=== PATIENT | male | born 1975 | race Caucasian/White ===

== ENCOUNTER 2018-06-27 19:09 | Inpatient (IN) ==
[2018-06-27] MEDS ORDERED: 0.9 % SODIUM CHLORIDE 2,000 ML IV ONE (19:27)
[2018-06-27] MEDS ORDERED: ONDANSETRON 4 MG/2 ML VIAL IV ONE (19:27)
[2018-06-27] MEDS ORDERED: INSULIN REGULAR, HUMAN 1 UNIT/0.01 ML UNIT IV ONE (20:11)
[2018-06-27] MEDS ORDERED: OSELTAMIVIR PHOSPHATE 75 MG CAPSULE PO ONE (20:19)
[2018-06-27 20:48] LABS: Basophils # (Auto) 0 K/mcL (0.0-0.3); Basophils % (Auto) 0.1 % (0.0-2.0); Eosinophils # (Auto) 0 K/mcL (0.0-0.7); Eosinophils % (Auto) 0 % (0.0-7.0); Granulocytes % (Auto) 92.4 % (38.0-78.0); Lymphocytes # (Auto) 1.1 K/mcL (1.5-4.8); Mean Cell Volume 89.4 fL (80.0-100.0); Mean Corpuscular HGB Conc 33.5 g/dL (31.0-36.0); Monocytes % (Auto) 3.5 % (1.0-12.0); Platelet Count 240 K/mcL (140-440); RBC 4.14 M/mcL (4.50-5.90); Red Cell Distribution Width 12.2 % (11.5-14.5)
[2018-06-27 21:13] LABS: ALT/SGPT 11 U/l (0-40); Albumin 3.4 gm/dL (3.2-5.2); Albumin/Globulin Ratio 0.9 (1.0-2.3); Alkaline Phosphatase 83 U/L (39-117); Blood Urea Nitrogen 14 mg/dl (6-20)
[2018-06-27] MEDS ORDERED: VANCOMYCIN 1,000 MG in 0.9 % SODIUM CHLORIDE 250 ML IV ONE (21:35)
[2018-06-27] MEDS ORDERED: CEFEPIME 1 GM VIAL IV ONE (21:36)
--- NOTE | 2018-06-27 21:45 | Emergency Department Note ---
General Adult HPI - General Chief complaint: Dizziness Stated complaint: cold flu, influenza, not improving, dizziness Time Seen by Provider: 06/27/18 19:17 Source: patient Mode of arrival: ambulatory Limitations: no limitations - History of Present Illness HPI Narrative: 42-year-old male comes back in for respiratory distress. I previously had seen him on 06/24/2018 when he had been diagnosed with influenza A and B as well as hyperosmolar nonketotic hyperglycemia-he is an insulin-dependent type 2 diabetic that had ran out of his insulin. Anyways I sent him home with prescriptions for insulin and Tamiflu which he says he is currently taking. Indeed his blood sugars are much better controlled today in the 300s. He complains today of significant weakness vertigo and fever. He is having trouble breathing feels like his chest is heavy. He does have some chest pain with inspiration as well. Denies nausea vomiting diarrhea - Related Data Home Medications Medication Instructions Recorded Confirmed metFORMIN HCL [Glucophage Xr] 1,000 mg PO BID 02/05/15 06/28/18 Atorvastatin [Lipitor] 40 mg PO HS 01/04/18 06/28/18 Fenofibrate Nanocrystallized 145 mg PO DAILY 01/04/18 06/28/18 [Fenofibrate] Insulin Aspart [Novolog Flexpen] See Protocol SQ ACHS 01/04/18 06/28/18 sitaGLIPtin [Januvia] 50 mg PO DAILY 01/04/18 06/28/18 HYDROcodone/ACETAMINOPHEN [[place] 1 each PO Q4 PRN 06/28/18 06/28/18 7.5-325 Tablet] Insulin Glargine,Hum.rec.anlog See Protocol SQ DAILY 06/28/18 06/28/18 [Basaglar Kwikpen U-100] Previous Rx's Medication Instructions Recorded Zolpidem [Ambien] 10 mg PO HSP PRN #20 tab 06/08/18 Oseltamivir Phosphate [Tamiflu] 75 mg PO BID #10 cap 06/24/18 Allergies Allergy/AdvReac Type Severity Reaction Status Date / Time No Known Drug Allergies Allergy Verified 06/27/18 19:12 Review of Systems All systems ED: reviewed and negative except as stated. Past Medical History - Past Medical History Attestation: Yes: The following information was validated with the patient. Medical history: Reports: DM (2; insulin using.), other (DENIES: chronic narcotics 06-08-18; pneumonia; pyelonephritis.). Denies: asthma, cancer, COPD, CVA, hypertension, hypothyroidism, myocardial infarction, renal disease Psychiatric history: Denies: anxiety, depression Surgical history ED: Reports: orthopedic, other, other (history of back surgery 5) - Social History smoking status: Current every day smoker Alcohol use: Reports: Rarely Drug use: Reports: none. Denies: marijuana Physical Exam Thin male resting. Globally weak and fatigued. Normocephalic atraumatic. Conjunctive are clear sclerae nonicteric. No nasal discharge or congestion. Oropharynx pink and moist. Neck is supple without lymphadenopathy thyromegaly. No carotid bruit. Heart is mild to tachycardic. Lungs are basically clear to auscultation but increased work of breathing is noted. Soft mildly tender to sleep. No point tenderness peritoneal signs or guarding. No pedal edema. +2 radial pulse. Alert oriented able to answer questions appropriately Limitations: no limitations Course Vital Signs Temperature 99.5 F H 06/27/18 19:10 Pulse Rate 133 H 06/27/18 19:10 Respiratory Rate 22 06/27/18 19:10 Blood Pressure 111/68 06/27/18 19:10 Pulse Oximetry (%) 93 06/27/18 19:10 Temperature 99.2 F H 06/28/18 07:00 Pulse Rate 103 H 06/28/18 10:28 Respiratory Rate 22 06/28/18 10:28 Blood Pressure 107/72 06/28/18 10:00 Pulse Oximetry (%) 94 06/28/18 10:28 Medical Decision Making - Lab Data Lab results reviewed: Yes I reviewed the patient's lab results. Result diagrams: 06/28/18 04:10 06/28/18 04:10 Lab Results 06/27/18 06/27/18 06/27/18 Range/Units 20:00 20:00 20:00 WBC 27.0 H (4.5-11.0) K/mcL RBC 4.14 L (4.50-5.90) M/mcL Hgb 12.4 L (13.5-16.5) g/dL Hct 37.1 L (41.0-55.0) % POC Hct 37.0 L (41.0-55.0) % MCV 89.4 (80.0-100.0) fL MCH 30.0 (26.0-34.0) pg MCHC 33.5 (31.0-36.0) g/dL RDW 12.2 (11.5-14.5) % Plt Count 240 (140-440) K/mcL MPV 10.0 (7.4-10.4) fL Gran % 92.4 H (38.0-78.0) % Lymph % (Auto) 4.0 L (15.5-49.0) % Steele % (Auto) 3.5 (1.0-12.0) % Eos % (Auto) 0 (0.0-7.0) % Baso % (Auto) 0.1 (0.0-2.0) % Gran # 25.0 H (1.8-8.0) K/mcL Lymph # (Auto) 1.1 L (1.5-4.8) K/mcL Steele # (Auto) 1.0 H (0.1-0.9) K/mcL Eos # (Auto) 0 (0.0-0.7) K/mcL Baso # (Auto) 0 (0.0-0.3) K/mcL Differential Comment VBG Lactic Acid 2.6 H (0.5-2.0) mmol/L POC Sodium 128 L (133-145) mmol/L Sodium 128 L (133-145) mmol/L POC Potassium 3.9 (3.3-5.1) mmol/L Potassium 3.8 (3.3-5.1) mmol/L POC Chloride 89 L (96-108) mmol/L Chloride 85 L (96-108) mmol/L Carbon Dioxide 24 (22-30) mmol/L POC Total CO2 22 (22-30) mmol/L Anion Gap 19.0 H (8-16) POC BUN 14 (6-20) mg/dl BUN 14 (6-20) mg/dl Creatinine 0.9 (0.7-1.2) mg/dl POC Creatinine 0.7 (0.7-1.2) mg/dl GFR Calculation 104 Glucose 340 H (70-105) mg/dL POC Glucose 327 H (70-105) mg/dL Calcium 8.8 (8.6-10.4) mg/dl POC WB Ioniz Calcium 1.03 L (1.16-1.32) mmol/L Total Bilirubin 0.7 (0.0-1.0) mg/dL AST 12 (0-37) U/l ALT 11 (0-40) U/l Alkaline Phosphatase 83 (39-117) U/L Troponin T (0-0.03) ng/ml Total Protein 7.1 (5.9-8.4) gm/dL Albumin 3.4 (3.2-5.2) gm/dL Globulin 3.7 (2.2-3.7) gm/dL Albumin/Globulin Ratio 0.9 L (1.0-2.3) Beta-Hydroxybutyrate (< 0.27) mmol/L Procalcitonin (<0.10) ng/mL Urine Color Urine Appearance Urine pH (5.0-9.0) Ur Specific [place] (1.000-1.035) Urine Protein (NEG) mg/dL Urine Glucose (UA) (NEG) mg/dL Urine Ketones (NEG) mg/dL Urine Occult Blood (<0.03) mg/dL Urine Nitrate (NEG) Urine Bilirubin (NEG) mg/dL Urine Urobilinogen (NEG) mg/dL Ur Leukocyte Esterase (NEG) /uL Urine RBC (0-1) /hpf Urine WBC (0-4) /hpf Ur Squamous Epith Cells (0-4) /hpf Urine Bacteria (0) /hpf Hyaline Casts (0-2) /lpf Urine Mucus (0) /hpf Ur Culture Indicated? 06/27/18 06/27/18 06/27/18 Range/Units 20:00 20:00 21:00 WBC (4.5-11.0) K/mcL RBC (4.50-5.90) M/mcL Hgb (13.5-16.5) g/dL Hct (41.0-55.0) % POC Hct (41.0-55.0) % MCV (80.0-100.0) fL MCH (26.0-34.0) pg MCHC (31.0-36.0) g/dL RDW (11.5-14.5) % Plt Count (140-440) K/mcL MPV (7.4-10.4) fL Gran % (38.0-78.0) % Lymph % (Auto) (15.5-49.0) % Steele % (Auto) (1.0-12.0) % Eos % (Auto) (0.0-7.0) % Baso % (Auto) (0.0-2.0) % Gran # (1.8-8.0) K/mcL Lymph # (Auto) (1.5-4.8) K/mcL Steele # (Auto) (0.1-0.9) K/mcL Eos # (Auto) (0.0-0.7) K/mcL Baso # (Auto) (0.0-0.3) K/mcL Differential Comment VBG Lactic Acid (0.5-2.0) mmol/L POC Sodium (133-145) mmol/L Sodium (133-145) mmol/L POC Potassium (3.3-5.1) mmol/L Potassium (3.3-5.1) mmol/L POC Chloride (96-108) mmol/L Chloride (96-108) mmol/L Carbon Dioxide (22-30) mmol/L POC Total CO2 (22-30) mmol/L Anion Gap (8-16) POC BUN (6-20) mg/dl BUN (6-20) mg/dl Creatinine (0.7-1.2) mg/dl POC Creatinine (0.7-1.2) mg/dl GFR Calculation Glucose (70-105) mg/dL POC Glucose (70-105) mg/dL Calcium (8.6-10.4) mg/dl POC WB Ioniz Calcium (1.16-1.32) mmol/L Total Bilirubin (0.0-1.0) mg/dL AST (0-37) U/l ALT (0-40) U/l Alkaline Phosphatase (39-117) U/L Troponin T < 0.01 (0-0.03) ng/ml Total Protein (5.9-8.4) gm/dL Albumin (3.2-5.2) gm/dL Globulin (2.2-3.7) gm/dL Albumin/Globulin Ratio (1.0-2.3) Beta-Hydroxybutyrate 1.70 H (< 0.27) mmol/L Procalcitonin 24.44 (<0.10) ng/mL Urine Color Urine Appearance Urine pH (5.0-9.0) Ur Specific [place] (1.000-1.035) Urine Protein (NEG) mg/dL Urine Glucose (UA) (NEG) mg/dL Urine Ketones (NEG) mg/dL Urine Occult Blood (<0.03) mg/dL Urine Nitrate (NEG) Urine Bilirubin (NEG) mg/dL Urine Urobilinogen (NEG) mg/dL Ur Leukocyte Esterase (NEG) /uL Urine RBC (0-1) /hpf Urine WBC (0-4) /hpf Ur Squamous Epith Cells (0-4) /hpf Urine Bacteria (0) /hpf Hyaline Casts (0-2) /lpf Urine Mucus (0) /hpf Ur Culture Indicated? 06/27/18 Range/Units 21:28 WBC (4.5-11.0) K/mcL RBC (4.50-5.90) M/mcL Hgb (13.5-16.5) g/dL Hct (41.0-55.0) % POC Hct (41.0-55.0) % MCV (80.0-100.0) fL MCH (26.0-34.0) pg MCHC (31.0-36.0) g/dL RDW (11.5-14.5) % Plt Count (140-440) K/mcL MPV (7.4-10.4) fL Gran % (38.0-78.0) % Lymph % (Auto) (15.5-49.0) % Steele % (Auto) (1.0-12.0) % Eos % (Auto) (0.0-7.0) % Baso % (Auto) (0.0-2.0) % Gran # (1.8-8.0) K/mcL Lymph # (Auto) (1.5-4.8) K/mcL Steele # (Auto) (0.1-0.9) K/mcL Eos # (Auto) (0.0-0.7) K/mcL Baso # (Auto) (0.0-0.3) K/mcL Differential Comment VBG Lactic Acid (0.5-2.0) mmol/L POC Sodium (133-145) mmol/L Sodium (133-145) mmol/L POC Potassium (3.3-5.1) mmol/L Potassium (3.3-5.1) mmol/L POC Chloride (96-108) mmol/L Chloride (96-108) mmol/L Carbon Dioxide (22-30) mmol/L POC Total CO2 (22-30) mmol/L Anion Gap (8-16) POC BUN (6-20) mg/dl BUN (6-20) mg/dl Creatinine (0.7-1.2) mg/dl POC Creatinine (0.7-1.2) mg/dl GFR Calculation Glucose (70-105) mg/dL POC Glucose (70-105) mg/dL Calcium (8.6-10.4) mg/dl POC WB Ioniz Calcium (1.16-1.32) mmol/L Total Bilirubin (0.0-1.0) mg/dL AST (0-37) U/l ALT (0-40) U/l Alkaline Phosphatase (39-117) U/L Troponin T (0-0.03) ng/ml Total Protein (5.9-8.4) gm/dL Albumin (3.2-5.2) gm/dL Globulin (2.2-3.7) gm/dL Albumin/Globulin Ratio (1.0-2.3) Beta-Hydroxybutyrate (< 0.27) mmol/L Procalcitonin (<0.10) ng/mL Urine Color Yellow Urine Appearance Clear Urine pH 5.0 (5.0-9.0) Ur Specific [place] 1.028 (1.000-1.035) Urine Protein 100 A (NEG) mg/dL Urine Glucose (UA) >=500 A (NEG) mg/dL Urine Ketones 80 A (NEG) mg/dL Urine Occult Blood 0.03 A (<0.03) mg/dL Urine Nitrate Neg (NEG) Urine Bilirubin Neg (NEG) mg/dL Urine Urobilinogen 2.0 A (NEG) mg/dL Ur Leukocyte Esterase Neg (NEG) /uL Urine RBC < 1 (0-1) /hpf Urine WBC 1 (0-4) /hpf Ur Squamous Epith Cells < 1 (0-4) /hpf Urine Bacteria 0 (0) /hpf Hyaline Casts 2 (0-2) /lpf Urine Mucus Few (0) /hpf Ur Culture Indicated? No ABG shows pH 7.51 PCO2 32 PO2 of 55 - Radiology Data Radiology results reviewed: Yes I reviewed the patient's radiology results. Bilateral bibasilar infiltrates noted on chest x-ray - EKG Data EKG #1 EKG attestation: Yes I reviewed and interpreted this EKG. EKG results narrative: EKG shows sinus tachycardia with a rate of 120 otherwise no change compared with 06/24/1999 Disposition Pt seen by BUSINESS OPERATIONS MANAGER/PA only: No Clinical Impression: Influenza A, Influenza B, Hyperosmolar non-ketotic state in patient with type 2 diabetes mellitus Sepsis Qualifiers: Sepsis type: sepsis due to unspecified organism Qualified Code(s): A41.9 - Sepsis, unspecified organism Summary: Significant orthostatic hypotension on testing. IV fluids started; culture sent Chest x-ray showed bilateral influenza pneumonia-given Tamiflu here. Chest x- ray compared to when he was here 4 days ago is significantly worse despite outpatient Tamiflu He is back in hyperosmolar hyperglycemia state with elevated anion gap now; lactic acidosis. sepsis as well. Given 5 units insulin He is significantly weaker today with trouble breathing. He has failed outpatient treatment I discussed the case with Dr. Gasca, hospitalist, who accepted the patient for further care and evaluation in the hospital Disposition: Xfer As Inpt ([facility]) Condition: Fair
[2018-06-27] MEDS ORDERED: LEVOFLOXACIN 750 MG/150 ML BAG IV ONE ×3 (21:52→23:01)
--- NOTE | 2018-06-27 21:59 | Internal Med History&Physical ---
Medical - H&P: HPI Patient information: Note initiated : 06/27/18 at 9:59 pm Service Date, if different from initiated Date: [] Patient: Al Escobar a 42 y/o M admitted on for cold flu, influenza, not improving, dizziness. Chief Complaint: [] History of present illness: Mr. Escobar is a 42 year old M with history of diabetes on insulin, presents to the emergency room for evaluation of lightheadedness and dizziness going on for 1 day. The patient notes that he was in the emergency room a few days ago, at that time he is been having symptoms of cough and shortness of breath and fatigue. He was diagnosed with influenza type A as well as type B, he was started on Tamiflu. The patient notes he has been taking Tamiflu. Since yesterday however he noted that his condition has been worsening, he has been dizzy and lightheaded. He therefore came to the emergency room for further evaluation. He notes that although he did not have subjective sensation of fever he was febrile on presentation, he admits to chills and Reiger's, no sweats positive nausea. The patient also has dry cough and shortness of breath on exertion. He denies any exertional chest pain, vomiting, bowel or bladder complaints. No new skin rashes or or joint pains. He does have chronic back pain. In the emergency room on presentation he had a low-grade temperature 99.5, heart rate 133 blood pressure 111/68, respirations 30-35, saturating 93% on room air. His white blood cell count is elevated at 27,000 hemoglobin 12.4 platelets 240, sodium 128 potassium 3.9 chloride 85 bicarb 24 anion gap 19 lactic acid 2.6, creatinine 0.9 glucose 327 troponin negative. Chest x-ray shows bilateral basilar pneumonia a chest x-ray done 3-4 days ago was negative Patient is being admitted to the hospital for further management, blood cultures have been ordered, vancomycin and levofloxacin have been ordered All systems: reviewed and no additional remarkable complaints except as stated (As per HPI is negative) Medical - H&P: PMH Medical history: Diabetes Chronic back pain Surgical history: Back surgery Pertinent family history: Father had history of diabetes Mother had history of cervical cancer Father history of stroke Social history: Patient is an active smoker, 1 pack/day for nearly 30 years Denies any alcohol use denies recreational drug use denies marijuana use Medical - H&P: Meds Home Medications Medication Instructions Recorded Confirmed Type metFORMIN HCL [Glucophage Xr] 1,000 mg PO BID 02/05/15 05/10/18 History Atorvastatin [Lipitor] 40 mg PO HS 01/04/18 05/10/18 History Fenofibrate Nanocrystallized 145 mg PO DAILY 01/04/18 05/10/18 History [Fenofibrate] Insulin Aspart [Novolog Flexpen] 18 unit SQ ACHS 01/04/18 05/10/18 History Insulin Glargine,Hum.rec.anlog 18 unit SQ ACHS 01/04/18 05/10/18 History [Basaglar Kwikpen U-100] sitaGLIPtin [Januvia] 50 mg PO DAILY 01/04/18 05/10/18 History Cyclobenzaprine [Flexeril] 10 mg PO ONCE 05/10/18 05/10/18 History HYDROcodone/ACETAMINOPHEN [[place] 1 each PO Q6H PRN #20 tab 05/10/18 Rx 7.5-325 Tablet] Zolpidem Tartrate [Ambien] 10 mg PO QHS #30 tab 05/10/18 Rx Zolpidem [Ambien] 10 mg PO HSP PRN #20 tab 06/08/18 Rx traMADol [Ultram] 50 - 100 mg PO Q4-6HP PRN #25 tab 06/08/18 Rx HYDROcodone/APAP 5/325MG [[place] 1 tab PO Q4HP PRN #8 tab 06/24/18 Rx 5-325Mg] Insulin Aspart [Novolog Flexpen] 100 unit SQ DAILY #1 insuln.pen 06/24/18 Rx Insulin Glargine,Hum.rec.anlog 100 unit SQ DAILY #1 insuln.pen 06/24/18 Rx [Basaglar Kwikpen U-100] Oseltamivir Phosphate [Tamiflu] 75 mg PO BID #10 cap 06/24/18 Rx Allergies Allergy/AdvReac Type Severity Reaction Status Date / Time No Known Drug Allergies Allergy Verified 06/27/18 19:12 Medical - H&P: Exam - Constitutional Vitals: Temp Pulse Resp BP Pulse Ox 99.5 F H 123 H 21 118/66 94 06/27/18 19:10 06/27/18 21:46 06/27/18 21:46 06/27/18 21:46 06/27/18 21:46 Exam: GENERAL: The patient is a well-developed, well-nourished in no apparent distress. Is alert and oriented x3. VITAL SIGNS: Reviewed and as noted elsewhere. HEENT: Head is normocephalic and atraumatic. Extraocular muscles are intact. Pupils are equal, round, and reactive to light. Nares appeared normal. Mouth appears any without lesions. NECK: Normal to inspection, Supple, No lymphadenopathy or thyromegaly. LUNGS: Pt is tachypenic, Air entry equal on both sides, no wheezing,no crackles,but bibasilar rales positive. No accessory muscles of respiration HEART: Regular rate and rhythm normal, S1 and S2 heard, no Gallop, S3 or Rub No krystal, No Gross murmur heard. ABDOMEN: Soft, nontender, and nondistended. Positive bowel sounds. No hepatosplenomegaly was noted. EXTREMITIES: No cyanosis, clubbing, rash, lesions or edema. NEUROLOGIC: Cranial nerves II through XII are grossly intact. Motor and Sensory System Grossly Intact PSYCHIATRIC: Normal affect, Normal Mood. Appropriate Behavior. SKIN: No ulceration or wounds noted, No jaundice, No rash noted. Medical - H&P: Reslt - Labs CBC & Chem 7: 06/27/18 20:00 06/27/18 20:00 Labs: Short CBC 06/27/18 Range/Units 20:00 WBC 27.0 H (4.5-11.0) K/mcL Hgb 12.4 L (13.5-16.5) g/dL Hct 37.1 L (41.0-55.0) % Plt Count 240 (140-440) K/mcL [facility] 06/27/18 20:00 Sodium 128 L Potassium 3.8 Chloride 85 L Carbon Dioxide 24 BUN 14 Creatinine 0.9 Glucose 340 H Calcium 8.8 Cardiac Enzymes 06/27/18 Range/Units 20:00 Troponin T < 0.01 (0-0.03) ng/ml Liver Function 06/27/18 Range/Units 20:00 Total Bilirubin 0.7 (0.0-1.0) mg/dL AST 12 (0-37) U/l ALT 11 (0-40) U/l Alkaline Phosphatase 83 (39-117) U/L Albumin 3.4 (3.2-5.2) gm/dL Medical - H&P: A/P - Narrative A/P Narrative: A/P Bilateral Pneumonia - Pt with influenzae, treat with vancomycin and levofloxacin, cultures sent de- escalate treatment according to sensitivity Influenzae type A and B -On Tamiflu Sepsis with lactic acidosis -Elevated lactate, elevated WBC patient tachypneic and tachycardic on presentation. Aggressive fluid resuscitation and antibiotics monitor on PCU status for now, trend lactic acid Diabetes Mellitus -Hold oral diabetes medications, sliding scale insulin and basal insulin for now Chronic Back pain -Resume home medications DVT -Heparin subcutaneous Full code Carb consistent diet
[2018-06-27 22:12] LABS: Appearance,Urine CLEAR; Bacteria,Urine 0 /hpf (0); Bilirubin,Urine NEG (NEG); Color,Urine YELLOW; Glucose,Urine (UA) >=500 mg/dL (NEG); Leukocyte Esterase,Urine NEG /uL (NEG); Mucus,Urine FEW /hpf (0); Protein,Urine 100 mg/dL (NEG); Specific Gravity,Urine 1.028 (1.000-1.035); Urine Blood 0.03 mg/dL (<0.03); Urine Hyaline Cast 2 /lpf (0-2); Urine RBC < 1 /hpf (0-1); Urine Squamous Epithelial Cell < 1 /hpf (0-4); Urine WBC 1 /hpf (0-4)
[2018-06-27] MEDS ORDERED: VANCOMYCIN PER PHARMACY IV ONE (22:56)
[2018-06-27] MEDS ORDERED: ACETAMINOPHEN 325 MG TABLET PO PRN (22:56)
[2018-06-27] MEDS ORDERED: SENNOSIDES 1 TABLET PO PRN (22:56)
[2018-06-27] MEDS ORDERED: LACTATED RINGERS 1,000 ML IV ONE ×2 (22:56)
[2018-06-27] MEDS ORDERED: ONDANSETRON 4 MG/2 ML VIAL IV PRN (22:56)
[2018-06-27] MEDS ORDERED: LEVOFLOXACIN 750 MG/150 ML BAG IV SCH (22:56)
[2018-06-27] MEDS ORDERED: DEXTROSE 50% 50 ML VIAL IV PRN (22:56)
[2018-06-27] MEDS ORDERED: DEXTROSE 31 GM ORAL.SUSP PO PRN (22:56)
[2018-06-27] MEDS ORDERED: NALOXONE HCL 0.4 MG/ML VIAL IV PRN (22:56)
[2018-06-27] MEDS ORDERED: ACETAMINOPHEN 1,000 MG/100 ML BOTTLE IV ONE (23:03)
[2018-06-27] MEDS: 0.9 % SODIUM CHLORIDE 10 ML SYRINGE IV SCH (23:46)
[2018-06-28] MEDS ORDERED: OLANZapine 10 MG VIAL IM SCH
[2018-06-28] MEDS ORDERED: HYDROcodone/APAP 5/325MG TABLET PO ONE ×2 (00:23→04:11)
[2018-06-28] MEDS: HYDROcodone/APAP 5/325MG TABLET PO PRN ×6 (00:24→21:37)
[2018-06-28] MEDS: LACTATED RINGERS 1,000 ML IV SCH ×4 (00:27→19:17)
--- NOTE | 2018-06-28 05:53 | XRay Report ---
CLINICAL INFORMATION: influenza, dizzyness, weakness, chest pain COMPARISON: 06/24/2018 FINDINGS: Heart size, mediastinum and pulmonary vessels are normal. Moderate bibasilar alveolar infiltrates appreciated. No effusions IMPRESSION: Moderate bibasilar infiltrates Interpreted and Authenticated by: Wing Valdovinos 06/28/18
[2018-06-28 06:05] LABS: Basophils # (Auto) 0 K/mcL (0.0-0.3); Basophils % (Auto) 0.1 % (0.0-2.0); Eosinophils # (Auto) 0 K/mcL (0.0-0.7); Eosinophils % (Auto) 0.1 % (0.0-7.0); Granulocytes % (Auto) 89.3 % (38.0-78.0); Lymphocytes # (Auto) 1.2 K/mcL (1.5-4.8); Lymphocytes % (Auto) 5.7 % (15.5-49.0); Mean Cell Volume 90.2 fL (80.0-100.0); Mean Corpuscular HGB Conc 33.7 g/dL (31.0-36.0); Monocytes % (Auto) 4.8 % (1.0-12.0); Platelet Count 202 K/mcL (140-440); RBC 3.46 M/mcL (4.50-5.90); Red Cell Distribution Width 12.5 % (11.5-14.5)
[2018-06-28 06:28] LABS: ALT/SGPT 9 U/l (0-40); Albumin 2.6 gm/dL (3.2-5.2); Albumin/Globulin Ratio 0.8 (1.0-2.3); Alkaline Phosphatase 73 U/L (39-117); Bilirubin,Direct < 0.2 mg/dL (0.0-0.3); Blood Urea Nitrogen 15 mg/dl (6-20); Gamma Glutamyl Transpeptidase 22 U/L (8-61); Uric Acid 3.8 mg/dL (2.5-8.0)
[2018-06-28] MEDS: 0.9 % SODIUM CHLORIDE 10 ML SYRINGE IV SCH ×3 (06:41→21:31)
[2018-06-28] MEDS ORDERED: INSULIN LISPRO 1 UNIT/0.01 ML UNIT SQ SCH (07:30)
[2018-06-28] MEDS ORDERED: VANCOMYCIN PER PHARMACY IV SCH ×2 (08:00→09:50)
[2018-06-28] MEDS ORDERED: MAGNESIUM SULFATE 2 GM/50 ML BAG IV ONE (08:46)
[2018-06-28] MEDS ORDERED: OSELTAMIVIR PHOSPHATE 75 MG CAPSULE PO SCH (09:00)
[2018-06-28] MEDS ORDERED: VANCOMYCIN 1,000 MG in 0.9 % SODIUM CHLORIDE 250 ML IV SCH (09:00)
[2018-06-28] MEDS ORDERED: INSULIN GLARGINE, HUMAN 1 UNIT/0.01 ML SQ SCH (09:00)
[2018-06-28] MEDS ORDERED: IPRATROPIUM/ALBUTEROL 3 ML AMPUL.NEB NEB SCH (09:19)
[2018-06-28] MEDS ORDERED: DEXTROSE 31 GM ORAL.SUSP PO PRN (09:50)
[2018-06-28] MEDS ORDERED: SENNOSIDES 1 TABLET PO PRN (09:50)
[2018-06-28] MEDS ORDERED: ACETAMINOPHEN 325 MG TABLET PO PRN (09:50)
[2018-06-28] MEDS ORDERED: DEXTROSE 50% 50 ML VIAL IV PRN (09:50)
[2018-06-28] MEDS ORDERED: NALOXONE HCL 0.4 MG/ML VIAL IV PRN (09:50)
[2018-06-28] MEDS ORDERED: ONDANSETRON 4 MG/2 ML VIAL IV PRN (09:50)
--- NOTE | 2018-06-28 11:52 | Internal Med Progress Note ---
Medical - PN: Subj Patient information: Note initiated : 06/28/18 at 11:48 am Service Date, if different from initiated Date: [] Patient: Al Escobar a 42 y/o M admitted on 06/27/18 for cold flu, influenza, not improving, dizziness. Chief Complaint: [] Interval history: Mr. Escobar is a 42 year old M with history of diabetes on insulin, presents to the emergency room for evaluation of lightheadedness and dizziness going on for 1 day. The patient notes that he was in the emergency room a few days ago, at that time he is been having symptoms of cough and shortness of breath and fatigue. He was diagnosed with influenza type A as well as type B, he was started on Tamiflu. The patient notes he has been taking Tamiflu. Since yesterday however he noted that his condition has been worsening, he has been dizzy and lightheaded. He therefore came to the emergency room for further evaluation. He notes that although he did not have subjective sensation of fever he was febrile on presentation, he admits to chills and Reiger's, no sweats positive nausea. The patient also has dry cough and shortness of breath on exertion. He denies any exertional chest pain, vomiting, bowel or bladder complaints. No new skin rashes or or joint pains. He does have chronic back pain. In the emergency room on presentation he had a low-grade temperature 99.5, heart rate 133 blood pressure 111/68, respirations 30-35, saturating 93% on room air. His white blood cell count is elevated at 27,000 hemoglobin 12.4 platelets 240, sodium 128 potassium 3.9 chloride 85 bicarb 24 anion gap 19 lactic acid 2.6, creatinine 0.9 glucose 327 troponin negative. Chest x-ray shows bilateral basilar pneumonia a chest x-ray done 3-4 days ago was negative Patient is being admitted to the hospital for further management, blood cultures have been ordered, vancomycin and levofloxacin have been ordered 2/3 Patient seen and examined, no acute overnight events, blood pressure stable, labs improved, patient lactic acidosis has resolved. He still has some chest pain on the right side of his chest otherwise no new complaints or concerns. Pertinent ROS: Denies headache, dizziness present chest pain Denies cough or shortness of breath Denies abdominal pain, nausea or vomiting. - Constitutional Vitals: Vital Signs Temp Pulse Resp BP Pulse Ox 99.2 F H 103 H 22 107/72 94 06/28/18 07:00 06/28/18 10:28 06/28/18 10:28 06/28/18 10:00 06/28/18 10:28 Period Temp Pulse Resp BP Sys/Kaplan Pulse Ox Last 24 Hr 98.8 F-103.8 F 95-133 19-37 95-139/62-91 89-98 Intake and Output 06/27/18 06/28/18 06/28/18 21:59 05:59 13:59 Intake Total 1999 2500 1273 Output Total 1500 Balance 1999 2500 -227 Weight 185 lb 162 lb 4.8 oz Intake & Output: Intake & Output 06/27/18 06/28/18 06/28/18 21:59 05:59 13:59 Intake Total 1999 2500 1273 Output Total 1500 Balance 1999 2500 -227 Weight 185 lb 162 lb 4.8 oz Intake: IV 1999 2500 1033 Sodium Chloride 0.9% 2,000 ml @ 2000 Wide Open IV .Q0M ONE Rx#: [id number] OFIRMEV 1,000 mg In 100 ml @ 0 100 mls/hr IV .STK-MED ONE Rx#: [id number] Lactated Ringers 1,000 ml @ 125 2000 983 mls/hr IV .Q8H [facility] Rx#: [id number] Vancomycin 1,000 mg In Sodium 250 Chloride 0.9% 250 ml @ 250 mls/ hr IV ONCE ONE Rx#:[id number] Oral 240 Output: Void Amount 1500 Other: Meal Breakfast Percent of Meal Consumed 50% Urine Appearance Clear Urine Color Straw Stool Size Large Stool Color Brown Stool Consistency Formed Cylindrical # Bowel Movements 1 Exam: Constitutional; Afebrile, cooperative, alert, not in distress. Respiratory system: Air Entry equal on both sides, bibasilar rhonchi CVS- Rate rhythm regular, S1,S2 heard, no gallop, no rub. Abdomen- Soft nontender abdomen, no organomegaly, no tenderness, no guarding or rigidity, VIDEO CLERK- AOOx3, moving all extremities, no gross focal deficit noted. Medical - PN: Obj Da - Labs CBC & Chem 7: 06/28/18 04:10 06/28/18 04:10 Labs: Abnormal Lab Results 06/28/18 06/28/1819 04:10 04:10 21:28 WBC 21.6 H RBC 3.46 L Hgb 10.5 L Hct 31.2 L POC Hct Gran % 89.3 H Lymph % (Auto) 5.7 L Gran # 19.3 H Lymph # (Auto) 1.2 L [place] # (Auto) 1.0 H VBG Lactic Acid POC Sodium Sodium 130 L POC Chloride Chloride 94 L Anion Gap Glucose 322 H POC Glucose Calcium 8.1 L POC WB Ioniz Calcium Phosphorus 2.4 L Magnesium 1.5 L Total Protein 5.8 L Albumin 2.6 L Albumin/Globulin Ratio 0.8 L Triglycerides 265 H Beta-Hydroxybutyrate Urine Protein 100 A Urine Glucose (UA) >=500 A Urine Ketones 80 A Urine Occult Blood 0.03 A Urine Urobilinogen 2.0 A 06/27/18 06/27/18 06/27/18 20:00 20:00 20:00 WBC RBC Hgb Hct POC Hct 37.0 L Gran % Lymph % (Auto) Gran # Lymph # (Auto) [place] # (Auto) VBG Lactic Acid 2.6 H POC Sodium 128 L Sodium 128 L POC Chloride 89 L Chloride 85 L Anion Gap 19.0 H Glucose 340 H POC Glucose 327 H Calcium POC WB Ioniz Calcium 1.03 L Phosphorus Magnesium Total Protein Albumin Albumin/Globulin Ratio 0.9 L Triglycerides Beta-Hydroxybutyrate 1.70 H Urine Protein Urine Glucose (UA) Urine Ketones Urine Occult Blood Urine Urobilinogen 06/27/18 20:00 WBC 27.0 H RBC 4.14 L Hgb 12.4 L Hct 37.1 L POC Hct Gran % 92.4 H Lymph % (Auto) 4.0 L Gran # 25.0 H Lymph # (Auto) 1.1 L [place] # (Auto) 1.0 H VBG Lactic Acid POC Sodium Sodium POC Chloride Chloride Anion Gap Glucose POC Glucose Calcium POC WB Ioniz Calcium Phosphorus Magnesium Total Protein Albumin Albumin/Globulin Ratio Triglycerides Beta-Hydroxybutyrate Urine Protein Urine Glucose (UA) Urine Ketones Urine Occult Blood Urine Urobilinogen Meds: Medications Acetaminophen (Tylenol) 650 mg PO Q4-6HP PRN PRN Reason: PAIN/FEVER > 101 Hydrocodone Bitart/Acetaminophen ([place] 5/325mg) 1 tab PO Q4HP PRN PRN Reason: pain not repsonding to apap Albuterol/Ipratropium (Duoneb) 3 ml NEB Q4HRT [facility] Atorvastatin Calcium (Lipitor) 40 mg PO HS [facility] Dextrose (Dextrose 50%) 0 ml IV UD PRN PRN Reason: Hypoglycemia Diagnostic Test (Pha) (Accu-Chek) 1 each FS ACHS [facility] Fenofibrate (Antara) 129 mg PO DAILY [facility] Glucose (Insta-Glucose) 15 gm PO PRN PRN PRN Reason: Hypoglycemia Lactated Ringer's (Lactated Ringers) 1,000 mls @ 125 mls/hr IV .Q8H [facility] Last Admin: 06/28/18 10:37 Dose: Not Given Documented by: Levofloxacin (Levaquin) 750 mg in 150 mls @ 100 mls/hr IV Q24H [facility] Vancomycin HCl 1,000 mg/ (Sodium Chloride) 250 mls @ 250 mls/hr IV Q12H [facility] Insulin Glargine (Lantus) 20 unit SQ BID [facility] Insulin Human Lispro (Humalog) 0 unit SQ ACHS [facility]; Protocol Naloxone HCl (Narcan) 0.1 mg IV Q2MIN PRN PRN Reason: Opiate Reversal Ondansetron HCl (Zofran) 4 mg IV Q4-6HP PRN PRN Reason: Nausea And Vomiting Oseltamivir Phosphate (Tamiflu) 75 mg PO BID [facility] Senna (Senokot) 2 tab PO HSP PRN PRN Reason: Constipation Sodium Chloride (Saline Flush) 10 ml IV Q8 [facility] Vancomycin HCl (Vancomycin Per Pharmacy) 1 order IV UD [facility] Zolpidem Tartrate (Ambien) 10 mg PO HSP PRN PRN Reason: Insomnia Medical - PN: A/P - Time Spent With Patient Total time spent is greater than 50% in coordination of care (as documented) at patient's floor/unit and/or counseling patient: - Narrative A/P Narrative: A/P Bilateral Pneumonia - Pt with influenzae, treat with vancomycin and levofloxacin, cultures sent de- escalate treatment according to sensitivity Influenzae type A and B -On Tamiflu Sepsis with lactic acidosis -sepsis syndrome improving, lactic acidosis resolved, Diabetes Mellitus -Hold oral diabetes medications, sliding scale insulin and basal insulin for now Chronic Back pain -Resume home medications Hypomagnesemia -replace DVT -Heparin subcutaneous Full code Carb consistent diet xfer to med surg status Medical - PN: Qual - VTE Deep Vein Thrombosis/Pulmonary Embolism Present on Admission: No
[2018-06-28] MEDS: INSULIN LISPRO 1 UNIT/0.01 ML UNIT SQ SCH ×3 (11:53→21:30)
[2018-06-28] MEDS: IPRATROPIUM/ALBUTEROL 3 ML AMPUL.NEB NEB SCH ×4 (11:58→23:16)
[2018-06-28] MEDS ORDERED: LEVOFLOXACIN 750 MG/150 ML BAG IV SCH (15:00)
[2018-06-28] MEDS: LEVOFLOXACIN 750 MG/150 ML BAG IV SCH (15:20)
[2018-06-28] MEDS: INSULIN GLARGINE, HUMAN 1 UNIT/0.01 ML SQ SCH (21:30)
[2018-06-28] MEDS: OSELTAMIVIR PHOSPHATE 75 MG CAPSULE PO SCH (21:31)
[2018-06-28] MEDS: ZOLPIDEM 5 MG TABLET PO PRN (21:31)
[2018-06-28] MEDS: ATORVASTATIN 20 MG TABLET PO SCH (21:31)
[2018-06-28] MEDS: VANCOMYCIN 1,000 MG in 0.9 % SODIUM CHLORIDE 250 ML IV SCH (21:37)
[2018-06-29] MEDS: LACTATED RINGERS 1,000 ML IV SCH ×6 (02:01→23:34)
[2018-06-29] MEDS: HYDROcodone/APAP 5/325MG TABLET PO PRN ×5 (03:04→19:36)
[2018-06-29] MEDS: IPRATROPIUM/ALBUTEROL 3 ML AMPUL.NEB NEB SCH ×6 (03:04→23:11)
[2018-06-29] MEDS: 0.9 % SODIUM CHLORIDE 10 ML SYRINGE IV SCH ×3 (04:03→20:43)
[2018-06-29 05:44] LABS: Basophils # (Auto) 0 K/mcL (0.0-0.3); Basophils % (Auto) 0.2 % (0.0-2.0); Eosinophils # (Auto) 0.1 K/mcL (0.0-0.7); Eosinophils % (Auto) 0.5 % (0.0-7.0); Granulocytes % (Auto) 80.1 % (38.0-78.0); Lymphocytes # (Auto) 1.3 K/mcL (1.5-4.8); Lymphocytes % (Auto) 12.5 % (15.5-49.0); Mean Cell Volume 90.9 fL (80.0-100.0); Mean Corpuscular HGB Conc 33.4 g/dL (31.0-36.0); Monocytes # (Auto) 0.7 K/mcL (0.1-0.9); Monocytes % (Auto) 6.7 % (1.0-12.0); Platelet Count 206 K/mcL (140-440); RBC 3.15 M/mcL (4.50-5.90); Red Cell Distribution Width 12.7 % (11.5-14.5)
[2018-06-29 06:26] LABS: ALT/SGPT 13 U/l (0-40); Albumin 2.7 gm/dL (3.2-5.2); Albumin/Globulin Ratio 0.8 (1.0-2.3); Alkaline Phosphatase 95 U/L (39-117); Bilirubin,Direct < 0.2 mg/dL (0.0-0.3); Blood Urea Nitrogen 11 mg/dl (6-20); Gamma Glutamyl Transpeptidase 29 U/L (8-61); Uric Acid 3.3 mg/dL (2.5-8.0)
[2018-06-29] MEDS: INSULIN LISPRO 1 UNIT/0.01 ML UNIT SQ SCH ×4 (06:59→19:41)
[2018-06-29] MEDS: OSELTAMIVIR PHOSPHATE 75 MG CAPSULE PO SCH ×2 (07:00→19:39)
[2018-06-29] MEDS: INSULIN GLARGINE, HUMAN 1 UNIT/0.01 ML SQ SCH (07:00)
[2018-06-29] MEDS: FENOFIBRATE 43 MG CAPSULE PO SCH (07:01)
[2018-06-29] MEDS ORDERED: POTASSIUM PHOSPHATE 40 MEQ in DEXTROSE 5% IN WATER 500 ML IV ONE (07:47)
[2018-06-29] MEDS: LEVOFLOXACIN 750 MG/150 ML BAG IV SCH (09:33)
[2018-06-29] MEDS ORDERED: VANCOMYCIN 1,500 MG in 0.9 % SODIUM CHLORIDE 500 ML IV SCH (10:00)
[2018-06-29] MEDS: VANCOMYCIN 1,000 MG in 0.9 % SODIUM CHLORIDE 250 ML IV SCH (10:19)
--- NOTE | 2018-06-29 11:21 | Cat Scan Report ---
CLINICAL INFORMATION: Pneumonia COMPARISON: Chest x-ray on 06/27/18 TECHNIQUE: 2.5 mm axial slices were obtained from the lung apices through the bases without intravenous contrast. Sagittal, coronal and axial reformatted images were processed and reviewed at bone, lung and soft tissue windows. 7 mm axial MIP images were also reconstructed. The radiation exposure was limited using dose reduction technology. FINDINGS: Patient has moderate bilateral pneumonia. There is minor involvement adjacent to the pleura posteriorly and medially in the right upper lobe. In the right middle lobe there is a moderate size zone consolidated lung parenchyma inferiorly and centrally with several air bronchograms. There is moderate consolidation posteriorly in the right lower lobe involving the posterior basilar segment. This also contains multiple air bronchograms. A large area of consolidated lung parenchyma is present posteriorly in the left lower lobe which also contains multiple air bronchograms. In the superior segment of the left lower lobe there is another zone of consolidated lung parenchyma with a few air bronchograms. There is sparing of the left upper lobe and lingula. Trace amount pleural fluid is present posteriorly in the right lower thorax. No enlarged lymph nodes are seen in this nonenhanced study. The heart size is normal. There are few calcified plaques in the coronary arteries. The aorta is normal in caliber. IMPRESSION: Moderate bilateral pneumonia with the greatest involvement in the lower lobes and right middle lobe. The extent of the pneumonia is much greater than was suspected on the prior chest x-ray. Interpreted and Authenticated by: Alex Navarrete 06/29/18
[2018-06-29] MEDS: HEPARIN 5,000 UNIT/ML VIAL SQ SCH ×2 (11:27→19:39)
[2018-06-29] MEDS: cefTRIAXone 2 GM in DEXTROSE 5% IN WATER 50 ML IV SCH (11:56)
--- NOTE | 2018-06-29 12:37 | Internal Med Progress Note ---
Medical - PN: Subj Patient information: Note initiated : 06/29/18 at 12:35 pm Service Date, if different from initiated Date: [] Patient: Al Escobar a 42 y/o M admitted on 06/27/18 for cold flu, influenza, not improving, dizziness. Chief Complaint: [] Interval history: Mr. Escobar is a 42 year old M with history of diabetes on insulin, presents to the emergency room for evaluation of lightheadedness and dizziness going on for 1 day. The patient notes that he was in the emergency room a few days ago, at that time he is been having symptoms of cough and shortness of breath and fatigue. He was diagnosed with influenza type A as well as type B, he was started on Tamiflu. The patient notes he has been taking Tamiflu. Since yesterday however he noted that his condition has been worsening, he has been dizzy and lightheaded. He therefore came to the emergency room for further evaluation. He notes that although he did not have subjective sensation of fever he was febrile on presentation, he admits to chills and Reiger's, no sweats positive nausea. The patient also has dry cough and shortness of breath on exertion. He denies any exertional chest pain, vomiting, bowel or bladder complaints. No new skin rashes or or joint pains. He does have chronic back pain. In the emergency room on presentation he had a low-grade temperature 99.5, heart rate 133 blood pressure 111/68, respirations 30-35, saturating 93% on room air. His white blood cell count is elevated at 27,000 hemoglobin 12.4 platelets 240, sodium 128 potassium 3.9 chloride 85 bicarb 24 anion gap 19 lactic acid 2.6, creatinine 0.9 glucose 327 troponin negative. Chest x-ray shows bilateral basilar pneumonia a chest x-ray done 3-4 days ago was negative Patient is being admitted to the hospital for further management, blood cultures have been ordered, vancomycin and levofloxacin have been ordered 2/3 Patient seen and examined, no acute overnight events, blood pressure stable, labs improved, patient lactic acidosis has resolved. He still has some chest pain on the right side of his chest otherwise no new complaints or concerns. 2/4 Patient seen and examined, no acute overnight events, feels much better. Labs are stable. Blood cultures positive gram-positive cocci also anaerobic bottles positive, Patient continues to be on vancomycin, I consulted infectious disease who advised to switch from levofloxacin to Rocephin. Advise a chest CT which was done. Repeat blood cultures pending echo ordered Pertinent ROS: Denies headache, dizziness Denies chest pain, palpitations Denies cough or shortness of breath Denies abdominal pain, nausea or vomiting. - Constitutional Vitals: Vital Signs Temp Pulse Resp BP Pulse Ox 98.9 F 95 H 16 118/66 97 06/29/18 11:30 06/29/18 11:44 06/29/18 11:44 06/29/18 11:30 06/29/18 11:30 Period Temp Pulse Resp BP Sys/Kaplan Pulse Ox Last 24 Hr 97.6 F-99.4 F 91-99 16-20 100-126/58-74 91-97 Intake and Output 06/28/18 06/29/18 06/29/18 21:59 05:59 13:59 Intake Total 1630 1240 240 Output Total 1000 500 Balance 1630 240 -260 Weight 168 lb 3 oz Intake & Output: Intake & Output 06/28/18 06/29/18 06/29/18 21:59 05:59 13:59 Intake Total 1630 1240 240 Output Total 1000 500 Balance 1630 240 -260 Weight 168 lb 3 oz Intake: IV 1150 1000 Lactated Ringers 1,000 ml @ 125 1000 mls/hr IV .Q8H [facility] [place] Rx#: [id number] Oral 480 240 240 Output: Void Amount 1000 500 Other: Meal Dinner Nourishment/Supplement Percent of Meal Consumed 100% 100% Feeding Ability Independent Independent Urine Appearance Clear Urine Color Dark Yellow Urine Odor Normal Stool Size Moderate Stool Color Brown Stool Consistency Normal for Patient Formed # Voids 1 1 # Bowel Movements 1 Exam: Constitutional; Afebrile, cooperative, alert, not in distress. Eyes- No icterus, , No periorbital swelling Ears- Ext ear normal, hearing normal to conversation. Neck- Midline trachea, supple Respiratory system: Air Entry equal on both sides, No crackles or wheezing, no rhonchi. CVS- Rate rhythm regular, S1,S2 heard, no gallop, no rub. Abdomen- Soft nontender abdomen, no organomegaly, no tenderness, no guarding or rigidity, NAVAL ENGINEER- AOOx3, moving all extremities, no gross focal deficit noted. Medical - PN: Obj Da - Labs CBC & Chem 7: 06/29/18 04:21 06/29/18 04:21 Labs: Abnormal Lab Results 06/29/18 06/29/18 06/28/18 04:21 04:21 04:10 WBC RBC 3.15 L Hgb 9.5 L Hct 28.6 L POC Hct Gran % 80.1 H Lymph % (Auto) 12.5 L Gran # 8.2 H Lymph # (Auto) 1.3 L [place] # (Auto) VBG Lactic Acid POC Sodium Sodium 130 L Potassium 3.2 L POC Chloride Chloride 94 L Anion Gap Creatinine 0.6 L Glucose 302 H 322 H POC Glucose Calcium 8.1 L 8.1 L POC WB Ioniz Calcium Phosphorus 1.6 L 2.4 L Magnesium 1.5 L Total Protein 5.8 L Albumin 2.7 L 2.6 L Albumin/Globulin Ratio 0.8 L 0.8 L Triglycerides 221 H 265 H Beta-Hydroxybutyrate Urine Protein Urine Glucose (UA) Urine Ketones Urine Occult Blood Urine Urobilinogen 06/28/18 06/27/18 06/27/18 04:10 21:28 20:00 WBC 21.6 H RBC 3.46 L Hgb 10.5 L Hct 31.2 L POC Hct Gran % 89.3 H Lymph % (Auto) 5.7 L Gran # 19.3 H Lymph # (Auto) 1.2 L [place] # (Auto) 1.0 H VBG Lactic Acid POC Sodium Sodium Potassium POC Chloride Chloride Anion Gap Creatinine Glucose POC Glucose Calcium POC WB Ioniz Calcium Phosphorus Magnesium Total Protein Albumin Albumin/Globulin Ratio Triglycerides Beta-Hydroxybutyrate 1.70 H Urine Protein 100 A Urine Glucose (UA) >=500 A Urine Ketones 80 A Urine Occult Blood 0.03 A Urine Urobilinogen 2.0 A 06/27/18 06/27/18 06/27/18 20:00 20:00 20:00 WBC 27.0 H RBC 4.14 L Hgb 12.4 L Hct 37.1 L POC Hct 37.0 L Gran % 92.4 H Lymph % (Auto) 4.0 L Gran # 25.0 H Lymph # (Auto) 1.1 L [place] # (Auto) 1.0 H VBG Lactic Acid 2.6 H POC Sodium 128 L Sodium 128 L Potassium POC Chloride 89 L Chloride 85 L Anion Gap 19.0 H Creatinine Glucose 340 H POC Glucose 327 H Calcium POC WB Ioniz Calcium 1.03 L Phosphorus Magnesium Total Protein Albumin Albumin/Globulin Ratio 0.9 L Triglycerides Beta-Hydroxybutyrate Urine Protein Urine Glucose (UA) Urine Ketones Urine Occult Blood Urine Urobilinogen Meds: Medications Acetaminophen (Tylenol) 650 mg PO Q4-6HP PRN PRN Reason: PAIN/FEVER > 101 Hydrocodone Bitart/Acetaminophen ([place] 5/325mg) 1 tab PO Q4HP PRN PRN Reason: pain not repsonding to apap Last Admin: 06/29/18 11:28 Dose: 1 tab Documented by: Albuterol/Ipratropium (Duoneb) 3 ml NEB Q4HRT [facility] Last Admin: 06/29/18 11:36 Dose: 3 ml Documented by: Atorvastatin Calcium (Lipitor) 40 mg PO HS [facility] Last Admin: 06/28/18 21:31 Dose: 40 mg Documented by: Dextrose (Dextrose 50%) 0 ml IV UD PRN PRN Reason: Hypoglycemia Diagnostic Test (Pha) (Accu-Chek) 1 each FS ACHS [facility] Last Admin: 06/29/18 11:21 Dose: 1 each Documented by: Fenofibrate (Antara) 129 mg PO DAILY [facility] Last Admin: 06/29/18 07:01 Dose: 129 mg Documented by: Glucose (Insta-Glucose) 15 gm PO PRN PRN PRN Reason: Hypoglycemia Heparin Sodium (Porcine) (Heparin) 5,000 unit SQ Q12 [facility] Last Admin: 06/29/18 11:27 Dose: 5,000 unit Documented by: Lactated Ringer's (Lactated Ringers) 1,000 mls @ 125 mls/hr IV .Q8H [facility] Last Admin: 06/29/18 10:19 Dose: Not Given Documented by: Vancomycin HCl 1,500 mg/ (Sodium Chloride) 500 mls @ 333.3 mls/hr IV Q12H [facility] Last Admin: 06/29/18 10:18 Dose: 333.3 mls/hr Documented by: Ceftriaxone Sodium 2 gm/ (Dextrose) 50 mls @ 100 mls/hr IV Q24H [facility] [place] Last Admin: 06/29/18 11:56 Dose: 100 mls/hr Documented by: Insulin Glargine (Lantus) 20 unit SQ BID [facility] Last Admin: 06/29/18 07:00 Dose: 20 unit Documented by: Insulin Human Lispro (Humalog) 0 unit SQ [facility]; Protocol Last Admin: 06/29/18 11:27 Dose: 6 unit Documented by: Naloxone HCl (Narcan) 0.1 mg IV Q2MIN PRN PRN Reason: Opiate Reversal Ondansetron HCl (Zofran) 4 mg IV Q4-6HP PRN PRN Reason: Nausea And Vomiting Oseltamivir Phosphate (Tamiflu) 75 mg PO BID [facility] Last Admin: 06/29/18 07:00 Dose: 75 mg Documented by: Senna (Senokot) 2 tab PO HSP PRN PRN Reason: Constipation Sodium Chloride (Saline Flush) 10 ml IV Q8 [facility] Last Admin: 06/29/18 04:03 Dose: Not Given Documented by: Vancomycin HCl (Vancomycin Per Pharmacy) 1 order IV [facility] Zolpidem Tartrate (Ambien) 10 mg PO HSP PRN PRN Reason: Insomnia Last Admin: 06/28/18 21:31 Dose: 10 mg Documented by: Medical - PN: A/P - Time Spent With Patient Total time spent is greater than 50% in coordination of care (as documented) at patient's floor/unit and/or counseling patient: - Narrative A/P Narrative: A/P Bilateral Pneumonia - Pt with influenzae, treat with vancomycin and rochepin Gram positive Bactermia -strep pneumonae -anerobic positive -Infectious disease consulted -echo ordered, CT chest ordered -pt on vanco and rocephin per ID Influenzae type A and B -On Tamiflu Sepsis with lactic acidosis -sepsis syndrome improving, lactic acidosis resolved, Diabetes Mellitus -Hold oral diabetes medications, sliding scale insulin and basal insulin for now, increaase lantus to 25bid, med scale ssi Chronic Back pain -Resume home medications Hypokalemia and Hypophosphatemia -replace DVT -Heparin subcutaneous Full code Carb consistent diet xfer to med surg status Medical - PN: Qual - VTE Deep Vein Thrombosis/Pulmonary Embolism Present on Admission: No
--- NOTE | 2018-06-29 16:01 | Infectious Disease Consult ---
History of Present Illness Patient information: Note initiated : 06/29/18 at 3:57 pm Service Date, if different from initiated Date: [] Patient: Al Escobar 42 y/o M admitted on 06/27/18 for cold flu, influenza, not improving, dizziness. Chief Complaint: [] Consult date: 06/29/18 Requesting Physician: Bradford Gasca Reason for Consult: Strept pneumo bacteremia. Pneumonia in setting of recent influenza infection History of present illness: Pt is a 42 year old man with past medical history pertinent for: -diabetes on insulin -chronic back pain with history of multiple back surgeries Patient has been sick for last 2 weeks. He was seen on 06/24/18 in the ED at [facility] and was found to have influenza A and B along with hyperosmolar nonketotic hyperglycemia [as he had ran out of his insulin]. Patient was prescribed Tamiflu and sent home. Patient did not feel better after going home and started noticing fevers, chills, dizziness, shortness of breath, chest heaviness. He was readmitted on 06/27/18 due to concerns for pneumonia. In the ED, his temperature was 99.5 F, HR 133, blood pressure 111/68, RR 22, saturating 93% on room air. His white blood cell count was 27,000; lactic acid 2.6, creatinine 0.9. Chest x-ray showed bilateral basilar pneumonia compared to chest x-ray done 3-4 days ago. Blood cultures were sent and patient was started on IV vancomycin and levofloxacin. Since 06/27/18, patient has improved significantly in terms of clinical symptoms, labs with normalization of lactic acidosis and white cell count trending down to 10.2. Patient's blood cultures grew Streptococcus pneumoniae [based on PCR-based testing]. At time of my visit today, patient reported feeling better. He still had some body aches but denied any shortness of breath, chest pain, fever, chills. He d enied any nausea, vomiting, diarrhea had been tolerating IV antibiotics well. When asked about if he was vaccinated for flu, he mentioned that he did not get a flu shot in the last 20 years as he thought he was healthy. Review of Systems All systems PM: reviewed and no additional remarkable complaints except as stated Past History Past family history: Father had diabetes and stroke Mother had cervical cancer Past social history: When I asked him patient denies any smoking, alcohol use, using any drugs. Chart review suggests that he has been smoking about 1 pack/day for last 30 years Medications and Allergies Home Medications Medication Instructions Recorded Confirmed Type metFORMIN HCL [Glucophage Xr] 1,000 mg PO BID 02/05/15 06/28/18 History Atorvastatin [Lipitor] 40 mg PO HS 01/04/18 06/28/18 History Fenofibrate Nanocrystallized 145 mg PO DAILY 01/04/18 06/28/18 History [Fenofibrate] Insulin Aspart [Novolog Flexpen] See Protocol SQ ACHS 01/04/18 06/28/18 History sitaGLIPtin [Januvia] 50 mg PO DAILY 01/04/18 06/28/18 History Zolpidem [Ambien] 10 mg PO HSP PRN #20 tab 06/08/18 06/28/18 Rx Oseltamivir Phosphate [Tamiflu] 75 mg PO BID #10 cap 06/24/18 06/28/18 Rx HYDROcodone/ACETAMINOPHEN [[place] 1 each PO Q4 PRN 06/28/18 06/28/18 History 7.5-325 Tablet] Insulin Glargine,Hum.rec.anlog See Protocol SQ DAILY 06/28/18 06/28/18 History [Basaglar Kwikpen U-100] Allergies Allergy/AdvReac Type Severity Reaction Status Date / Time No Known Drug Allergies Allergy Verified 06/27/18 19:12 Physical Examination Vital signs: Temp Pulse Resp BP Pulse Ox 36.3 C 95 H 16 112/60 96 06/29/18 15:36 06/29/18 15:36 06/29/18 15:36 06/29/18 15:36 06/29/18 15:36 General appearance: no acute distress Eyes pulmonary: nonicteric Auscultation: bilateral: diminished breath sounds (At bases, rest with good air entry) Cardiovascular: regular rate and rhythm Gastrointestinal: normoactive bowel sounds, soft Extremities: no edema Has some healed scars on both forearms Results - Laboratory Findings CBC and BMP: 06/29/18 04:21 06/29/18 04:21 Abnormal lab findings: Abnormal Labs 06/27/18 06/27/18 06/27/18 20:00 20:00 20:00 WBC 27.0 H RBC 4.14 L Hgb 12.4 L Hct 37.1 L POC Hct 37.0 L Gran % 92.4 H Lymph % (Auto) 4.0 L Gran # 25.0 H Lymph # (Auto) 1.1 L Ashley # (Auto) 1.0 H VBG Lactic Acid 2.6 H POC Sodium 128 L Sodium 128 L Potassium POC Chloride 89 L Chloride 85 L Anion Gap 19.0 H Creatinine Glucose 340 H POC Glucose 327 H Calcium POC WB Ioniz Calcium 1.03 L Phosphorus Magnesium Total Protein Albumin Albumin/Globulin Ratio 0.9 L Triglycerides Beta-Hydroxybutyrate Urine Protein Urine Glucose (UA) Urine Ketones Urine Occult Blood Urine Urobilinogen 06/27/18 06/27/18 06/28/18 20:00 21:28 04:10 WBC 21.6 H RBC 3.46 L Hgb 10.5 L Hct 31.2 L POC Hct Gran % 89.3 H Lymph % (Auto) 5.7 L Gran # 19.3 H Lymph # (Auto) 1.2 L Ashley # (Auto) 1.0 H VBG Lactic Acid POC Sodium Sodium Potassium POC Chloride Chloride Anion Gap Creatinine Glucose POC Glucose Calcium POC WB Ioniz Calcium Phosphorus Magnesium Total Protein Albumin Albumin/Globulin Ratio Triglycerides Beta-Hydroxybutyrate 1.70 H Urine Protein 100 A Urine Glucose (UA) >=500 A Urine Ketones 80 A Urine Occult Blood 0.03 A Urine Urobilinogen 2.0 A 06/28/18 06/29/18 06/29/18 04:10 04:21 04:21 WBC RBC 3.15 L Hgb 9.5 L Hct 28.6 L POC Hct Gran % 80.1 H Lymph % (Auto) 12.5 L Gran # 8.2 H Lymph # (Auto) 1.3 L Ashley # (Auto) VBG Lactic Acid POC Sodium Sodium 130 L Potassium 3.2 L POC Chloride Chloride 94 L Anion Gap Creatinine 0.6 L Glucose 322 H 302 H POC Glucose Calcium 8.1 L 8.1 L POC WB Ioniz Calcium Phosphorus 2.4 L 1.6 L Magnesium 1.5 L Total Protein 5.8 L Albumin 2.6 L 2.7 L Albumin/Globulin Ratio 0.8 L 0.8 L Triglycerides 265 H 221 H Beta-Hydroxybutyrate Urine Protein Urine Glucose (UA) Urine Ketones Urine Occult Blood Urine Urobilinogen Microbiology: Microbiology 06/28/18 14:58 Blood Blood Culture - Preliminary 06/28/18 14:53 Blood Blood Culture - Preliminary 06/27/18 21:56 Blood Blood Culture - Preliminary Presumptive strep.pneumoniae 06/27/18 22:00 Blood Blood Culture - Preliminary Gram positive cocci 06/27/18 23:39 Nose MRSA (PCR) - Final Assessment and Plan - Narrative A/P Narrative: Assessment: 1. Streptococcus pneumoniae bacteremia: Secondary to pneumococcal pneumonia -TTE on 06/28/18 negative for any obvious vegetations or signs of infective endocarditis 2. Bilateral pneumonia [based on CT] secondary to Streptococcus pneumoniae, in light of recent influenza a and B infection 3. Sepsis: Secondary to (1) and (2); resolved 4. Type 2 diabetes: Still with blood sugars in 300s Recommendations: Stop IV vancomycin Continue IV ceftriaxone 2 g every 24 hours Once sensitivities available [likely to be available on 07/01/18], patient could be switched to a single agent. I am anticipating that Streptococcus pneumoniae isolate would be sensitive to fluoroquinolones and patient could be discharged on oral fluoroquinolone therapy to complete a 2-week treatment course Continue Tamiflu to finish a 5-day course Diabetes management per primary team We will follow Chato Ornelas MD Infectious disease
[2018-06-29] MEDS: ATORVASTATIN 20 MG TABLET PO SCH (19:38)
[2018-06-29] MEDS: ZOLPIDEM 5 MG TABLET PO PRN (19:49)
[2018-06-29] MEDS ORDERED: INSULIN GLARGINE, HUMAN 1 UNIT/0.01 ML SQ SCH (21:00)
[2018-06-30] MEDS: HYDROcodone/APAP 5/325MG TABLET PO PRN ×5 (01:25→19:39)
[2018-06-30] MEDS: IPRATROPIUM/ALBUTEROL 3 ML AMPUL.NEB NEB SCH ×3 (03:23→11:03)
[2018-06-30 06:37] LABS: Basophils # (Auto) 0 K/mcL (0.0-0.3); Basophils % (Auto) 0.3 % (0.0-2.0); Eosinophils # (Auto) 0.1 K/mcL (0.0-0.7); Granulocytes % (Auto) 66.2 % (38.0-78.0); Lymphocytes # (Auto) 1.3 K/mcL (1.5-4.8); Mean Cell Volume 90.5 fL (80.0-100.0); Mean Corpuscular HGB Conc 33.3 g/dL (31.0-36.0); Monocytes # (Auto) 0.5 K/mcL (0.1-0.9); Monocytes % (Auto) 8.5 % (1.0-12.0); Platelet Count 191 K/mcL (140-440); RBC 2.85 M/mcL (4.50-5.90); Red Cell Distribution Width 12.7 % (11.5-14.5)
[2018-06-30 07:03] LABS: ALT/SGPT 56 U/l (0-40); Albumin 2.4 gm/dL (3.2-5.2); Albumin/Globulin Ratio 0.8 (1.0-2.3); Alkaline Phosphatase 195 U/L (39-117); Bilirubin,Direct < 0.2 mg/dL (0.0-0.3); Blood Urea Nitrogen 7 mg/dl (6-20); Gamma Glutamyl Transpeptidase 124 U/L (8-61); Uric Acid 2.5 mg/dL (2.5-8.0)
[2018-06-30] MEDS: cefTRIAXone 2 GM in DEXTROSE 5% IN WATER 50 ML IV SCH (07:35)
[2018-06-30] MEDS: 0.9 % SODIUM CHLORIDE 10 ML SYRINGE IV SCH ×3 (07:38→20:50)
[2018-06-30] MEDS: INSULIN LISPRO 1 UNIT/0.01 ML UNIT SQ SCH ×4 (07:54→19:47)
[2018-06-30] MEDS ORDERED: POTASSIUM CHLORIDE 20 MEQ PACKET PO ONE (08:05)
[2018-06-30] MEDS: LACTATED RINGERS 1,000 ML IV SCH (08:12)
--- NOTE | 2018-06-30 08:24 | Infectious Disease Prog Note ---
Subjective Patient information: Note initiated : 06/30/18 at 8:22 am Service Date, if different from initiated Date: [] Patient: Al Escobar 42 y/o M admitted on 06/27/18 for cold flu, influenza, not improving, dizziness. Chief Complaint: [] Interval history: Pt is doing better. Reports getting back to his baseline. Denied any fevers, chills, n/v, diarrhea, shortness of breath, abd pain. Endorses dry cough. Objective Objective Narrative: ao x 3, in nad chest cta with vesicular breath sounds s1 s2 normal bs ++, nttd, no guarding, soft no edema - Vital Signs Vital signs: Vital Signs Temp Pulse Pulse Resp BP Pulse Ox 06/30/18 08:07 37.2 C 88 18 128/68 96 06/30/18 07:48 80 18 95 06/30/18 07:47 80 18 06/30/18 04:00 36.9 C 95 H 18 115/76 95 06/29/18 23:37 36.9 C 89 18 112/70 96 06/29/18 19:20 36.9 C 90 89 20 114/74 95 06/29/18 15:36 36.3 C 95 H 16 112/60 96 06/29/18 15:15 99 H 18 06/29/18 11:44 95 H 16 06/29/18 11:30 37.2 C 95 H 16 118/66 97 Intake and Output 06/29/18 06/30/18 06/30/18 21:59 05:59 13:59 Intake Total 1100 1350 1050 Output Total 680 1100 Balance 086 483 3783 Intake: IV 1000 1050 Lactated Ringers 1,000 ml @ 125 1000 1000 mls/hr IV .Q8H [facility] Rx#: [id number] Rocephin 2 gm In Dextrose 5% in 50 Water 50 ml @ 100 mls/hr IV Q24H [facility] Rx#:[id number] Oral 1100 350 Output: Void Amount 680 1100 Other: Meal Soup, crackers(4), ice cream Percent of Meal Consumed 100% Feeding Ability Independent Urine Appearance Clear Clear Urine Color Straw Straw Urine Odor Normal Normal Stool Size Small Stool Color Brown Stool Consistency Normal for Patient Formed # Bowel Movements 1 Weight 76.43 kg Intake & Output: Intake & Output 06/29/18 06/30/1819 21:59 05:59 13:59 Intake Total 1100 1350 1050 Output Total 680 1100 Balance 731 276 6386 Weight 76.43 kg Intake: IV 1000 1050 Lactated Ringers 1,000 ml @ 125 1000 1000 mls/hr IV .Q8H [facility] Rx#: [id number] Rocephin 2 gm In Dextrose 5% in 50 Water 50 ml @ 100 mls/hr IV Q24H [facility] Rx#:[id number] Oral 1100 350 Output: Void Amount 680 1100 Other: Meal Soup, crackers(4), ice cream Percent of Meal Consumed 100% Feeding Ability Independent Urine Appearance Clear Clear Urine Color Straw Straw Urine Odor Normal Normal Stool Size Small Stool Color Brown Stool Consistency Normal for Patient Formed # Bowel Movements 1 - General Appearance General appearance: well-developed - Lab 06/30/18 05:07 06/30/18 05:07 Most recent lab results Calcium 8.1 mg/dl (8.6-10.4) L 06/30/18 05:07 Phosphorus 2.4 mg/dL (2.7-4.5) L 06/30/18 05:07 Magnesium 1.6 mg/dL (1.6-2.5) 06/30/18 05:07 Microbiology 06/28/18 14:58 Blood Blood Culture - Preliminary 06/28/18 14:53 Blood Blood Culture - Preliminary 06/27/18 21:56 Blood Blood Culture - Preliminary Presumptive strep.pneumoniae 06/27/18 22:00 Blood Blood Culture - Preliminary Gram positive cocci 06/27/18 23:39 Nose MRSA (PCR) - Final Medications Active Medications: Acetaminophen (Tylenol) 650 mg PO Q4-6HP PRN PRN Reason: PAIN/FEVER > 101 Last Admin: 06/29/18 13:54 Dose: 650 mg Documented by: [email or web address] Hydrocodone Bitart/Acetaminophen ([place] 5/325mg) 1 tab PO Q4HP PRN PRN Reason: pain not repsonding to apap Last Admin: 06/30/18 06:35 Dose: 1 tab Documented by: [email or web address] Admin: 06/30/18 01:25 Dose: 1 tab Documented by: [email or web address] Admin: 06/29/18 19:36 Dose: 1 tab Documented by: [email or web address] Admin: 06/29/18 15:35 Dose: 1 tab Documented by: Admin: 06/29/18 11:28 Dose: 1 tab Documented by: Admin: 06/29/18 06:59 Dose: 1 tab Documented by: Admin: 06/29/18 03:04 Dose: 1 tab Documented by: Admin: 06/28/18 21:37 Dose: 1 tab Documented by: Admin: 06/28/18 16:17 Dose: 1 tab Documented by: Admin: 06/28/18 12:11 Dose: 1 tab Documented by: [email or web address] Albuterol/Ipratropium (Duoneb) 3 ml NEB Q4HRT [facility] Last Admin: 06/30/18 07:29 Dose: 3 ml Documented by: [email or web address] Admin: 06/30/18 03:23 Dose: 3 ml Documented by: Admin: 06/29/18 23:11 Dose: Not Given Documented by: WOODY Non-Admin Reason: Patient Asleep Admin: 06/29/18 19:20 Dose: 3 ml Documented by: Admin: 06/29/18 15:15 Dose: 3 ml Documented by: Admin: 06/29/18 11:36 Dose: 3 ml Documented by: [email or web address] Admin: 06/29/18 07:49 Dose: 3 ml Documented by: [email or web address] Admin: 06/29/18 03:04 Dose: 3 ml Documented by: Admin: 06/28/18 23:16 Dose: Not Given Documented by: [email or web address] Non-Admin Reason: Patient Asleep Admin: 06/28/18 19:27 Dose: 3 ml Documented by: Admin: 06/28/18 14:56 Dose: 3 ml Documented by: Admin: 06/28/18 11:58 Dose: Not Given Documented by: [email or web address] Non-Admin Reason: GIVEN AT 1000 Atorvastatin Calcium (Lipitor) 40 mg PO HS [facility] Last Admin: 06/29/18 19:38 Dose: 40 mg Documented by: [email or web address] Admin: 06/28/18 21:31 Dose: 40 mg Documented by: EUGENE Dextrose (Dextrose 50%) 0 ml IV UD PRN PRN Reason: Hypoglycemia Diagnostic Test (Pha) (Accu-Chek) 1 each FS ACHS [facility] Last Admin: 06/30/18 07:44 Dose: 1 each Documented by: Admin: 06/29/18 19:40 Dose: 1 each Documented by: Admin: 06/29/18 16:14 Dose: 1 each Documented by: Admin: 06/29/18 11:21 Dose: 1 each Documented by: Admin: 06/29/18 06:51 Dose: 1 each Documented by: Admin: 06/28/18 21:30 Dose: 1 each Documented by: Admin: 06/28/18 16:01 Dose: 1 each Documented by: Admin: 06/28/18 11:53 Dose: 1 each Documented by: [email or web address] Fenofibrate (Antara) 129 mg PO DAILY [facility] Last Admin: 06/29/18 07:01 Dose: 129 mg Documented by: THERESA Glucose (Insta-Glucose) 15 gm PO PRN PRN PRN Reason: Hypoglycemia Heparin Sodium (Porcine) (Heparin) 5,000 unit SQ Q12 [facility] Last Admin: 06/29/18 19:39 Dose: 5,000 unit Documented by: Admin: 06/29/18 11:27 Dose: 5,000 unit Documented by: THERESA Ceftriaxone Sodium 2 gm/ (Dextrose) 50 mls @ 100 mls/hr IV Q24H [facility] Last Infusion: 06/30/18 08:12 Dose: 0 mls/hr Documented by: [email or web address] Admin: 06/30/18 07:35 Dose: 100 mls/hr Documented by: Infusion: 06/29/18 13:06 Dose: 0 mls/hr Documented by: Admin: 06/29/18 11:56 Dose: 100 mls/hr Documented by: THERESA Insulin Glargine (Lantus) 30 unit SQ BID [facility] Insulin Human Lispro (Humalog) 0 unit SQ ACHS [facility]; Protocol Naloxone HCl (Narcan) 0.1 mg IV Q2MIN PRN PRN Reason: Opiate Reversal Ondansetron HCl (Zofran) 4 mg IV Q4-6HP PRN PRN Reason: Nausea And Vomiting Oseltamivir Phosphate (Tamiflu) 75 mg PO BID [facility] Last Admin: 06/29/18 19:39 Dose: 75 mg Documented by: Admin: 06/29/18 07:00 Dose: 75 mg Documented by: Admin: 06/28/18 21:31 Dose: 75 mg Documented by: EUGENE Senna (Senokot) 2 tab PO HSP PRN PRN Reason: Constipation Sodium Chloride (Saline Flush) 10 ml IV Q8 [facility] Last Admin: 06/30/18 07:38 Dose: 10 ml Documented by: [email or web address] Admin: 06/29/18 20:43 Dose: Not Given Documented by: DOMINGA Non-Admin Reason: Continuous IV Admin: 06/29/18 13:06 Dose: Not Given Documented by: THERESA Non-Admin Reason: Bag Still Infusing Admin: 06/29/18 04:03 Dose: Not Given Documented by: EUGENE Non-Admin Reason: Continuous IV Admin: 06/28/18 21:31 Dose: Not Given Documented by: EUGENE Non-Admin Reason: Continuous IV Admin: 06/28/18 12:11 Dose: Not Given Documented by: THERESA Non-Admin Reason: Continuous IV Zolpidem Tartrate (Ambien) 10 mg PO HSP PRN PRN Reason: Insomnia Last Admin: 06/29/18 19:49 Dose: 10 mg Documented by: Admin: 06/28/18 21:31 Dose: 10 mg Documented by: EUGENE Assessment and Plan - Narrative A/P Narrative: Assessment: 1. Streptococcus pneumoniae bacteremia: Secondary to pneumococcal pneumonia -TTE on 06/28/18 negative for any obvious vegetations or signs of infective endocarditis - repeat blood Cx 06/28/18 are NGTD 2. Bilateral pneumonia [based on CT] secondary to Streptococcus pneumoniae, in light of recent influenza a and B infection 3. Sepsis: Secondary to (1) and (2); resolved 4. Type 2 diabetes: Still with blood sugars in 300s 5. Elevated liver enzymes: AST, ALT, ALP, GGT are all elevated - Could be secondary to biliary tract pathology, drug-mediated [Ceftriaxone can cause elevated liver enzymes in 3% of patients] Recommendations: Continue IV ceftriaxone 2 g every 24 hours - Consider ultrasound abdomen to r/o any biliary tract pathology. If negative, can switch IV Ceftriaxone to PO Levofloxacin 750 mg q24 hrs. Once sensitivities available [likely to be available on 07/01/18], we can confirm sensitivity to Levofloxacin and pt could be continued on levofloxacin to complete a 2-week treatment course Stop date of antibiotics: 07/12/18 Diabetes management per primary team We will follow Chato Ornelas MD Infectious disease
[2018-06-30] MEDS: HEPARIN 5,000 UNIT/ML VIAL SQ SCH ×2 (09:05→19:41)
[2018-06-30] MEDS: INSULIN GLARGINE, HUMAN 1 UNIT/0.01 ML SQ SCH ×2 (09:06→19:42)
[2018-06-30] MEDS: FENOFIBRATE 43 MG CAPSULE PO SCH (09:06)
[2018-06-30] MEDS: OSELTAMIVIR PHOSPHATE 75 MG CAPSULE PO SCH ×2 (09:06→19:39)
--- NOTE | 2018-06-30 09:06 | Ultrasound Report ---
History: Elevated liver enzymes FINDINGS: The liver is mildly enlarged. The right lobe measures 20 cm in length. The parenchyma is homogeneous and there is no evidence of a mass or infiltrative process. Doppler shows normal blood flow in the hepatic and portal veins.. The patient had eaten a cheeseburger 15 minutes prior to the ultrasound. As result of this the gallbladder is partially contracted. The [place] measures 2 mm in thickness, which is normal. No para cholecystic fluid collection is present and there are no gallstones. The patient was nontender while scanning over the gallbladder. The common bile duct ranges from 3.4 to 5.3 mm in size. The pancreas is normal in size and homogeneous. No ascites is present. IMPRESSION: Hepatomegaly Interpreted and Authenticated by: Alex Navarrete 06/30/18
[2018-06-30] MEDS ORDERED: LEVOFLOXACIN 750 MG/150 ML BAG IV SCH (10:45)
[2018-06-30] MEDS: ACYCLOVIR 400 MG TABLET PO SCH ×3 (10:56→19:39)
[2018-06-30] MEDS: LEVOFLOXACIN 750 MG TABLET PO SCH (11:08)
[2018-06-30] MEDS ORDERED: IPRATROPIUM/ALBUTEROL 3 ML AMPUL.NEB NEB PRN (11:11)
[2018-06-30 12:16] LABS: Iron 43 mcg/dl (61-157); Transferrin % Saturation 21 % (20-50); Unsaturated Iron Binding 157 mcg/dL (112-346)
[2018-06-30 12:31] LABS: ALT/SGPT 57 U/l (0-40); Albumin 2.8 gm/dL (3.2-5.2); Alkaline Phosphatase 208 U/L (39-117); Bilirubin,Direct < 0.2 mg/dL (0.0-0.3)
[2018-06-30 12:36] LABS: Vitamin B12 687.9 pg/ml (232-1245)
--- NOTE | 2018-06-30 13:17 | Internal Med Progress Note ---
Medical - PN: Subj Patient information: Note initiated : 06/30/18 at 1:14 pm Service Date, if different from initiated Date: [] Patient: Al Escobar a 42 y/o M admitted on 06/27/18 for cold flu, influenza, not improving, dizziness. Chief Complaint: [] Interval history: Mr. Escobar is a 42 year old M with history of diabetes on insulin, presents to the emergency room for evaluation of lightheadedness and dizziness going on for 1 day. The patient notes that he was in the emergency room a few days ago, at that time he is been having symptoms of cough and shortness of breath and fatigue. He was diagnosed with influenza type A as well as type B, he was started on Tamiflu. The patient notes he has been taking Tamiflu. Since yesterday however he noted that his condition has been worsening, he has been d arabella and lightheaded. He therefore came to the emergency room for further evaluation. He notes that although he did not have subjective sensation of fever he was febrile on presentation, he admits to chills and Reiger's, no sweats positive nausea. The patient also has dry cough and shortness of breath on exertion. He denies any exertional chest pain, vomiting, bowel or bladder complaints. No new skin rashes or or joint pains. He does have chronic back pain. In the emergency room on presentation he had a low-grade temperature 99.5, heart rate 133 blood pressure 111/68, respirations 30-35, saturating 93% on room air. His white blood cell count is elevated at 27,000 hemoglobin 12.4 platelets 240, sodium 128 potassium 3.9 chloride 85 bicarb 24 anion gap 19 lactic acid 2.6, creatinine 0.9 glucose 327 troponin negative. Chest x-ray shows bilateral basilar pneumonia a chest x-ray done 3-4 days ago was negative Patient is being admitted to the hospital for further management, blood cultures have been ordered, vancomycin and levofloxacin have been ordered 2/3 Patient seen and examined, no acute overnight events, blood pressure stable, labs improved, patient lactic acidosis has resolved. He still has some chest pain on the right side of his chest otherwise no new complaints or concerns. 2/4 Patient seen and examined, no acute overnight events, feels much better. Labs are stable. Blood cultures positive gram-positive cocci also anaerobic bottles positive, Patient continues to be on vancomycin, I consulted infectious disease who advised to switch from levofloxacin to Rocephin. Advise a chest CT which was done. Repeat blood cultures pending echo ordered 2/5 Pt seen examined, no acute issues, tolerating po diet well lft abnl today usg liver neg for obstructive process rocephin swichted to levofloxacin, likely drug related Pertinent ROS: Denies headache, dizziness Denies chest pain, palpitations Denies cough or shortness of breath Denies abdominal pain, nausea or vomiting. - Constitutional Vitals: Vital Signs Temp Pulse Resp BP Pulse Ox 100 F H 98 H 16 136/68 95 06/30/18 11:42 06/30/18 11:42 06/30/18 11:42 06/30/18 11:42 06/30/18 11:42 Period Temp Pulse Resp BP Sys/Kaplan Pulse Ox Last 24 Hr 97.3 F-100 F 80-99 16-20 112-136/60-76 95-96 Intake and Output 06/29/18 06/30/18 06/30/18 21:59 05:59 13:59 Intake Total 1100 1350 2461 Output Total 680 1100 900 Balance 443 903 0914 Weight 168 lb 8 oz Intake & Output: Intake & Output 06/29/18 06/30/18 06/30/18 21:59 05:59 13:59 Intake Total 1100 1350 2461 Output Total 680 1100 900 Balance 440 350 6063 Weight 168 lb 8 oz Intake: IV 1000 1181 Lactated Ringers 1,000 ml @ 125 1000 1131 mls/hr IV .Q8H L[facility] Rx#: [id number] Rocephin 2 gm In Dextrose 5% in 50 Water 50 ml @ 100 mls/hr IV Q24H [facility] Rx#:[id number] Oral [phone] Output: Void Amount 680 1100 900 Other: Meal Soup, crackers(4), ice cream Breakfast Percent of Meal Consumed 100% 100% Feeding Ability Independent Urine Appearance Clear Clear Urine Color Straw Straw Urine Odor Normal Normal Stool Size Small Stool Color Brown Stool Consistency Normal for Patient Formed # Bowel Movements 1 Exam: Constitutional; Afebrile, cooperative, alert, not in distress. Eyes- No icterus, , No periorbital swelling Ears- Ext ear normal, hearing normal to conversation. Neck- Midline trachea, supple Respiratory system: Air Entry equal on both sides, No crackles or wheezing, no rhonchi. CVS- Rate rhythm regular, S1,S2 heard, no gallop, no rub. Abdomen- Soft nontender abdomen, no organomegaly, no tenderness, no guarding or rigidity, [employer]- AOOx3, moving all extremities, no gross focal deficit noted. Medical - PN: Obj Da - Labs CBC & Chem 7: 06/30/18 05:07 06/30/18 05:07 Labs: Abnormal Lab Results 06/30/18 06/30/18 06/30/18 10:54 10:54 05:07 WBC RBC Hgb Hct POC Hct Gran % Lymph % (Auto) Gran # Lymph # (Auto) Frederick # (Auto) VBG Lactic Acid POC Sodium Sodium Potassium POC Chloride Chloride Anion Gap Creatinine 0.5 L Glucose 218 H POC Glucose Calcium 8.1 L POC WB Ioniz Calcium Phosphorus 2.4 L Magnesium Iron 43 L TIBC 200 L Ferritin 612.0 H GGT 124 H AST 68 H 77 H ALT 57 H 56 H Alkaline Phosphatase 208 H 195 H Total Protein 5.5 L Albumin 2.8 L 2.4 L Albumin/Globulin Ratio 0.8 L Triglycerides 164 H Beta-Hydroxybutyrate Urine Protein Urine Glucose (UA) Urine Ketones Urine Occult Blood Urine Urobilinogen 06/30/18 06/29/18 06/29/18 05:07 04:21 04:21 WBC RBC 2.85 L 3.15 L Hgb 8.6 L 9.5 L Hct 25.8 L 28.6 L POC Hct Gran % 80.1 H Lymph % (Auto) 12.5 L Gran # 8.2 H Lymph # (Auto) 1.3 L 1.3 L Frederick # (Auto) VBG Lactic Acid POC Sodium Sodium Potassium 3.2 L POC Chloride Chloride Anion Gap Creatinine 0.6 L Glucose 302 H POC Glucose Calcium 8.1 L POC WB Ioniz Calcium Phosphorus 1.6 L Magnesium Iron TIBC Ferritin GGT AST ALT Alkaline Phosphatase Total Protein Albumin 2.7 L Albumin/Globulin Ratio 0.8 L Triglycerides 221 H Beta-Hydroxybutyrate Urine Protein Urine Glucose (UA) Urine Ketones Urine Occult Blood Urine Urobilinogen 06/28/18 06/28/18 06/27/18 04:10 04:10 21:28 WBC 21.6 H RBC 3.46 L Hgb 10.5 L Hct 31.2 L POC Hct Gran % 89.3 H Lymph % (Auto) 5.7 L Gran # 19.3 H Lymph # (Auto) 1.2 L Frederick # (Auto) 1.0 H VBG Lactic Acid POC Sodium Sodium 130 L Potassium POC Chloride Chloride 94 L Anion Gap Creatinine Glucose 322 H POC Glucose Calcium 8.1 L POC WB Ioniz Calcium Phosphorus 2.4 L Magnesium 1.5 L Iron TIBC Ferritin GGT AST ALT Alkaline Phosphatase Total Protein 5.8 L Albumin 2.6 L Albumin/Globulin Ratio 0.8 L Triglycerides 265 H Beta-Hydroxybutyrate Urine Protein 100 A Urine Glucose (UA) >=500 A Urine Ketones 80 A Urine Occult Blood 0.03 A Urine Urobilinogen 2.0 A 06/27/18 06/27/18 06/27/18 20:00 20:00 20:00 WBC RBC Hgb Hct POC Hct 37.0 L Gran % Lymph % (Auto) Gran # Lymph # (Auto) Frederick # (Auto) VBG Lactic Acid 2.6 H POC Sodium 128 L Sodium 128 L Potassium POC Chloride 89 L Chloride 85 L Anion Gap 19.0 H Creatinine Glucose 340 H POC Glucose 327 H Calcium POC WB Ioniz Calcium 1.03 L Phosphorus Magnesium Iron TIBC Ferritin GGT AST ALT Alkaline Phosphatase Total Protein Albumin Albumin/Globulin Ratio 0.9 L Triglycerides Beta-Hydroxybutyrate 1.70 H Urine Protein Urine Glucose (UA) Urine Ketones Urine Occult Blood Urine Urobilinogen 06/27/18 20:00 WBC 27.0 H RBC 4.14 L Hgb 12.4 L Hct 37.1 L POC Hct Gran % 92.4 H Lymph % (Auto) 4.0 L Gran # 25.0 H Lymph # (Auto) 1.1 L Frederick # (Auto) 1.0 H VBG Lactic Acid POC Sodium Sodium Potassium POC Chloride Chloride Anion Gap Creatinine Glucose POC Glucose Calcium POC WB Ioniz Calcium Phosphorus Magnesium Iron TIBC Ferritin GGT AST ALT Alkaline Phosphatase Total Protein Albumin Albumin/Globulin Ratio Triglycerides Beta-Hydroxybutyrate Urine Protein Urine Glucose (UA) Urine Ketones Urine Occult Blood Urine Urobilinogen Meds: Medications Acetaminophen (Tylenol) 650 mg PO Q4-6HP PRN PRN Reason: PAIN/FEVER > 101 Last Admin: 06/29/18 13:54 Dose: 650 mg Documented by: Hydrocodone Bitart/Acetaminophen ([place] 5/325mg) 1 tab PO Q4HP PRN PRN Reason: pain not repsonding to apap Last Admin: 06/30/18 10:56 Dose: 1 tab Documented by: Acyclovir (Zovirax) 400 mg PO TID [facility] Stop: 07/05/18 10:38 Last Admin: 06/30/18 10:56 Dose: 400 mg Documented by: Albuterol/Ipratropium (Duoneb) 3 ml NEB Q4HP PRN PRN Reason: Wheezing Atorvastatin Calcium (Lipitor) 40 mg PO HS [facility], [facility]1983 Last Admin: 06/29/18 19:38 Dose: 40 mg Documented by: Dextrose (Dextrose 50%) 0 ml IV UD PRN PRN Reason: Hypoglycemia Diagnostic Test (Pha) (Accu-Chek) 1 each FS [facility] Last Admin: 06/30/18 11:35 Dose: 1 each Documented by: Fenofibrate (Antara) 129 mg PO DAILY [facility] Last Admin: 06/30/18 09:06 Dose: 129 mg Documented by: Glucose (Insta-Glucose) 15 gm PO PRN PRN PRN Reason: Hypoglycemia Heparin Sodium (Porcine) (Heparin) 5,000 unit SQ Q12 [facility] Last Admin: 06/30/18 09:05 Dose: 5,000 unit Documented by: Insulin Glargine (Lantus) 30 unit SQ BID [facility] Last Admin: 06/30/18 09:06 Dose: 30 units Documented by: Insulin Human Lispro (Humalog) 0 unit SQ [facility]; Protocol Last Admin: 06/30/18 11:41 Dose: 6 units Documented by: Levofloxacin (Levaquin) 750 mg PO DAILY [facility] Last Admin: 06/30/18 11:08 Dose: 750 mg Documented by: Naloxone HCl (Narcan) 0.1 mg IV Q2MIN PRN PRN Reason: Opiate Reversal Ondansetron HCl (Zofran) 4 mg IV Q4-6HP PRN PRN Reason: Nausea And Vomiting Oseltamivir Phosphate (Tamiflu) 75 mg PO BID [facility] Last Admin: 06/30/18 09:06 Dose: 75 mg Documented by: Senna (Senokot) 2 tab PO HSP PRN PRN Reason: Constipation Sodium Chloride (Saline Flush) 10 ml IV Q8 [facility] Last Admin: 06/30/18 07:38 Dose: 10 ml Documented by: Zolpidem Tartrate (Ambien) 10 mg PO HSP PRN PRN Reason: Insomnia Last Admin: 06/29/18 19:49 Dose: 10 mg Documented by: Medical - PN: A/P - Time Spent With Patient Total time spent is greater than 50% in coordination of care (as documented) at patient's floor/unit and/or counseling patient: - Narrative A/P Narrative: A/P Bilateral Pneumonia - Pt with influenzae, treat with vancomycin and rochepin Gram positive Bacteremia -strep pneumoniae -anaerobic positive -Infectious disease consulted -echo neg, CT neg for effusion. -pt on levofloxacin per ID Herpes simplex on the lips, acyclovir started Abnl LFT due to medications usg neg monitor if improving tomorrow, can d/c home. Influenzae type A and B -On Tamiflu Sepsis with lactic acidosis -sepsis syndrome improving, lactic acidosis resolved, Diabetes Mellitus -Hold oral diabetes medications, sliding scale insulin and basal insulin for now, increase lantus to 30 bid, high scale ssi Chronic Back pain -Resume home medications Hypokalemia and Hypophosphatemia -replace DVT -Heparin subcutaneous Full code Carb consistent diet anticipate d/c Medical - PN: Qual - VTE Deep Vein Thrombosis/Pulmonary Embolism Present on Admission: No
[2018-06-30] MEDS: ZOLPIDEM 5 MG TABLET PO PRN (19:38)
[2018-06-30] MEDS: ATORVASTATIN 20 MG TABLET PO SCH (19:38)
[2018-07-01] MEDS: HYDROcodone/APAP 5/325MG TABLET PO PRN ×4 (00:33→13:06)
[2018-07-01] MEDS: 0.9 % SODIUM CHLORIDE 10 ML SYRINGE IV SCH (05:31)
[2018-07-01 06:32] LABS: Basophils # (Auto) 0 K/mcL (0.0-0.3); Basophils % (Auto) 0.3 % (0.0-2.0); Eosinophils # (Auto) 0.1 K/mcL (0.0-0.7); Eosinophils % (Auto) 0.7 % (0.0-7.0); Granulocytes % (Auto) 67.7 % (38.0-78.0); Lymphocytes # (Auto) 1.7 K/mcL (1.5-4.8); Lymphocytes % (Auto) 20.4 % (15.5-49.0); Mean Cell Volume 90.7 fL (80.0-100.0); Mean Corpuscular HGB Conc 33.3 g/dL (31.0-36.0); Monocytes # (Auto) 0.9 K/mcL (0.1-0.9); Monocytes % (Auto) 10.9 % (1.0-12.0); Platelet Count 247 K/mcL (140-440); RBC 3.13 M/mcL (4.50-5.90); Red Cell Distribution Width 12.9 % (11.5-14.5)
[2018-07-01 06:44] LABS: ALT/SGPT 54 U/l (0-40); Albumin 2.4 gm/dL (3.2-5.2); Albumin/Globulin Ratio 0.7 (1.0-2.3); Alkaline Phosphatase 213 U/L (39-117); Bilirubin,Direct < 0.2 mg/dL (0.0-0.3); Blood Urea Nitrogen 6 mg/dl (6-20); Gamma Glutamyl Transpeptidase 162 U/L (8-61); Uric Acid 2.7 mg/dL (2.5-8.0)
[2018-07-01] MEDS: INSULIN LISPRO 1 UNIT/0.01 ML UNIT SQ SCH ×2 (06:59→12:03)
[2018-07-01] MEDS ORDERED: valACYclovir 500 MG TABLET PO SCH (09:00)
--- NOTE | 2018-07-01 09:05 | Infectious Disease Prog Note ---
Subjective Patient information: Note initiated : 07/01/18 at 9:02 am Service Date, if different from initiated Date: [] Patient: Al Escobar 42 y/o M admitted on 06/27/18 for cold flu, influenza, not improving, dizziness. Chief Complaint: [] Interval history: Pt doing better. Reports no fever, chills, n/v, diarrhea. Endorses dry cough. Is taking oral Levofloxacin once daily. Reports having a small sore on the upper lip. Discussed with him the plan to take oral Levofloxacin till 07/12, and then stop, counselled about side effects. Pt feels back to baseline, he was able to walk till the ED and back to his room without any problems. He denied any SOB while walking. Objective Objective Narrative: ao x 3, in nad no thrush has an area of circumscribed redness and slight swelling of upper lip chest cta except for left lower lobe where he has some crackles s1 s2 normal bs ++ nttd, soft, non tender no edema Skin: has a heaped up lesion on right forearm and some scars over the right leg - Vital Signs Vital signs: Vital Signs Temp Pulse Resp BP Pulse Ox 07/01/18 06:55 37.4 C H 86 16 132/70 95 07/01/18 04:00 36.8 C 89 20 119/75 94 06/30/18 22:47 37.3 C H 89 20 116/71 95 06/30/18 19:21 37.1 C 96 H 22 132/80 95 06/30/18 15:57 37.6 C H 90 16 122/60 97 06/30/18 11:42 37.7 C H 98 H 16 136/68 95 Intake and Output 06/30/18 07/01/18 07/01/18 21:59 05:59 13:59 Intake Total 680 Output Total 2925 Balance -2245 Intake: IV 0 Oral 680 Output: Void Amount 2925 Other: Meal Dinner Jello(2) Percent of Meal Consumed 100% 100% Feeding Ability Independent Urine Appearance Clear Urine Color Pale Urine Odor Normal # Bowel Movements 1 Weight 79.923 kg Intake & Output: Intake & Output 06/30/18 07/01/18 07/01/18 21:59 05:59 13:59 Intake Total 680 Output Total 2925 Balance -2245 Weight 79.923 kg Intake: IV 0 Oral 680 Output: Void Amount 2925 Other: Meal Dinner Jello(2) Percent of Meal Consumed 100% 100% Feeding Ability Independent Urine Appearance Clear Urine Color Pale Urine Odor Normal # Bowel Movements 1 - Lab 07/01/18 04:30 07/01/18 04:30 Most recent lab results Calcium 8.5 mg/dl (8.6-10.4) L 07/01/18 04:30 Phosphorus 3.3 mg/dL (2.7-4.5) 07/01/18 04:30 Magnesium 1.7 mg/dL (1.6-2.5) 07/01/18 04:30 Microbiology 07/01/18 00:50 Sputum - Induced Gram Stain - Final 06/28/18 14:58 Blood Blood Culture - Preliminary 06/28/18 14:53 Blood Blood Culture - Preliminary 06/27/18 21:56 Blood Blood Culture - Preliminary Streptococcus pneumoniae 06/27/18 22:00 Blood Blood Culture - Preliminary Gram positive cocci 06/27/18 23:39 Nose MRSA (PCR) - Final Medications Active Medications: Acetaminophen (Tylenol) 650 mg PO Q4-6HP PRN PRN Reason: PAIN/FEVER > 101 Last Admin: 06/29/18 13:54 Dose: 650 mg Documented by: THERESA Hydrocodone Bitart/Acetaminophen ([place] 5/325mg) 1 tab PO Q4HP PRN PRN Reason: pain not repsonding to apap Last Admin: 07/01/18 05:30 Dose: 1 tab Documented by: Admin: 07/01/18 00:33 Dose: 1 tab Documented by: Admin: 06/30/18 19:39 Dose: 1 tab Documented by: Admin: 06/30/18 15:04 Dose: 1 tab Documented by: [email or web address] Admin: 06/30/18 10:56 Dose: 1 tab Documented by: [email or web address] Admin: 06/30/18 06:35 Dose: 1 tab Documented by: [email or web address] Admin: 06/30/18 01:25 Dose: 1 tab Documented by: Admin: 06/29/18 19:36 Dose: 1 tab Documented by: Admin: 06/29/18 15:35 Dose: 1 tab Documented by: Admin: 06/29/18 11:28 Dose: 1 tab Documented by: Admin: 06/29/18 06:59 Dose: 1 tab Documented by: Admin: 06/29/18 03:04 Dose: 1 tab Documented by: Admin: 06/28/18 21:37 Dose: 1 tab Documented by: Admin: 06/28/18 16:17 Dose: 1 tab Documented by: Admin: 06/28/18 12:11 Dose: 1 tab Documented by: THERESA Albuterol/Ipratropium (Duoneb) 3 ml NEB Q4HP PRN PRN Reason: Wheezing Atorvastatin Calcium (Lipitor) 40 mg PO HS [facility] Last Admin: 06/30/18 19:38 Dose: 40 mg Documented by: Admin: 06/29/18 19:38 Dose: 40 mg Documented by: Admin: 06/28/18 21:31 Dose: 40 mg Documented by: EUGENE Dextrose (Dextrose 50%) 0 ml IV UD PRN PRN Reason: Hypoglycemia Diagnostic Test (Pha) (Accu-Chek) 1 each FS [facility] Last Admin: 07/01/18 06:58 Dose: 1 each Documented by: Admin: 06/30/18 19:47 Dose: 1 each Documented by: Admin: 06/30/18 16:52 Dose: 1 each Documented by: [email or web address] Admin: 06/30/18 11:35 Dose: 1 each Documented by: [email or web address] Admin: 06/30/18 07:44 Dose: 1 each Documented by: [email or web address] Admin: 06/29/18 19:40 Dose: 1 each Documented by: Admin: 06/29/18 16:14 Dose: 1 each Documented by: Admin: 06/29/18 11:21 Dose: 1 each Documented by: Admin: 06/29/18 06:51 Dose: 1 each Documented by: Admin: 06/28/18 21:30 Dose: 1 each Documented by: Admin: 06/28/18 16:01 Dose: 1 each Documented by: Admin: 06/28/18 11:53 Dose: 1 each Documented by: [email or web address] Fenofibrate (Antara) 129 mg PO DAILY [facility] Last Admin: 06/30/18 09:06 Dose: 129 mg Documented by: [facility] Admin: 06/29/18 07:01 Dose: 129 mg Documented by: THERESA Glucose (Insta-Glucose) 15 gm PO PRN PRN PRN Reason: Hypoglycemia Heparin Sodium (Porcine) (Heparin) 5,000 unit SQ Q12 [facility] Last Admin: 06/30/18 19:41 Dose: 5,000 unit Documented by: Admin: 06/30/18 09:05 Dose: 5,000 unit Documented by: [facility] Admin: 06/29/18 19:39 Dose: 5,000 unit Documented by: Admin: 06/29/18 11:27 Dose: 5,000 unit Documented by: THERESA Insulin Glargine (Lantus) 30 unit SQ BID [facility] Last Admin: 06/30/18 19:42 Dose: 30 units Documented by: Admin: 06/30/18 09:06 Dose: 30 units Documented by: [facility] Insulin Human Lispro (Humalog) 0 unit SQ [facility]; Protocol Last Admin: 07/01/18 06:59 Dose: 6 units Documented by: Miley Admin: 06/30/18 19:47 Dose: Not Given Documented by: DOMINGA Non-Admin Reason: No Coverage Needed Admin: 06/30/18 17:27 Dose: 6 units Documented by: [facility] Admin: 06/30/18 11:41 Dose: 6 units Documented by: [facility] Levofloxacin (Levaquin) 750 mg PO DAILY [facility] Last Admin: 06/30/18 11:08 Dose: 750 mg Documented by: [facility] Naloxone HCl (Narcan) 0.1 mg IV Q2MIN PRN PRN Reason: Opiate Reversal Ondansetron HCl (Zofran) 4 mg IV Q4-6HP PRN PRN Reason: Nausea And Vomiting Oseltamivir Phosphate (Tamiflu) 75 mg PO BID [facility] Last Admin: 06/30/18 19:39 Dose: 75 mg Documented by: Admin: 06/30/18 09:06 Dose: 75 mg [facility] Admin: 06/29/18 19:39 Dose: 75 mg Documented by: Admin: 06/29/18 07:00 Dose: 75 mg Documented by: Admin: 06/28/18 21:31 Dose: 75 mg Documented by: EUGENE Senna (Senokot) 2 tab PO HSP PRN PRN Reason: Constipation Sodium Chloride (Saline Flush) 10 ml IV Q8 [facility] Last Admin: 07/01/18 05:31 Dose: 10 ml Documented by: Admin: 06/30/18 20:50 Dose: 10 ml Documented by: Admin: 06/30/18 13:58 Dose: 10 ml Documented by: Admin: 06/30/18 07:38 Dose: 10 ml Documented by: Admin: 06/29/18 20:43 Dose: Not Given Documented by: DOMINGA Non-Admin Reason: Continuous IV Admin: 06/29/18 13:06 Dose: Not Given Documented by: THERESA Non-Admin Reason: Bag Still Infusing Admin: 06/29/18 04:03 Dose: Not Given Documented by: EUGENE Non-Admin Reason: Continuous IV Admin: 06/28/18 21:31 Dose: Not Given Documented by: EUGENE Non-Admin Reason: Continuous IV Admin: 06/28/18 12:11 Dose: Not Given Documented by: [email or web address] Non-Admin Reason: Continuous IV Valacyclovir HCl (Valtrex) 2,000 mg PO BID [facility] Stop: 07/01/18 21:01 Zolpidem Tartrate (Ambien) 10 mg PO HSP PRN PRN Reason: Insomnia Last Admin: 06/30/18 19:38 Dose: 10 mg Documented by: Admin: 06/29/18 19:49 Dose: 10 mg Documented by: Admin: 06/28/18 21:31 Dose: 10 mg Documented by: EUGENE Assessment and Plan - Narrative A/P Narrative: Assessment: 1. Streptococcus pneumoniae bacteremia: Secondary to pneumococcal pneumonia -TTE on 06/28/18 negative for any obvious vegetations or signs of infective endocarditis - repeat blood Cx 06/28/18 are NGTD 2. Bilateral pneumonia [based on CT] secondary to Streptococcus pneumoniae, in light of recent influenza a and B infection - clinically patient back to baseline 3. Sepsis: Secondary to (1) and (2); resolved 4. Type 2 diabetes 5. Elevated liver enzymes: AST, ALT, ALP, GGT are all elevated - Could be secondary to biliary tract pathology, drug-mediated [Ceftriaxone can cause elevated liver enzymes in 3% of patients], trending down after stopping Ceftriaxone 6. Herpes labialis Recommendations: Continue oral Levofloxacin 750 mg q24 hrs with a stop date of 07/12/18 - For Herpes labialis: I changed oral Acyclovir to PO Valacyclovir as it is a shorter duration of treatment and has lesser side effects - Consider repeating LFTs as outpatient to ensure they are back to normal Diabetes management per primary team No outpt ID f/u needed Chato Ornelas MD Infectious disease
[2018-07-01] MEDS: LEVOFLOXACIN 750 MG TABLET PO SCH (09:11)
[2018-07-01] MEDS: OSELTAMIVIR PHOSPHATE 75 MG CAPSULE PO SCH (09:11)
[2018-07-01] MEDS: FENOFIBRATE 43 MG CAPSULE PO SCH (09:11)
[2018-07-01] MEDS: INSULIN GLARGINE, HUMAN 1 UNIT/0.01 ML SQ SCH (09:12)
[2018-07-01] MEDS: HEPARIN 5,000 UNIT/ML VIAL SQ SCH (09:12)
--- NOTE | 2018-07-01 11:05 | Discharge Summary ---
Medical - DS: Prov Patient information: Note initiated : 07/01/18 at 10:53 am Service Date, if different from initiated Date: [] Patient: Al Escobar 42 y/o M admitted on 06/27/18 for cold flu, influenza, not improving, dizziness. Date of admission: 06/27/18 22:54 Discharge date: 07/01/18 Primary care physician: Josue with Qian Lezama NP Admitting clinician: Bradford Gasca Consults: 06/27/18 Consult to Physician [CONS] Stat Comment: Consulting Provider: Bradford Gasca Reason For Exam: Physician to Consult 06/29/18 10:24 Consult to Physician [CONS] Routine Comment: Consulting Provider: Chato Ornelas Reason For Exam: Physician to Consult Discharging clinician: Trudy Foreman Medical - DS: Meds - Discharge Medications Prescriptions: HYDROcodone/ACETAMINOPHEN [[place] 7.5-325 Tablet] 1 each PO Q4 PRN #12 tab PRN Reason: Pain Levofloxacin [Levaquin] 750 mg PO DAILY #11 tab Zolpidem [Ambien] 10 mg PO HSP PRN #20 tab PRN Reason: Insomnia Active and Home Medications: Home Medications metFORMIN HCL [Glucophage Xr] 1,000 mg PO BID 02/05/15 [History Confirmed 06/28/18 Last Taken 05/23/16] Atorvastatin [Lipitor] 40 mg PO HS 01/04/18 [History Confirmed 06/28/18 Last Taken Unknown] Fenofibrate Nanocrystallized [Fenofibrate] 145 mg PO DAILY 01/04/18 [History Confirmed 06/28/18 Last Taken Unknown] Insulin Aspart [Novolog Flexpen] See Protocol SQ ACHS 01/04/18 [History Confirmed 06/28/18 Last Taken Unknown] sitaGLIPtin [Januvia] 50 mg PO DAILY 01/04/18 [History Confirmed 06/28/18 Last Taken Unknown] Zolpidem [Ambien] 10 mg PO HSP PRN #20 tab 06/08/18 [Rx Confirmed 06/28/18 Last Taken Unknown] Oseltamivir Phosphate [Tamiflu] 75 mg PO BID #10 cap 06/24/18 [Rx Confirmed 06/28/18 Last Taken Unknown] HYDROcodone/ACETAMINOPHEN [[place] 7.5-325 Tablet] 1 each PO Q4 PRN 06/28/18 [History Confirmed 06/28/18 Last Taken Unknown] Insulin Glargine,Hum.rec.anlog [Vanesa Finn U-100] See Protocol SQ DAILY 06/28/18 [History Confirmed 06/28/18 Last Taken Unknown] Medical - DS: Hosp Hospital course: Presentation: Mr. Escobar is a 42 year old M with history of diabetes on insulin, presents to the emergency room for evaluation of lightheadedness and dizziness going on for 1 day. The patient notes that he was in the emergency room a few days ago, at that time he is been having symptoms of cough and shortness of breath and fatigue. He was diagnosed with influenza type A as well as type B, he was started on Tamiflu. The patient notes he has been taking Tamiflu. Since yesterday however he noted that his condition has been worsening, he has been dizzy and lightheaded. He therefore came to the emergency room for further evaluation. He notes that although he did not have subjective sensation of fever he was febrile on presentation, he admits to chills and Reiger's, no sweats positive nausea. The patient also has dry cough and shortness of breath on exertion. He denies any exertional chest pain, vomiting, bowel or bladder complaints. No new skin rashes or or joint pains. He does have chronic back pain. In the emergency room on presentation he had a low-grade temperature 99.5, heart rate 133 blood pressure 111/68, respirations 30-35, saturating 93% on room air. His white blood cell count is elevated at 27,000 hemoglobin 12.4 platelets 240, sodium 128 potassium 3.9 chloride 85 bicarb 24 anion gap 19 lactic acid 2.6, creatinine 0.9 glucose 327 troponin negative. Chest x-ray shows bilateral basilar pneumonia; a chest x-ray done 3-4 days ago was negative Patient is being admitted to the hospital for further management, blood cultures have been ordered, vancomycin and levofloxacin have been ordered Course: 2/3 Patient seen and examined, no acute overnight events, blood pressure stable, labs improved, patient lactic acidosis has resolved. He still has some chest pain on the right side of his chest otherwise no new complaints or concerns. 2/4 Patient seen and examined, no acute overnight events, feels much better. Labs are stable. Blood cultures positive gram-positive cocci also anaerobic bottles positive, Patient continues to be on vancomycin, I consulted infectious disease who advised to switch from levofloxacin to Rocephin. Advise a chest CT which was done. Repeat blood cultures pending echo ordered 2/5 Pt seen examined, no acute issues, tolerating po diet well LFT;s abnormal today U/S liver neg for obstructive process Rocephin switched to levofloxacin, likely drug related 2/6 Feels fairly well. Liver enzymes starting to trend down. Ready for discharge. The patient has chronic back pain, has had several surgeries, uses [facility], in between establishment with primary care currently. We'll provide prescription for #12 [facility]. Also will provide prescription for #20's zolpidem until primary care follow-up. Final ID Recommendations: Assessment: 1. Streptococcus pneumoniae bacteremia: Secondary to pneumococcal pneumonia -TTE on 06/28/18 negative for any obvious vegetations or signs of infective endocarditis - repeat blood Cx 06/28/18 are NGTD 2. Bilateral pneumonia [based on CT] secondary to Streptococcus pneumoniae, in light of recent influenza a and B infection - clinically patient back to baseline 3. Sepsis: Secondary to (1) and (2); resolved 4. Type 2 diabetes 5. Elevated liver enzymes: AST, ALT, ALP, GGT are all elevated - Could be secondary to biliary tract pathology, drug-mediated [Ceftriaxone can cause elevated liver enzymes in 3% of patients], trending down after stopping Ceftriaxone 6. Herpes labialis Recommendations: Continue oral Levofloxacin 750 mg q24 hrs with a stop date of 07/12/18 - For Herpes labialis: I changed oral Acyclovir to PO Valacyclovir as it is a shorter duration of treatment and has lesser side effects - Consider repeating LFTs as outpatient to ensure they are back to normal Diabetes management per primary team No outpt ID f/u needed Discharge diagnosis: Pneumococcal pneumonia with severe sepsis and bacteremia Secondary discharge diagnosis: Influenza A and B Type 2 Diabetes - Time Spent with Patient Total time spent providing and/or coordinating discharge services: Greater than 30 minutes Medical - DS: Exam - Constitutional Vitals: Vital Signs Temp Pulse Resp BP Pulse Ox 07/01/18 06:55 99.3 F H 86 16 132/70 95 07/01/18 04:00 98.3 F 89 20 119/75 94 06/30/18 22:47 99.1 F H 89 20 116/71 95 06/30/18 19:21 98.8 F 96 H 22 132/80 95 06/30/18 15:57 99.7 F H 90 16 122/60 97 06/30/18 11:42 100 F H 98 H 16 136/68 95 Intake and Output 06/30/18 07/01/18 07/01/18 21:59 05:59 13:59 Intake Total 680 Output Total 2925 Balance -2245 Intake: IV 0 Oral 680 Output: Void Amount 2925 Other: Meal Dinner Jello(2) Percent of Meal Consumed 100% 100% Feeding Ability Independent Urine Appearance Clear Urine Color Pale Urine Odor Normal # Bowel Movements 1 Weight 176 lb 3.2 oz Additional comments: General: In no acute distress Chest: Few left basal rales, unlabored Cardio vascular: Regular, no murmur Abdomen: Soft, nontender Neuro: Alert, oriented, moves all extremities equally Medical - DS: Data Labs on day of discharge: Labs from last 24 hours 07/01/18 07/01/18 06/30/18 04:30 04:30 10:54 WBC 8.5 RBC 3.13 L Hgb 9.5 L Hct 28.4 L MCV 90.7 MCH 30.2 MCHC 33.3 RDW 12.9 Plt Count 247 MPV 9.8 Gran % 67.7 Lymph % (Auto) 20.4 Pratt % (Auto) 10.9 Eos % (Auto) 0.7 Baso % (Auto) 0.3 Gran # 5.8 Lymph # (Auto) 1.7 Pratt # (Auto) 0.9 Eos # (Auto) 0.1 Baso # (Auto) 0 Sodium 137 Potassium 3.7 Chloride 101 Carbon Dioxide 27 Anion Gap 9.0 BUN 6 Creatinine 0.7 GFR Calculation 115 Glucose 178 H Uric Acid 2.7 Calcium 8.5 L Phosphorus 3.3 Magnesium 1.7 Iron TIBC Unsat Iron Binding Transferrin % Sat Ferritin Total Bilirubin 0.2 < 0.2 Direct Bilirubin < 0.2 < 0.2 GGT 162 H AST 52 H 68 H ALT 54 H 57 H Alkaline Phosphatase 213 H 208 H Lactate Dehydrogenase 211 Total Protein 5.9 6.2 Albumin 2.4 L 2.8 L Globulin 3.5 3.4 Albumin/Globulin Ratio 0.7 L Triglycerides 169 H Vitamin B12 Folate 06/30/18 06/30/18 10:54 10:54 WBC RBC Hgb Hct MCV MCH MCHC RDW Plt Count MPV Gran % Lymph % (Auto) Pratt % (Auto) Eos % (Auto) Baso % (Auto) Gran # Lymph # (Auto) Pratt # (Auto) Eos # (Auto) Baso # (Auto) Sodium Potassium Chloride Carbon Dioxide Anion Gap BUN Creatinine GFR Calculation Glucose Uric Acid Calcium Phosphorus Magnesium Iron 43 L TIBC 200 L Unsat Iron Binding 157 Transferrin % Sat 21 Ferritin 612.0 H Total Bilirubin Direct Bilirubin GGT AST ALT Alkaline Phosphatase Lactate Dehydrogenase Total Protein Albumin Globulin Albumin/Globulin Ratio Triglycerides Vitamin B12 687.9 Folate 7.1 Preliminary micro results at discharge 06/28/18 14:58 Blood Culture - Preliminary Blood 06/28/18 14:53 Blood Culture - Preliminary Blood 06/27/18 21:56 Blood Culture - Preliminary Blood Streptococcus pneumoniae 06/27/18 22:00 Blood Culture - Preliminary Blood Gram positive cocci ID=S. pneumoniae - Imaging and Cardiology Chest x-ray Additional comments: Date of Service: 06/27/18 Procedure(s): XR chest 1V portable CLINICAL INFORMATION: influenza, dizzyness, weakness, chest pain COMPARISON: 06/24/2018 FINDINGS: Heart size, mediastinum and pulmonary vessels are normal. Moderate bibasilar alveolar infiltrates appreciated. No effusions IMPRESSION: -Moderate bibasilar infiltrates CT scan - chest Additional comments: Date of Service: 06/29/18 Procedure(s): CT chest wo con CLINICAL INFORMATION: Pneumonia COMPARISON: Chest x-ray on 06/27/18 IMPRESSION: -Moderate bilateral pneumonia with the greatest involvement in the lower lobes and right middle lobe. The extent of the pneumonia is much greater than was suspected on the prior chest x-ray. - Additional Comments Echocardiogram: The left ventricle was normal in size. There is normal left ventricular wall thickness. Left ventricular systolic function is normal, ejection fraction 5560 percent. The IVC measures normal and shows normal inspiratory collapse. Unable to accurately assess RV systolic pressures in the absence of significant tricuspid regurgitation. There is no pericardial effusion. No vegetations appreciated, acknowledging limitations of TTE. No abnormalities noted. Medical - DS: A/P - Patient/Caregiver Discharge Instructions Activity: increase activity as tolerated Diet: Consistent Carbohydrate Prescriptions: HYDROcodone/ACETAMINOPHEN [[place] 7.5-325 Tablet] 1 each PO Q4 PRN #12 tab PRN Reason: Pain Levofloxacin [Levaquin] 750 mg PO DAILY #11 tab valACYclovir [Valtrex] 1,000 mg PO BID #12 tab Zolpidem [Ambien] 10 mg PO HSP PRN #20 tab PRN Reason: Insomnia - Follow up Plan Follow up with: Qian Lezama ARNP [Physician] - 07/21/18 1:30 pm (Please check in at 1:00 pm for this appointment.) Disposition: Home, Self-Care Prognosis: Good Rehab Potential: Good Overall status at discharge: patient is back to baseline Medical - DS: Qual - VTE Deep Vein Thrombosis/Pulmonary Embolism Present on Admission: No
== END 2018-07-01 14:22 | disposition home or self-care (01) | DRG 871 ==
LOC: ED 19:09 → ICU 22:54 → MEDSUR 06-28 12:03
PROVIDERS: ADMIT Internal Medicine; ATTEND Internal Medicine

== ENCOUNTER 2018-11-04 07:36 | Inpatient (IN) ==
--- NOTE | 2018-11-04 07:56 | Emergency Department Note ---
Skin/Abscess/FB HPI - General Chief complaint: Skin/Abscess/Foreign Body Stated complaint: Left abscess Time Seen by Provider: 11/04/18 07:45 Source: patient Mode of arrival: ambulatory Limitations: no limitations - History of Present Illness HPI Narrative: This patient has had a right inner buttock abscess for at least a week. He had an initial's very small drain put in in the area that was draining spontaneously. He was started on Bactrim but his culture grew strep. He has not gotten better. - Related Data Home Medications Medication Instructions Recorded Confirmed metFORMIN HCL [Glucophage Xr] 1,000 mg PO BID 02/05/15 10/27/18 Atorvastatin [Lipitor] 40 mg PO HS 01/04/18 10/27/18 Fenofibrate Nanocrystallized 145 mg PO DAILY 01/04/18 10/27/18 [Fenofibrate] Insulin Aspart [Novolog Flexpen] See Protocol SQ ACHS 01/04/18 10/27/18 sitaGLIPtin [Januvia] 50 mg PO DAILY 01/04/18 10/27/18 Insulin Glargine,Hum.rec.anlog See Protocol SQ DAILY 06/28/18 10/27/18 [Basaglar Kwikpen U-100] Zolpidem Tartrate [Ambien] 10 mg PO HS 10/27/18 10/27/18 Previous Rx's Medication Instructions Recorded HYDROcodone/ACETAMINOPHEN [[place] 1 each PO Q4 PRN #12 tab 07/01/18 7.5-325 Tablet] Zolpidem [Ambien] 10 mg PO HSP PRN #20 tab 07/01/18 Sulfamethoxazole/Trimethoprim 1 tab PO BID #20 tab 10/27/18 [Bactrim Ds] oxyCODONE/APAP [Percocet 5-325 mg] 1 tab PO Q4H PRN #10 tab 10/27/18 Naproxen 500 mg PO BID 30 Days #60 tab 10/30/18 Allergies Allergy/AdvReac Type Severity Reaction Status Date / Time No Known Drug Allergies Allergy Verified 06/27/18 19:12 Review of Systems All systems ED: reviewed and negative except as stated. Past Medical History - Past Medical History Medical history: Reports: DM (2; insulin using.), other (DENIES: chronic narcotics --; pneumonia; pyelonephritis.). Denies: asthma, cancer, COPD, CVA, hypertension, hypothyroidism, myocardial infarction, renal disease Psychiatric history: Denies: anxiety, depression Surgical history ED: Reports: orthopedic, other, other (history of back surgery 5) - Social History smoking status: Current every day smoker Alcohol use: Reports: Rarely Drug use: Reports: none. Denies: marijuana Physical Exam Right inner buttocks shows a small drain in place but he is developed quite a bit of induration may be 6 cm long down towards the rectal area. Limitations: no limitations General appearance: alert Head: atraumatic Neurological: Present: alert Psychiatric: Present: normal affect Skin: Present: warm, dry Course Vital Signs Temperature 99.2 F H 11/04/18 07:37 Pulse Rate 111 H 11/04/18 07:37 Respiratory Rate 20 11/04/18 07:37 Blood Pressure 126/78 11/04/18 07:37 Pulse Oximetry (%) 100 11/04/18 07:37 Temperature 99.2 F H 11/04/18 07:37 Pulse Rate 111 H 11/04/18 07:37 Respiratory Rate 20 11/04/18 07:37 Blood Pressure 126/78 11/04/18 07:37 Pulse Oximetry (%) 100 11/04/18 07:37 Skin/Abscess/Foreign Body - MDM Narrative Medical decision making narrative: I think this abscess cavity may require a more extensive drainage procedure done by a surgeon and will talk to Dr. Joe. I discussed this case with the surgeon and he will take patient to the operating room in about 3 hours after his first case. We will start an IV and give him Rocephin. Disposition Pt seen by [employer] TECHNICIAN/PA only: No Clinical Impression: Left buttock abscess Disposition: Xfer As Outpt/Obs ([facility]) Condition: Good Referrals: Qian Lezama ARNP [Primary Care Provider] - Time of Disposition: 08:20
[2018-11-04] MEDS ORDERED: cefTRIAXone 2 GM in DEXTROSE 5% IN WATER 50 ML IV ONE (08:20)
[2018-11-04] MEDS ORDERED: LACTATED RINGERS 1,000 ML IV ONE (08:20)
[2018-11-04] MEDS: HYDROmorphone 2 MG/ML VIAL IV PRN ×4 (08:43→15:17)
[2018-11-04] MEDS ORDERED: 0.9 % SODIUM CHLORIDE 1,000 ML IV ONE ×2 (08:49→09:43)
[2018-11-04 09:07] LABS: Basophils # (Auto) 0 K/mcL (0.0-0.3); Basophils % (Auto) 0.5 % (0.0-2.0); Eosinophils # (Auto) 0.3 K/mcL (0.0-0.7); Eosinophils % (Auto) 2.8 % (0.0-7.0); Hematocrit 33.4 % (41.0-55.0); Hemoglobin 11.2 g/dL (13.5-16.5); Lymphocytes # (Auto) 1.8 K/mcL (1.5-4.8); Lymphocytes % (Auto) 18.1 % (15.5-49.0); Mean Cell Volume 90.4 fL (80.0-100.0); Mean Corpuscular HGB Conc 33.6 g/dL (31.0-36.0); Mean Platelet Volume 8.9 fL (7.4-10.4); Monocytes # (Auto) 0.9 K/mcL (0.1-0.9); Monocytes % (Auto) 8.6 % (1.0-12.0); Platelet Count 294 K/mcL (140-440); Red Cell Distribution Width 12.4 % (11.5-14.5); WBC 9.9 K/mcL (4.5-11.0)
[2018-11-04 09:23] LABS: ALT/SGPT 8 U/l (0-40); AST/SGOT 10 U/l (0-37); Albumin 3.5 gm/dL (3.2-5.2); Albumin/Globulin Ratio 1.2 (1.0-2.3); Alkaline Phosphatase 89 U/L (39-117); Bilirubin,Total 0.2 mg/dL (0.0-1.0); Blood Urea Nitrogen 11 mg/dl (6-20); Calcium 8.9 mg/dl (8.6-10.4); Carbon Dioxide 24 mmol/L (22-30); Chloride 96 mmol/L (96-108); Glomerular Filtration Rate 109; Glucose 387 mg/dL (70-105); Potassium 3.7 mmol/L (3.3-5.1); Sodium 133 mmol/L (133-145)
[2018-11-04] MEDS ORDERED: ONDANSETRON 4 MG/2 ML VIAL IV PRN ×2 (10:15→14:27)
[2018-11-04] MEDS ORDERED: LIDOCAINE HCL/PF 100 MG/5 ML SYRINGE IV ONE (10:36)
[2018-11-04] MEDS ORDERED: PROPOFOL 200 MG/20 ML VIAL IV ONE (10:36)
[2018-11-04] MEDS ORDERED: PHENYLEPHRINE 10 MG/ML VIAL IV ONE (10:36)
[2018-11-04] MEDS ORDERED: ONDANSETRON 4 MG/2 ML VIAL IV ONE (10:36)
[2018-11-04] MEDS ORDERED: DEXAMETHASONE 10 MG/ML VIAL IV ONE (10:36)
[2018-11-04] MEDS: 0.9 % SODIUM CHLORIDE 1,000 ML IV SCH ×3 (11:34→22:20)
[2018-11-04] MEDS ORDERED: IPRATROPIUM/ALBUTEROL 3 ML AMPUL.NEB NEB PRN ×2 (13:34→14:27)
[2018-11-04] MEDS ORDERED: SCOPOLAMINE 1 PATCH PATCH TOPICAL PRN (13:34)
--- NOTE | 2018-11-04 13:35 | General Surg History&Physical ---
History of Present Illness Patient information: Note initiated : 11/04/18 at 1:32 pm Service Date, if different from initiated Date: [] Patient: Al Escobar a 42 y/o M admitted on 11/04/18 for Left Abscess. Chief Complaint: [] HPI: Mr. Escobar is a 42 year old M admitted with large left pararectal abscess. The patient has a history of swelling of his left buttock for about 3 weeks. He was seen in the emergency room on for October with a large abscess in this treated with Bactrim. He states that the Bactrim did not improve his condition and he was seen on 30 October were I&D of a large abscess was carried out. He has continued to be symptomatic and the abscess has enlarged. Cultures from 30 October grew out group B streptococcus. Patient returns today with a very large abscess and will need to have formal incision and drainage under anesthesia. He is counseled for this and gives his informed consent. Patient has long history of uncontrolled diabetes with most of the blood sugar levels noted in the emergency room being between 300 & 400. He does not have a primary care provider and he has difficulty getting his insulin and his diabetic supplies. Review of Systems - Constitutional fatigue, headache(s), malaise, weakness - EENT Eyes: bilateral: blurred vision, diplopia, loss of vision Nose, mouth and throat: abnormal hearing, disequilibrium, dizziness, vertigo - Cardiovascular no chest pain with activity, no palpatations, no rapid heart rate, no syncope - Respiratory no cough, no dyspnea, no dyspnea on exertion - Gastrointestinal abdominal pain, cramping, nausea - Genitourinary no change in urinary stream, no dysuria, no urinary frequency, no urinary hesitancy, no urinary incontinence - Musculoskeletal arthralgias, back pain, joint swelling, stiffness - Integumentary no new lesions, no pruritus, no rash - Neurological dizziness, loss of vision, numbness, restless legs, sensory deficit, vertigo, no confusion, no memory loss, no tremor(s) - Psychiatric no anxiety, no depression - Endocrine fatigue, no palpitations - Hematologic/Lymphatic no easy bleeding, no easy bruising, no lymphadenopathy - Allergic/Immunologic no tongue swelling, no throat swelling, no uticaria, no wheezing, no lip swelling Past History Past medical history: DDdiabetes mellitus type 2 insulin-dependent Past surgical history: Multiple back surgeries Past family history: Mother age 73 with history of ovarian cancer in remission and history of diabetes mellitus. Father age 66 due to complications of COPD and congestive heart failure; also had diabetes. 3 siblings, one with kidney failure Past social history: Every day tobacco smoker. Occasional alcohol use Denies drug use Medications and Allergies Home Medications Medication Instructions Recorded Confirmed Type metFORMIN HCL [Glucophage Xr] 1,000 mg PO BID 02/05/15 11/04/18 History Atorvastatin [Lipitor] 40 mg PO HS 01/04/18 11/04/18 History Fenofibrate Nanocrystallized 145 mg PO DAILY 01/04/18 11/04/18 History [Fenofibrate] Insulin Aspart [Novolog Flexpen] See Protocol SQ ACHS 01/04/18 11/04/18 History sitaGLIPtin [Januvia] 50 mg PO DAILY 01/04/18 11/04/18 History Insulin Glargine,Hum.rec.anlog See Protocol SQ DAILY 06/28/18 11/04/18 History [Basaglar Kwikpen U-100] HYDROcodone/ACETAMINOPHEN [[place] 1 each PO Q4 PRN #12 tab 07/01/18 11/04/18 Rx 7.5-325 Tablet] Zolpidem [Ambien] 10 mg PO HSP PRN #20 tab 07/01/18 11/04/18 Rx Sulfamethoxazole/Trimethoprim 1 tab PO BID #20 tab 10/27/18 11/04/18 Rx [Bactrim Ds] oxyCODONE/APAP [Percocet 5-325 mg] 1 tab PO Q4H PRN #10 tab 10/27/18 11/04/18 Rx Naproxen 500 mg PO BID 30 Days #60 tab 10/30/18 11/04/18 Rx Allergies Allergy/AdvReac Type Severity Reaction Status Date / Time No Known Drug Allergies Allergy Verified 11/04/18 11:33 Exam Temp Pulse Resp BP Pulse Ox 98.7 F 103 H 16 111/76 97 11/04/18 12:00 11/04/18 12:00 11/04/18 12:00 11/04/18 12:00 11/04/18 12:00 - General physical appearance well developed, well nourished, moderate distress, moderate pain - Eyes PERRL, normal ocular movement, other (decreased vision, left eye) - ENT normal pinna, normal nares, normal mucosa, no hearing loss, no congestion - Head Head exam IM: Present: atraumatic, normocephalic - Neck no masses, no bruits, trachea midline, no lymphadenopathy, no venous distension - Cardiovascular Cardiovascular exam IM: Present: normal rate and rhythm, RRR, +S1, +S2. Absent: JVD, systolic murmur, tachycardia - Respiratory normal expansion, normal respiratory effort, clear to auscultation - Abdomen Abdomen: Present: soft, non tender, bowel sounds Hernia: Present: none - Genitourinary Present: normal penis with no external lesions - Integumentary Present: no rash, no growths, no abnormal pigmentation - Neurologic Present: normal coordination, normal sensation - Musculoskeletal Present: normal gait, normal posture - Psychiatric Present: oriented to time, oriented to person, oriented to place, speech is normal, memory intact Assessment and Plan (1) Perirectal abscess Patient has received antibiotics based on previous cultures. He is counseled for incision and drainage of the abscess and that will be done later today Status: Acute (2) Diabetes mellitus Status: Acute Qualifiers: Diabetes mellitus type: type 2 Diabetes mellitus half-way insulin use: with forge hand use Diabetes mellitus complication status: with ophthalmic complications
[2018-11-04] MEDS ORDERED: LACTATED RINGERS 250 ML IV PRN (14:27)
[2018-11-04] MEDS ORDERED: ACETAMINOPHEN 1,000 MG/100 ML BOTTLE IV ONE (14:27)
[2018-11-04] MEDS ORDERED: KETOROLAC 30 MG/ML VIAL IV PRN (14:27)
[2018-11-04] MEDS ORDERED: NALOXONE HCL 0.4 MG/ML VIAL IV PRN (14:27)
[2018-11-04] MEDS ORDERED: HYDROmorphone 2 MG/ML VIAL IV PRN ×2 (14:27→14:41)
[2018-11-04] MEDS ORDERED: FLUMAZENIL 0.1 MG/ML ML IV PRN (14:27)
[2018-11-04] MEDS ORDERED: MEPERIDINE 50 MG/ML INJECTION IM PRN (14:27)
[2018-11-04] MEDS ORDERED: PROMETHAZINE 25 MG/ML VIAL IM PRN (14:27)
[2018-11-04] MEDS ORDERED: BENZOCAINE/MENTHOL 1 LOZENGE PO PRN (14:27)
[2018-11-04] MEDS ORDERED: METHOCARBAMOL 1,000 MG/10 ML VIAL IV PRN (14:27)
[2018-11-04] MEDS ORDERED: LACTATED RINGERS 1,000 ML IV SCH (14:30)
--- NOTE | 2018-11-04 14:40 | Brief Operative Note ---
Date of procedure: 11/04/18 Pre-op diagnosis: LEFT PERIRECTAL ABSCESS Post-op diagnosis: other (LEFT PERIRECTAL ABSCESS) Procedure: INCISION AND DRAINAGE OF LEFT PERIRECTAL ABSCESS Grafts/Implants: Yes (05/29 IN. PAPO DRAIN) Anesthesia: GLMA Findings: LARGE ABSCESS EXTENDING FROM LEFT PERIRECTAL SPACE TO LEFT MEDIAL BUTTOCK Complications: none Surgeon: Yesenia Joe Estimated blood loss (cc): 15 Specimens Removed/Pathology: none sent Condition: stable Disposition: PACU
[2018-11-04] MEDS ORDERED: PROMETHAZINE 25 MG/ML VIAL IV PRN (14:41)
[2018-11-04] MEDS: fentaNYL 100 MCG/2 ML VIAL IV PRN ×4 (14:58→15:12)
[2018-11-04] MEDS: oxyCODONE HCL 5 MG TABLET PO PRN ×2 (17:20→21:20)
[2018-11-04] MEDS: DOCUSATE SODIUM 100 MG CAPSULE PO SCH (20:32)
[2018-11-04] MEDS ORDERED: ZOLPIDEM 5 MG TABLET PO PRN (21:00)
[2018-11-04] MEDS ORDERED: DEXTROSE 50% 50 ML VIAL IV PRN (21:05)
[2018-11-04] MEDS ORDERED: DEXTROSE 31 GM ORAL.SUSP PO PRN (21:05)
[2018-11-04] MEDS: 0.9 % SODIUM CHLORIDE 10 ML SYRINGE IV SCH (22:12)
[2018-11-04] MEDS: INSULIN LISPRO 1 UNIT/0.01 ML UNIT SQ SCH (22:20)
[2018-11-04 22:52] LABS: Appearance,Urine CLEAR; Bacteria,Urine 0 /hpf (0); Bilirubin,Urine NEG (NEG); Color,Urine STRAW; Culture Indicated,Urine NO; Glucose,Urine (UA) >=500 mg/dL (NEG); Ketones,Urine 20 mg/dL (NEG); Leukocyte Esterase,Urine NEG /uL (NEG); Mucus,Urine FEW /hpf (0); Nitrate,Urine NEG (NEG); Protein,Urine NEG (NEG); Specific Gravity,Urine 1.029 (1.000-1.035); Urine Blood NEG mg/dL (<0.03); Urine RBC < 1 /hpf (0-1); Urine Squamous Epithelial Cell 0 /hpf (0-4); Urine WBC < 1 /hpf (0-4); Urobilinogen,Urine NEG (NEG)
[2018-11-05] MEDS: INSULIN LISPRO 1 UNIT/0.01 ML UNIT SQ SCH ×6 (00:27→21:40)
[2018-11-05] MEDS: 0.9 % SODIUM CHLORIDE 1,000 ML IV SCH ×4 (03:08→18:41)
[2018-11-05] MEDS: oxyCODONE HCL 5 MG TABLET PO PRN ×2 (03:44→08:22)
[2018-11-05] MEDS: 0.9 % SODIUM CHLORIDE 10 ML SYRINGE IV SCH ×3 (04:53→22:52)
[2018-11-05 05:42] LABS: Basophils # (Auto) 0.1 K/mcL (0.0-0.3); Basophils % (Auto) 0.9 % (0.0-2.0); Eosinophils # (Auto) 0 K/mcL (0.0-0.7); Eosinophils % (Auto) 0.4 % (0.0-7.0); Granulocytes % (Auto) 79.9 % (38.0-78.0); Hematocrit 26.8 % (41.0-55.0); Hemoglobin 9.5 g/dL (13.5-16.5); Lymphocytes # (Auto) 1.2 K/mcL (1.5-4.8); Lymphocytes % (Auto) 11.6 % (15.5-49.0); Mean Cell Volume 87.6 fL (80.0-100.0); Mean Corpuscular HGB Conc 35.4 g/dL (31.0-36.0); Mean Platelet Volume 8.8 fL (7.4-10.4); Monocytes # (Auto) 0.7 K/mcL (0.1-0.9); Monocytes % (Auto) 7.2 % (1.0-12.0); Platelet Count 248 K/mcL (140-440); RBC 3.06 M/mcL (4.50-5.90); Red Cell Distribution Width 12.1 % (11.5-14.5)
[2018-11-05] MEDS: DOCUSATE SODIUM 100 MG CAPSULE PO SCH ×2 (08:22→21:41)
[2018-11-05] MEDS ORDERED: cefTRIAXone 2 GM in DEXTROSE 5% IN WATER 50 ML IV SCH (09:00)
--- NOTE | 2018-11-05 11:59 | XRay Report ---
CLINICAL INFORMATION: Cough and fever COMPARISON: 06/27/2018 FINDINGS: Moderate size infiltrate in the right mid and lower lung appreciated. Left lung is clear. No effusions. Heart size, mediastinum and pulmonary vessels normal. IMPRESSION: Moderate infiltrate right mid / lower lung - likely pneumonia Interpreted and Authenticated by: Wing Valdovinos 11/05/18
[2018-11-05] MEDS ORDERED: BENZONATATE 100 MG CAPSULE PO PRN ×2 (13:26→15:48)
[2018-11-05] MEDS ORDERED: guaiFENesin/CODEINE 10 ML UDC PO PRN ×2 (13:26→15:48)
--- NOTE | 2018-11-05 13:39 | General Surgery Progress Note ---
Subjective Patient reports: feels better, pain is less, shortness of breath, fever Narrative: Note initiated : 11/05/18 at 1:35 pm Service Date, if different from initiated Date: [] Patient: Al Escobar 42 y/o M admitted on 11/05/18 for Left Abscess. Chief Complaint: [patient only has mild discomfort with his buttock incision. He has large volume of drainage. His white blood count is 10 with hemoglobin 9.5. His blood glucose has been uncontrolled variant from 500-244. He developed new onset of cough about 5 hours ago and it has been progressive. He has had some intermittent wheezes and has developed a low-grade temperature. Chest x-ray shows developing pneumonitis Right lung. The cough is productive of large volumes of thick sputum.] Objective Temp Pulse Resp BP Pulse Ox 99.6 F H 72 18 116/74 92 11/05/18 11:06 11/05/18 11:06 11/05/18 11:06 11/05/18 11:06 11/05/18 11:06 - Additional Data Intake & Output - Last 24 hours: Intake & Output 11/03/18 11/04/18 11/05/18 11/06/18 05:59 05:59 05:59 05:59 Intake Total 5702 1850 Output Total 2250 750 Balance 3452 1100 Weight 171 lb - General physical appearance moderate distress, moderate pain - Eyes PERRL, normal ocular movement - ENT normal pinna, normal nares, normal mucosa, no hearing loss, no congestion - Neck no masses, no bruits, trachea midline, no lymphadenopathy, no venous distension - Respiratory other (coarse tubular breath sounds and rales throughout right lung with coarse wheezes) - Cardiovascular Cardiovascular exam: Present: normal rate and rhythm, JVD, +S1, +S2. Absent: RRR, tachycardia - Abdomen non tender, bowel sounds (present), surgical scars (none), masses (none) - Rectum other ( site of operative debridement is unremarkable; there is decreased edema and induration) - Integumentary no rash, no growths, no abnormal pigmentation - Neurologic normal coordination, normal sensation - Musculoskeletal normal gait, normal posture - Psychiatric oriented to time, oriented to person, oriented to place, speech is normal, memory intact - Labs 11/05/18 04:22 11/04/18 08:34 Assessment and Plan (1) Perirectal abscess Status: Acute Assessment and plan: Clinically improved with significant reduction in swelling and induration Current Visit: Yes (2) Diabetes mellitus Status: Acute Assessment and plan: Continued uncontrolled, but levels are less with every 6 hours, sliding scale Humalog coverage. We'll check hemoglobin A1c Current Visit: Yes (3) Pneumonitis Status: Acute Assessment and plan: We'll continue Zosyn antibiotics. DuoNeb every 4 hours Robitussin-AC every 4 hours when necessary cough. Vanessa Cheng twice daily. Follow-up chest x-ray daily Current Visit: Yes - Time Spent With Patient Total time spent is greater than 50% in coordination of care (as documented) at patient's floor/unit and/or counseling patient:
[2018-11-05] MEDS ORDERED: PIPERACILLIN SODIUM/TAZOBACTAM 3.375 GM in DEXTROSE 5% IN WATER 50 ML IV SCH ×2 (15:00→19:00)
[2018-11-05] MEDS ORDERED: IPRATROPIUM/ALBUTEROL 3 ML AMPUL.NEB NEB SCH (15:00)
[2018-11-05] MEDS ORDERED: VANCOMYCIN PER PHARMACY IV SCH ×2 (15:30→15:48)
--- NOTE | 2018-11-05 15:31 | Internal Medicine Consult Note ---
Medical - CN: HPI - Data of Consult Consult date: 11/05/18 Primary Care Provider: BRIANNA Krueger Family Provider: Svetlana Tran - Consult Narrative Reason for consult: Sudden onset hypoxic respiratory failure/sepsis History of present illness: Mr. Escobar is a 42 year old M diabetic who was admitted for large left perirectal abscess and underwent surgical intervention with incision and arun inage of left perirectal area 11/04. Patient developed gram-positive bacteremia, along with group B streptococcus from wound culture on October 30. Patient was recovering well until this afternoon developed rapidly progressive shortness of breath along with tachycardia, tachypnea requiring 100% oxygen. Hospitalist service was emergently consulted by surgery. At the time of evaluation patient is barely able to talk in full sentences. He is tachycardic tachypneic. Stat blood gas along with CBC CMP was ordered. Patient denies aspiration, diaphoresis or shaking chills but endorses to fever. Awake arterial blood gas. Stat chest x-ray reveals right-sided mid and lower lobe infiltrate consistent with pneumonia. Patient is currently on Zosyn/vancomycin. Transfer to ICU for positive pressure ventilation and intubation if required. We will initiate pressors/crystalloids and sepsis management per guidelines. On further questioning patient denies IV drug use. He was recently hospitalized in June with influenza pneumonia with superimposed streptococcus bacteremia that required ID consultation and following negative transthoracic echocardiogram he was discharged on levofloxacin 750 which was continued through 07/12. Other than that patient denies diarrhea, abdominal pain, chest pain, headache but he is anxious and tremulous. Review of system 10 point review of system was performed and is negative for the most of the above CC: Yesenia Joe MD Medical - CN: [facility] Medical history: Diabetes Chronic back pain Recent Influenza with superimposed Streptococcus pneumonia bacteremia Jun 2018 treated with oral Levaquin through 07/12 Herpes labialis Past surgical history: Multiple back surgeries Past family history: Mother age 73 with history of ovarian cancer in remission and history of diabetes mellitus. Father age 66 due to complications of COPD and congestive heart failure; also had diabetes. 3 siblings, one with kidney failure Past social history: Every day tobacco smoker. Occasional alcohol use Denies drug use Medical - CN: Meds Home Medications Medication Instructions Recorded Confirmed Type metFORMIN HCL [Glucophage Xr] 1,000 mg PO BID 02/05/15 11/04/18 History Atorvastatin [Lipitor] 40 mg PO HS 01/04/18 11/04/18 History Fenofibrate Nanocrystallized 145 mg PO DAILY 01/04/18 11/04/18 History [Fenofibrate] Insulin Aspart [Novolog Flexpen] See Protocol SQ ACHS 01/04/18 11/04/18 History sitaGLIPtin [Januvia] 50 mg PO DAILY 01/04/18 11/04/18 History Insulin Glargine,Hum.rec.anlog See Protocol SQ DAILY 06/28/18 11/04/18 History [Basaglar Kwikpen U-100] HYDROcodone/ACETAMINOPHEN [[place] 1 each PO Q4 PRN #12 tab 07/01/18 11/04/18 Rx 7.5-325 Tablet] Zolpidem [Ambien] 10 mg PO HSP PRN #20 tab 07/01/18 11/04/18 Rx Sulfamethoxazole/Trimethoprim 1 tab PO BID #20 tab 10/27/18 11/04/18 Rx [Bactrim Ds] oxyCODONE/APAP [Percocet 5-325 mg] 1 tab PO Q4H PRN #10 tab 10/27/18 11/04/18 Rx Naproxen 500 mg PO BID 30 Days #60 tab 10/30/18 11/04/18 Rx Allergies Allergy/AdvReac Type Severity Reaction Status Date / Time No Known Drug Allergies Allergy Verified 11/04/18 11:33 Medical - CN: Exam - Constitutional Vitals: Temp Pulse Resp BP Pulse Ox 99.6 F H 121 H 24 H 116/74 90 11/05/18 11:06 11/05/18 15:17 11/05/18 15:17 11/05/18 11:06 11/05/18 15:17 General appearance: moderate distress (Shortness of breath and anxious) Exam: Patient in extreme distress and anxious Very labored unable to talk in full sentences Oral cavity dry head normocephalic Neck no lymphadenopathy No ear nose discharge S1-S2 tachycardia 120s Diminished breath sounds bases. tachypnea, distress breathing Abdomen soft nontender, perirectal I&D dressing Lower extremity no cyanosis clubbing or joint swelling Skin no suspicious lesion Psych anxious but cooperative Neuro nonfocal Medical - CN: Result - Labs CBC & Chem 7: 11/06/18 04:00 11/06/18 04:00 Labs: Short CBC 11/05/18 Range/Units 04:22 WBC 10.0 (4.5-11.0) K/mcL Hgb 9.5 L (13.5-16.5) g/dL Hct 26.8 L (41.0-55.0) % Plt Count 248 (140-440) K/mcL Urine 11/04/18 Range/Units 22:00 Urine Color Straw Urine Appearance Clear Urine pH 6.0 (5.0-9.0) Ur Specific [place] 1.029 (1.000-1.035) Urine Protein Neg (NEG) mg/dL Urine Glucose (UA) >=500 A (NEG) mg/dL Medical - CN: A/P (1) Acute respiratory failure with hypoxia Status: Acute Assessment and plan: * Acute hypoxic respiratory failure-likely secondary to pneumonia. Large AA gradient. ABG PaO2 50 on 100% FiO2. Emergent intubation and start mechanical ventilation in the setting of respiratory failure.. * Severe sepsis secondary to bacteremia-continue antibiotic coverage/surveillance cultures/venous lactate trending/crystalloids and vasopressors as indicated. Continue management per guidelines, venous lactic trending * Gram-positive bacteremia, continue surveillance cultures, tailor antibiotic based on sensitivities. Currently empirically on vancomycin/Zosyn. ID consult * Type II DM * Perirectal abscess status post I&D-group B streptococcus on cultures * Elevated troponin secondary to sepsis endorgan dysfunction. Continue trending. Poor R wave progression anterior leads suggestive of old anterior AR on EKG * Full code * Prophylaxis Plan * Transfer to ICU, patient critically ill, [place] II 18 * Blood gas/CT chest/emergent intubation/mechanical ventilation * Central line access * Surveillance blood cultures * ID consult * Venous lactate * Serial troponin/EKG * Crystalloids and pressors as indicated * Patient critically ill Time spent with history and physical over 70 minutes. In addition Critical care time spent over 55 minutes initiation of mechanical ventilation, pressors, intubation of blood gas, chest imaging, hemodynamic management
[2018-11-05] MEDS ORDERED: ONDANSETRON 4 MG/2 ML VIAL IV PRN (15:48)
[2018-11-05] MEDS ORDERED: PROMETHAZINE 25 MG/ML VIAL IV PRN (15:48)
[2018-11-05] MEDS ORDERED: DEXTROSE 31 GM ORAL.SUSP PO PRN (15:48)
[2018-11-05] MEDS ORDERED: DEXTROSE 50% 50 ML VIAL IV PRN (15:48)
[2018-11-05] MEDS ORDERED: VANCOMYCIN 1,000 MG in 0.9 % SODIUM CHLORIDE 250 ML IV ONE (16:00)
[2018-11-05] MEDS ORDERED: NOREPINEPHRINE BITARTRATE 16 MG in 0.9 % SODIUM CHLORIDE 234 ML IV SCH (16:00)
[2018-11-05] MEDS ORDERED: MIDAZOLAM PF 50 MG in 0.9 % SODIUM CHLORIDE 90 ML IV SCH (16:15)
[2018-11-05] MEDS ORDERED: fentaNYL 2,500 MCG in 0.9 % SODIUM CHLORIDE 200 ML IV SCH (16:15)
[2018-11-05] MEDS ORDERED: HEPARIN/NS 500 ML IV SCH (16:15)
[2018-11-05] MEDS: NOREPINEPHRINE BITARTRATE 16 MG in 0.9 % SODIUM CHLORIDE 234 ML IV SCH (16:24)
[2018-11-05] MEDS: 0.9 % SODIUM CHLORIDE 250 ML IV SCH (16:24)
[2018-11-05] MEDS: fentaNYL 2,500 MCG in 0.9 % SODIUM CHLORIDE 200 ML IV SCH (16:28)
[2018-11-05] MEDS: MIDAZOLAM PF 50 MG in 0.9 % SODIUM CHLORIDE 90 ML IV SCH ×3 (16:35→23:52)
--- NOTE | 2018-11-05 16:47 | Procedure Note ---
Procedures - Central Line Placement Right IJ Date of Procedure: 11/05/18 Time out performed: Yes Patient placed on monitor/pulse ox: Yes MD prep: mask, sterile gown, sterile gloves, cap Central line prep: 2% Chlorhexidine scrub Ultrasound used for placement: Yes Central line lumen inserted: quad, 16 cm Post procedure: sutured in place, good blood return, all ports aspirated, flushed, capped, sterile dressing applied Post procedure x-ray: tip of catheter in good position Patient tolerated procedure: well Complications: none
--- NOTE | 2018-11-05 16:48 | Procedure Note ---
Procedures - Intubation Sedative: Versed Paralytic: Rocuronium ETT: ETCO2, BBS Laryngoscope: Valenzuela Vocal Cord View: 1 ET tube size: 8 ET tube uncuffed: No Tube secured depth (cm): 22 Tube secured location: teeth Tube placement confirmation: visualized tube passing through cords, equal breath sounds bilaterally, no breath sounds over epigastrium, confirmation by capnometry Intubation complications: none
--- NOTE | 2018-11-05 17:15 | XRay Report ---
CLINICAL INFORMATION: ETT Placement COMPARISON: None. FINDINGS: Endotracheal tube is 5 cm above the susanna. A right IJ central line tip overlies the IJ brachycephalic junction. The mediastinum and pulmonary vessels are normal. A large dense consolidated right perihilar is worsened considerably since the film five hours prior. IMPRESSION: 1. Large consolidation right perihilar infiltrate has worsened considerably since film earlier today 2. Endotracheal tube and right IJ line in suboptimal position - please see above. Suggest advancing the endotracheal tube 1 cm and the right IJ line 5 cm. Interpreted and Authenticated by: Wing Valdovinos 11/05/18
[2018-11-05 17:34] LABS: POC Blood Urea Nitrogen 20 mg/dl (6-20); POC CO2 23 mmol/L (22-30); POC Calcium, Ionized 1.17 mmol/L (1.16-1.32); POC Chloride 102 mmol/L (96-108); POC Creatinine 0.6 mg/dl (0.7-1.2); POC Glucose, Random 255 mg/dL (70-105); POC Potassium 3.7 mmol/L (3.3-5.1); POC Sodium 136 mmol/L (133-145)
[2018-11-05] MEDS: HYDROmorphone 2 MG/ML VIAL IV PRN (17:35)
[2018-11-05 17:39] LABS: Basophils # (Auto) 0.1 K/mcL (0.0-0.3); Basophils % (Auto) 0.3 % (0.0-2.0); Eosinophils # (Auto) 0.1 K/mcL (0.0-0.7); Eosinophils % (Auto) 0.3 % (0.0-7.0); Granulocytes % (Auto) 78.7 % (38.0-78.0); Hematocrit 31.6 % (41.0-55.0); Hemoglobin 10.4 g/dL (13.5-16.5); Lymphocytes # (Auto) 2.9 K/mcL (1.5-4.8); Lymphocytes % (Auto) 14.2 % (15.5-49.0); Mean Cell Volume 90.5 fL (80.0-100.0); Mean Corpuscular HGB Conc 32.9 g/dL (31.0-36.0); Mean Platelet Volume 9.4 fL (7.4-10.4); Monocytes # (Auto) 1.3 K/mcL (0.1-0.9); Monocytes % (Auto) 6.5 % (1.0-12.0); Platelet Count 423 K/mcL (140-440); RBC 3.49 M/mcL (4.50-5.90); WBC 20.7 K/mcL (4.5-11.0)
--- NOTE | 2018-11-05 18:01 | XRay Report ---
CLINICAL INFORMATION: line placement COMPARISON: 11/05/2018 1640 hours FINDINGS: Endotracheal tip is now 4 cm above the susanna satisfactory position. Right IJ line tip overlies the SVC. Cardiomediastinal silhouette and pulmonary vessels are normal. Dense consolidated right perihilar infiltrate is again noted. IMPRESSION: No change in a large dense consolidated right perihilar infiltrate Endotracheal tube and right IJ lines in satisfactory position Interpreted and Authenticated by: Wing Valdovinos 11/05/18
[2018-11-05] MEDS: IPRATROPIUM/ALBUTEROL 3 ML AMPUL.NEB NEB SCH ×2 (18:24→23:18)
[2018-11-05 21:41] LABS: Hemoglobin A1C 12.1 % HGB (4.0-6.0)
[2018-11-05] MEDS ORDERED: MEROPENEM 0.5 GM in 0.9 % SODIUM CHLORIDE 50 ML IV SCH (22:00)
[2018-11-05] MEDS ORDERED: VANCOMYCIN 500 MG in 0.9 % SODIUM CHLORIDE 100 ML IV ONE (22:00)
[2018-11-06] MEDS ORDERED: ACETAMINOPHEN 650 MG/65 ML BOTTLE IV PRN
[2018-11-06] MEDS: CHLORHEXIDINE GLUCONATE 1 ML ORAL.SOL SWABMOUTH SCH ×3 (00:11→21:41)
[2018-11-06] MEDS: 0.9 % SODIUM CHLORIDE 1,000 ML IV SCH (00:12)
[2018-11-06 00:35] LABS: Appearance,Urine TURBID; Bacteria,Urine 0 /hpf (0); Bilirubin,Urine NEG (NEG); Color,Urine YELLOW; Culture Indicated,Urine NO; Glucose,Urine (UA) 150 mg/dL (NEG); Ketones,Urine NEG (NEG); Leukocyte Esterase,Urine NEG /uL (NEG); Mucus,Urine FEW /hpf (0); Nitrate,Urine NEG (NEG); Protein,Urine 100 mg/dL (NEG); Specific Gravity,Urine 1.032 (1.000-1.035); Urine Blood 0.2 mg/dL (<0.03); Urine Hyaline Cast 4 /lpf (0-2); Urine RBC 3 /hpf (0-1); Urine Squamous Epithelial Cell 0 /hpf (0-4); Urine WBC 0 /hpf (0-4); Urobilinogen,Urine NEG (NEG)
[2018-11-06] MEDS: IPRATROPIUM/ALBUTEROL 3 ML AMPUL.NEB NEB SCH ×6 (03:30→23:13)
[2018-11-06] MEDS: DEXMEDETOMIDINE HCL 400 MCG/100 ML BAG IV SCH ×3 (03:58→23:46)
[2018-11-06] MEDS ORDERED: ACETAMINOPHEN 1,000 MG/100 ML BOTTLE IV ONE (04:37)
[2018-11-06 04:59] LABS: Basophils # (Auto) 0.1 K/mcL (0.0-0.3); Basophils % (Auto) 0.3 % (0.0-2.0); Eosinophils # (Auto) 0.1 K/mcL (0.0-0.7); Eosinophils % (Auto) 0.3 % (0.0-7.0); Granulocytes % (Auto) 71.2 % (38.0-78.0); Hematocrit 29.8 % (41.0-55.0); Hemoglobin 9.9 g/dL (13.5-16.5); Lymphocytes # (Auto) 3.3 K/mcL (1.5-4.8); Lymphocytes % (Auto) 18.2 % (15.5-49.0); Mean Cell Volume 90.7 fL (80.0-100.0); Monocytes # (Auto) 1.8 K/mcL (0.1-0.9); Platelet Count 398 K/mcL (140-440); RBC 3.28 M/mcL (4.50-5.90); WBC 17.9 K/mcL (4.5-11.0)
[2018-11-06 05:05] LABS: ALT/SGPT 18 U/l (0-40); AST/SGOT 51 U/l (0-37); Albumin 2.8 gm/dL (3.2-5.2); Alkaline Phosphatase 117 U/L (39-117); Bilirubin,Total < 0.2 mg/dL (0.0-1.0); Blood Urea Nitrogen 19 mg/dl (6-20); Carbon Dioxide 24 mmol/L (22-30); Chloride 103 mmol/L (96-108); Globulin 2.8 gm/dL (2.2-3.7); Glomerular Filtration Rate 122; Glucose 175 mg/dL (70-105); Potassium 3.7 mmol/L (3.3-5.1); Sodium 139 mmol/L (133-145)
--- NOTE | 2018-11-06 05:29 | Internal Med Progress Note ---
Medical - PN: Subj Patient information: Note initiated : 11/06/18 at 5:23 am Service Date, if different from initiated Date: [] Patient: Al Escobar a 42 y/o M admitted on 11/05/18 for Left Abscess. Chief Complaint: [] Interval history: Mr. Escobar is a 42 year old M diabetic who was admitted for large left perirectal abscess and underwent surgical intervention with incision and drainage of left perirectal area 11/04. Patient developed gram-positive bacteremia, along with group B streptococcus from wound culture on October 30. Patient was recovering well until this afternoon developed rapidly progressive shortness of breath along with tachycardia, tachypnea requiring 100% oxygen. Hospitalist service was emergently consulted by surgery. At the time of evaluation patient is barely able to talk in full sentences. He is tachycardic tachypneic. Stat blood gas along with CBC CMP was ordered. Patient denies aspiration, diaphoresis or shaking chills but endorses to fever. Awake arterial blood gas. Stat chest x-ray reveals right-sided mid and lower lobe infiltrate consistent with pneumonia. Patient is currently on Zosyn/vancomycin. Transfer to ICU for positive pressure ventilation and intubat ion if required. We will initiate pressors/crystalloids and sepsis management per guidelines. On further questioning patient denies IV drug use. He was recently hospitalized in June with influenza pneumonia with superimposed streptococcus bacteremia that required ID consultation and following negative transthoracic echocardiogram he was discharged on levofloxacin 750 which was continued through 07/12. Other than that patient denies diarrhea, abdominal pain, chest pain, headache but he is anxious and tremulous. 11/06-patient critically ill on vasopressors. Titrating oxygen and vasopressors down. Currently on 12 PEEP 35% FiO2. ICU sedation on fentanyl/Precedex. ET tube in place. T-max 100.8. White count up to 20,000. Urine output 40 cc an hour. Remains critically ill but improved since previous day. Improved oxygenation. Squaxin 2 score 19, remains a high risk mortality. Multiple blood cultures positive for gram-positive cocci. Surveillance cultures/sensitivities pending. Antibiotics escalated to vancomycin/meropenem in light of septic shock. ID consulted. Serial troponin peak 0.9 secondary to sepsis and endorgan dysfunction. Blood sugars improved. A1c 12.1 indicating poor outpatient control. Continue surveillance culture - Constitutional Vitals: Vital Signs Temp Pulse Resp BP Pulse Ox 100.8 F H 100 H 17 114/76 96 11/06/18 04:42 11/06/18 04:30 11/06/18 04:30 11/06/18 04:30 11/06/18 04:30 Period Temp Pulse Resp BP Sys/Kaplan Pulse Ox Last 24 Hr 97.6 F-100.9 F 72-132 9-32 81-156/62-112 83-100 Intake and Output 11/05/18 11/05/18 11/06/18 13:59 21:59 05:59 Intake Total 1850 2152 417 Output Total 1050 400 271 Balance 800 1752 146 Weight 173 lb 1.6 oz Patient Weight 11/06/18 05:59 Weight 173 lb 1.6 oz Intake & Output: Intake & Output 11/05/18 11/05/18 11/06/18 13:59 21:59 05:59 Intake Total 1850 2152 417 Output Total 1050 400 271 Balance 800 1752 146 Weight 173 lb 1.6 oz Intake: IV 1050 1352 417 Sodium Chloride 0.9% 1,000 ml @ 1000 100 mls/hr IV .Q10H [facility] Rx#: [id number] PRECEDEX 400 MCG/100 ML 4 DEXTROSE 400 mcg In 100 ml @ 0. 2 MCG/KG/HR 3.926 mls/hr IV . Q24H [facility] Rx#:[id number] Merrem 0.5 gm In Sodium 50 Chloride 0.9% 50 ml @ 100 mls/ hr IV Q24H [facility] Rx#:[id number] Versed 50 mg In Sodium Chloride 100 200 0.9% 90 ml @ 0.02 MG/KG/HR 3.1 mls/hr IV Q24H [facility] Rx#: [id number] Levophed 16 mg In Sodium 33 63 Chloride 0.9% 234 ml @ 10 MCG/ MIN 9.38 mls/hr IV Q24H [facility] Rx# :[id number] Zosyn 3.375 gm In Dextrose 5% 100 in Water 50 ml @ 100 mls/hr IV Q6H [facility] Rx#:[id number] Rocephin 2 gm In Dextrose 5% in 50 Water 50 ml @ 100 mls/hr IV DAILY [facility] Rx#:[id number] fentaNYL 2,500 MCG In Sodium 9 Chloride 0.9% 200 ml @ 25 MCG/ HR 2.5 mls/hr IV Q24H [facility] Rx#: [id number] Oral 800 800 Output: Urine Catheter Amount 400 271 Void Amount 750 Emesis 300 Other: Urine Appearance Clear Clear Sediment Uretheral ([place]) Clear Clear Sediment Urine Color Straw Straw Uretheral ([place]) Bright Yellow Bright Yellow Light Rima Straw Exam: On mechanical ventilation ET tube in place T-max 100.8 Tachycardic Respiratory rate improved to 17 Map at goal [place] draining clear urine Medical - PN: Obj Da - Labs CBC & Chem 7: 11/06/18 04:00 11/06/18 04:00 Labs: Abnormal Lab Results 11/06/18 11/06/18 11/06/18 04:00 04:00 04:00 WBC 17.9 H RBC 3.28 L Hgb 9.9 L Hct 29.8 L POC Hct Gran % Lymph % (Auto) Gran # 12.8 H Lymph # (Auto) [place] # (Auto) 1.8 H Creatinine 0.6 L POC Creatinine Glucose 175 H POC Glucose Hemoglobin A1c Calcium 8.0 L AST 51 H Troponin T 0.90 H* Total Protein 5.6 L Albumin 2.8 L Urine Protein Urine Glucose (UA) Urine Ketones Urine Occult Blood Urine RBC Hyaline Casts 11/05/18 11/05/18 11/05/18 23:30 20:48 20:13 WBC RBC Hgb Hct POC Hct Gran % Lymph % (Auto) Gran # Lymph # (Auto) [place] # (Auto) Creatinine POC Creatinine Glucose POC Glucose Hemoglobin A1c 12.1 H Calcium AST Troponin T 0.53 H* Total Protein Albumin Urine Protein 100 A Urine Glucose (UA) 150 A Urine Ketones Urine Occult Blood 0.2 A Urine RBC 3 H Hyaline Casts 4 H 11/05/18 11/05/18 11/05/18 17:25 16:45 16:45 WBC 20.7 H RBC 3.49 L Hgb 10.4 L Hct 31.6 L POC Hct 29.0 L Gran % 78.7 H Lymph % (Auto) 14.2 L Gran # 16.3 H Lymph # (Auto) [place] # (Auto) 1.3 H Creatinine POC Creatinine 0.6 L Glucose POC Glucose 255 H Hemoglobin A1c Calcium AST Troponin T 0.38 H* Total Protein Albumin Urine Protein Urine Glucose (UA) Urine Ketones Urine Occult Blood Urine RBC Hyaline Casts 11/05/18 11/04/18 11/04/18 04:22 22:00 08:34 WBC RBC 3.06 L Hgb 9.5 L Hct 26.8 L POC Hct Gran % 79.9 H Lymph % (Auto) 11.6 L Gran # Lymph # (Auto) 1.2 L [place] # (Auto) Creatinine POC Creatinine Glucose 387 H POC Glucose Hemoglobin A1c Calcium AST Troponin T Total Protein Albumin Urine Protein Urine Glucose (UA) >=500 A Urine Ketones 20 A Urine Occult Blood Urine RBC Hyaline Casts 11/04/18 08:34 WBC RBC 3.70 L Hgb 11.2 L Hct 33.4 L POC Hct Gran % Lymph % (Auto) Gran # Lymph # (Auto) [place] # (Auto) Creatinine POC Creatinine Glucose POC Glucose Hemoglobin A1c Calcium AST Troponin T Total Protein Albumin Urine Protein Urine Glucose (UA) Urine Ketones Urine Occult Blood Urine RBC Hyaline Casts Meds: Medications Albuterol/Ipratropium (Duoneb) 3 ml NEB Q4HRT [facility] Last Admin: 11/06/18 03:30 Dose: 3 ml Documented by: Benzonatate (Tessalon) 200 mg PO TIDP PRN PRN Reason: Cough Chlorhexidine Gluconate (Peridex) 15 ml SWABMOUTH BID [facility] Last Admin: 11/06/18 00:11 Dose: 15 ml Documented by: Dextrose (Dextrose 50%) 0 ml IV UD PRN PRN Reason: Hypoglycemia Diagnostic Test (Pha) (Accu-Chek) 1 each FS Q6 [facility] Last Admin: 11/06/18 01:45 Dose: 1 each Documented by: Docusate Sodium (Colace) 100 mg PO BID [facility] Last Admin: 11/05/18 21:41 Dose: Not Given Documented by: Glucose (Insta-Glucose) 15 gm PO PRN PRN PRN Reason: Hypoglycemia Guaifenesin/Codeine Phosphate (Robitussin Ac) 10 ml PO Q4HP PRN PRN Reason: Cough Heparin Sodium (Porcine) (Heparin) 5,000 unit SQ Q12 [facility] Hydromorphone HCl (Dilaudid) 1 mg IV Q2HP PRN PRN Reason: PAIN LEVEL > 6 Last Admin: 11/05/18 17:35 Dose: 1 mg Documented by: Sodium Chloride (Sodium Chloride 0.9%) 1,000 mls @ 100 mls/hr IV .Q10H [facility] Last Admin: 11/06/18 00:12 Dose: 100 mls/hr Documented by: Vancomycin HCl 1,000 mg/ (Sodium Chloride) 250 mls @ 250 mls/hr IV Q12H [facility]; Protocol Norepinephrine Bitartrate 16 (mg/ Sodium Chloride) 250 mls @ 9.38 mls/hr IV Q24H [facility]; Protocol Last Titration: 11/06/18 04:41 Dose: 6 mcg/min, 5.63 mls/hr Documented by: Sodium Chloride (Sodium Chloride 0.9%) 250 mls @ 20 mls/hr IV .[id number] [facility] Last Admin: 11/05/18 16:24 Dose: 20 mls/hr Documented by: Fentanyl 2,500 mcg/ Sodium (Chloride) 250 mls @ 2.5 mls/hr IV Q24H [facility]; Protocol Last Titration: 11/05/18 17:30 Dose: 200 mcg/hr, 20 mls/hr Documented by: Midazolam HCl 50 mg/ Sodium (Chloride) 100 mls @ 3.1 mls/hr IV Q24H [facility]; Protocol Last Titration: 11/06/18 03:58 Dose: Infused Documented by: Heparin Sodium/Sodium Chloride (Heparin/Ns) 500 mls @ 0 mls/hr IV .Q0M [facility]; Protocol Meropenem 0.5 gm/ Sodium (Chloride) 50 mls @ 100 mls/hr IV Q24H [facility]; Protocol Last Infusion: 11/05/18 23:10 Dose: Infused Documented by: Acetaminophen (Ofirmev) 650 mg in 65 mls @ 130 mls/hr IV PRN PRN PRN Reason: PAIN/FEVER > 101 Dexmedetomidine HCl (Precedex 400 Mcg/100 Ml Dextrose) 400 mcg in 100 mls @ 3.926 mls/hr IV .Q24H [facility]; Protocol Last Titration: 11/06/18 04:22 Dose: 0.4 mcg/kg/hr, 7.852 mls/hr Documented by: Insulin Human Lispro (Humalog) 0 unit SQ ACHS [facility]; Protocol Last Admin: 11/05/18 21:40 Dose: 8 unit Documented by: Ondansetron HCl (Zofran) 4 mg IV Q4HP PRN PRN Reason: Nausea And Vomiting Oxycodone HCl (Roxicodone) 10 mg PO Q4HP PRN PRN Reason: PAIN LEVEL 3-6 Promethazine HCl (Phenergan) 12.5 mg IV Q4HP PRN PRN Reason: Nausea And Vomiting Sitagliptin Phosphate (Januvia) 50 mg PO DAILY [facility] Sodium Chloride (Saline Flush) 10 ml IV Q8 [facility] Last Admin: 11/05/18 22:52 Dose: 10 ml Documented by: Vancomycin HCl (Vancomycin Per Pharmacy) 1 order IV UD [facility] Zolpidem Tartrate (Ambien) 10 mg PO HSP PRN PRN Reason: Insomnia Medical - PN: A/P - Time Spent With Patient Total time spent is greater than 50% in coordination of care (as documented) at patient's floor/unit and/or counseling patient: Greater than 35 minutes (Critical care time) (1) Acute respiratory failure with hypoxia Status: Acute Assessment and plan: * Acute hypoxic respiratory failure- secondary to right-sided pneumonia. Clinically improving now on PEEP 10 FiO2 45% down from PEEP 15/FiO2 100%. Repeat ABG/interval chest imaging this morning. * Mechanical ventilation per protocol. Improving oxygenation/ventilation. End- tidal CO2 25. Continue ICU sedation on Precedex. Plateau pressure 24. Improving dynamic lung compliance. Will require initiation of diuresis in the next 24 hours with a target plateau pressure less than 18. * Septic shock with multiorgan dysfunction secondary to gram-positive bacteremia-continue antibiotic coverage/surveillance cultures/venous lactate trending. Gradual improvement with vasopressors titrating down to currently 7 mics Levophed. Continue management per guidelines, continue meropenem/vancomycin in light of rapidly progressive septic shock and multiorgan failure. * Gram-positive bacteremia, continue surveillance cultures, on broad antibiotic coverage including meropenem/vancomycin. * Elevated troponin secondary to sepsis endorgan dysfunction. Peak troponin 0.9. Poor R wave progression anterior leads suggestive of old anterior [place] * Type II DM for outpatient control with A1c 12.1. Continue sliding scale * Perirectal abscess status post I&D-group B streptococcus on cultures * Full code * Prophylaxis heparin Plan * Continue critical care management including pressors * Mechanical ventilation per protocol with Serial blood gas/chest imaging * ICU sedation on Precedex/fentanyl * Surveillance blood cultures * Squaxin 2 score 18. Remains critically ill * Antibiotics escalated to meropenem/vancomycin in light of worsening shock and endorgan dysfunction * ID consult Current Visit: Yes Medical - PN: Qual - VTE Deep Vein Thrombosis/Pulmonary Embolism Present on Admission: No
--- NOTE | 2018-11-06 05:42 | XRay Report ---
CLINICAL INFORMATION: OG Placement COMPARISON: None. FINDINGS: OG tube overlies the gastric body. Moderate stool is noted within the colon - no evidence of obstruction. No free air or pathologic calcification. IMPRESSION: OG tube overlying the gastric body. No acute abdominal disease Large infiltrate right mid/ lower lung as previously seen Interpreted and Authenticated by: Wing Valdovinos 11/06/18
[2018-11-06] MEDS: 0.9 % SODIUM CHLORIDE 250 ML IV SCH ×3 (05:59→22:03)
[2018-11-06] MEDS ORDERED: fentaNYL 50 ML ONE (06:34)
[2018-11-06] MEDS: 0.9 % SODIUM CHLORIDE 10 ML SYRINGE IV SCH ×7 (06:46→21:41)
[2018-11-06] MEDS: INSULIN LISPRO 1 UNIT/0.01 ML UNIT SQ SCH ×3 (06:57→18:15)
--- NOTE | 2018-11-06 07:06 | XRay Report ---
CLINICAL INFORMATION: f/u of pneumonia COMPARISON: 11/05/2008 FINDINGS: IMPRESSION: Interpreted and Authenticated by: Wing Valdovinos 11/06/18
[2018-11-06] MEDS: fentaNYL 2,500 MCG in 0.9 % SODIUM CHLORIDE 200 ML IV SCH ×2 (07:10→19:40)
[2018-11-06] MEDS: HEPARIN 5,000 UNIT/ML VIAL SQ SCH ×2 (08:27→21:42)
[2018-11-06] MEDS: DOCUSATE SODIUM 100 MG CAPSULE PO SCH ×2 (08:27→21:42)
[2018-11-06] MEDS: 0.9 % SODIUM CHLORIDE 10 ML SYRINGE IV PRN ×2 (08:35→10:40)
[2018-11-06] MEDS: VANCOMYCIN 1,000 MG in 0.9 % SODIUM CHLORIDE 250 ML IV SCH ×2 (08:35→21:41)
[2018-11-06] MEDS ORDERED: sitaGLIPtin 50 MG TABLET PO SCH ×2 (09:00)
[2018-11-06] MEDS ORDERED: MEROPENEM 1 GM in 0.9 % SODIUM CHLORIDE 50 ML IV SCH (09:00)
[2018-11-06] MEDS ORDERED: VANCOMYCIN 1,000 MG in 0.9 % SODIUM CHLORIDE 250 ML IV SCH (09:00)
[2018-11-06] MEDS: metroNIDAZOLE 500 MG/100 ML BAG IV SCH ×2 (10:41→22:14)
[2018-11-06] MEDS: CEFEPIME 2 GM VIAL IV SCH ×3 (10:45→23:46)
--- NOTE | 2018-11-06 11:50 | Operative Note ---
DATE OF OPERATION: 11/04/2018 PREOPERATIVE DIAGNOSIS: Left perirectal abscess. POSTOPERATIVE DIAGNOSIS: Left perirectal abscess. PROCEDURE: Incision and drainage of left perirectal abscess. SURGEON: Yesenia Joe M.D. FINDINGS: Large abscess extending from the left perirectal space to the left medial buttock. DESCRIPTION OF PROCEDURE: Under general anesthesia, the patient was placed in high lithotomy position. A time-out procedure was carried out as per protocol. The patient had a small rubber band that was tied superficially over the large indurated abscess. The entire area was prepped and draped. The rubber band was removed. Valorie clamp was incised to make the opening larger. A grooved probe was then passed through the openings and using electrocautery, the dome of the abscess cavity was incised and this was extended deeper. There was still a large volume of pus encompassing the large abscess. Further dissection was carried out anteriorly and posteriorly to give adequate drainage. Finger fractionation was carried out to break up the loculations and the area was flushed with large volume of saline that probably was about 1200 mL. Once this was done, the base of the abscess cavity was inspected and there was no evidence of foreign body. Though the abscess extended to the perirectal space, I could not get a small probe to enter the anal canal. The sphincter appeared to be intact. A counterincision was made more anteriorly and 1/4-inch [place] drain was placed and sutured in place. The patient tolerated the procedure well. Dressing was placed and a retaining surgical brace was placed to hold the dressing in position. The patient was taken out of high lithotomy and placed in supine position. He was awakened, extubated, and transferred to the postoperative care unit in stable, satisfactory condition. LCS:tung Job ID: [id number] Doc ID: [id number] Yesenia Joe M.D.
--- NOTE | 2018-11-06 12:08 | Internal Med Progress Note ---
Medical - PN: Subj Patient information: Note initiated : 11/06/18 at 12:05 pm Service Date, if different from initiated Date: [] Patient: Al Escobar a 42 y/o M admitted on 11/05/18 for Left Abscess. Chief Complaint: [] Interval history: Mr. Escobar is a 42 year old M diabetic who was admitted for large left perirectal abscess and underwent surgical intervention with incision and drainage of left perirectal area 11/04. Patient developed gram-positive bacteremia, along with group B streptococcus from wound culture on October 30. Patient was recovering well until this afternoon developed rapidly progressive shortness of breath along with tachycardia, tachypnea requiring 100% oxygen. Hospitalist service was emergently consulted by surgery. At the time of evaluation patient is barely able to talk in full sentences. He is tachycardic tachypneic. Stat blood gas along with CBC CMP was ordered. Patient denies aspiration, diaphoresis or shaking chills but endorses to fever. Awake arterial blood gas. Stat chest x-ray reveals right-sided mid and lower lobe infiltrate consistent with pneumonia. Patient is currently on Zosyn/vancomycin. Transfer to ICU for positive pressure ventilation and intubat ion if required. We will initiate pressors/crystalloids and sepsis management per guidelines. On further questioning patient denies IV drug use. He was recently hospitalized in June with influenza pneumonia with superimposed streptococcus bacteremia that required ID consultation and following negative transthoracic echocardiogram he was discharged on levofloxacin 750 which was continued through 07/12. Other than that patient denies diarrhea, abdominal pain, chest pain, headache but he is anxious and tremulous. 11/06-patient critically ill on vasopressors. Titrating oxygen and vasopressors down. Currently on 12 PEEP 35% FiO2. ICU sedation on fentanyl/Precedex. ET tube in place. T-max 100.8. White count up to 20,000. Urine output 40 cc an hour. Remains critically ill but improved since previous day. Improved oxygenation. [place] 2 score 19, remains a high risk mortality. Multiple blood cultures positive for gram-positive cocci. Surveillance cultures/sensitivities pending. Antibiotics escalated to vancomycin/meropenem in light of septic shock. ID consulted. Serial troponin peak 0.9 secondary to sepsis and endorgan dysfunction. Blood sugars improved. A1c 12.1 indicating poor outpatient control. Continue surveillance culture 11/07 - Constitutional Vitals: Vital Signs Temp Pulse Resp BP Pulse Ox 100.3 F H 85 16 99/68 97 11/06/18 11:01 11/06/18 11:01 11/06/18 11:01 11/06/18 11:01 11/06/18 11:01 Period Temp Pulse Resp BP Sys/Kaplan Pulse Ox Last 24 Hr 97.6 F-100.9 F 84-132 9-32 81-156/62-112 83-100 Intake and Output 11/05/18 11/06/18 11/06/18 21:59 05:59 13:59 Intake Total 2152 767 1318 Output Total 400 271 330 Balance 1752 496 988 Weight 78.517 kg Intake & Output: Intake & Output 11/05/18 11/06/18 11/06/18 21:59 05:59 13:59 Intake Total 2152 767 1318 Output Total 400 271 330 Balance 1752 496 988 Weight 78.517 kg Intake: IV 9815 668 7750 fentaNYL 50 ML @ 0 mls/hr . 50 [address] .STK-MED ONE Rx#: [id number] Sodium Chloride 0.9% 1,000 ml @ 580 100 mls/hr IV .Q10H [facility] Rx#: [id number] Sodium Chloride 0.9% 250 ml @ 250 20 mls/hr IV .[id number] [facility] Rx#: [id number] OFIRMEV 1,000 mg In 100 ml @ 0 100 mls/hr IV .STK-MED ONE Rx#: [id number] PRECEDEX 400 MCG/100 ML 4 17 DEXTROSE 400 mcg In 100 ml @ 0. 2 MCG/KG/HR 3.926 mls/hr IV . Q24H [facility] Rx#:[id number] Merrem 0.5 gm In Sodium 50 Chloride 0.9% 50 ml @ 100 mls/ hr IV Q24H [facility] Rx#:[id number] Merrem 1 gm In Sodium Chloride 0 0.9% 50 ml @ 100 mls/hr IV Q8H [facility] Rx#:[id number] Versed 50 mg In Sodium Chloride 100 200 0.9% 90 ml @ 0.02 MG/KG/HR 3.1 mls/hr IV Q24H [facility] Rx#: [id number] Levophed 16 mg In Sodium 33 63 23 Chloride 0.9% 234 ml @ 10 MCG/ MIN 9.38 mls/hr IV Q24H [facility] Rx# :[id number] Zosyn 3.375 gm In Dextrose 5% 100 in Water 50 ml @ 100 mls/hr IV Q6H [facility] Rx#:[id number] Vancomycin 1,000 mg In Sodium 250 Chloride 0.9% 250 ml @ 250 mls/ hr IV Q12H [facility] Rx#:[id number] fentaNYL 2,500 MCG In Sodium 9 273 Chloride 0.9% 200 ml @ 25 MCG/ HR 2.5 mls/hr IV Q24H [facility] Rx#: [id number] Oral 800 GI Tube Flush 60 Output: Gastric Drainage 100 NG/OG 100 Urine Catheter Amount 400 271 230 Other: Urine Appearance Clear Clear Clear Sediment Uretheral ([place]) Clear Clear Clear Sediment Urine Color Straw Straw Bright Yellow Uretheral ([place]) Bright Yellow Bright Yellow Bright Yellow Light Rima Straw Urine Odor Normal Exam: General: Sedated and intubated, No acute Distress Eyes/N/T: Head/Neck: neck supple, CV: RRR, No murmurs, Pulm: Abd: soft, nontender, +BS x4 Ext: no clubbing/cyanosis/edema Neuro: Sedated and intubated, Skin: warm/dry Medical - PN: Obj Da - Labs CBC & Chem 7: 11/06/18 04:00 11/06/18 04:00 Labs: Abnormal Lab Results 11/06/18 11/06/18 11/06/18 04:00 04:00 04:00 WBC 17.9 H RBC 3.28 L Hgb 9.9 L Hct 29.8 L POC Hct Gran % Lymph % (Auto) Gran # 12.8 H Lymph # (Auto) Brule # (Auto) 1.8 H Creatinine 0.6 L POC Creatinine Glucose 175 H POC Glucose Hemoglobin A1c Calcium 8.0 L AST 51 H Troponin T 0.90 H* Total Protein 5.6 L Albumin 2.8 L Urine Protein Urine Glucose (UA) Urine Ketones Urine Occult Blood Urine RBC Hyaline Casts 11/05/18 11/05/18 11/05/18 23:30 20:48 20:13 WBC RBC Hgb Hct POC Hct Gran % Lymph % (Auto) Gran # Lymph # (Auto) Brule # (Auto) Creatinine POC Creatinine Glucose POC Glucose Hemoglobin A1c 12.1 H Calcium AST Troponin T 0.53 H* Total Protein Albumin Urine Protein 100 A Urine Glucose (UA) 150 A Urine Ketones Urine Occult Blood 0.2 A Urine RBC 3 H Hyaline Casts 4 H 11/05/18 11/05/18 11/05/18 17:25 16:45 16:45 WBC 20.7 H RBC 3.49 L Hgb 10.4 L Hct 31.6 L POC Hct 29.0 L Gran % 78.7 H Lymph % (Auto) 14.2 L Gran # 16.3 H Lymph # (Auto) Brule # (Auto) 1.3 H Creatinine POC Creatinine 0.6 L Glucose POC Glucose 255 H Hemoglobin A1c Calcium AST Troponin T 0.38 H* Total Protein Albumin Urine Protein Urine Glucose (UA) Urine Ketones Urine Occult Blood Urine RBC Hyaline Casts 11/05/18 11/04/18 11/04/18 04:22 22:00 08:34 WBC RBC 3.06 L Hgb 9.5 L Hct 26.8 L POC Hct Gran % 79.9 H Lymph % (Auto) 11.6 L Gran # Lymph # (Auto) 1.2 L Brule # (Auto) Creatinine POC Creatinine Glucose 387 H POC Glucose Hemoglobin A1c Calcium AST Troponin T Total Protein Albumin Urine Protein Urine Glucose (UA) >=500 A Urine Ketones 20 A Urine Occult Blood Urine RBC Hyaline Casts 11/04/18 08:34 WBC RBC 3.70 L Hgb 11.2 L Hct 33.4 L POC Hct Gran % Lymph % (Auto) Gran # Lymph # (Auto) Brule # (Auto) Creatinine POC Creatinine Glucose POC Glucose Hemoglobin A1c Calcium AST Troponin T Total Protein Albumin Urine Protein Urine Glucose (UA) Urine Ketones Urine Occult Blood Urine RBC Hyaline Casts Meds: Medications Albuterol/Ipratropium (Duoneb) 3 ml NEB Q4HRT [facility] Last Admin: 11/06/18 07:07 Dose: 3 ml Documented by: Benzonatate (Tessalon) 200 mg PO TIDP PRN PRN Reason: Cough Cefepime HCl (Maxipime) 2 gm IV Q8H [facility]; Protocol Last Admin: 11/06/18 10:45 Dose: 2 gm Documented by: Chlorhexidine Gluconate (Peridex) 15 ml SWABMOUTH BID [facility] Last Admin: 11/06/18 08:28 Dose: 15 ml Documented by: Dextrose (Dextrose 50%) 0 ml IV UD PRN PRN Reason: Hypoglycemia Diagnostic Test (Pha) (Accu-Chek) 1 each FS Q6 [facility] Last Admin: 11/06/18 06:30 Dose: 1 each Documented by: Docusate Sodium (Colace) 100 mg PO BID [facility] Last Admin: 11/06/18 08:27 Dose: 100 mg Documented by: Glucose (Insta-Glucose) 15 gm PO PRN PRN PRN Reason: Hypoglycemia Guaifenesin/Codeine Phosphate (Robitussin Ac) 10 ml PO Q4HP PRN PRN Reason: Cough Heparin Sodium (Porcine) (Heparin) 5,000 unit SQ Q12 [facility] Last Admin: 11/06/18 08:27 Dose: 5,000 unit Documented by: Hydromorphone HCl (Dilaudid) 1 mg IV Q2HP PRN PRN Reason: PAIN LEVEL > 6 Last Admin: 11/05/18 17:35 Dose: 1 mg Documented by: Vancomycin HCl 1,000 mg/ (Sodium Chloride) 250 mls @ 250 mls/hr IV Q12H [facility]; Protocol Last Infusion: 11/06/18 09:44 Dose: Infused Documented by: Norepinephrine Bitartrate 16 (mg/ Sodium Chloride) 250 mls @ 9.38 mls/hr IV Q24H [facility]; Protocol Last Titration: 11/06/18 08:45 Dose: 5 mcg/min, 4.69 mls/hr Documented by: Sodium Chloride (Sodium Chloride 0.9%) 250 mls @ 20 mls/hr IV .[id number] [facility] Last Admin: 11/06/18 05:59 Dose: 20 mls/hr Documented by: Fentanyl 2,500 mcg/ Sodium (Chloride) 250 mls @ 2.5 mls/hr IV Q24H [facility]; Protocol Last Titration: 11/06/18 09:00 Dose: 150 mcg/hr, 15 mls/hr Documented by: Heparin Sodium/Sodium Chloride (Heparin/Ns) 500 mls @ 0 mls/hr IV .Q0M [facility]; Protocol Acetaminophen (Ofirmev) 650 mg in 65 mls @ 130 mls/hr IV PRN PRN PRN Reason: PAIN/FEVER > 101 Last Infusion: 11/06/18 10:25 Dose: Infused Documented by: Dexmedetomidine HCl (Precedex 400 Mcg/100 Ml Dextrose) 400 mcg in 100 mls @ 3.926 mls/hr IV .Q24H [facility]; Protocol Last Titration: 11/06/18 06:30 Dose: 0.5 mcg/kg/hr, 9.815 mls/hr Documented by: Metronidazole (Flagyl) 500 mg in 100 mls @ 100 mls/hr IV Q8H [facility]; Protocol Last Admin: 11/06/18 10:41 Dose: 100 mls/hr Documented by: Insulin Human Lispro (Humalog) 0 unit SQ Q6 [facility]; Protocol Ondansetron HCl (Zofran) 4 mg IV Q4HP PRN PRN Reason: Nausea And Vomiting Oxycodone HCl (Roxicodone) 10 mg PO Q4HP PRN PRN Reason: PAIN LEVEL 3-6 Promethazine HCl (Phenergan) 12.5 mg IV Q4HP PRN PRN Reason: Nausea And Vomiting Sodium Chloride (Saline Flush) 10 ml IV Q8 [facility] Last Admin: 11/06/18 10:45 Dose: 10 ml Documented by: Sodium Chloride (Saline Flush) 10 ml IV Q12 [facility] Last Admin: 11/06/18 09:45 Dose: 10 ml Documented by: Sodium Chloride (Saline Flush) 10 ml IV UD PRN PRN Reason: FLUSH Last Admin: 11/06/18 10:40 Dose: 10 ml Documented by: Vancomycin HCl (Vancomycin Per Pharmacy) 1 order IV UD [facility] Zolpidem Tartrate (Ambien) 10 mg PO HSP PRN PRN Reason: Insomnia Medical - PN: A/P - Time Spent With Patient Total time spent is greater than 50% in coordination of care (as documented) at patient's floor/unit and/or counseling patient: - Narrative A/P Narrative: A: *Acute hypoxic respiratory failure: 2/2 right-sided pneumonia concerning for Aspiration Event -Requiring mechanical ventilation -Clinically improving now on PEEP 10 FiO2 45% down from PEEP 15/FiO2 100%, improving dynamic lung compliance. *Septic shock w/multiorgan dysfxn: -vasopressors weaning down *Bacteremia (GPC): *Elevated troponin: 2/2 demand ischemia/infarct from above -Peak troponin 0.9, Poor R wave progression anterior leads suggestive of old anterior VA -no previous known h/o CAD, but will need cardiac w/u when stable *DM II, uncontrolled: A1c 12.1. Continue sliding scale *Perirectal abscess: s/p I&D-group (11/04) -B streptococcus on cultures *chronic LBP: Plan: -Continue critical care management including pressors, wean -Mechanical ventilation per protocol with Serial blood gas/chest imaging, sedation vacation & weaning trials -may need diuresis soon -ID consult, abx per ID (Vanco/Cefepime/Flagyl), trend PCT/LA -Surveillance blood cultures -[place] 2 score 18. Remains critically ill -echo pending -ASA/statin, needs cardiac w/u eventually when stable -SSI, basal insulin held while NPO, need further titration of home DM meds -discuss nutrition next 24-48hrs -Abscess per surgery -ppx: Heparin/pepcid Full code Medical - PN: Qual - VTE Deep Vein Thrombosis/Pulmonary Embolism Present on Admission: No
--- NOTE | 2018-11-06 12:29 | General Surgery Progress Note ---
Subjective Narrative: Note initiated : 11/06/18 at 12:26 pm Service Date, if different from initiated Date: [] Patient: Al Escobar 42 y/o M admitted on 11/05/18 for Left Abscess. Chief Complaint: [patient is slightly improved from last evening. He is presently been ventilated. His blood pressure requires low-dose vasopressors still. Urine output is adequate. Blood gases are improving compared to last evening. White blood count 17.9, hemoglobin 9.9. Both bottles. Initial blood cultures are growing gram-positive cocci. Morning chest x-ray shows consolidated major infiltrate Right lung. The operative site and his buttock is clean with only a modest amount of drainage.] Objective Temp Pulse Resp BP Pulse Ox 100.0 F H 95 H 17 114/82 96 11/06/18 12:01 11/06/18 12:01 11/06/18 12:01 11/06/18 12:01 11/06/18 12:01 - Additional Data Intake & Output - Last 24 hours: Intake & Output 11/04/18 11/05/18 11/06/18 11/07/18 05:59 05:59 05:59 05:59 Intake Total 5702 4769 1418 Output Total 2250 1721 400 Balance 3452 3048 1018 Weight 171 lb 173 lb 1.6 oz - General physical appearance other (intubated and sedated) - Eyes other (. Open eyes intermittently but is not aware) - Neck no masses, no bruits, trachea midline, no lymphadenopathy, no venous distension - Respiratory other ( significant decrease in breath sounds on right side; good ventilation, left side) - Cardiovascular Cardiovascular exam: Present: RRR, +S1, +S2, tachycardia - Abdomen distended (. Abdomen is mildly distended. He has good active bowel sounds) - Rectum other (, abscess area left buttock is unremarkable) - Integumentary no rash, no growths, no abnormal pigmentation - Neurologic other ( intubated and sedated) - Labs 11/06/18 04:00 11/06/18 04:00 Diabetes panel 11/05/18 11/06/18 Range/Units 20:13 04:00 Sodium 139 (133-145) mmol/L Potassium 3.7 (3.3-5.1) mmol/L Chloride 103 (96-108) mmol/L Carbon Dioxide 24 (22-30) mmol/L BUN 19 (6-20) mg/dl Creatinine 0.6 L (0.7-1.2) mg/dl Glucose 175 H (70-105) mg/dL Hemoglobin A1c 12.1 H (4.0-6.0) % HGB Calcium 8.0 L (8.6-10.4) mg/dl AST 51 H (0-37) U/l ALT 18 (0-40) U/l Alkaline Phosphatase 117 (39-117) U/L Total Protein 5.6 L (5.9-8.4) gm/dL Albumin 2.8 L (3.2-5.2) gm/dL Calcium panel 11/06/18 Range/Units 04:00 Calcium 8.0 L (8.6-10.4) mg/dl Albumin 2.8 L (3.2-5.2) gm/dL Pituitary panel 11/06/18 Range/Units 04:00 Sodium 139 (133-145) mmol/L Potassium 3.7 (3.3-5.1) mmol/L Chloride 103 (96-108) mmol/L Carbon Dioxide 24 (22-30) mmol/L BUN 19 (6-20) mg/dl Creatinine 0.6 L (0.7-1.2) mg/dl Glucose 175 H (70-105) mg/dL Calcium 8.0 L (8.6-10.4) mg/dl Adrenal panel 11/06/18 Range/Units 04:00 Sodium 139 (133-145) mmol/L Potassium 3.7 (3.3-5.1) mmol/L Chloride 103 (96-108) mmol/L Carbon Dioxide 24 (22-30) mmol/L BUN 19 (6-20) mg/dl Creatinine 0.6 L (0.7-1.2) mg/dl Glucose 175 H (70-105) mg/dL Calcium 8.0 L (8.6-10.4) mg/dl Total Bilirubin < 0.2 (0.0-1.0) mg/dL AST 51 H (0-37) U/l ALT 18 (0-40) U/l Alkaline Phosphatase 117 (39-117) U/L Total Protein 5.6 L (5.9-8.4) gm/dL Albumin 2.8 L (3.2-5.2) gm/dL Assessment and Plan (1) Perirectal abscess Status: Acute Assessment and plan: Clinically improved with significant reduction in swelling and induration Current Visit: Yes (2) Diabetes mellitus Status: Acute Assessment and plan: Continued uncontrolled, but levels are less with every 6 hours, sliding scale Humalog coverage. Current Visit: Yes (3) Pneumonitis Status: Acute Assessment and plan: Antibiotic coverage has been changed by infectious disease. We'll continue on ventilatory support and follow. X-rays closely Current Visit: Yes - Time Spent With Patient Total time spent is greater than 50% in coordination of care (as documented) at patient's floor/unit and/or counseling patient:
[2018-11-06] MEDS: FAMOTIDINE/PF 20 MG/2 ML VIAL IV SCH ×2 (12:43→21:42)
--- NOTE | 2018-11-06 16:11 | Cat Scan Report ---
CLINICAL INFORMATION: Infiltrate ICU patient dyspnea COMPARISON: Chest CT 06/29/2018 TECHNIQUE: 0.625 mm axial slices were obtained from the lung apices through the bases without intravenous contrast. 2.5 mm Sagittal, coronal and axial reformatted images were processed and reviewed at bone, lung and soft tissue windows. 7 mm axial MIP images were also reconstructed to optimize pulmonary nodule detection.The exam was performed using radiation dose optimization techniques including, but not limited to, automated exposure control, adjustment of the mA and/or kV according to patient size and use of iterative reconstruction technique. FINDINGS: Pulmonary parenchymal windows show large densely consolidated alveolar infiltrates within the right upper, middle and lower lobes in a more central distribution. Moderate right pleural effusion is appreciated. In the left lung, there is a small infiltrate in the posterior left lower lobe and also a small patchy alveolar infiltrate in the anterior segment left upper lobe. Small left pleural effusion noted. Mediastinum shows endotracheal tube and OG tube in satisfactory position. The heart is normal in size with only very minimal calcific plaque in the coronary arteries. The noncontrast [place]ask aorta and pulmonary arteries are normal in contour and caliber. There are a few borderline enlarged lymph nodes in the lower mediastinum and right hilum which are almost certainly benign reactive lymph nodes. Thyroid is normal. Bones and soft tissues of the chest wall are unremarkable IMPRESSION: 1. Large consolidated alveolar infiltrates in a central distribution within the right upper middle and lower lobes with a moderate right pleural effusion. Smaller patchy infiltrate anterior segment left upper lobe and the posterior left lower lobe. Moderate right and small left pleural effusions. Primary diagnostic consideration would be infection. Aspiration is possible if there is predominant right-sided positioning. ARDS would be less likely given the predominant right-sided pulmonary involvement. Other causes are typically chronic including organizing pneumonias, eosinophilic pneumonia, SHO and lymphoma. These are considered highly unlikely Interpreted and Authenticated by: Wing Valdovinos 11/06/18
[2018-11-06] MEDS: NOREPINEPHRINE BITARTRATE 16 MG in 0.9 % SODIUM CHLORIDE 234 ML IV SCH (16:49)
--- NOTE | 2018-11-06 18:11 | Infectious Disease Consult ---
History of Present Illness Patient information: Note initiated : 11/06/18 at 6:09 pm Service Date, if different from initiated Date: [] Patient: Al Escobar 42 y/o M admitted on 11/05/18 for Left Abscess. Chief Complaint: [] Consult date: 11/06/18 Requesting Physician: Yesenia Joe MD Reason for Consult: Gram positive bacteremia, shock Chief complaint: Can't be obtained as pt intubated at time of visit History of present illness: HPI obtained by chart review as pt is intubated: 42 year old man with PMHx of: - DM2, A1C of 12 - Streptococcal bacteremia in 06/2018 after a flu episode Pt was admitted on 11/04 pm after presenting to ED with about 2 week Hx of buttock swelling and pain which did not improve completely. He was seen in ER earlier on October 27 and when he presented with buttock swelling and pain. On October 27 he was prescribed 10 day course of Bactrim -DS tabs. On October 30 he didnot get better, therefore came back and an US in ER showed " 2.3 cm thick-walled fluid collection in the subcutaneous left gluteal region which is likely an abscess." He underwent bedside I&D, and Cx obtained, and pt was sent back home to finish the initial At time of his ER visit on , the abscess had not resolved and extended further into surrounding rectum. Pt underwent operative I&D by DR. Joe with findings of : " LARGE ABSCESS EXTENDING FROM LEFT PERIRECTAL SPACE TO LEFT MEDIAL BUTTOCK". A mine drain was placed. Patient was recovering well until 11/05 afternoon when he developed rapidly progressive shortness of breath along with tachycardia, tachypnea requiring 100% oxygen. Pt was also having fevers since 11/05 erly morning. Chest x-ray revealed right-sided mid and lower lobe infiltrate consistent with pneumonia. Patient had been on IV Zosyn/vancomycin. He was transferred ti MICU, intubated and started on IV fluids, and later to pressors overnight on 11/05. Pt's blood Cx from 11/04 grew GPC in 2/2 Cx bottles. Review of Systems ROS unobtainable: due to endotracheal tube Past History Past family history: can't be obtained as pt is intubated Past social history: can't be obtained as pt is intubated Medications and Allergies Home Medications Medication Instructions Recorded Confirmed Type metFORMIN HCL [Glucophage Xr] 1,000 mg PO BID 02/05/15 11/04/18 History Atorvastatin [Lipitor] 40 mg PO HS 01/04/18 11/04/18 History Fenofibrate Nanocrystallized 145 mg PO DAILY 01/04/18 11/04/18 History [Fenofibrate] Insulin Aspart [Novolog Flexpen] See Protocol SQ ACHS 01/04/18 11/04/18 History sitaGLIPtin [Januvia] 50 mg PO DAILY 01/04/18 11/04/18 History Insulin Glargine,Hum.rec.anlog See Protocol SQ DAILY 06/28/18 11/04/18 History [Basaglar Kwikpen U-100] HYDROcodone/ACETAMINOPHEN [[place] 1 each PO Q4 PRN #12 tab 07/01/18 11/04/18 Rx 7.5-325 Tablet] Zolpidem [Ambien] 10 mg PO HSP PRN #20 tab 07/01/18 11/04/18 Rx Sulfamethoxazole/Trimethoprim 1 tab PO BID #20 tab 10/27/18 11/04/18 Rx [Bactrim Ds] oxyCODONE/APAP [Percocet 5-325 mg] 1 tab PO Q4H PRN #10 tab 10/27/18 11/04/18 Rx Naproxen 500 mg PO BID 30 Days #60 tab 10/30/18 11/04/18 Rx Allergies Allergy/AdvReac Type Severity Reaction Status Date / Time No Known Drug Allergies Allergy Verified 11/04/18 11:33 Physical Examination Vital signs: Temp Pulse Resp BP Pulse Ox 38.2 C H 89 21 118/81 98 11/06/18 18:00 11/06/18 18:00 11/06/18 18:00 11/06/18 18:00 11/06/18 18:00 General appearance: comatose Eyes pulmonary: nonicteric ENT: oropharynx moist Auscultation: bilateral: diminished breath sounds (Right worse than left. Complete auscultation difficult as pt intubated and cannot be moved around) Cardiovascular: other (s1 s2 normal, no murmurs auscultated) Gastrointestinal: normoactive bowel sounds Extremities: no edema Results - Laboratory Findings CBC and BMP: 11/09/18 04:00 11/09/18 04:00 Abnormal lab findings: Abnormal Labs 11/04/18 11/04/18 11/04/18 08:34 08:34 22:00 WBC RBC 3.70 L Hgb 11.2 L Hct 33.4 L POC Hct Gran % Lymph % (Auto) Gran # Lymph # (Auto) [place] # (Auto) Creatinine POC Creatinine Glucose 387 H POC Glucose Hemoglobin A1c Calcium AST Troponin T Total Protein Albumin Urine Protein Urine Glucose (UA) >=500 A Urine Ketones 20 A Urine Occult Blood Urine RBC Hyaline Casts 11/05/18 11/05/18 11/05/18 04:22 16:45 16:45 WBC 20.7 H RBC 3.06 L 3.49 L Hgb 9.5 L 10.4 L Hct 26.8 L 31.6 L POC Hct Gran % 79.9 H 78.7 H Lymph % (Auto) 11.6 L 14.2 L Gran # 16.3 H Lymph # (Auto) 1.2 L [place] # (Auto) 1.3 H Creatinine POC Creatinine Glucose POC Glucose Hemoglobin A1c Calcium AST Troponin T 0.38 H* Total Protein Albumin Urine Protein Urine Glucose (UA) Urine Ketones Urine Occult Blood Urine RBC Hyaline Casts 11/05/18 11/05/18 11/05/18 17:25 20:13 20:48 WBC RBC Hgb Hct POC Hct 29.0 L Gran % Lymph % (Auto) Gran # Lymph # (Auto) [place] # (Auto) Creatinine POC Creatinine 0.6 L Glucose POC Glucose 255 H Hemoglobin A1c 12.1 H Calcium AST Troponin T 0.53 H* Total Protein Albumin Urine Protein Urine Glucose (UA) Urine Ketones Urine Occult Blood Urine RBC Hyaline Casts 11/05/18 11/06/18 11/06/18 23:30 04:00 04:00 WBC 17.9 H RBC 3.28 L Hgb 9.9 L Hct 29.8 L POC Hct Gran % Lymph % (Auto) Gran # 12.8 H Lymph # (Auto) [place] # (Auto) 1.8 H Creatinine 0.6 L POC Creatinine Glucose 175 H POC Glucose Hemoglobin A1c Calcium 8.0 L AST 51 H Troponin T Total Protein 5.6 L Albumin 2.8 L Urine Protein 100 A Urine Glucose (UA) 150 A Urine Ketones Urine Occult Blood 0.2 A Urine RBC 3 H Hyaline Casts 4 H 11/06/18 04:00 WBC RBC Hgb Hct POC Hct Gran % Lymph % (Auto) Gran # Lymph # (Auto) [place] # (Auto) Creatinine POC Creatinine Glucose POC Glucose Hemoglobin A1c Calcium AST Troponin T 0.90 H* Total Protein Albumin Urine Protein Urine Glucose (UA) Urine Ketones Urine Occult Blood Urine RBC Hyaline Casts Microbiology: Microbiology 11/05/18 17:25 Blood Blood Culture - Preliminary 11/05/18 16:45 Blood Blood Culture - Preliminary 11/06/18 04:02 Nose MRSA (PCR) - Final 11/04/18 08:27 Blood Blood Culture - Preliminary Gram positive cocci 11/05/18 18:00 Sputum - Aspirate Gram Stain - Final 11/05/18 18:00 Pleural Fluid Gram Stain - Final 11/05/18 18:00 Pleural Fluid Body Fluid Culture - Final 11/04/18 08:33 Blood Blood Culture - Preliminary Gram positive cocci Assessment and Plan - Narrative A/P Narrative: 1. Shock: multifactorial <----- Sepsis, Type 2 NSTEMI with prev Hx of CAD - pressor req improving - Lactic acid and Procalcitonin are not elevated as expected in a septic shock patient, which makes me think that there are other factors contributing 2. GPC bacteremia - blood Cx from 11/04 growing GPC in clusters, ID and sensi to be available tomorrow 3. Left sided Milli-rectal abscess, s/p operative I&D on 11/05 - Gp B Strept isolated on ER wound CX obtained from abscess site on 10/30, no response to PO Bactrim as Outpatient 4. Acute respiratory failure: PaO2/FiO2 <250 ; concerning for ARDS - CT done today showing right sided chest infiltrate involving right upper, middle and lower lobes with pleural effusion - acute development concerning for aspiration pneumonia 5. Uncontrolled Type 2 DM: A1C ~ 12 Recommendations: - Continue IV Vanc per pharmacy assisted dosing. Check trough before the next dose (target 10-20). - Continue IV Cefepime 2 gm q8 hrs - Continue IV Metronidazole 500 mg q8 hrs - await ID and sensi of GPC, await ET Cx - await TTE report - repeat blood Cx if pt spikes a fever - consider right pleural effusion tap. Send for GS and C/S, cell count, LDH, protein, pH, glucose will follow Chato Ornelas MD Infectious diseases
[2018-11-06] MEDS ORDERED: ALBUMIN HUMAN 12.5 GM/50 ML BAG IV ONE (19:54)
[2018-11-06] MEDS: ACETAMINOPHEN 650 MG/65 ML BOTTLE IV PRN (21:46)
[2018-11-07] MEDS: INSULIN LISPRO 1 UNIT/0.01 ML UNIT SQ SCH ×4 (00:08→18:05)
[2018-11-07] MEDS ORDERED: fentaNYL 50 ML ONE (01:08)
[2018-11-07] MEDS: fentaNYL 2,500 MCG in 0.9 % SODIUM CHLORIDE 200 ML IV SCH ×3 (03:05→16:29)
[2018-11-07] MEDS: IPRATROPIUM/ALBUTEROL 3 ML AMPUL.NEB NEB SCH ×6 (03:06→22:53)
[2018-11-07] MEDS: DEXMEDETOMIDINE HCL 400 MCG/100 ML BAG IV SCH ×2 (03:59→21:44)
[2018-11-07] MEDS: 0.9 % SODIUM CHLORIDE 250 ML IV SCH ×2 (05:10→19:05)
[2018-11-07] MEDS: metroNIDAZOLE 500 MG/100 ML BAG IV SCH ×3 (05:25→21:45)
[2018-11-07] MEDS: ACETAMINOPHEN 650 MG/65 ML BOTTLE IV PRN ×2 (05:38→12:57)
[2018-11-07] MEDS: 0.9 % SODIUM CHLORIDE 10 ML SYRINGE IV SCH ×6 (05:41→20:42)
[2018-11-07 06:25] LABS: Basophils # (Auto) 0 K/mcL (0.0-0.3); Basophils % (Auto) 0.4 % (0.0-2.0); Eosinophils # (Auto) 0.1 K/mcL (0.0-0.7); Eosinophils % (Auto) 0.9 % (0.0-7.0); Granulocytes % (Auto) 68.1 % (38.0-78.0); Hematocrit 27.2 % (41.0-55.0); Hemoglobin 9.1 g/dL (13.5-16.5); Lymphocytes # (Auto) 1.6 K/mcL (1.5-4.8); Lymphocytes % (Auto) 19.2 % (15.5-49.0); Mean Cell Volume 91.1 fL (80.0-100.0); Mean Corpuscular HGB Conc 33.5 g/dL (31.0-36.0); Mean Platelet Volume 9.2 fL (7.4-10.4); Monocytes % (Auto) 11.4 % (1.0-12.0); Platelet Count 269 K/mcL (140-440); RBC 2.99 M/mcL (4.50-5.90); Red Cell Distribution Width 12.5 % (11.5-14.5); WBC 8.6 K/mcL (4.5-11.0)
[2018-11-07] MEDS: 0.9 % SODIUM CHLORIDE 10 ML SYRINGE IV PRN ×8 (06:45→17:15)
[2018-11-07 06:58] LABS: ALT/SGPT 13 U/l (0-40); AST/SGOT 32 U/l (0-37); Albumin 2.7 gm/dL (3.2-5.2); Albumin/Globulin Ratio 0.9 (1.0-2.3); Alkaline Phosphatase 96 U/L (39-117); Bilirubin,Direct < 0.2 mg/dL (0.0-0.3); Bilirubin,Total 0.3 mg/dL (0.0-1.0); Blood Urea Nitrogen 15 mg/dl (6-20); Calcium 8.4 mg/dl (8.6-10.4); Carbon Dioxide 23 mmol/L (22-30); Chloride 101 mmol/L (96-108); Glomerular Filtration Rate 122; Glucose 200 mg/dL (70-105); Lactate Dehydrogenase 339 U/L (94-250); Magnesium 1.6 mg/dL (1.6-2.5); Phosphorous 2.4 mg/dL (2.7-4.5); Potassium 3.6 mmol/L (3.3-5.1); Sodium 138 mmol/L (133-145); Triglycerides 161 mg/dl (<150); Uric Acid 3.3 mg/dL (2.5-8.0)
[2018-11-07 07:35] LABS: INR 1.3 (0.9-1.1); Prothrombin Time 16.1 sec (11.9-14.5)
[2018-11-07] MEDS: CEFEPIME 2 GM VIAL IV SCH ×2 (07:49→16:10)
--- NOTE | 2018-11-07 08:27 | Internal Med Progress Note ---
Medical - PN: Subj Patient information: Note initiated : 11/07/18 at 8:13 am Service Date, if different from initiated Date: [] Patient: Al Escobar a 42 y/o M admitted on 11/05/18 for Left Abscess. Chief Complaint: [] Interval history: Mr. Escobar is a 42 year old M diabetic who was admitted for large left p erirectal abscess and underwent surgical intervention with incision and drainage of left perirectal area 11/04. Patient developed gram-positive bacteremia, along with group B streptococcus from wound culture on October 30. Patient was recovering well until this afternoon developed rapidly progressive shortness of breath along with tachycardia, tachypnea requiring 100% oxygen. Hospitalist service was emergently consulted by surgery. At the time of evaluation patient is barely able to talk in full sentences. He is tachycardic tachypneic. Stat blood gas along with CBC CMP was ordered. Patient denies aspiration, diaphoresis or shaking chills but endorses to fever. Awake arterial blood gas. Stat chest x-ray reveals right-sided mid and lower lobe infiltrate consistent with pneumonia. Patient is currently on Zosyn/vancomycin. Transfer to ICU for positive pressure ventilation and intubation if required. We will initiate pressors/crystalloids and sepsis management per guidelines. On further questioning patient denies IV drug use. He was recently hospitalized in June with influenza pneumonia with superimposed streptococcus bacteremia that required ID consultation and following negative transthoracic echocardiogram he was discharged on levofloxacin 750 which was continued through 07/12. Other than that patient denies diarrhea, abdominal pain, chest pain, headache but he is anxious and tremulous. 11/06-patient critically ill on vasopressors. Titrating oxygen and vasopressors down. Currently on 12 PEEP 35% FiO2. ICU sedation on fentanyl/Precedex. ET tube in place. T-max 100.8. White count up to 20,000. Urine output 40 cc an hour. Remains critically ill but improved since previous day. Improved oxygenation. [place] 2 score 19, remains a high risk mortality. Multiple blood cultures positive for gram-positive cocci. Surveillance cultures/sensitivities pending. Antibiotics escalated to vancomycin/meropenem in light of septic shock. ID consulted. Serial troponin peak 0.9 secondary to sepsis and endorgan dysfunction. Blood sugars improved. A1c 12.1 indicating poor outpatient control. Continue surveillance culture 11/07 No overnight events. Patient doing well. Vasopressors removed this morning. Patient is alert and awake on the vent. With good weaning parameters. Will extubate. Did have thoracentesis already this morning. Troponin seems to have peaked. No chest pain. Review of Systems: Unable to obtain as patient is intubated - Constitutional Vitals: Vital Signs Temp Pulse Resp BP Pulse Ox 100.5 F H 75 15 94/73 100 11/07/18 07:01 11/07/18 07:41 11/07/18 07:41 11/07/18 07:01 11/07/18 07:41 Period Temp Pulse Resp BP Sys/Kaplan Pulse Ox Last 24 Hr 99.6 F-101.7 F 75-99 12-25 86-125/57-89 89-100 Intake and Output 11/06/18 11/07/18 11/07/18 21:59 05:59 13:59 Intake Total 453 749 227 Output Total 430 455 50 Balance 23 294 177 Weight 78.517 kg 80.104 kg Intake & Output: Intake & Output 11/06/18 11/07/18 11/07/18 21:59 05:59 13:59 Intake Total 453 749 227 Output Total 430 455 50 Balance 23 294 177 Weight 78.517 kg 80.104 kg Intake: IV 453 749 137 Sodium Chloride 0.9% 250 ml @ 250 20 mls/hr IV .[id number] [facility] Rx#: [id number] PRECEDEX 400 MCG/100 ML 79 148 DEXTROSE 400 mcg In 100 ml @ 0. 2 MCG/KG/HR 3.926 mls/hr IV . Q24H [facility] Rx#:[id number] Levophed 16 mg In Sodium 51 25 Chloride 0.9% 234 ml @ 10 MCG/ MIN 9.38 mls/hr IV Q24H [facility] Rx# :[id number] Vancomycin 1,000 mg In Sodium 250 Chloride 0.9% 250 ml @ 250 mls/ hr IV Q12H [facility] Rx#:[id number] fentaNYL 2,500 MCG In Sodium 73 111 7 Chloride 0.9% 200 ml @ 25 MCG/ HR 2.5 mls/hr IV Q24H [facility] Rx#: [id number] GI Tube Flush 30 IV - Manual Only 60 Output: Gastric Drainage 75 125 NG/OG 75 125 Urine Catheter Amount 320 330 50 Void Amount 35 Other: Urine Appearance Clear Clear Clear Urine Color Bright Yellow Dark Yellow Dark Yellow # Bowel Movements 0 Exam: General: Sedated and intubated, No acute Distress Eyes/N/T: EOMI Head/Neck: neck supple, CV: RRR, No murmurs, Pulm: Coarse mechanical breath sounds, mildly diminished on the right, no wheezing Abd: soft, nontender, +BS x4 Ext: no clubbing/cyanosis/edema Neuro: Sedated and intubated, Skin: warm/dry Medical - PN: Obj Da - Labs CBC & Chem 7: 11/07/18 04:00 11/07/18 04:00 Labs: Abnormal Lab Results 11/07/18 11/07/18 11/07/18 06:29 04:00 04:00 WBC RBC Hgb Hct POC Hct Gran % Lymph % (Auto) Gran # Lymph # (Auto) [place] # (Auto) PT 16.1 H INR 1.3 H Creatinine 0.6 L POC Creatinine Glucose 200 H POC Glucose Hemoglobin A1c Calcium 8.4 L Phosphorus 2.4 L AST Lactate Dehydrogenase 339 H Troponin T 0.88 H* Total Protein 5.7 L Albumin 2.7 L Albumin/Globulin Ratio 0.9 L Triglycerides 161 H Urine Protein Urine Glucose (UA) Urine Ketones Urine Occult Blood Urine RBC Hyaline Casts 11/07/18 11/06/18 11/06/18 04:00 04:00 04:00 WBC RBC 2.99 L Hgb 9.1 L Hct 27.2 L POC Hct Gran % Lymph % (Auto) Gran # Lymph # (Auto) [place] # (Auto) 1.0 H PT INR Creatinine 0.6 L POC Creatinine Glucose 175 H POC Glucose Hemoglobin A1c Calcium 8.0 L Phosphorus AST 51 H Lactate Dehydrogenase Troponin T 0.90 H* Total Protein 5.6 L Albumin 2.8 L Albumin/Globulin Ratio Triglycerides Urine Protein Urine Glucose (UA) Urine Ketones Urine Occult Blood Urine RBC Hyaline Casts 11/06/18 11/05/18 11/05/18 04:00 23:30 20:48 WBC 17.9 H RBC 3.28 L Hgb 9.9 L Hct 29.8 L POC Hct Gran % Lymph % (Auto) Gran # 12.8 H Lymph # (Auto) [place] # (Auto) 1.8 H PT INR Creatinine POC Creatinine Glucose POC Glucose Hemoglobin A1c Calcium Phosphorus AST Lactate Dehydrogenase Troponin T 0.53 H* Total Protein Albumin Albumin/Globulin Ratio Triglycerides Urine Protein 100 A Urine Glucose (UA) 150 A Urine Ketones Urine Occult Blood 0.2 A Urine RBC 3 H Hyaline Casts 4 H 11/05/18 11/05/18 11/05/18 20:13 17:25 16:45 WBC RBC Hgb Hct POC Hct 29.0 L Gran % Lymph % (Auto) Gran # Lymph # (Auto) [place] # (Auto) PT INR Creatinine POC Creatinine 0.6 L Glucose POC Glucose 255 H Hemoglobin A1c 12.1 H Calcium Phosphorus AST Lactate Dehydrogenase Troponin T 0.38 H* Total Protein Albumin Albumin/Globulin Ratio Triglycerides Urine Protein Urine Glucose (UA) Urine Ketones Urine Occult Blood Urine RBC Hyaline Casts 11/05/18 11/05/18 11/04/18 16:45 04:22 22:00 WBC 20.7 H RBC 3.49 L 3.06 L Hgb 10.4 L 9.5 L Hct 31.6 L 26.8 L POC Hct Gran % 78.7 H 79.9 H Lymph % (Auto) 14.2 L 11.6 L Gran # 16.3 H Lymph # (Auto) 1.2 L [place] # (Auto) 1.3 H PT INR Creatinine POC Creatinine Glucose POC Glucose Hemoglobin A1c Calcium Phosphorus AST Lactate Dehydrogenase Troponin T Total Protein Albumin Albumin/Globulin Ratio Triglycerides Urine Protein Urine Glucose (UA) >=500 A Urine Ketones 20 A Urine Occult Blood Urine RBC Hyaline Casts 11/04/18 11/04/18 08:34 08:34 WBC RBC 3.70 L Hgb 11.2 L Hct 33.4 L POC Hct Gran % Lymph % (Auto) Gran # Lymph # (Auto) [place] # (Auto) PT INR Creatinine POC Creatinine Glucose 387 H POC Glucose Hemoglobin A1c Calcium Phosphorus AST Lactate Dehydrogenase Troponin T Total Protein Albumin Albumin/Globulin Ratio Triglycerides Urine Protein Urine Glucose (UA) Urine Ketones Urine Occult Blood Urine RBC Hyaline Casts Meds: Medications Albuterol/Ipratropium (Duoneb) 3 ml NEB Q4HRT [facility] Last Admin: 11/07/18 07:40 Dose: 3 ml Documented by: Aspirin (Ecotrin) 81 mg PO DAILY [facility] Atorvastatin Calcium (Lipitor) 40 mg PO DAILY [facility] Benzonatate (Tessalon) 200 mg PO TIDP PRN PRN Reason: Cough Cefepime HCl (Maxipime) 2 gm IV Q8H [facility]; Protocol Last Admin: 11/07/18 07:49 Dose: 2 gm Documented by: Chlorhexidine Gluconate (Peridex) 15 ml SWABMOUTH BID [facility] Last Admin: 11/06/18 21:41 Dose: 15 ml Documented by: Dextrose (Dextrose 50%) 0 ml IV UD PRN PRN Reason: Hypoglycemia Diagnostic Test (Pha) (Accu-Chek) 1 each FS Q6 [facility] Last Admin: 11/07/18 05:39 Dose: 1 each Documented by: Docusate Sodium (Colace) 100 mg PO BID [facility] Last Admin: 11/06/18 21:42 Dose: Not Given Documented by: Famotidine (Pepcid) 20 mg IV Q12 [facility] Last Admin: 11/06/18 21:42 Dose: 20 mg Documented by: Glucose (Insta-Glucose) 15 gm PO PRN PRN PRN Reason: Hypoglycemia Guaifenesin/Codeine Phosphate (Robitussin Ac) 10 ml PO Q4HP PRN PRN Reason: Cough Heparin Sodium (Porcine) (Heparin) 5,000 unit SQ Q12 [facility] Last Admin: 11/06/18 21:42 Dose: 5,000 unit Documented by: Hydromorphone HCl (Dilaudid) 1 mg IV Q2HP PRN PRN Reason: PAIN LEVEL > 6 Last Admin: 11/05/18 17:35 Dose: 1 mg Documented by: Vancomycin HCl 1,000 mg/ (Sodium Chloride) 250 mls @ 250 mls/hr IV Q12H [facility]; Protocol Last Infusion: 11/07/18 00:27 Dose: Infused Documented by: Norepinephrine Bitartrate 16 (mg/ Sodium Chloride) 250 mls @ 9.38 mls/hr IV Q24H [facility]; Protocol Last Titration: 11/07/18 05:24 Dose: 2 mcg/min, 1.88 mls/hr Documented by: Sodium Chloride (Sodium Chloride 0.9%) 250 mls @ 20 mls/hr IV .[id number] [facility] Last Admin: 11/07/18 05:10 Dose: Not Given Documented by: Fentanyl 2,500 mcg/ Sodium (Chloride) 250 mls @ 2.5 mls/hr IV Q24H [facility]; Protocol Last Titration: 11/07/18 06:30 Dose: 75 mcg/hr, 7.5 mls/hr Documented by: Heparin Sodium/Sodium Chloride (Heparin/Ns) 500 mls @ 0 mls/hr IV .Q0M [facility]; Protocol Dexmedetomidine HCl (Precedex 400 Mcg/100 Ml Dextrose) 400 mcg in 100 mls @ 3.926 mls/hr IV .Q24H [facility]; Protocol Last Titration: 11/07/18 05:53 Dose: 0.4 mcg/kg/hr, 7.852 mls/hr Documented by: Metronidazole (Flagyl) 500 mg in 100 mls @ 100 mls/hr IV Q8H [facility]; Protocol Last Infusion: 11/07/18 06:50 Dose: Infused Documented by: Acetaminophen (Ofirmev) 650 mg in 65 mls @ 130 mls/hr IV Q6HP PRN PRN Reason: PAIN/FEVER > 101 Last Infusion: 11/07/18 06:15 Dose: Infused Documented by: Insulin Human Lispro (Humalog) 0 unit SQ Q6 [facility]; Protocol Last Admin: 11/07/18 05:41 Dose: 4 units Documented by: Ondansetron HCl (Zofran) 4 mg IV Q4HP PRN PRN Reason: Nausea And Vomiting Last Admin: 11/07/18 04:31 Dose: 4 mg Documented by: Oxycodone HCl (Roxicodone) 10 mg PO Q4HP PRN PRN Reason: PAIN LEVEL 3-6 Promethazine HCl (Phenergan) 12.5 mg IV Q4HP PRN PRN Reason: Nausea And Vomiting Sodium Chloride (Saline Flush) 10 ml IV Q8 [facility] Last Admin: 11/07/18 07:50 Dose: 10 ml Documented by: Sodium Chloride (Saline Flush) 10 ml IV Q12 [facility] Last Admin: 11/06/18 21:41 Dose: 10 ml Documented by: Sodium Chloride (Saline Flush) 10 ml IV UD PRN PRN Reason: FLUSH Last Admin: 11/07/18 06:45 Dose: 10 ml Documented by: Vancomycin HCl (Vancomycin Per Pharmacy) 1 order IV UD [facility] Zolpidem Tartrate (Ambien) 10 mg PO HSP PRN PRN Reason: Insomnia Medical - PN: A/P - Time Spent With Patient Total time spent is greater than 50% in coordination of care (as documented) at patient's floor/unit and/or counseling patient: - Narrative A/P Narrative: A: *Acute hypoxic respiratory failure: 2/2 right-sided pneumonia concerning for Aspiration Event and effusion -Requiring mechanical ventilation, but plan to extubate this morning -thoracentesis (11/07) *Septic shock w/multiorgan dysfxn: -vasopressors weaning down, off as of this morning -Tm 101.0 over 24hr -Leukocytosis resolved, PCT improving *Bacteremia (GPC): -Echo no vegetations *Elevated troponin: 2/2 demand ischemia/infarct from above -Trop 0.88<0.90<0.53<0.38, Poor R wave progression anterior leads suggestive of old anterioseptal VT -no previous known h/o CAD, but will need cardiac w/u when stable -echo normal LV, portion of septal wall hypokinetic *Anemia, chronic: *DM II, uncontrolled: A1c 12.1 *Perirectal abscess: s/p I&D-group (11/04) -B streptococcus on cultures *chronic LBP: Plan: -extubate -may need diuresis soon -ID consult, abx per ID (Vanco/Cefepime/Flagyl), trend PCT/LA -Surveillance blood cultures pending -[place] 2 score 18. Remains critically ill -ASA/statin, BB when able, needs cardiac w/u eventually when stable -SSI, basal insulin held while NPO, need further titration of home DM meds -Abscess per surgery -ppx: Heparin/pepcid Full code Medical - PN: Qual - VTE Deep Vein Thrombosis/Pulmonary Embolism Present on Admission: No
[2018-11-07] MEDS ORDERED: ASPIRIN 325 MG ENTERIC COATED TABLET PO SCH (09:00)
[2018-11-07] MEDS: FAMOTIDINE/PF 20 MG/2 ML VIAL IV SCH ×2 (09:38→20:41)
[2018-11-07] MEDS: HEPARIN 5,000 UNIT/ML VIAL SQ SCH ×2 (09:38→20:41)
[2018-11-07] MEDS: DOCUSATE SODIUM 100 MG CAPSULE PO SCH ×2 (09:38→20:40)
[2018-11-07] MEDS: CHLORHEXIDINE GLUCONATE 1 ML ORAL.SOL SWABMOUTH SCH ×2 (09:39→20:41)
[2018-11-07] MEDS: ASPIRIN 81 MG TAB.CHEW CHEWED SCH (09:40)
[2018-11-07] MEDS: VANCOMYCIN 1,500 MG in 0.9 % SODIUM CHLORIDE 500 ML IV SCH ×2 (09:41→20:41)
--- NOTE | 2018-11-07 09:42 | Ultrasound Report ---
Ultrasound-guided thoracentesis CLINICAL INFORMATION: Moderate right pleural effusion TECHNIQUE: Procedure and risks including possibility of bleeding, infection, and pneumothorax were explained to the patient. They understood and wished to proceed. With the patient in upright position, the fluid was first sonographically localized over the posterior right 10th intercostal space at posterior axillary line. The skin overlying this region was marked, prepped and locally anesthetized with 1% lidocaine using a 25-gauge needle to the level the parietal pleura. An 18-gauge Yueh needle was then advanced under sonographic guidance into the pleural fluid and approximately 900 cc of simple appearing transudative fluid was aspirated. Post procedure scanning shows only minimal residual fluid. Patient tolerated procedure well without apparent complication. Follow-up chest x-ray to be obtained IMPRESSION: Successful thoracentesis yielding 900 cc of transudative appearing simple pleural fluid. No apparent complication Interpreted and Authenticated by: Wing Valdovinos 11/07/18
--- NOTE | 2018-11-07 09:44 | XRay Report ---
CLINICAL INFORMATION: f/u of pneumonia status post right thoracentesis COMPARISON: 11/06/2018. FINDINGS: Heart size, mediastinum and pulmonary vessels are normal. Endotracheal tube and right IJ central line remain in stable satisfactory position. Following right thoracentesis, there is no residual right pleural effusion and no pneumothorax or other complication. The right perihilar infiltrate is mild better aerated today. Minimal infiltrate left base also improved IMPRESSION: 1. Moderate improved aeration in right perihilar infiltrate. 2. Following right thoracentesis, no residual right pleural effusion. No pneumothorax or other complication. Interpreted and Authenticated by: Wing Valdovinos 11/07/18
[2018-11-07] MEDS: ATORVASTATIN 20 MG TABLET PO SCH (09:50)
[2018-11-07 11:06] LABS: Glucose,Pleural Fluid 204 mg/dL; LDH,Pleural Fluid 161 U/L
[2018-11-07 11:39] LABS: Appearance,Pleural Fluid CLEAR; Color,Pleural Fluid YELLOW; Lymphocytes,Pleural Fluid 4 %; Macrophages,Pleural Fluid 30 %; Mesothelial,Pleural Fluid 8 %; Neutrophils,Pleural Fluid 58 %; Nucleated Cells,Pleural Fld 423 /cumm; RBC,Pleural Fluid < 50000 /cumm
[2018-11-07] MEDS ORDERED: FUROSEMIDE 40 MG/4 ML VIAL IV ONE ×3 (11:56→19:52)
[2018-11-07] MEDS ORDERED: ALBUMIN HUMAN 12.5 GM/50 ML BAG IV ONE ×2 (11:57→19:11)
--- NOTE | 2018-11-07 13:27 | XRay Report ---
CLINICAL INFORMATION: Desaturation post Extubation COMPARISON: None. FINDINGS: The endotracheal tube is now out. Right IJ line in stable satisfactory position. Cardiomediastinal silhouette and pulmonary vessels are normal. Moderate sized alveolar infiltrate in the right perihilar region shows slight worsening following extubation. Mild infiltrate developing in the left base. IMPRESSION: Endotracheal tube now out. Moderate worsening in right perihilar/basilar infiltrate with small infiltrate developing in the left base Interpreted and Authenticated by: Wing Valdovinos 11/07/18
--- NOTE | 2018-11-07 13:30 | General Surgery Progress Note ---
Subjective Patient reports: feels better, pain is less Narrative: Note initiated : 11/07/18 at 1:30 pm Service Date, if different from initiated Date: [] Patient: Al Escobar 42 y/o M admitted on 11/05/18 for Left Abscess. Chief Complaint: [] Objective Temp Pulse Resp BP Pulse Ox 100.9 F H 105 H 20 127/78 98 11/07/18 13:00 11/07/18 13:00 11/07/18 13:00 11/07/18 13:00 11/07/18 13:00 - Additional Data Intake & Output - Last 24 hours: Intake & Output 11/05/18 11/06/18 11/07/18 11/08/18 05:59 05:59 05:59 05:59 Intake Total 5702 4769 2758 1202 Output Total 2250 1721 1315 595 Balance 3452 3048 1443 607 Weight 171 lb 173 lb 1.6 oz 176 lb 9.6 oz 176 lb 9.6 oz - Labs 11/07/18 04:00 11/07/18 04:00 Diabetes panel 11/07/18 Range/Units 04:00 Sodium 138 (133-145) mmol/L Potassium 3.6 (3.3-5.1) mmol/L Chloride 101 (96-108) mmol/L Carbon Dioxide 23 (22-30) mmol/L BUN 15 (6-20) mg/dl Creatinine 0.6 L (0.7-1.2) mg/dl Glucose 200 H (70-105) mg/dL Calcium 8.4 L (8.6-10.4) mg/dl AST 32 (0-37) U/l ALT 13 (0-40) U/l Alkaline Phosphatase 96 (39-117) U/L Total Protein 5.7 L (5.9-8.4) gm/dL Albumin 2.7 L (3.2-5.2) gm/dL Triglycerides 161 H (<150) mg/dl Calcium panel 11/07/18 Range/Units 04:00 Calcium 8.4 L (8.6-10.4) mg/dl Phosphorus 2.4 L (2.7-4.5) mg/dL Albumin 2.7 L (3.2-5.2) gm/dL Pituitary panel 11/07/18 Range/Units 04:00 Sodium 138 (133-145) mmol/L Potassium 3.6 (3.3-5.1) mmol/L Chloride 101 (96-108) mmol/L Carbon Dioxide 23 (22-30) mmol/L BUN 15 (6-20) mg/dl Creatinine 0.6 L (0.7-1.2) mg/dl Glucose 200 H (70-105) mg/dL Calcium 8.4 L (8.6-10.4) mg/dl Adrenal panel 11/07/18 Range/Units 04:00 Sodium 138 (133-145) mmol/L Potassium 3.6 (3.3-5.1) mmol/L Chloride 101 (96-108) mmol/L Carbon Dioxide 23 (22-30) mmol/L BUN 15 (6-20) mg/dl Creatinine 0.6 L (0.7-1.2) mg/dl Glucose 200 H (70-105) mg/dL Calcium 8.4 L (8.6-10.4) mg/dl Total Bilirubin 0.3 (0.0-1.0) mg/dL AST 32 (0-37) U/l ALT 13 (0-40) U/l Alkaline Phosphatase 96 (39-117) U/L Total Protein 5.7 L (5.9-8.4) gm/dL Albumin 2.7 L (3.2-5.2) gm/dL Assessment and Plan (1) Perirectal abscess Status: Acute Assessment and plan: Clinically improved with significant reduction in swelling and induration Current Visit: Yes (2) Diabetes mellitus Status: Acute Assessment and plan: Continued uncontrolled, but levels are less with every 6 hours, sliding scale Humalog coverage. Current Visit: Yes (3) Pneumonitis Status: Acute Assessment and plan: patient is clinically improved and has been extubated WBC IS NOW NORMAL HE STILL HAS LOW GRADE TEMPERATURE ELEVATION Current Visit: Yes - Time Spent With Patient Total time spent is greater than 50% in coordination of care (as documented) at patient's floor/unit and/or counseling patient:
[2018-11-07] MEDS ORDERED: MAGNESIUM SULFATE 2 GM/50 ML BAG IV ONE (14:09)
[2018-11-07] MEDS: oxyCODONE HCL 5 MG TABLET PO PRN ×2 (15:15→19:27)
[2018-11-07] MEDS ORDERED: IOPAMIDOL 100 ML BOTTLE IV ONE (16:21)
[2018-11-07] MEDS: NOREPINEPHRINE BITARTRATE 16 MG in 0.9 % SODIUM CHLORIDE 234 ML IV SCH (16:29)
[2018-11-07] MEDS: HYDROmorphone 2 MG/ML VIAL IV PRN (18:48)
[2018-11-07] MEDS ORDERED: LORazepam 2 MG/ML VIAL ONE (19:21)
[2018-11-07] MEDS: LORazepam 2 MG/ML VIAL IV PRN (19:24)
[2018-11-07] MEDS: ZOLPIDEM 5 MG TABLET PO PRN (19:28)
[2018-11-07] MEDS ORDERED: FUROSEMIDE 20 MG/2 ML VIAL IV ONE (20:21)
--- NOTE | 2018-11-07 21:24 | Cat Scan Report ---
CLINICAL INFORMATION: History of infiltrates. Evaluate for PE COMPARISON: Noncontrast chest CT 11/06/2018. TECHNIQUE: 80 cc of Isovue-300 were injected intravenously. Using SmartPrep to maximize pulmonary artery opacification, 2.5 mm helical slices were obtained from the lung apices through the lung bases. Following reconstruction, 2.5 mm sagittal, coronal, and axial reformations were processed. The exam was reviewed at mediastinal, lung, and bone windows. The exam was performed using radiation dose optimization techniques including, but not limited to, automated exposure control, adjustment of the mA and/or kV according to patient size and use of iterative reconstruction technique. FINDINGS: Mediastinal windows show the pulmonary arteries are normal in contour and caliber and well-opacified without evidence of embolus. The thoracic aorta is normal in contour and caliber. There are multiple mildly enlarged lymph nodes in lower mediastinum and perihilar regions which almost certainly represent are benign reactive lymph nodes. The heart is normal in size and configuration. Esophagus is grossly normal. Large patchy alveolar infiltrates, generally a central distribution, throughout the right lung are again noted. Although the extent of the infiltrate has increased slightly there are less densely consolidated. There are also moderate patchy infiltrate in the anterior segment of the left upper lobe, lingula and posterior left lower lobe which show slight worsening. Small bilateral pleural effusions are unchanged. The bones and soft tissues of the chest wall are normal. IMPRESSION: No evidence of pulmonary emboli Diffuse right lung infiltrates show slight increase in extent but the density has diminished. Moderate patchy infiltrates in the anterior segment left upper lobe and posterior left lower lobe also worsened lightly. Consider aspiration, ARDS or infection. Small bilateral pleural effusions unchanged Interpreted and Authenticated by: Wing Valdovinos 11/07/18
[2018-11-07] MEDS ORDERED: NOREPINEPHRINE BITARTRATE 4 MG/4 ML VIAL IV ONE (22:42)
[2018-11-07] MEDS ORDERED: methylPREDNISolone SOD SUCC 125 MG/2 ML VIAL IV ONE ×2 (22:44)
[2018-11-07 23:02] LABS: ALT/SGPT 11 U/l (0-40); AST/SGOT 21 U/l (0-37); Albumin 2.9 gm/dL (3.2-5.2); Alkaline Phosphatase 124 U/L (39-117); Bilirubin,Direct < 0.2 mg/dL (0.0-0.3); Bilirubin,Total 0.4 mg/dL (0.0-1.0); Blood Urea Nitrogen 16 mg/dl (6-20); Calcium 8.3 mg/dl (8.6-10.4); Carbon Dioxide 23 mmol/L (22-30); Chloride 99 mmol/L (96-108); Globulin 2.8 gm/dL (2.2-3.7); Glomerular Filtration Rate 115; Glucose 257 mg/dL (70-105); Lactate Dehydrogenase 312 U/L (94-250); Magnesium 1.7 mg/dL (1.6-2.5); Phosphorous 3.2 mg/dL (2.7-4.5); Potassium 3.4 mmol/L (3.3-5.1); Sodium 138 mmol/L (133-145); Triglycerides 120 mg/dl (<150); Uric Acid 4.5 mg/dL (2.5-8.0)
[2018-11-07] MEDS ORDERED: POTASSIUM CHLORIDE 20 MEQ TABLET PO ONE (23:34)
[2018-11-07] MEDS: METOPROLOL TARTRATE 25 MG TABLET PO SCH (23:39)
[2018-11-07] MEDS: NICOTINE 21 MG PATCH TOPICAL SCH (23:58)
[2018-11-08] MEDS ORDERED: POTASSIUM CHLORIDE 20 MEQ TABLET PO ONE (00:05)
[2018-11-08] MEDS ORDERED: methylPREDNISolone SOD SUCC 125 MG/2 ML VIAL ONE (00:05)
[2018-11-08] MEDS: CEFEPIME 2 GM VIAL IV SCH ×4 (00:11→23:52)
[2018-11-08] MEDS: 0.9 % SODIUM CHLORIDE 10 ML SYRINGE IV SCH ×6 (00:12→22:22)
[2018-11-08] MEDS: INSULIN LISPRO 1 UNIT/0.01 ML UNIT SQ SCH ×5 (00:41→23:43)
[2018-11-08] MEDS: NOREPINEPHRINE BITARTRATE 16 MG in 0.9 % SODIUM CHLORIDE 234 ML IV SCH ×2 (01:14→19:05)
[2018-11-08] MEDS: ACETAMINOPHEN 650 MG/65 ML BOTTLE IV PRN (02:04)
[2018-11-08] MEDS: IPRATROPIUM/ALBUTEROL 3 ML AMPUL.NEB NEB SCH ×6 (03:04→23:36)
[2018-11-08] MEDS: DEXMEDETOMIDINE HCL 400 MCG/100 ML BAG IV SCH ×3 (03:51→18:14)
[2018-11-08 05:21] LABS: Basophils # (Auto) 0 K/mcL (0.0-0.3); Basophils % (Auto) 0 % (0.0-2.0); Eosinophils # (Auto) 0 K/mcL (0.0-0.7); Eosinophils % (Auto) 0.1 % (0.0-7.0); Granulocytes % (Auto) 92.6 % (38.0-78.0); Hematocrit 27.9 % (41.0-55.0); Hemoglobin 9.5 g/dL (13.5-16.5); Lymphocytes # (Auto) 0.7 K/mcL (1.5-4.8); Lymphocytes % (Auto) 4.2 % (15.5-49.0); Mean Cell Volume 90.6 fL (80.0-100.0); Mean Platelet Volume 9.2 fL (7.4-10.4); Monocytes # (Auto) 0.5 K/mcL (0.1-0.9); Monocytes % (Auto) 3.1 % (1.0-12.0); Platelet Count 385 K/mcL (140-440); RBC 3.08 M/mcL (4.50-5.90); Red Cell Distribution Width 12.4 % (11.5-14.5); WBC 15.7 K/mcL (4.5-11.0)
[2018-11-08] MEDS: metroNIDAZOLE 500 MG/100 ML BAG IV SCH ×3 (05:33→22:21)
[2018-11-08 06:40] LABS: ALT/SGPT 10 U/l (0-40); AST/SGOT 21 U/l (0-37); Albumin/Globulin Ratio 1.1 (1.0-2.3); Alkaline Phosphatase 133 U/L (39-117); Bilirubin,Direct < 0.2 mg/dL (0.0-0.3); Bilirubin,Total 0.4 mg/dL (0.0-1.0); Blood Urea Nitrogen 19 mg/dl (6-20); Calcium 8.8 mg/dl (8.6-10.4); Carbon Dioxide 21 mmol/L (22-30); Chloride 101 mmol/L (96-108); Globulin 2.8 gm/dL (2.2-3.7); Glomerular Filtration Rate 109; Glucose 280 mg/dL (70-105); Lactate Dehydrogenase 321 U/L (94-250); Magnesium 1.9 mg/dL (1.6-2.5); Phosphorous 2.5 mg/dL (2.7-4.5); Potassium 3.9 mmol/L (3.3-5.1); Sodium 139 mmol/L (133-145); Triglycerides 101 mg/dl (<150); Uric Acid 4.9 mg/dL (2.5-8.0)
[2018-11-08] MEDS: 0.9 % SODIUM CHLORIDE 10 ML SYRINGE IV PRN ×8 (07:05→22:23)
--- NOTE | 2018-11-08 07:10 | XRay Report ---
CLINICAL INFORMATION: f/u of pneumonia COMPARISON: 11/07/2018 FINDINGS: Right IJ line in stable satisfactory position. Right lung infiltrate has worsened considerably: There is now extremely dense consolidation in the mid and lower lung. Moderate patchy infiltrate left base is also worsened. No effusion IMPRESSION: Large dense consolidation right mid lower lung infiltrate worsening considerably since yesterday. Moderate patchy left basilar infiltrate also worsening. Primary diagnostic considerations include ARDS, pneumonia or hemorrhage Interpreted and Authenticated by: Wing Valdovinos 11/08/18
[2018-11-08] MEDS ORDERED: ALBUMIN HUMAN 12.5 GM/50 ML BAG IV ONE ×2 (07:57→21:00)
[2018-11-08] MEDS ORDERED: HYDROCORTISONE SOD SUCC 100 MG VIAL IV ONE (07:57)
[2018-11-08] MEDS ORDERED: FUROSEMIDE 40 MG/4 ML VIAL IV ONE ×2 (08:01→14:00)
--- NOTE | 2018-11-08 08:16 | Internal Med Progress Note ---
Medical - PN: Subj Patient information: Note initiated : 11/08/18 at 7:55 am Service Date, if different from initiated Date: [] Patient: Al Escobar a 42 y/o M admitted on 11/05/18 for Left Abscess. Chief Complaint: [] Interval history: Mr. Escobar is a 42 year old M diabetic who was admitted for large left p erirectal abscess and underwent surgical intervention with incision and drainage of left perirectal area 11/04. Patient developed gram-positive bacteremia, along with group B streptococcus from wound culture on October 30. Patient was recovering well until this afternoon developed rapidly progressive shortness of breath along with tachycardia, tachypnea requiring 100% oxygen. Hospitalist service was emergently consulted by surgery. At the time of evaluation patient is barely able to talk in full sentences. He is tachycardic tachypneic. Stat blood gas along with CBC CMP was ordered. Patient denies aspiration, diaphoresis or shaking chills but endorses to fever. Awake arterial blood gas. Stat chest x-ray reveals right-sided mid and lower lobe infiltrate consistent with pneumonia. Patient is currently on Zosyn/vancomycin. Transfer to ICU for positive pressure ventilation and intubation if required. We will initiate pressors/crystalloids and sepsis management per guidelines. On further questioning patient denies IV drug use. He was recently hospitalized in June with influenza pneumonia with superimposed streptococcus bacteremia that required ID consultation and following negative transthoracic echocardiogram he was discharged on levofloxacin 750 which was continued through 07/12. Other than that patient denies diarrhea, abdominal pain, chest pain, headache but he is anxious and tremulous. 11/06-patient critically ill on vasopressors. Titrating oxygen and vasopressors down. Currently on 12 PEEP 35% FiO2. ICU sedation on fentanyl/Precedex. ET tube in place. T-max 100.8. White count up to 20,000. Urine output 40 cc an hour. Remains critically ill but improved since previous day. Improved oxygenation. [place] 2 score 19, remains a high risk mortality. Multiple blood cultures positive for gram-positive cocci. Surveillance cultures/sensitivities pending. Antibiotics escalated to vancomycin/meropenem in light of septic shock. ID consulted. Serial troponin peak 0.9 secondary to sepsis and endorgan dysfunction. Blood sugars improved. A1c 12.1 indicating poor outpatient control. Continue surveillance culture 11/07 No overnight events. Patient doing well. Vasopressors removed this morning. Patient is alert and awake on the vent. With good weaning parameters. Will extubate. Did have thoracentesis already this morning. Troponin seems to have peaked. No chest pain. 11/08 Patient appears comfortable with BiPAP on. States he does feel better, less wheezing. Did not expectorate any thick sputum overnight. Had to put on Precedex for agitation last night which dropped his blood pressure little bit and required vasopressor support. Currently weaning down again. FiO2 is 80 last night but it is 40 this morning -appears to be an agitation component. Review of Systems: Denies headache fever chills nausea vomiting chest pain stomach pain diarrhea constipation. - Constitutional Vitals: Vital Signs Temp Pulse Resp BP Pulse Ox 98.5 F 75 16 109/80 95 11/08/18 07:15 11/08/18 07:15 11/08/18 07:15 11/08/18 07:15 11/08/18 07:15 Period Temp Pulse Resp BP Sys/Kaplan Pulse Ox Last 24 Hr 98.5 F-101.3 F 74-129 15-35 70-127/39-95 84-100 Intake and Output 11/07/18 11/08/18 11/08/18 21:59 05:59 13:59 Intake Total 558 836 173 Output Total 1090 380 73 Balance -532 456 100 Weight 81.284 kg Intake & Output: Intake & Output 11/07/18 11/08/18 11/08/18 21:59 05:59 13:59 Intake Total 558 836 173 Output Total 1090 380 73 Balance -532 456 100 Weight 81.284 kg Intake: IV 198 686 153 PRECEDEX 400 MCG/100 ML 3 2 53 DEXTROSE 400 mcg In 100 ml @ 0. 2 MCG/KG/HR 3.926 mls/hr IV . Q24H [facility] Rx#:[id number] Levophed 16 mg In Sodium 19 Chloride 0.9% 234 ml @ 10 MCG/ MIN 9.38 mls/hr IV Q24H [facility] Rx# :[id number] Vancomycin 1,500 mg In Sodium 500 Chloride 0.9% 500 ml @ 333.3 mls/hr IV Q12H [facility] Rx#: [id number] Oral 360 150 IV - Manual Only 20 Output: Urine Catheter Amount 1090 380 73 Other: Urine Appearance Clear Clear Clear Urine Color Pale Bright Yellow Bright Yellow Urine Odor Normal Exam: General: alert and awake, No acute Distress Eyes/N/T: EOMI Head/Neck: neck supple, CV: RRR, No murmurs, Pulm: right side dimished, much less rhonchi, left clear Abd: soft, nontender, +BS x4 Ext: no clubbing/cyanosis/edema Neuro: alert and awake, no focal deficits, moves all extremities Skin: warm/dry Medical - PN: Obj Da - Labs CBC & Chem 7: 11/08/18 04:00 11/08/18 04:00 Labs: Abnormal Lab Results 11/08/18 11/08/18 11/08/18 04:00 04:00 04:00 WBC RBC Hgb Hct POC Hct Gran % Lymph % (Auto) Gran # Lymph # (Auto) Delta # (Auto) PT INR Carbon Dioxide 21 L Anion Gap 17.0 H Creatinine POC Creatinine Glucose 280 H POC Glucose Hemoglobin A1c Calcium Phosphorus 2.5 L AST Alkaline Phosphatase 133 H Lactate Dehydrogenase 321 H Troponin T 0.63 H* NT-Pro-B Natriuret Pep 55211.0 H Total Protein 5.8 L Albumin 3.0 L Albumin/Globulin Ratio Triglycerides Urine Protein Urine Glucose (UA) Urine Occult Blood Urine RBC Hyaline Casts 11/08/18 11/07/18 11/07/18 04:00 21:35 17:13 WBC 15.7 H RBC 3.08 L Hgb 9.5 L Hct 27.9 L POC Hct Gran % 92.6 H Lymph % (Auto) 4.2 L Gran # 14.6 H Lymph # (Auto) 0.7 L Delta # (Auto) PT INR Carbon Dioxide Anion Gap Creatinine POC Creatinine Glucose 257 H POC Glucose Hemoglobin A1c Calcium 8.3 L Phosphorus AST Alkaline Phosphatase 124 H Lactate Dehydrogenase 312 H Troponin T NT-Pro-B Natriuret Pep 4372.0 H Total Protein 5.7 L Albumin 2.9 L Albumin/Globulin Ratio Triglycerides Urine Protein Urine Glucose (UA) Urine Occult Blood Urine RBC Hyaline Casts 11/07/18 11/07/18 11/07/18 06:29 04:00 04:00 WBC RBC Hgb Hct POC Hct Gran % Lymph % (Auto) Gran # Lymph # (Auto) Delta # (Auto) PT 16.1 H INR 1.3 H Carbon Dioxide Anion Gap Creatinine 0.6 L POC Creatinine Glucose 200 H POC Glucose Hemoglobin A1c Calcium 8.4 L Phosphorus 2.4 L AST Alkaline Phosphatase Lactate Dehydrogenase 339 H Troponin T 0.88 H* NT-Pro-B Natriuret Pep Total Protein 5.7 L Albumin 2.7 L Albumin/Globulin Ratio 0.9 L Triglycerides 161 H Urine Protein Urine Glucose (UA) Urine Occult Blood Urine RBC Hyaline Casts 11/07/18 11/06/18 11/06/18 04:00 04:00 04:00 WBC RBC 2.99 L Hgb 9.1 L Hct 27.2 L POC Hct Gran % Lymph % (Auto) Gran # Lymph # (Auto) Delta # (Auto) 1.0 H PT INR Carbon Dioxide Anion Gap Creatinine 0.6 L POC Creatinine Glucose 175 H POC Glucose Hemoglobin A1c Calcium 8.0 L Phosphorus AST 51 H Alkaline Phosphatase Lactate Dehydrogenase Troponin T 0.90 H* NT-Pro-B Natriuret Pep Total Protein 5.6 L Albumin 2.8 L Albumin/Globulin Ratio Triglycerides Urine Protein Urine Glucose (UA) Urine Occult Blood Urine RBC Hyaline Casts 11/06/18 11/05/18 11/05/18 04:00 23:30 20:48 WBC 17.9 H RBC 3.28 L Hgb 9.9 L Hct 29.8 L POC Hct Gran % Lymph % (Auto) Gran # 12.8 H Lymph # (Auto) Delta # (Auto) 1.8 H PT INR Carbon Dioxide Anion Gap Creatinine POC Creatinine Glucose POC Glucose Hemoglobin A1c Calcium Phosphorus AST Alkaline Phosphatase Lactate Dehydrogenase Troponin T 0.53 H* NT-Pro-B Natriuret Pep Total Protein Albumin Albumin/Globulin Ratio Triglycerides Urine Protein 100 A Urine Glucose (UA) 150 A Urine Occult Blood 0.2 A Urine RBC 3 H Hyaline Casts 4 H 11/05/18 11/05/18 11/05/18 20:13 17:25 16:45 WBC RBC Hgb Hct POC Hct 29.0 L Gran % Lymph % (Auto) Gran # Lymph # (Auto) Delta # (Auto) PT INR Carbon Dioxide Anion Gap Creatinine POC Creatinine 0.6 L Glucose POC Glucose 255 H Hemoglobin A1c 12.1 H Calcium Phosphorus AST Alkaline Phosphatase Lactate Dehydrogenase Troponin T 0.38 H* NT-Pro-B Natriuret Pep Total Protein Albumin Albumin/Globulin Ratio Triglycerides Urine Protein Urine Glucose (UA) Urine Occult Blood Urine RBC Hyaline Casts 11/05/18 16:45 WBC 20.7 H RBC 3.49 L Hgb 10.4 L Hct 31.6 L POC Hct Gran % 78.7 H Lymph % (Auto) 14.2 L Gran # 16.3 H Lymph # (Auto) Delta # (Auto) 1.3 H PT INR Carbon Dioxide Anion Gap Creatinine POC Creatinine Glucose POC Glucose Hemoglobin A1c Calcium Phosphorus AST Alkaline Phosphatase Lactate Dehydrogenase Troponin T NT-Pro-B Natriuret Pep Total Protein Albumin Albumin/Globulin Ratio Triglycerides Urine Protein Urine Glucose (UA) Urine Occult Blood Urine RBC Hyaline Casts Meds: Medications Albuterol/Ipratropium (Duoneb) 3 ml NEB Q4HRT [facility] Last Admin: 11/08/18 07:31 Dose: 3 ml Documented by: Aspirin (Aspirin) 81 mg CHEWED DAILY [facility] Last Admin: 11/07/18 09:40 Dose: 81 mg Documented by: Atorvastatin Calcium (Lipitor) 40 mg PO DAILY [facility] Last Admin: 11/07/18 09:50 Dose: 40 mg Documented by: Benzonatate (Tessalon) 200 mg PO TIDP PRN PRN Reason: Cough Cefepime HCl (Maxipime) 2 gm IV Q8H [facility]; Protocol Last Admin: 11/08/18 07:15 Dose: 2 gm Documented by: Chlorhexidine Gluconate (Peridex) 15 ml SWABMOUTH BID [facility] Last Admin: 11/07/18 20:41 Dose: 15 ml Documented by: Dextrose (Dextrose 50%) 0 ml IV UD PRN PRN Reason: Hypoglycemia Diagnostic Test (Pha) (Accu-Chek) 1 each FS Q6 [facility] Last Admin: 11/08/18 05:41 Dose: 1 each Documented by: Docusate Sodium (Colace) 100 mg PO BID [facility] Last Admin: 11/07/18 20:40 Dose: 100 mg Documented by: Famotidine (Pepcid) 20 mg IV Q12 [facility] Last Admin: 11/07/18 20:41 Dose: 20 mg Documented by: Glucose (Insta-Glucose) 15 gm PO PRN PRN PRN Reason: Hypoglycemia Guaifenesin/Codeine Phosphate (Robitussin Ac) 10 ml PO Q4HP PRN PRN Reason: Cough Heparin Sodium (Porcine) (Heparin) 5,000 unit SQ Q12 [facility] Last Admin: 11/07/18 20:41 Dose: 5,000 unit Documented by: Hydromorphone HCl (Dilaudid) 1 mg IV Q2HP PRN PRN Reason: PAIN LEVEL > 6 Last Admin: 11/07/18 18:48 Dose: 1 mg Documented by: Norepinephrine Bitartrate 16 (mg/ Sodium Chloride) 250 mls @ 9.38 mls/hr IV Q24H [facility]; Protocol Last Titration: 11/08/18 04:36 Dose: 5 mcg/min, 4.69 mls/hr Documented by: Sodium Chloride (Sodium Chloride 0.9%) 250 mls @ 20 mls/hr IV .[id number] [facility] Last Admin: 11/07/18 19:05 Dose: Not Given Documented by: Fentanyl 2,500 mcg/ Sodium (Chloride) 250 mls @ 2.5 mls/hr IV Q24H [facility]; Protocol Last Admin: 11/07/18 16:29 Dose: Not Given Documented by: Heparin Sodium/Sodium Chloride (Heparin/Ns) 500 mls @ 0 mls/hr IV .Q0M [facility]; Protocol Last Admin: 11/07/18 23:00 Dose: 3 mls/hr Documented by: Dexmedetomidine HCl (Precedex 400 Mcg/100 Ml Dextrose) 400 mcg in 100 mls @ 3.926 mls/hr IV .Q24H [facility]; Protocol Last Admin: 11/08/18 07:34 Dose: 0.3 mcg/kg/hr, 5.889 mls/hr Documented by: Metronidazole (Flagyl) 500 mg in 100 mls @ 100 mls/hr IV Q8H [facility]; Protocol Last Infusion: 11/08/18 07:04 Dose: Infused Documented by: Acetaminophen (Ofirmev) 650 mg in 65 mls @ 130 mls/hr IV Q6HP PRN PRN Reason: PAIN/FEVER > 101 Last Infusion: 11/08/18 04:54 Dose: Infused Documented by: Vancomycin HCl 1,500 mg/ (Sodium Chloride) 500 mls @ 333.3 mls/hr IV Q12H [facility] Last Infusion: 11/08/18 00:43 Dose: Infused Documented by: Insulin Human Lispro (Humalog) 0 unit SQ Q6 [facility]; Protocol Last Admin: 11/08/18 05:42 Dose: 8 units Documented by: Lorazepam (Ativan) 0.5 mg IV Q4HP PRN PRN Reason: ANXIETY/SEDATION Last Admin: 11/07/18 19:24 Dose: 0.5 mg Documented by: Methylprednisolone Sodium Succinate (Solu-Medrol) 62.5 mg IV DAILY [facility] Metoprolol Tartrate (Lopressor) 12.5 mg PO BID [facility] Last Admin: 11/07/18 23:39 Dose: Not Given Documented by: Nicotine (Nicoderm) 21 mg TOPICAL DAILY@1000 [facility] Last Admin: 11/07/18 23:58 Dose: Not Given Documented by: Ondansetron HCl (Zofran) 4 mg IV Q4HP PRN PRN Reason: Nausea And Vomiting Last Admin: 11/07/18 04:31 Dose: 4 mg Documented by: Oxycodone HCl (Roxicodone) 10 mg PO Q4HP PRN PRN Reason: PAIN LEVEL 3-6 Last Admin: 11/07/18 19:27 Dose: 10 mg Documented by: Promethazine HCl (Phenergan) 12.5 mg IV Q4HP PRN PRN Reason: Nausea And Vomiting Sodium Chloride (Saline Flush) 10 ml IV Q8 [facility] Last Admin: 11/08/18 05:42 Dose: 10 ml Documented by: Sodium Chloride (Saline Flush) 10 ml IV Q12 [facility] Last Admin: 11/07/18 20:42 Dose: 10 ml Documented by: Sodium Chloride (Saline Flush) 10 ml IV UD PRN PRN Reason: FLUSH Last Admin: 11/08/18 07:05 Dose: 10 ml Documented by: Vancomycin HCl (Vancomycin Per Pharmacy) 1 order IV UD [facility] Zolpidem Tartrate (Ambien) 10 mg PO HSP PRN PRN Reason: Insomnia Last Admin: 11/07/18 19:28 Dose: 10 mg Documented by: Medical - PN: A/P - Time Spent With Patient Total time spent is greater than 50% in coordination of care (as documented) at patient's floor/unit and/or counseling patient: - Narrative A/P Narrative: A: *Acute hypoxic respiratory failure: 2/2 right-sided pneumonia concerning for Aspiration Event leading to ARDS -extubated to bipap (11/07) -thoracentesis (11/07) 900cc Transudate *Septic shock w/multiorgan dysfxn: -vasopressors off morning of 6/15 but started back low dose early 11/08 after sedation medication given and titrating back off -Tm curve improving, Afebrile this morning -Leukocytosis resolved but increased today (suspect steroid effect), PCT 0.84<0.66<0.95 *Blood culture with Kocuria: ?contaminant -Echo no vegetations *Elevated troponin: 2/2 demand ischemia/infarct from above -Trop 0.63<0.88<0.90<0.53<0.38, Poor R wave progression anterior leads suggestive of old anterioseptal TX -no previous known h/o CAD, but will need cardiac w/u when stable -echo normal LV, portion of septal wall hypokinetic, otherwise unremarkable *Anemia, chronic: *DM II, uncontrolled: A1c 12.1 *Perirectal abscess: s/p I&D-group (11/04) -B streptococcus on cultures *chronic LBP: *Tobacco Abuse: Plan: -cont prn Bipap support, wean as able -monitor CVP goal 4 -diurese -wean pressors off again -hydrocortisone short course -ID consult, abx per ID (Vanco/Cefepime/Flagyl), trend PCT -Surveillance blood cultures pending -serial CXR -ASA/statin, BB when able, needs cardiac w/u eventually when stable -SSI, start back basal insulin and titrate up -Abscess per surgery -Smoking cessation counseling -ppx: Heparin/pepcid Full code Medical - PN: Qual - VTE Deep Vein Thrombosis/Pulmonary Embolism Present on Admission: No
[2018-11-08] MEDS ORDERED: INSULIN GLARGINE, HUMAN 1 UNIT/0.01 ML SQ SCH (09:00)
[2018-11-08] MEDS: HEPARIN 5,000 UNIT/ML VIAL SQ SCH (09:17)
[2018-11-08] MEDS: DOCUSATE SODIUM 100 MG CAPSULE PO SCH ×2 (09:17→20:06)
[2018-11-08] MEDS: FAMOTIDINE/PF 20 MG/2 ML VIAL IV SCH ×2 (09:17→20:06)
[2018-11-08] MEDS: ASPIRIN 81 MG TAB.CHEW CHEWED SCH (09:17)
[2018-11-08] MEDS: CHLORHEXIDINE GLUCONATE 1 ML ORAL.SOL SWABMOUTH SCH ×2 (09:18→20:07)
[2018-11-08] MEDS: METOPROLOL TARTRATE 25 MG TABLET PO SCH ×2 (09:19→20:06)
[2018-11-08] MEDS: ATORVASTATIN 20 MG TABLET PO SCH (09:24)
[2018-11-08] MEDS: NICOTINE 21 MG PATCH TOPICAL SCH (09:26)
[2018-11-08] MEDS: oxyCODONE HCL 5 MG TABLET PO PRN ×3 (09:38→22:21)
[2018-11-08] MEDS ORDERED: HYDROCHLOROTHIAZIDE 12.5 MG CAPSULE PO ONE (10:09)
[2018-11-08] MEDS: VANCOMYCIN 1,500 MG in 0.9 % SODIUM CHLORIDE 500 ML IV SCH ×2 (11:02→20:08)
[2018-11-08 11:40] LABS: Band Neutrophils % 2 % (0-10); Lymphocytes % 3 % (15-49); Monocytes % (Manual) 1 % (1-12); Platelet Estimate NORMAL (NORMAL); RBC Morphology NORMAL (NORMAL); Segmented Neutrophils % 94 % (38-78)
[2018-11-08] MEDS ORDERED: methylPREDNISolone SOD SUCC 125 MG/2 ML VIAL IV SCH (12:00)
[2018-11-08] MEDS: 0.9 % SODIUM CHLORIDE 250 ML IV SCH ×3 (13:35→19:08)
--- NOTE | 2018-11-08 13:39 | General Surgery Progress Note ---
Subjective Narrative: Note initiated : 11/08/18 at 1:39 pm Service Date, if different from initiated Date: [] Patient: Al Escobar 42 y/o M admitted on 11/05/18 for Left Abscess. Chief Complaint: [] Objective Temp Pulse Resp BP Pulse Ox 98.8 F 87 24 H 101/75 94 11/08/18 13:30 11/08/18 13:30 11/08/18 13:30 11/08/18 13:30 11/08/18 13:30 - Additional Data Intake & Output - Last 24 hours: Intake & Output 11/06/18 11/07/18 11/08/18 11/09/18 05:59 05:59 05:59 05:59 Intake Total 4794 2758 2911 1679 Output Total 1721 1315 3185 1123 Balance 3048 1443 -274 556 Weight 173 lb 1.6 oz 176 lb 9.6 oz 179 lb 3.2 oz - Labs 11/08/18 04:00 11/08/18 04:00 Diabetes panel 11/07/18 11/08/18 Range/Units 21:35 04:00 Sodium 138 139 (133-145) mmol/L Potassium 3.4 3.9 (3.3-5.1) mmol/L Chloride 99 101 (96-108) mmol/L Carbon Dioxide 23 21 L (22-30) mmol/L BUN 16 19 (6-20) mg/dl Creatinine 0.7 0.8 (0.7-1.2) mg/dl Glucose 257 H 280 H (70-105) mg/dL Calcium 8.3 L 8.8 (8.6-10.4) mg/dl AST 21 21 (0-37) U/l ALT 11 10 (0-40) U/l Alkaline Phosphatase 124 H 133 H (39-117) U/L Total Protein 5.7 L 5.8 L (5.9-8.4) gm/dL Albumin 2.9 L 3.0 L (3.2-5.2) gm/dL Triglycerides 120 101 (<150) mg/dl Calcium panel 11/07/18 11/08/18 Range/Units 21:35 04:00 Calcium 8.3 L 8.8 (8.6-10.4) mg/dl Phosphorus 3.2 2.5 L (2.7-4.5) mg/dL Albumin 2.9 L 3.0 L (3.2-5.2) gm/dL Pituitary panel 11/07/18 11/08/18 Range/Units 21:35 04:00 Sodium 138 139 (133-145) mmol/L Potassium 3.4 3.9 (3.3-5.1) mmol/L Chloride 99 101 (96-108) mmol/L Carbon Dioxide 23 21 L (22-30) mmol/L BUN 16 19 (6-20) mg/dl Creatinine 0.7 0.8 (0.7-1.2) mg/dl Glucose 257 H 280 H (70-105) mg/dL Calcium 8.3 L 8.8 (8.6-10.4) mg/dl Adrenal panel 11/07/18 11/08/18 Range/Units 21:35 04:00 Sodium 138 139 (133-145) mmol/L Potassium 3.4 3.9 (3.3-5.1) mmol/L Chloride 99 101 (96-108) mmol/L Carbon Dioxide 23 21 L (22-30) mmol/L BUN 16 19 (6-20) mg/dl Creatinine 0.7 0.8 (0.7-1.2) mg/dl Glucose 257 H 280 H (70-105) mg/dL Calcium 8.3 L 8.8 (8.6-10.4) mg/dl Total Bilirubin 0.4 0.4 (0.0-1.0) mg/dL AST 21 21 (0-37) U/l ALT 11 10 (0-40) U/l Alkaline Phosphatase 124 H 133 H (39-117) U/L Total Protein 5.7 L 5.8 L (5.9-8.4) gm/dL Albumin 2.9 L 3.0 L (3.2-5.2) gm/dL Assessment and Plan (1) Perirectal abscess Status: Acute Assessment and plan: Clinically improved with significant reduction in swelling and induration Current Visit: Yes (2) Diabetes mellitus Status: Acute Assessment and plan: Continued uncontrolled, but levels are less with every 6 hours, sliding scale Humalog coverage. Current Visit: Yes (3) Pneumonitis Status: Acute Assessment and plan: patient is clinically improved and has been extubated WBC IS NOW NORMAL HE STILL HAS LOW GRADE TEMPERATURE ELEVATION Current Visit: Yes - Time Spent With Patient Total time spent is greater than 50% in coordination of care (as documented) at patient's floor/unit and/or counseling patient:
[2018-11-08] MEDS: HYDROCORTISONE SOD SUCC 100 MG VIAL IV SCH ×2 (14:07→22:21)
[2018-11-08] MEDS ORDERED: fentaNYL 2,500 MCG in 0.9 % SODIUM CHLORIDE 200 ML IV PRN (15:30)
[2018-11-08 16:38] LABS: Cholesterol 152 mg/dl (<200); HDL Cholesterol 41 mg/dl (>40); LDL Cholesterol,Calculated 91 mg/dl (SEE CHART); Non-HDL Cholesterol 111 (LDL TARGET+30); Triglycerides 102 mg/dl (<150)
[2018-11-08] MEDS: HYDROmorphone 2 MG/ML VIAL IV PRN (19:04)
[2018-11-08] MEDS: LORazepam 2 MG/ML VIAL IV PRN (19:25)
[2018-11-08] MEDS: ENOXAPARIN 40 MG/0.4 ML SYRINGE SQ SCH (20:06)
[2018-11-08] MEDS: ZOLPIDEM 5 MG TABLET PO PRN (20:09)
[2018-11-08] MEDS ORDERED: FUROSEMIDE 40 MG TABLET PO SCH (22:00)
[2018-11-08] MEDS ORDERED: FUROSEMIDE 40 MG TABLET ONE (22:28)
[2018-11-09] MEDS: INSULIN LISPRO 1 UNIT/0.01 ML UNIT SQ SCH ×6 (02:18→18:16)
[2018-11-09] MEDS: DEXMEDETOMIDINE HCL 400 MCG/100 ML BAG IV SCH (02:22)
[2018-11-09] MEDS: 0.9 % SODIUM CHLORIDE 250 ML IV SCH ×3 (02:33→15:04)
[2018-11-09] MEDS: IPRATROPIUM/ALBUTEROL 3 ML AMPUL.NEB NEB SCH ×6 (03:13→23:24)
[2018-11-09 05:02] LABS: Hematocrit 26.6 % (41.0-55.0); Hemoglobin 8.7 g/dL (13.5-16.5); Mean Cell Volume 91.7 fL (80.0-100.0); Mean Corpuscular HGB Conc 32.9 g/dL (31.0-36.0); Mean Platelet Volume 9.3 fL (7.4-10.4); Platelet Count 382 K/mcL (140-440); Red Cell Distribution Width 12.7 % (11.5-14.5); WBC 13.8 K/mcL (4.5-11.0)
[2018-11-09] MEDS: HYDROCORTISONE SOD SUCC 100 MG VIAL IV SCH ×3 (05:30→21:39)
[2018-11-09] MEDS: metroNIDAZOLE 500 MG/100 ML BAG IV SCH ×3 (05:30→21:36)
[2018-11-09] MEDS: oxyCODONE HCL 5 MG TABLET PO PRN ×3 (05:40→19:51)
[2018-11-09 05:59] LABS: ALT/SGPT 12 U/l (0-40); AST/SGOT 19 U/l (0-37); Albumin/Globulin Ratio 1.1 (1.0-2.3); Alkaline Phosphatase 156 U/L (39-117); Bilirubin,Direct < 0.2 mg/dL (0.0-0.3); Bilirubin,Total 0.2 mg/dL (0.0-1.0); Blood Urea Nitrogen 26 mg/dl (6-20); Calcium 8.7 mg/dl (8.6-10.4); Carbon Dioxide 23 mmol/L (22-30); Chloride 101 mmol/L (96-108); Globulin 2.8 gm/dL (2.2-3.7); Glomerular Filtration Rate 109; Glucose 323 mg/dL (70-105); Lactate Dehydrogenase 284 U/L (94-250); Magnesium 1.8 mg/dL (1.6-2.5); Phosphorous 2.5 mg/dL (2.7-4.5); Sodium 139 mmol/L (133-145); Triglycerides 79 mg/dl (<150); Uric Acid 5.8 mg/dL (2.5-8.0)
[2018-11-09 06:40] LABS: Band Neutrophils % 6 % (0-10); Lymphocytes % 11 % (15-49); Monocytes % (Manual) 2 % (1-12); Platelet Estimate NORMAL (NORMAL); Polychromasia 1+ (NONE SEEN); RBC Morphology ABNORM (NORMAL); Segmented Neutrophils % 81 % (38-78)
[2018-11-09] MEDS: 0.9 % SODIUM CHLORIDE 10 ML SYRINGE IV PRN ×4 (07:10→14:55)
[2018-11-09] MEDS: CEFEPIME 2 GM VIAL IV SCH ×3 (07:10→22:55)
[2018-11-09] MEDS ORDERED: POTASSIUM CHLORIDE 20 MEQ TABLET PO ONE (08:05)
[2018-11-09] MEDS: METOPROLOL TARTRATE 25 MG TABLET PO SCH ×2 (08:12→19:52)
[2018-11-09] MEDS: DOCUSATE SODIUM 100 MG CAPSULE PO SCH ×2 (08:12→19:52)
[2018-11-09] MEDS: ASPIRIN 81 MG TAB.CHEW CHEWED SCH (08:12)
[2018-11-09] MEDS: ENOXAPARIN 40 MG/0.4 ML SYRINGE SQ SCH ×2 (08:13→19:51)
[2018-11-09] MEDS: FAMOTIDINE/PF 20 MG/2 ML VIAL IV SCH ×2 (08:13→19:51)
[2018-11-09] MEDS: CHLORHEXIDINE GLUCONATE 1 ML ORAL.SOL SWABMOUTH SCH ×2 (08:15→19:53)
--- NOTE | 2018-11-09 08:16 | Internal Med Progress Note ---
Medical - PN: Subj Patient information: Note initiated : 11/09/18 at 7:57 am Service Date, if different from initiated Date: [] Patient: Al Escobar a 42 y/o M admitted on 11/05/18 for Left Abscess. Chief Complaint: [] Interval history: Mr. Escobar is a 42 year old M diabetic who was admitted for large left p erirectal abscess and underwent surgical intervention with incision and drainage of left perirectal area 11/04. Patient developed gram-positive bacteremia, along with group B streptococcus from wound culture on October 30. Patient was recovering well until this afternoon developed rapidly progressive shortness of breath along with tachycardia, tachypnea requiring 100% oxygen. Hospitalist service was emergently consulted by surgery. At the time of evaluation patient is barely able to talk in full sentences. He is tachycardic tachypneic. Stat blood gas along with CBC CMP was ordered. Patient denies aspiration, diaphoresis or shaking chills but endorses to fever. Awake arterial blood gas. Stat chest x-ray reveals right-sided mid and lower lobe infiltrate consistent with pneumonia. Patient is currently on Zosyn/vancomycin. Transfer to ICU for positive pressure ventilation and intubation if required. We will initiate pressors/crystalloids and sepsis management per guidelines. On further questioning patient denies IV drug use. He was recently hospitalized in June with influenza pneumonia with superimposed streptococcus bacteremia that required ID consultation and following negative transthoracic echocardiogram he was discharged on levofloxacin 750 which was continued through 07/12. Other than that patient denies diarrhea, abdominal pain, chest pain, headache but he is anxious and tremulous. 11/06-patient critically ill on vasopressors. Titrating oxygen and vasopressors down. Currently on 12 PEEP 35% FiO2. ICU sedation on fentanyl/Precedex. ET tube in place. T-max 100.8. White count up to 20,000. Urine output 40 cc an hour. Remains critically ill but improved since previous day. Improved oxygenation. [place] 2 score 19, remains a high risk mortality. Multiple blood cultures positive for gram-positive cocci. Surveillance cultures/sensitivities pending. Antibiotics escalated to vancomycin/meropenem in light of septic shock. ID consulted. Serial troponin peak 0.9 secondary to sepsis and endorgan dysfunction. Blood sugars improved. A1c 12.1 indicating poor outpatient control. Continue surveillance culture 11/07 No overnight events. Patient doing well. Vasopressors removed this morning. Patient is alert and awake on the vent. With good weaning parameters. Will extubate. Did have thoracentesis already this morning. Troponin seems to have peaked. No chest pain. 11/08 Patient appears comfortable with BiPAP on. States he does feel better, less wheezing. Did not expectorate any thick sputum overnight. Had to put on Precedex for agitation last night which dropped his blood pressure little bit and required vasopressor support. Currently weaning down again. FiO2 is 80 last night but it is 40 this morning -appears to be an agitation component. Pt denies chest pain I did talk to Dr. ny ([facility] registered nursing professor) and plan will be to revisit with him when patient's pulmonary status stabilizes, continue medical mgmt for now. Also discussed case with Dr. Minaya. 11/09 Comfortable on the BiPAP. Does get short of breath when BiPAP is off for nutrition and medications. Dry cough this morning. No other new complaints. Vasopressors stopped this morning Precedex drip stopped. No BM since admission Review of Systems: Denies headache fever chills nausea vomiting chest pain stomach pain diarrhea - Constitutional Vitals: Vital Signs Temp Pulse Resp BP Pulse Ox 98.0 F 78 28 H 104/74 93 11/09/18 07:00 11/09/18 07:48 11/09/18 07:48 11/09/18 06:45 11/09/18 07:45 Period Temp Pulse Resp BP Sys/Kaplan Pulse Ox Last 24 Hr 96.4 F-99.0 F 73-111 13-29 70-118/57-83 85-99 Intake and Output 11/08/18 11/09/18 11/09/18 21:59 05:59 13:59 Intake Total 1437 1449 182 Output Total 1270 640 60 Balance 167 809 122 Weight 80.694 kg Intake & Output: Intake & Output 11/08/18 11/09/18 11/09/18 21:59 05:59 13:59 Intake Total 1437 1449 182 Output Total 1270 640 60 Balance 167 809 122 Weight 80.694 kg Intake: Nourishment/Supplement quantity 240 (ml) IV 197 1044 142 Sodium Chloride 0.9% 250 ml @ 250 20 mls/hr IV .[id number] [facility] Rx#: [id number] PRECEDEX 400 MCG/100 ML 97 98 42 DEXTROSE 400 mcg In 100 ml @ 0. 2 MCG/KG/HR 3.926 mls/hr IV . Q24H [facility] Rx#:[id number] Levophed 16 mg In Sodium 46 Chloride 0.9% 234 ml @ 10 MCG/ MIN 9.38 mls/hr IV Q24H [facility] Rx# :[id number] Vancomycin 1,500 mg In Sodium 500 Chloride 0.9% 500 ml @ 333.3 mls/hr IV Q12H [facility] Rx#: [id number] Oral 960 405 IV - Manual Only 40 40 Output: Urine Catheter Amount 1270 640 60 Other: Meal snack snack Percent of Meal Consumed 100% 75% Feeding Ability Assist with Tray Set Up Nourishment/Supplement name Glucerna Urine Appearance Clear Clear Clear Uretheral ([place]) Clear Urine Color Bright Yellow Pale Dark Yellow Uretheral ([place]) Bright Yellow Dark Yellow Exam: General: alert and awake, No acute Distress Eyes/N/T: EOMI Head/Neck: neck supple, CV: RRR, No murmurs, Pulm: mild rales R>L, no wheezing Abd: soft, nontender, Ext: no clubbing/cyanosis/edema Neuro: alert and awake, no focal deficits, moves all extremities Skin: warm/dry Medical - PN: Obj Da - Labs CBC & Chem 7: 11/09/18 04:00 11/09/18 04:00 Labs: Abnormal Lab Results 11/09/18 11/09/18 11/09/18 04:00 04:00 04:00 WBC 13.8 H RBC 2.90 L Hgb 8.7 L Hct 26.6 L Gran % Lymph % (Auto) Gran # Lymph # (Auto) [place] # (Auto) Seg Neutrophils % 81 H Lymphocytes % 11 L RBC Morphology Abnorm A Polychromasia 1+ A PT INR Potassium 3.0 L Carbon Dioxide Anion Gap BUN 26 H Creatinine Glucose 323 H Calcium Phosphorus 2.5 L GGT 64 H Alkaline Phosphatase 156 H Lactate Dehydrogenase 284 H Troponin T NT-Pro-B Natriuret Pep 6974.0 H Total Protein 5.8 L Albumin 3.0 L Albumin/Globulin Ratio Triglycerides 11/08/18 11/08/18 11/08/18 04:11 04:00 04:00 WBC RBC Hgb Hct Gran % Lymph % (Auto) Gran # Lymph # (Auto) [place] # (Auto) Seg Neutrophils % 94 H Lymphocytes % 3 L RBC Morphology Polychromasia PT INR Potassium Carbon Dioxide Anion Gap BUN Creatinine Glucose Calcium Phosphorus GGT Alkaline Phosphatase Lactate Dehydrogenase Troponin T 0.63 H* NT-Pro-B Natriuret Pep 33562.0 H Total Protein Albumin Albumin/Globulin Ratio Triglycerides 11/08/18 11/08/18 11/07/18 04:00 04:00 21:35 WBC 15.7 H RBC 3.08 L Hgb 9.5 L Hct 27.9 L Gran % 92.6 H Lymph % (Auto) 4.2 L Gran # 14.6 H Lymph # (Auto) 0.7 L [place] # (Auto) Seg Neutrophils % Lymphocytes % RBC Morphology Polychromasia PT INR Potassium Carbon Dioxide 21 L Anion Gap 17.0 H BUN Creatinine Glucose 280 H 257 H Calcium 8.3 L Phosphorus 2.5 L GGT Alkaline Phosphatase 133 H 124 H Lactate Dehydrogenase 321 H 312 H Troponin T NT-Pro-B Natriuret Pep Total Protein 5.8 L 5.7 L Albumin 3.0 L 2.9 L Albumin/Globulin Ratio Triglycerides 11/07/18 11/07/18 11/07/18 17:13 06:29 04:00 WBC RBC Hgb Hct Gran % Lymph % (Auto) Gran # Lymph # (Auto) [place] # (Auto) Seg Neutrophils % Lymphocytes % RBC Morphology Polychromasia PT 16.1 H INR 1.3 H Potassium Carbon Dioxide Anion Gap BUN Creatinine Glucose Calcium Phosphorus GGT Alkaline Phosphatase Lactate Dehydrogenase Troponin T 0.88 H* NT-Pro-B Natriuret Pep 4372.0 H Total Protein Albumin Albumin/Globulin Ratio Triglycerides 11/07/18 11/07/18 04:00 04:00 WBC RBC 2.99 L Hgb 9.1 L Hct 27.2 L Gran % Lymph % (Auto) Gran # Lymph # (Auto) [place] # (Auto) 1.0 H Seg Neutrophils % Lymphocytes % RBC Morphology Polychromasia PT INR Potassium Carbon Dioxide Anion Gap BUN Creatinine 0.6 L Glucose 200 H Calcium 8.4 L Phosphorus 2.4 L GGT Alkaline Phosphatase Lactate Dehydrogenase 339 H Troponin T NT-Pro-B Natriuret Pep Total Protein 5.7 L Albumin 2.7 L Albumin/Globulin Ratio 0.9 L Triglycerides 161 H Meds: Medications Albuterol/Ipratropium (Duoneb) 3 ml NEB Q4HRT [facility] Last Admin: 11/09/18 07:41 Dose: 3 ml Documented by: Aspirin (Aspirin) 81 mg CHEWED DAILY [facility] Last Admin: 11/08/18 09:17 Dose: 81 mg Documented by: Atorvastatin Calcium (Lipitor) 40 mg PO DAILY [facility] Last Admin: 11/08/18 09:24 Dose: 40 mg Documented by: Benzonatate (Tessalon) 200 mg PO TIDP PRN PRN Reason: Cough Cefepime HCl (Maxipime) 2 gm IV Q8H [facility]; Protocol Last Admin: 11/09/18 07:10 Dose: 2 gm Documented by: Chlorhexidine Gluconate (Peridex) 15 ml SWABMOUTH BID [facility] Last Admin: 11/08/18 20:07 Dose: 15 ml Documented by: Dextrose (Dextrose 50%) 0 ml IV UD PRN PRN Reason: Hypoglycemia Diagnostic Test (Pha) (Accu-Chek) 1 each FS Q6 [facility] Last Admin: 11/09/18 05:58 Dose: 1 each Documented by: Docusate Sodium (Colace) 100 mg PO BID [facility] Last Admin: 11/08/18 20:06 Dose: 100 mg Documented by: Enoxaparin Sodium (Lovenox) 40 mg SQ BID [facility] Last Admin: 11/08/18 20:06 Dose: 40 mg Documented by: Famotidine (Pepcid) 20 mg IV Q12 [facility] Last Admin: 11/08/18 20:06 Dose: 20 mg Documented by: Glucose (Insta-Glucose) 15 gm PO PRN PRN PRN Reason: Hypoglycemia Guaifenesin/Codeine Phosphate (Robitussin Ac) 10 ml PO Q4HP PRN PRN Reason: Cough Hydrocortisone Sodium Succinate (Solu-Cortef) 50 mg IV Q8 [facility] Hydromorphone HCl (Dilaudid) 1 mg IV Q2HP PRN PRN Reason: PAIN LEVEL > 6 Last Admin: 11/08/18 19:04 Dose: 1 mg Documented by: Norepinephrine Bitartrate 16 (mg/ Sodium Chloride) 250 mls @ 9.38 mls/hr IV Q24H [facility]; Protocol Last Titration: 11/09/18 04:20 Dose: 2 mcg/min, 1.88 mls/hr Documented by: Sodium Chloride (Sodium Chloride 0.9%) 250 mls @ 20 mls/hr IV .[id number] [facility] Last Admin: 11/09/18 02:33 Dose: 20 mls/hr Documented by: Heparin Sodium/Sodium Chloride (Heparin/Ns) 500 mls @ 0 mls/hr IV .Q0M [facility]; Protocol Last Admin: 11/07/18 23:00 Dose: 3 mls/hr Documented by: Dexmedetomidine HCl (Precedex 400 Mcg/100 Ml Dextrose) 400 mcg in 100 mls @ 3.926 mls/hr IV .Q24H [facility]; Protocol Last Titration: 11/09/18 07:02 Dose: 0.6 mcg/kg/hr, 11.778 mls/hr Documented by: Metronidazole (Flagyl) 500 mg in 100 mls @ 100 mls/hr IV Q8H [facility]; Protocol Last Infusion: 11/09/18 06:45 Dose: Infused Documented by: Acetaminophen (Ofirmev) 650 mg in 65 mls @ 130 mls/hr IV Q6HP PRN PRN Reason: PAIN/FEVER > 101 Last Infusion: 11/08/18 04:54 Dose: Infused Documented by: Vancomycin HCl 1,500 mg/ (Sodium Chloride) 500 mls @ 333.3 mls/hr IV Q12H [facility] Last Infusion: 11/08/18 22:24 Dose: Infused Documented by: Fentanyl 2,500 mcg/ Sodium (Chloride) 250 mls @ 2.5 mls/hr IV Q24HP PRN; Protocol PRN Reason: PAIN CONTROL/SEDATION Sodium Chloride (Sodium Chloride 0.9%) 250 mls @ 20 mls/hr IV .[id number] [facility] Last Admin: 11/08/18 17:51 Dose: 15 mls/hr Documented by: Insulin Glargine (Lantus) 15 unit SQ DAILY [facility] Last Admin: 11/08/18 09:25 Dose: 15 units Documented by: Insulin Human Lispro (Humalog) 0 unit SQ Q6 [facility]; Protocol Last Admin: 11/09/18 05:58 Dose: 12 units Documented by: Lorazepam (Ativan) 0.5 mg IV Q4HP PRN PRN Reason: ANXIETY/SEDATION Last Admin: 11/08/18 19:25 Dose: 0.5 mg Documented by: Metoprolol Tartrate (Lopressor) 12.5 mg PO BID [facility] Last Admin: 11/08/18 20:06 Dose: 12.5 mg Documented by: Nicotine (Nicoderm) 21 mg TOPICAL DAILY@1000 [facility] Last Admin: 11/08/18 09:26 Dose: 21 mg Documented by: Ondansetron HCl (Zofran) 4 mg IV Q4HP PRN PRN Reason: Nausea And Vomiting Last Admin: 11/07/18 04:31 Dose: 4 mg Documented by: Oxycodone HCl (Roxicodone) 10 mg PO Q4HP PRN PRN Reason: PAIN LEVEL 3-6 Last Admin: 11/09/18 05:40 Dose: 10 mg Documented by: Promethazine HCl (Phenergan) 12.5 mg IV Q4HP PRN PRN Reason: Nausea And Vomiting Sodium Chloride (Saline Flush) 10 ml IV Q12 [facility] Last Admin: 11/08/18 20:08 Dose: 10 ml Documented by: Sodium Chloride (Saline Flush) 10 ml IV UD PRN PRN Reason: FLUSH Last Admin: 11/09/18 07:15 Dose: 10 ml Documented by: Vancomycin HCl (Vancomycin Per Pharmacy) 1 order IV UD [facility] Zolpidem Tartrate (Ambien) 10 mg PO HSP PRN PRN Reason: Insomnia Last Admin: 11/08/18 20:09 Dose: 10 mg Documented by: Medical - PN: A/P - Time Spent With Patient Total time spent is greater than 50% in coordination of care (as documented) at patient's floor/unit and/or counseling patient: - Narrative A/P Narrative: A: *Acute hypoxic respiratory failure: 2/2 right-sided pneumonia concerning for Aspiration Event leading to ARDS -extubated to bipap (11/07) -thoracentesis (11/07) 900cc Transudate -off/on bipap *Septic shock w/multiorgan dysfxn: Improving -vasopressors off morning of 11/07 but started back low dose early 11/08 after sedation medication started, titrating back off -Tm curve improving, Afebrile this morning -Leukocytosis resolved but increased after steroids started, PCT 0.78<0.84<0.66<0.95 *Blood culture with [place]: treating as pathologic in this setting -Echo no vegetations *NSTEMI: 2/2 above mismatch/supply in pt with multiple risk factors for CAD, concern for Anteroseptal infarct. No chest pain -Trop 0.63<0.88<0.90<0.53<0.38, -echo normal LV, portion of septal wall hypokinetic, otherwise unremarkable. EKG changes noted -no previous known h/o CAD, but will need cardiac cath when stable *volume overload: from fluid resuscitation during shock -diuresing well last several days *Anemia, chronic: *DM II, uncontrolled: A1c 12.1 *Perirectal abscess: s/p I&D-group (11/04) -B streptococcus on cultures *chronic LBP: *Tobacco Abuse: *HLD: on lipitor at home Plan: -cont prn Bipap support, wean as able -Dr. Ferrer consult -monitor CVP goal 4 (not getting good readings from measured CVP's)) -diureses hold today given labile BP -wean pressors off again, hydrocortisone short course, hold precedex -Dr. Ornelas consult, abx per ID (Vanco/Cefepime/Flagyl), -Surveillance blood cultures pending -serial CXR -ASA/statin, BB when able, needs cardiac w/u eventually when stable; I did talk to Dr. ny ([facility] registered nursing professor) and plan will be to revisit with him when patient's pulmonary status stabilizes. Also discussed case with Dr. Minaya. -SSI, start back basal insulin (trying to clarify what home dose is) and titrate up -Abscess per Dr. Joe -Smoking cessation counseling -ppx: lovenox/pepcid Medical - PN: Qual - VTE Deep Vein Thrombosis/Pulmonary Embolism Present on Admission: No
[2018-11-09] MEDS: 0.9 % SODIUM CHLORIDE 10 ML SYRINGE IV SCH ×2 (08:22→19:52)
[2018-11-09] MEDS: ATORVASTATIN 20 MG TABLET PO SCH (08:22)
[2018-11-09] MEDS: VANCOMYCIN 1,500 MG in 0.9 % SODIUM CHLORIDE 500 ML IV SCH ×2 (08:30→19:53)
--- NOTE | 2018-11-09 08:31 | XRay Report ---
HISTORY: Follow-up pneumonia and left-sided abscess FINDINGS: Severe bilateral diffuse alveolar infiltrates are present in both lungs. There is greater involvement in the right lung than left. There are multiple air bronchograms in the right lung. No abscess is identified. There is minor blunting of the left costophrenic sulcus due to a tiny pleural effusion. The heart is not enlarged. The right internal jugular catheter is well-positioned. There is no pneumothorax. Comparison with the prior exam from 11/08/18 shows the infiltrates have become worse bilaterally. IMPRESSION: Worsening bilateral pneumonia Interpreted and Authenticated by: Alex Navarrete 11/09/18
[2018-11-09] MEDS ORDERED: LACTULOSE 20 GM/30 ML ORAL.SOL PO PRN (08:57)
[2018-11-09] MEDS ORDERED: SENNOSIDES/DOCUSATE SODIUM 1 TAB TABLET PO PRN (09:00)
[2018-11-09] MEDS ORDERED: POLYETHYLENE GLYCOL 3350 17 GM PACKET PO PRN (09:01)
[2018-11-09] MEDS: diphenhydrAMINE 25 MG CAPSULE PO PRN ×2 (09:23→19:51)
[2018-11-09] MEDS: INSULIN GLARGINE, HUMAN 1 UNIT/0.01 ML SQ SCH (09:26)
--- NOTE | 2018-11-09 09:47 | XRay Report ---
HISTORY: Ileus FINDINGS: Two supine images were obtained. There is a large amount of gas in large and small intestine. The colon is normal in caliber. There are couple loops of small bowel in the left mid abdomen measuring up to 3.1 cm in diameter, which is borderline enlarged. Air-fluid levels or free intra-abdominal air cannot be detected on this supine study. There are normal postoperative changes following fusion and lumbar spine from L3 to S1. IMPRESSION: Borderline dilated small intestine Interpreted and Authenticated by: Alex Navarrete 11/09/18
--- NOTE | 2018-11-09 10:14 | Ultrasound Report ---
History: Reassess abscess in the left buttock/perirectal region FINDINGS: Along the inner aspect of left buttock there is an open skin incision. There are surgical wires and dressings in this region. Beneath the skin there is an irregularly shaped serpiginous collection of fluid. The largest pocket measures 0.5 x 2.5 cm. The fluid collection is less complex today and smaller in volume than it was in the prior ultrasound done on 10/30/18. It previously measured 1.8 x 2.2 x 2.3 cm. IMPRESSION: Improving complex fluid collection in the inner aspect of the left buttock which could be abscess, hematoma or complex seroma. Interpreted and Authenticated by: Alex Navarrete 11/09/18
[2018-11-09] MEDS: NICOTINE 21 MG PATCH TOPICAL SCH (10:31)
--- NOTE | 2018-11-09 10:42 | Infectious Disease Prog Note ---
Subjective Patient information: Note initiated : 11/09/18 at 10:23 am Service Date, if different from initiated Date: [] Patient: Al Escobar 42 y/o M admitted on 11/05/18 for Left Abscess. Chief Complaint: [] Interval history: I spoke with pt, while he had his Bipap mask on. He has been afebrile since yesterday. He reported SOB, he felt comfortable on current Bipap settings. Endorsed low back and left buttock pain. Per Vee (RN), pt has constipation, no diarrhea, the resp tract seceretions are low amount now, but at time of extubation pt had copious amounts of blood stained thin, yellow colored secretions. Pt adds that he didnot get flu shot last year, and had a flu followed by Pneumococcal pneumonia in Jun 2018. At baseline he smokes about 1PPD, denied any past Hx of COPD. Objective Objective Narrative: alert, awake, oriented x 3 chest has b/l crackles (Rt >>> LT), occasional wheezes s1 soft s2 normal, no murmurs auscultated bowel distended, BS hyperactive, non tender Rt IJ looks fine no dependent edema - Vital Signs Vital signs: Vital Signs Temp Pulse Resp BP Pulse Ox 11/09/18 10:09 36.6 C 79 23 H 91/71 94 11/09/18 10:01 36.6 C 83 27 H 89/69 93 11/09/18 09:01 36.6 C 83 24 H 99/73 98 11/09/18 08:01 36.7 C 86 23 H 117/67 95 11/09/18 07:48 78 28 H 11/09/18 07:45 78 28 H 93 11/09/18 07:01 36.7 C 75 28 H 104/72 95 11/09/18 07:00 36.7 C 74 23 H 93 11/09/18 06:45 36.7 C 74 24 H 104/74 93 11/09/18 06:30 36.7 C 74 24 H 106/75 92 11/09/18 06:15 36.7 C 74 27 H 105/77 95 11/09/18 06:01 36.6 C 75 23 H 92 11/09/18 06:00 36.6 C 75 24 H 97/72 93 11/09/18 05:45 36.4 C 75 22 96/77 92 11/09/18 05:31 36.1 C 74 22 91 11/09/18 05:30 36.1 C 77 21 103/77 92 11/09/18 05:15 36.0 C L 75 24 H 107/75 91 11/09/18 05:01 35.9 C L 74 20 91 11/09/18 05:00 35.9 C L 75 20 103/77 91 11/09/18 04:45 36.3 C 74 20 104/78 91 11/09/18 04:31 36.2 C 75 19 90 11/09/18 04:30 36.2 C 75 20 111/79 90 11/09/18 04:15 36.1 C L 73 19 118/79 91 11/09/18 04:10 35.8 C L 75 20 118/82 91 11/09/18 04:06 35.8 C L 73 18 90 11/09/18 04:05 35.8 C L 73 19 116/83 91 11/09/18 04:01 35.8 C L 75 19 91 11/09/18 04:00 35.8 C L 74 19 118/81 91 11/09/18 03:55 35.8 C L 76 19 114/79 90 11/09/18 03:50 35.8 C L 74 18 116/82 90 11/09/18 03:45 35.9 C L 74 19 112/77 91 11/09/18 03:40 35.9 C L 74 19 101/71 88 L 11/09/18 03:35 36.1 C L 75 18 117/81 93 11/09/18 03:31 36.1 C L 75 19 94 11/09/18 03:30 36.1 C L 75 18 118/81 93 11/09/18 03:25 36.2 C 74 18 111/80 94 11/09/18 03:20 36.2 C 74 19 100/74 94 11/09/18 03:16 36.3 C 73 19 92 11/09/18 03:15 36.3 C 74 20 89/67 93 11/09/18 03:11 36.3 C 75 19 70/57 93 11/09/18 03:05 36.3 C 74 19 91/67 94 11/09/18 03:01 36.3 C 74 19 93 06/17/19 03:00 36.3 C 73 19 93/68 93 11/09/18 02:55 36.3 C 75 20 96/69 93 11/09/18 02:50 36.3 C 75 20 98/69 93 11/09/18 02:46 36.3 C 75 20 93 11/09/18 02:45 36.3 C 75 19 90/67 93 11/09/18 02:40 36.3 C 76 19 91/66 93 11/09/18 02:35 36.3 C 76 19 93/66 92 11/09/18 02:31 36.3 C 76 18 92 11/09/18 02:30 36.3 C 76 19 92/65 92 11/09/18 02:29 36.3 C 76 20 96/66 92 11/09/18 02:26 36.3 C 76 19 96/68 90 11/09/18 02:01 36.3 C 79 19 91 11/09/18 02:00 36.3 C 79 19 110/74 91 11/09/18 01:51 20 91 11/09/18 01:30 36.4 C 82 20 91 11/09/18 01:01 36.5 C 85 22 90 11/09/18 01:00 36.5 C 81 20 112/75 92 11/09/18 00:32 36.7 C 88 24 H 94 11/09/18 00:31 36.7 C 89 27 H 97/73 94 11/09/18 00:30 36.7 C 88 17 92 11/09/18 00:01 36.7 C 89 23 H 80/64 94 11/09/18 00:00 36.4 C 88 27 H 91 11/08/18 23:44 91 H 17 11/08/18 23:43 91 H 17 90 11/08/18 23:30 36.8 C 81 24 H 93 11/08/18 23:02 36.8 C 86 19 89 L 11/08/18 23:01 36.8 C 85 21 101/69 91 11/08/18 23:00 36.8 C 84 22 92 11/08/18 22:30 36.9 C 106 H 25 H 91 11/08/18 22:20 86 29 H 99 11/08/18 22:01 36.9 C 81 17 90 06/16/19 22:00 36.9 C 87 21 103/74 89 L 11/08/18 21:30 36.9 C 111 H 18 90 11/08/18 21:02 37.0 C 94 H 19 105/67 86 L 11/08/18 21:00 37.0 C 94 H 19 87 L 11/08/18 20:30 36.8 C 96 H 17 94 11/08/18 20:01 37.0 C 98 H 21 102/77 90 11/08/18 20:00 36.9 C 96 H 22 93 11/08/18 19:55 98 H 20 11/08/18 19:46 98 H 24 H 98 11/08/18 19:30 37.0 C 87 25 H 94 11/08/18 19:02 36.9 C 88 25 H 86 L 11/08/18 19:01 36.9 C 89 28 H 105/79 85 L 11/08/18 19:00 36.9 C 88 21 86 L 11/08/18 18:30 36.8 C 90 27 H 88 L 11/08/18 18:11 36.8 C 87 24 H 93/70 92 11/08/18 18:04 36.8 C 87 18 90 11/08/18 18:03 36.7 C 86 23 H 83/61 89 L 11/08/18 17:41 85 23 H 89 L 11/08/18 17:02 36.6 C 84 23 H 92/68 98 11/08/18 16:01 36.7 C 88 25 H 95/65 96 11/08/18 15:52 88 25 H 11/08/18 15:15 77 25 H 96 11/08/18 15:03 36.8 C 80 22 100/76 97 11/08/18 15:02 36.8 C 80 17 76/58 95 11/08/18 14:30 36.9 C 83 23 H 95 11/08/18 14:02 37.1 C 84 22 95 11/08/18 14:01 37.1 C 83 13 107/78 95 11/08/18 14:00 95 11/08/18 13:30 37.1 C 87 24 H 101/75 94 11/08/18 12:30 37.2 C 88 24 H 92 11/08/18 12:00 37.2 C 92 H 25 H 105/77 99 11/08/18 11:00 37.1 C 82 23 H 109/77 97 Intake and Output 11/08/18 11/09/18 11/09/18 21:59 05:59 13:59 Intake Total 1437 1449 1270 Output Total 1270 640 170 Balance 382 679 0640 Intake: Nourishment/Supplement quantity 240 200 (ml) IV 197 1044 670 Sodium Chloride 0.9% 250 ml @ 250 20 mls/hr IV .[id number] [facility] Rx#: [id number] PRECEDEX 400 MCG/100 ML 97 98 62 DEXTROSE 400 mcg In 100 ml @ 0. 2 MCG/KG/HR 3.926 mls/hr IV . Q24H [facility] Rx#:[id number] Levophed 16 mg In Sodium 46 8 Chloride 0.9% 234 ml @ 10 MCG/ MIN 9.38 mls/hr IV Q24H [facility] Rx# :[id number] Vancomycin 1,500 mg In Sodium 500 500 Chloride 0.9% 500 ml @ 333.3 mls/hr IV Q12H [facility] Rx#: [id number] Oral 960 405 360 IV - Manual Only 40 40 Output: Urine Catheter Amount 1270 640 170 Other: Meal snack snack Percent of Meal Consumed 100% 75% Feeding Ability Assist with Tray Set Up Nourishment/Supplement name Glucerna Glucerna Urine Appearance Clear Clear Clear Uretheral ([place]) Clear Urine Color Bright Yellow Pale Dark Yellow Uretheral ([place]) Bright Yellow Dark Yellow Weight 80.694 kg Intake & Output: Intake & Output 11/08/18 11/09/18 11/09/18 21:59 05:59 13:59 Intake Total 1437 1449 1270 Output Total 1270 640 170 Balance 795 218 4028 Weight 80.694 kg Intake: Nourishment/Supplement quantity 240 200 (ml) IV 197 1044 670 Sodium Chloride 0.9% 250 ml @ 250 20 mls/hr IV .[id number] [facility] Rx#: [id number] PRECEDEX 400 MCG/100 ML 97 98 62 DEXTROSE 400 mcg In 100 ml @ 0. 2 MCG/KG/HR 3.926 mls/hr IV . Q24H [facility] Rx#:[id number] Levophed 16 mg In Sodium 46 8 Chloride 0.9% 234 ml @ 10 MCG/ MIN 9.38 mls/hr IV Q24H [facility] Rx# :[id number] Vancomycin 1,500 mg In Sodium 500 500 Chloride 0.9% 500 ml @ 333.3 mls/hr IV Q12H [facility] Rx#: [id number] Oral 960 405 360 IV - Manual Only 40 40 Output: Urine Catheter Amount 1270 640 170 Other: Meal snack snack Percent of Meal Consumed 100% 75% Feeding Ability Assist with Tray Set Up Nourishment/Supplement name Glucerna Glucerna Urine Appearance Clear Clear Clear Uretheral ([place]) Clear Urine Color Bright Yellow Pale Dark Yellow Uretheral ([place]) Bright Yellow Dark Yellow - Lab 11/09/18 04:00 11/09/18 04:00 Most recent lab results Calcium 8.7 mg/dl (8.6-10.4) 11/09/18 04:00 Phosphorus 2.5 mg/dL (2.7-4.5) L 11/09/18 04:00 Magnesium 1.8 mg/dL (1.6-2.5) 11/09/18 04:00 Microbiology 11/06/18 05:35 Blood Blood Culture - Preliminary 11/06/18 05:45 Blood Blood Culture - Preliminary 11/05/18 17:25 Blood Blood Culture - Preliminary 11/05/18 16:45 Blood Blood Culture - Preliminary 11/06/18 09:10 Pleural Fluid Gram Stain - Final 11/06/18 09:10 Pleural Fluid Body Fluid Culture - Preliminary 11/04/18 08:27 Blood Blood Culture - Preliminary Micrococcus species 11/05/18 18:00 Sputum - Aspirate Gram Stain - Final 11/05/18 18:00 Sputum - Aspirate Sputum Culture - Final 11/06/18 04:02 Nose MRSA (PCR) - Final 11/05/18 18:00 Pleural Fluid Gram Stain - Final 11/05/18 18:00 Pleural Fluid Body Fluid Culture - Final 11/04/18 08:33 Blood Blood Culture - Preliminary Gram positive cocci Medications Active Medications: Albuterol/Ipratropium (Duoneb) 3 ml NEB Q4HRT [facility] Last Admin: 11/09/18 07:41 Dose: 3 ml Documented by: [email or web address] Admin: 11/09/18 03:13 Dose: 3 ml Documented by: Admin: 11/08/18 23:36 Dose: 3 ml Documented by: Admin: 11/08/18 19:15 Dose: 3 ml Documented by: Admin: 11/08/18 15:18 Dose: 3 ml Documented by: Admin: 11/08/18 11:06 Dose: 3 ml Documented by: Admin: 11/08/18 07:31 Dose: 3 ml Documented by: Admin: 11/08/18 03:04 Dose: 3 ml Documented by: Admin: 11/07/18 22:53 Dose: 3 ml Documented by: Admin: 11/07/18 18:56 Dose: 3 ml Documented by: Admin: 11/07/18 15:06 Dose: 3 ml Documented by: Admin: 11/07/18 10:49 Dose: 3 ml Documented by: Admin: 11/07/18 07:40 Dose: 3 ml Documented by: Admin: 11/07/18 03:06 Dose: 3 ml Documented by: Admin: 11/06/18 23:13 Dose: 3 ml Documented by: Admin: 11/06/18 19:08 Dose: 3 ml Documented by: Admin: 11/06/18 14:59 Dose: 3 ml Documented by: Admin: 11/06/18 11:34 Dose: 3 ml Documented by: Admin: 11/06/18 07:07 Dose: 3 ml Documented by: Admin: 11/06/18 03:30 Dose: 3 ml Documented by: MARIA E Admin: 11/05/18 23:18 Dose: 3 ml Documented by: Admin: 11/05/18 18:24 Dose: 3 ml Documented by: PEDRITO Aspirin (Aspirin) 81 mg CHEWED DAILY [facility] Last Admin: 11/09/18 08:12 Dose: 81 mg Documented by: DeanaXMiley Admin: 11/08/18 09:17 Dose: 81 mg Documented by: DeanaXMiley Admin: 11/07/18 09:40 Dose: 81 mg Documented by: UXMiley Atorvastatin Calcium (Lipitor) 40 mg PO DAILY [facility] Admin: 11/09/18 08:22 Dose: 40 mg Documented by: Admin: 11/08/18 09:24 Dose: 40 mg Documented by: Admin: 11/07/18 09:50 Dose: 40 mg Documented by: DeanaXMiley Benzonatate (Tessalon) 200 mg PO TIDP PRN PRN Reason: Cough Cefepime HCl (Maxipime) 2 gm IV Q8H [facility]; Protocol Last Admin: 11/09/18 07:10 Dose: 2 gm Documented by: UXMiley Admin: 11/08/18 23:52 Dose: 2 gm Documented by: Admin: 11/08/18 15:28 Dose: 2 gm Documented by: UXMiley Admin: 11/08/18 07:15 Dose: 2 gm Documented by: UXMiley Admin: 11/08/18 00:11 Dose: 2 gm Documented by: Admin: 11/07/18 16:10 Dose: 2 gm Documented by: UXMiley Admin: 11/07/18 07:49 Dose: 2 gm Documented by: UXMiley Admin: 11/06/18 23:46 Dose: 2 gm Documented by: Admin: 11/06/18 16:17 Dose: 2 gm Documented by: UXMiley Admin: 11/06/18 10:45 Dose: 2 gm Documented by: CAMILA Chlorhexidine Gluconate (Peridex) 15 ml SWABMOUTH BID [facility] Last Admin: 11/09/18 08:15 Dose: 15 ml Documented by: DeanaXMiley Admin: 11/08/18 20:07 Dose: 15 ml Documented by: DONITA Comments: multidose bottle in pyxis, couldn't scan Admin: 11/08/18 09:18 Dose: 15 ml Documented by: Admin: 11/07/18 20:41 Dose: 15 ml Documented by: DONITA Comments: multidose bottle, unable to scan Admin: 11/07/18 09:39 Dose: 15 ml Documented by: UXMiley Admin: 11/06/18 21:41 Dose: 15 ml Documented by: DONITA Comments: multiuse bottle in pyxis, unable to scan Admin: 11/06/18 08:28 Dose: 15 ml Documented by: DeanaXMiley Admin: 11/06/18 00:11 Dose: 15 ml Documented by: MARIA E Dextrose (Dextrose 50%) 0 ml IV UD PRN PRN Reason: Hypoglycemia Diagnostic Test (Pha) (Accu-Chek) 1 each FS Q6 [facility] Last Admin: 11/09/18 05:58 Dose: 1 each Documented by: Admin: 11/09/18 04:00 Dose: 1 each Documented by: Admin: 11/09/18 02:14 Dose: 1 each Documented by: Admin: 11/08/18 23:43 Dose: 1 each Documented by: Admin: 11/08/18 17:43 Dose: 1 each Documented by: DeanaXMiley Admin: 11/08/18 12:17 Dose: 1 each Documented by: DeanaXMiley Admin: 11/08/18 05:41 Dose: 1 each Documented by: Admin: 11/08/18 00:41 Dose: 1 each Documented by: Admin: 11/07/18 18:00 Dose: 1 each Documented by: DeanaXMiley Admin: 11/07/18 12:15 Dose: 1 each Documented by: DeanaXMiley Admin: 11/07/18 05:39 Dose: 1 each Documented by: Admin: 11/07/18 00:08 Dose: 1 each Documented by: Admin: 11/06/18 17:59 Dose: 1 each Documented by: DeanaXMiley Admin: 11/06/18 12:46 Dose: 1 each Documented by: DeanaXMiley Admin: 11/06/18 06:30 Dose: 1 each Documented by: DeanaXMiley Admin: 11/06/18 01:45 Dose: 1 each Documented by: MARIA E Admin: 11/06/18 00:10 Dose: 1 each Documented by: MARIA E Admin: 11/05/18 21:36 Dose: 1 each Documented by: MARIA E Admin: 11/05/18 20:30 Dose: 1 each Documented by: MARIA E Admin: 11/05/18 19:30 Dose: 1 each Documented by: MARIA E Diphenhydramine HCl (Benadryl) 50 mg PO Q8HP PRN PRN Reason: ANXIETY/SEDATION Last Admin: 11/09/18 09:23 Dose: 50 mg Documented by: CAMILA Docusate Sodium (Colace) 100 mg PO BID [facility] Last Admin: 11/09/18 08:12 Dose: 100 mg Documented by: DeanaXMiley Admin: 11/08/18 20:06 Dose: 100 mg Documented by: Admin: 11/08/18 09:17 Dose: 100 mg Documented by: DeanaXMiley Admin: 11/07/18 20:40 Dose: 100 mg Documented by: Admin: 11/07/18 09:38 Dose: 100 mg Documented by: DeanaXMiley Admin: 11/06/18 21:42 Dose: Not Given Documented by: DONITA Non-Admin Reason: pt intubated, NPO Admin: 11/06/18 08:27 Dose: 100 mg Documented by: DeanaXMiley Admin: 11/05/18 21:41 Dose: Not Given Documented by: MARIA E Non-Admin Reason: intubated Enoxaparin Sodium (Lovenox) 40 mg SQ BID [facility] Last Admin: 11/09/18 08:13 Dose: 40 mg Documented by: DeanaXMiley Admin: 11/08/18 20:06 Dose: 40 mg Documented by: DONITA Famotidine (Pepcid) 20 mg IV Q12 [facility] Last Admin: 11/09/18 08:13 Dose: 20 mg Documented by: DeanaXMiley Admin: 11/08/18 20:06 Dose: 20 mg Documented by: Admin: 11/08/18 09:17 Dose: 20 mg Documented by: DeanaXMiley Admin: 11/07/18 20:41 Dose: 20 mg Documented by: Admin: 11/07/18 09:38 Dose: 20 mg Documented by: DeanaXMiley Admin: 11/06/18 21:42 Dose: 20 mg Documented by: Admin: 11/06/18 12:43 Dose: 20 mg Documented by: CAMILA Glucose (Insta-Glucose) 15 gm PO PRN PRN PRN Reason: Hypoglycemia Guaifenesin/Codeine Phosphate (Robitussin Ac) 10 ml PO Q4HP PRN PRN Reason: Cough Hydrocortisone Sodium Succinate (Solu-Cortef) 50 mg IV Q8 [facility] Hydromorphone HCl (Dilaudid) 1 mg IV Q2HP PRN PRN Reason: PAIN LEVEL > 6 Last Admin: 11/08/18 19:04 Dose: 1 mg Documented by: Admin: 11/07/18 18:48 Dose: 1 mg Documented by: Admin: 11/05/18 17:35 Dose: 1 mg Documented by: UXF Comments: Unable to scan. Given emergently. Unable to find vial. Norepinephrine Bitartrate 16 (mg/ Sodium Chloride) 250 mls @ 9.38 mls/hr IV Q24H [facility]; Protocol Last Titration: 11/09/18 08:22 Dose: 0 mcg/min, 0 mls/hr Documented by: Titration: 11/09/18 04:20 Dose: 2 mcg/min, 1.88 mls/hr Documented by: Titration: 11/09/18 03:07 Dose: 3 mcg/min, 2.81 mls/hr Documented by: Titration: 11/09/18 02:23 Dose: 0 mcg/min, 0 mls/hr Documented by: Admin: 11/08/18 19:05 Dose: Not Given Documented by: DONITA Non-Admin Reason: Bag Still Infusing Titration: 11/08/18 11:10 Dose: 3 mcg/min, 2.81 mls/hr Documented by: Titration: 11/08/18 08:00 Dose: 4 mcg/min, 3.75 mls/hr Documented by: Titration: 11/08/18 04:36 Dose: 5 mcg/min, 4.69 mls/hr Documented by: Titration: 11/08/18 03:42 Dose: 6 mcg/min, 5.63 mls/hr Documented by: Titration: 11/08/18 03:02 Dose: 8 mcg/min, 7.5 mls/hr Documented by: Titration: 11/08/18 02:30 Dose: 6 mcg/min, 5.63 mls/hr Documented by: Admin: 11/08/18 01:14 Dose: 5 mcg/min, 4.69 mls/hr Documented by: Titration: 11/08/18 01:14 Dose: 0 mcg/min, 0 mls/hr Documented by: Admin: 11/07/18 16:29 Dose: Not Given Documented by: UXF Non-Admin Reason: On hold Titration: 11/07/18 09:10 Dose: 0 mcg/min, 0 mls/hr Documented by: Titration: 11/07/18 05:24 Dose: 2 mcg/min, 1.88 mls/hr Documented by: Titration: 11/06/18 20:21 Dose: 3 mcg/min, 2.81 mls/hr Documented by: Admin: 11/06/18 16:49 Dose: 4 mcg/min, 3.75 mls/hr Documented by: Titration: 11/06/18 16:47 Dose: 0 mcg/min, 0 mls/hr Documented by: Titration: 11/06/18 08:45 Dose: 5 mcg/min, 4.69 mls/hr Documented by: Titration: 11/06/18 04:41 Dose: 6 mcg/min, 5.63 mls/hr Documented by: [email or web address] Titration: 11/05/18 20:16 Dose: 8 mcg/min, 7.5 mls/hr Documented by: Titration: 11/05/18 17:05 Dose: 10 mcg/min, 9.38 mls/hr Documented by: Titration: 11/05/18 16:43 Dose: 0 mcg/min, 0 mls/hr Documented by: Titration: 11/05/18 16:26 Dose: 10 mcg/min, 9.38 mls/hr Documented by: Admin: 11/05/18 16:24 Dose: 5 mcg/min, 4.69 mls/hr Documented by: LSTRATTON Heparin Sodium/Sodium Chloride (Heparin/Ns) 500 mls @ 0 mls/hr IV .Q0M [facility]; Protocol Last Admin: 11/07/18 23:00 Dose: 3 mls/hr Documented by: DONITA Comments: CVP Dexmedetomidine HCl (Precedex 400 Mcg/100 Ml Dextrose) 400 mcg in 100 mls @ 3.926 mls/hr IV .Q24H [facility]; Protocol Last Titration: 11/09/18 08:45 Dose: 0.3 mcg/kg/hr, 5.889 mls/hr Documented by: Titration: 11/09/18 07:02 Dose: 0.6 mcg/kg/hr, 11.778 mls/hr Documented by: Titration: 11/09/18 02:45 Dose: 0.5 mcg/kg/hr, 9.815 mls/hr Documented by: Admin: 11/09/18 02:22 Dose: 0.6 mcg/kg/hr, 11.778 mls/hr Documented by: Titration: 11/09/18 02:21 Dose: 0.6 mcg/kg/hr, 11.778 mls/hr Documented by: Titration: 11/08/18 22:10 Dose: 0.7 mcg/kg/hr, 13.74 mls/hr Documented by: Titration: 11/08/18 19:05 Dose: 0.6 mcg/kg/hr, 11.778 mls/hr Documented by: Admin: 11/08/18 18:14 Dose: 0.4 mcg/kg/hr, 7.852 mls/hr Documented by: Titration: 11/08/18 18:13 Dose: 0 mcg/kg/hr, 0 mls/hr Documented by: Titration: 11/08/18 16:30 Dose: 0.4 mcg/kg/hr, 7.852 mls/hr Documented by: Titration: 11/08/18 10:00 Dose: 0.6 mcg/kg/hr, 11.778 mls/hr Documented by: Titration: 11/08/18 09:00 Dose: 0 mcg/kg/hr, 0 mls/hr Documented by: Admin: 11/08/18 07:34 Dose: 0.3 mcg/kg/hr, 5.889 mls/hr Documented by: Titration: 11/08/18 07:34 Dose: 0 mcg/kg/hr, 0 mls/hr Documented by: Admin: 11/08/18 03:51 Dose: Not Given Documented by: DONITA Non-Admin Reason: Bag Still Infusing Titration: 11/07/18 22:30 Dose: 0.3 mcg/kg/hr, 5.889 mls/hr Documented by: Titration: 11/07/18 22:15 Dose: 0.25 mcg/kg/hr, 4.907 mls/hr Documented by: Titration: 11/07/18 21:55 Dose: 0.2 mcg/kg/hr, 3.926 mls/hr Documented by: Admin: 11/07/18 21:44 Dose: 0.3 mcg/kg/hr, 5.889 mls/hr Documented by: Titration: 11/07/18 21:20 Dose: 0.3 mcg/kg/hr, 5.889 mls/hr Documented by: Titration: 11/07/18 20:29 Dose: 0.4 mcg/kg/hr, 7.852 mls/hr Documented by: Titration: 11/07/18 09:10 Dose: 0 mcg/kg/hr, 0 mls/hr Documented by: Titration: 11/07/18 05:53 Dose: 0.4 mcg/kg/hr, 7.852 mls/hr Documented by: Admin: 11/07/18 03:59 Dose: Not Given Documented by: DONITA Non-Admin Reason: Bag Still Infusing Titration: 11/07/18 00:02 Dose: 0.6 mcg/kg/hr, 11.778 mls/hr Documented by: Admin: 11/06/18 23:46 Dose: 0.5 mcg/kg/hr, 9.815 mls/hr Documented by: Titration: 11/06/18 23:46 Dose: 0.5 mcg/kg/hr, 9.815 mls/hr Documented by: Titration: 11/06/18 22:17 Dose: 0.5 mcg/kg/hr, 9.815 mls/hr Documented by: Admin: 11/06/18 14:32 Dose: 0.4 mcg/kg/hr, 7.852 mls/hr Documented by: Titration: 11/06/18 14:31 Dose: 0 mcg/kg/hr, 0 mls/hr Documented by: Titration: 11/06/18 06:30 Dose: 0.5 mcg/kg/hr, 9.815 mls/hr Documented by: Titration: 11/06/18 04:22 Dose: 0.4 mcg/kg/hr, 7.852 mls/hr Documented by: MARIA E Titration: 11/06/18 04:08 Dose: 0.2 mcg/kg/hr, 3.926 mls/hr Documented by: MARIA E Admin: 11/06/18 03:58 Dose: 1 mcg/kg/hr, 19.629 mls/hr Documented by: MARIA E Metronidazole (Flagyl) 500 mg in 100 mls @ 100 mls/hr IV Q8H [facility]; Protocol Last Infusion: 11/09/18 06:45 Dose: 0 mls/hr Documented by: Admin: 11/09/18 05:30 Dose: 100 mls/hr Documented by: Infusion: 11/08/18 23:52 Dose: 0 mls/hr Documented by: Admin: 11/08/18 22:21 Dose: 100 mls/hr Documented by: Infusion: 11/08/18 15:27 Dose: 0 mls/hr Documented by: Admin: 11/08/18 14:06 Dose: 100 mls/hr Documented by: UXMiley Infusion: 11/08/18 07:04 Dose: 0 mls/hr Documented by: UXMiley Admin: 11/08/18 05:33 Dose: 100 mls/hr Documented by: Infusion: 11/07/18 23:39 Dose: 0 mls/hr Documented by: Admin: 11/07/18 21:45 Dose: 100 mls/hr Documented by: Infusion: 11/07/18 14:38 Dose: 0 mls/hr Documented by: Admin: 11/07/18 13:41 Dose: 100 mls/hr Documented by: Infusion: 11/07/18 06:50 Dose: 0 mls/hr Documented by: Admin: 11/07/18 05:25 Dose: 100 mls/hr Documented by: Infusion: 11/07/18 00:08 Dose: 0 mls/hr Documented by: Admin: 11/06/18 22:14 Dose: 100 mls/hr Documented by: Infusion: 11/06/18 11:45 Dose: 0 mls/hr Documented by: Admin: 11/06/18 10:41 Dose: 100 mls/hr Documented by: UXMiley Acetaminophen (Ofirmev) 650 mg in 65 mls @ 130 mls/hr IV Q6HP PRN PRN Reason: PAIN/FEVER > 101 Last Infusion: 11/08/18 04:54 Dose: 0 mls/hr Documented by: Admin: 11/08/18 02:04 Dose: 130 mls/hr Documented by: Infusion: 11/07/18 13:30 Dose: 0 mls/hr Documented by: Admin: 11/07/18 12:57 Dose: 130 mls/hr Documented by: UXMiley Infusion: 11/07/18 06:15 Dose: 0 mls/hr Documented by: Admin: 11/07/18 05:38 Dose: 130 mls/hr Documented by: Infusion: 11/06/18 22:18 Dose: 0 mls/hr Documented by: Admin: 11/06/18 21:46 Dose: 130 mls/hr Documented by: DONITA Vancomycin HCl 1,500 mg/ (Sodium Chloride) 500 mls @ 333.3 mls/hr IV Q12H LILY Last Infusion: 11/09/18 10:05 Dose: 0 mls/hr Documented by: Admin: 11/09/18 08:30 Dose: 333 mls/hr Documented by: UXMiley Infusion: 11/08/18 22:24 Dose: 0 mls/hr Documented by: Admin: 11/08/18 20:08 Dose: 333 mls/hr Documented by: Infusion: 11/08/18 12:44 Dose: 0 mls/hr Documented by: Admin: 11/08/18 11:02 Dose: 333.3 mls/hr Documented by: Infusion: 11/08/18 00:43 Dose: 0 mls/hr Documented by: Admin: 11/07/18 20:41 Dose: 333.3 mls/hr Documented by: Infusion: 11/07/18 11:50 Dose: 0 mls/hr Documented by: Admin: 11/07/18 09:41 Dose: 333.3 mls/hr Documented by: CAMILA Insulin Glargine (Lantus) 40 unit SQ DAILY LILY Last Admin: 11/09/18 09:26 Dose: 40 units Documented by: CAMILA Insulin Human Lispro (Humalog) 0 unit SQ Q6 [facility]; Protocol Last Admin: 11/09/18 05:58 Dose: 12 units Documented by: DONITA Comments: [id number] Admin: 11/09/18 04:24 Dose: 15 units Documented by: DONITA Comments: [id number] Admin: 11/09/18 02:18 Dose: 15 units Documented by: DONITA Comments: [id number] Admin: 11/08/18 23:43 Dose: 20 units Documented by: DONITA Comments: [id number] Lactulose (Cephulac) 10 gm PO DAILYP PRN PRN Reason: Constipation Lorazepam (Ativan) 0.5 mg IV Q4HP PRN PRN Reason: ANXIETY/SEDATION Last Admin: 11/08/18 19:25 Dose: 0.5 mg Documented by: Admin: 11/07/18 19:24 Dose: 0.5 mg Documented by: DONITA Comments: pt refusing to keep bipap mask on, very restless and agitated, reporting high anxiety Metoprolol Tartrate (Lopressor) 12.5 mg PO BID [facility] Nicotine (Nicoderm) 21 mg TOPICAL DAILY@1000 LILY Last Admin: 11/08/18 09:26 Dose: 21 mg Documented by: Admin: 11/07/18 23:58 Dose: Not Given Documented by: DONITA Non-Admin Reason: new order Ondansetron HCl (Zofran) 4 mg IV Q4HP PRN PRN Reason: Nausea And Vomiting Last Admin: 11/07/18 04:31 Dose: 4 mg Documented by: DONITA Oxycodone HCl (Roxicodone) 10 mg PO Q4HP PRN PRN Reason: PAIN LEVEL 3-6 Last Admin: 11/09/18 05:40 Dose: 10 mg Documented by: Admin: 11/08/18 22:21 Dose: 10 mg Documented by: Admin: 11/08/18 15:58 Dose: 10 mg Documented by: Admin: 11/08/18 09:38 Dose: 10 mg Documented by: Admin: 11/07/18 19:27 Dose: 10 mg Documented by: Admin: 11/07/18 15:15 Dose: 10 mg Documented by: UXMiley Polyethylene Glycol (Miralax) 17 gm PO DAILYP PRN PRN Reason: Constipation Promethazine HCl (Phenergan) 12.5 mg IV Q4HP PRN PRN Reason: Nausea And Vomiting Senna/Docusate Sodium (Senna Plus Tablet) 1 tab PO DAILYP PRN PRN Reason: CONSTIPATION Last Admin: 11/09/18 09:23 Dose: 1 tab Documented by: CAMILA Sodium Chloride (Saline Flush) 10 ml IV Q12 LILY Last Admin: 11/09/18 08:22 Dose: 10 ml Documented by: UXMiley Admin: 11/08/18 20:08 Dose: 10 ml Documented by: Admin: 11/08/18 09:20 Dose: 10 ml Documented by: Admin: 11/07/18 20:42 Dose: 10 ml Documented by: Admin: 11/07/18 09:48 Dose: 10 ml Documented by: Admin: 11/06/18 21:41 Dose: 10 ml Documented by: Admin: 11/06/18 09:45 Dose: 10 ml Documented by: UXMiley Sodium Chloride (Saline Flush) 10 ml IV UD PRN PRN Reason: FLUSH Last Admin: 11/09/18 07:15 Dose: 10 ml Documented by: Admin: 11/09/18 07:10 Dose: 10 ml Documented by: Admin: 11/08/18 22:23 Dose: 10 ml Documented by: Admin: 11/08/18 19:05 Dose: 10 ml Documented by: Admin: 11/08/18 15:27 Dose: 10 ml Documented by: Admin: 11/08/18 14:06 Dose: 10 ml Documented by: Admin: 11/08/18 12:45 Dose: 10 ml Documented by: Admin: 11/08/18 11:03 Dose: 10 ml Documented by: Admin: 11/08/18 08:58 Dose: 10 ml Documented by: Admin: 11/08/18 07:05 Dose: 10 ml Documented by: Admin: 11/07/18 17:15 Dose: 10 ml Documented by: Admin: 11/07/18 14:34 Dose: 10 ml Documented by: Admin: 11/07/18 13:41 Dose: 10 ml Documented by: Admin: 11/07/18 11:51 Dose: 10 ml Documented by: Admin: 11/07/18 09:42 Dose: 10 ml Documented by: Admin: 11/07/18 09:12 Dose: 10 ml Documented by: Admin: 11/07/18 09:10 Dose: 10 ml Documented by: Admin: 11/07/18 06:45 Dose: 10 ml Documented by: Admin: 11/06/18 10:40 Dose: 10 ml Documented by: Admin: 11/06/18 08:35 Dose: 10 ml Documented by: UXF Vancomycin HCl (Vancomycin Per Pharmacy) 1 order IV UD LILY Zolpidem Tartrate (Ambien) 10 mg PO HSP PRN PRN Reason: Insomnia Last Admin: 11/08/18 20:09 Dose: 10 mg Documented by: Admin: 11/07/18 19:28 Dose: 10 mg Documented by: DONITA Assessment and Plan - Narrative A/P Narrative: 1. Shock: resolved - multifactorial <----- Sepsis, Type 2 NSTEMI with prev Hx of CAD - off pressors since this am - Lactic acid and Procalcitonin are not elevated as expected in a septic shock patient, which makes me think that there are other factors contributing 2. GPC bacteremia: blood Cx growing 2 different bacteria: Micrococcus and Kocu alicia kristinae. Normally both are considered contaminants, but given clinical presentation will cover them - Sensi to be available tomorrow - repeat Cx neg - TTE neg for any obvious vegetations. 3. Left sided Milli-rectal abscess, s/p operative I&D on 11/05 - Gp B Strept isolated on ER wound CX obtained from abscess site on 10/30, no response to PO Bactrim as Outpatient - on antibiotics 4. Acute respiratory failure: sec to right sided lung infiltrate concerning for aspiration pneumonia - extubated 11/07, on Bipap - CT on 11/06 showed right sided chest infiltrate involving right upper, middle and lower lobes with pleural effusion - pleural fluid (transudative) Cx and sputum Cx neg 5. Uncontrolled Type 2 DM: A1C ~ 12 Recommendations: - Day 5 of therapy with following antibiotics: Continue IV Vanc per pharmacy assisted dosing. Lat trough was 10.4. Check trough before the next dose (target 10-20). Continue IV Cefepime 2 gm q8 hrs Continue IV Metronidazole 500 mg q8 hrs - await sensi for Kocuria spp isolated from 1 of the blood Cx sets - will plan for at least 14 days of antibiotics. - repeat blood Cx if pt spikes a fever - consider US of the left buttock area to make sure there is no residual fluid collection will follow Chato Ornelas MD Infectious diseases
--- NOTE | 2018-11-09 10:45 | Consultation ---
DATE OF CONSULTATION: 11/09/2018 REQUESTING PHYSICIAN: Jayme Lovell D.O. HISTORY OF PRESENT ILLNESS: The patient is a 42-year-old gentleman who had been admitted for intervention in a left perirectal abscess. He had undergone surgical intervention on 11/04/2018. Subsequently, during his postoperative care he developed respiratory deterioration. He was found to be tachypneic, tachycardic and with high FIO2 requirements and transferred to the Intensive Care Unit. He subsequently deteriorated and had additional issues with pulmonary infiltrates and probable pneumonia, as well as elevated troponin and a non-ST elevation myocardial infarction. (He does report a family history of atherosclerotic heart disease with his father dying at 66 after three open bypass surgeries.) The patient reports growing up in [place] and the [place]. 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 He reports being disabled with back fusion surgeries on several occasions with basically S1 through L1 fused at this point in time by his report. The patient denies unusual exposures in the home, just a dog. He has not had other dust or industrial exposures or hobbies. He does not consider himself to generally be an allergic person. He has no known exposure to tuberculosis. He denies previous PPD skin testing. The patient, unfortunately, has smoked for 20+ years. He was smoking up until the time of his presentation to the hospital. He did have a hospitalization in June with pneumonia. He reports not having primary care or healthcare interactions for a year or more prior to his June hospitalization. He indicates that he does have diabetes mellitus and blood sugars have been running in the 200 to 400 range during his current illness. The patient deteriorated and required endotracheal intubation and support and is now extubated, alert and conversational on BiPAP therapy to help support his respiratory efforts. In light of his non-ST elevation myocardial infarction and component of heart failure contributing, he has been on diuretic and heart failure management as well. A CT scan of the chest dated 11/07 did show dense, right greater than left, infiltrates with some suggestion of bronchiectasis, perhaps some issues with his esophagus suggesting chronic reflux issues, basically dense pneumonitis at this time. No pulmonary embolus was identified on that scan. REVIEW OF SYSTEMS: Systems review is without additional findings on questioning. PHYSICAL EXAMINATION: HEAD: Atraumatic, normocephalic. EYES: PERRLA, EOMI. Sclerae and conjunctiva clear. NECK: Supple. LUNGS: Decreased breath sounds in all lung schafer with coarse rhonchi, greater on right than left, and occasional interstitial sounds, greater right than left. HEART: Difficult to hear through the chest. S1, S2. No apparent gallop at this time, rub or jugular venous distention. ABDOMEN: Soft. Bowel sounds are present, decreased. No tenderness or guarding. BONES/JOINTS/EXTREMITIES: Without acute changes. No clubbing, cyanosis or edema. NEUROLOGIC: Grossly nonfocal. LABORATORY DATA: Laboratory data collected thus far includes a potassium of 3.0 this morning, elevated blood sugar at 323 this morning. BNP trending towards improvement, having been 10,000 and is 6900 today. White count trending towards improvement. Anemia with a hemoglobin of 8.7, normal platelet count. Decreasing percentage of segmented neutrophils. The patient had a thoracentesis for pleural fluid which on studies would suggest this was a transudate. Microbiology demonstrates the presence of a couple of organisms as documented in the record, and he is being seen by Infectious Disease in consultation at this time. He is covered with vancomycin and metronidazole at this point in time. IMPRESSION: A 42-year-old male with presumably longstanding diabetes mellitus issues and perirectal abscess with therapy complicated likely by aspiration pneumonitis in his perioperative period with sepsis and ARDS. His course now fortunately is one of gradual improvement with extubation, cultures and appropriate antibiotic coverage, and time necessary for healing. The patient is counseled and encouraged on tobacco cessation given his time in the hospital and essential withdrawal from nicotine. He indicates that he will endeavor to accomplish that fact. He will work closely with his primary care. He is advised that his clinical recovery, unfortunately, will be slower than he would like, and he is encouraged to work closely with his health care team. Barium esophagram and pulmonary function studies in an appropriate interval in recovery would probably be prudent. I look forward to seeing this patient back as an outpatient if his primary care and health care team deem that appropriate. Thank you for the opportunity to participate in the care of this pleasant gentleman. LUIS:roseanne Job ID: [id number] Doc ID: [id number] Compa Ferrer MD
--- NOTE | 2018-11-09 13:36 | General Surgery Progress Note ---
Subjective Narrative: Note initiated : 11/09/18 at 1:33 pm Service Date, if different from initiated Date: [] Patient: Al Escobar 42 y/o M admitted on 11/05/18 for Left Abscess. Chief Complaint: [] Objective Temp Pulse Resp BP Pulse Ox 97.4 F 102 H 22 106/81 91 11/09/18 13:01 11/09/18 13:01 11/09/18 13:01 11/09/18 13:01 11/09/18 13:01 - Additional Data Intake & Output - Last 24 hours: Intake & Output 11/07/18 11/08/18 11/09/18 11/10/18 05:59 05:59 05:59 05:59 Intake Total 2758 2911 4565 1390 Output Total 1315 3185 3033 265 Balance 1443 -274 1532 1125 Weight 176 lb 9.6 oz 179 lb 3.2 oz 177 lb 14.4 oz - Labs 11/09/18 04:00 11/09/18 04:00 Diabetes panel 11/08/18 11/09/18 Range/Units 04:00 04:00 Sodium 139 (133-145) mmol/L Potassium 3.0 L (3.3-5.1) mmol/L Chloride 101 (96-108) mmol/L Carbon Dioxide 23 (22-30) mmol/L BUN 26 H (6-20) mg/dl Creatinine 0.8 (0.7-1.2) mg/dl Glucose 323 H (70-105) mg/dL Calcium 8.7 (8.6-10.4) mg/dl AST 19 (0-37) U/l ALT 12 (0-40) U/l Alkaline Phosphatase 156 H (39-117) U/L Total Protein 5.8 L (5.9-8.4) gm/dL Albumin 3.0 L (3.2-5.2) gm/dL Triglycerides 102 79 (<150) mg/dl HDL Cholesterol 41 (>40) mg/dl Calcium panel 11/09/18 Range/Units 04:00 Calcium 8.7 (8.6-10.4) mg/dl Phosphorus 2.5 L (2.7-4.5) mg/dL Albumin 3.0 L (3.2-5.2) gm/dL Pituitary panel 11/09/18 Range/Units 04:00 Sodium 139 (133-145) mmol/L Potassium 3.0 L (3.3-5.1) mmol/L Chloride 101 (96-108) mmol/L Carbon Dioxide 23 (22-30) mmol/L BUN 26 H (6-20) mg/dl Creatinine 0.8 (0.7-1.2) mg/dl Glucose 323 H (70-105) mg/dL Calcium 8.7 (8.6-10.4) mg/dl Adrenal panel 11/09/18 Range/Units 04:00 Sodium 139 (133-145) mmol/L Potassium 3.0 L (3.3-5.1) mmol/L Chloride 101 (96-108) mmol/L Carbon Dioxide 23 (22-30) mmol/L BUN 26 H (6-20) mg/dl Creatinine 0.8 (0.7-1.2) mg/dl Glucose 323 H (70-105) mg/dL Calcium 8.7 (8.6-10.4) mg/dl Total Bilirubin 0.2 (0.0-1.0) mg/dL AST 19 (0-37) U/l ALT 12 (0-40) U/l Alkaline Phosphatase 156 H (39-117) U/L Total Protein 5.8 L (5.9-8.4) gm/dL Albumin 3.0 L (3.2-5.2) gm/dL Assessment and Plan (1) Perirectal abscess Status: Acute Assessment and plan: Clinically improved with significant reduction in swelling and induration Current Visit: Yes (2) Diabetes mellitus Status: Acute Assessment and plan: Continued uncontrolled, but levels are less with every 6 hours, sliding scale Humalog coverage. Current Visit: Yes (3) Pneumonitis Status: Acute Assessment and plan: patient is clinically improved and has been extubated WBC IS NOW NORMAL HE STILL HAS LOW GRADE TEMPERATURE ELEVATION Current Visit: Yes - Time Spent With Patient Total time spent is greater than 50% in coordination of care (as documented) at patient's floor/unit and/or counseling patient:
[2018-11-09] MEDS: NOREPINEPHRINE BITARTRATE 16 MG in 0.9 % SODIUM CHLORIDE 234 ML IV SCH (19:00)
[2018-11-09] MEDS: LORazepam 2 MG/ML VIAL IV PRN (19:01)
[2018-11-09] MEDS: ZOLPIDEM 5 MG TABLET PO PRN (19:51)
[2018-11-10] MEDS: INSULIN LISPRO 1 UNIT/0.01 ML UNIT SQ SCH ×3 (00:19→12:23)
[2018-11-10] MEDS: DEXMEDETOMIDINE HCL 400 MCG/100 ML BAG IV SCH (03:07)
[2018-11-10] MEDS: IPRATROPIUM/ALBUTEROL 3 ML AMPUL.NEB NEB SCH ×3 (03:07→11:21)
[2018-11-10] MEDS: LORazepam 2 MG/ML VIAL IV PRN (04:21)
[2018-11-10] MEDS: diphenhydrAMINE 25 MG CAPSULE PO PRN (04:23)
[2018-11-10] MEDS: oxyCODONE HCL 5 MG TABLET PO PRN (04:23)
[2018-11-10] MEDS: HYDROCORTISONE SOD SUCC 100 MG VIAL IV SCH (05:36)
[2018-11-10] MEDS: metroNIDAZOLE 500 MG/100 ML BAG IV SCH (05:37)
[2018-11-10 05:43] LABS: Basophils # (Auto) 0 K/mcL (0.0-0.3); Basophils % (Auto) 0 % (0.0-2.0); Eosinophils # (Auto) 0 K/mcL (0.0-0.7); Eosinophils % (Auto) 0 % (0.0-7.0); Granulocytes % (Auto) 85.3 % (38.0-78.0); Hematocrit 25.6 % (41.0-55.0); Hemoglobin 8.3 g/dL (13.5-16.5); Lymphocytes % (Auto) 8.6 % (15.5-49.0); Mean Corpuscular HGB Conc 32.5 g/dL (31.0-36.0); Mean Platelet Volume 9.6 fL (7.4-10.4); Monocytes # (Auto) 0.7 K/mcL (0.1-0.9); Monocytes % (Auto) 6.1 % (1.0-12.0); Platelet Count 368 K/mcL (140-440); RBC 2.82 M/mcL (4.50-5.90); Red Cell Distribution Width 13.1 % (11.5-14.5); WBC 11.2 K/mcL (4.5-11.0)
[2018-11-10 06:02] LABS: ALT/SGPT 12 U/l (0-40); AST/SGOT 17 U/l (0-37); Albumin 2.7 gm/dL (3.2-5.2); Albumin/Globulin Ratio 1.1 (1.0-2.3); Alkaline Phosphatase 131 U/L (39-117); Bilirubin,Direct < 0.2 mg/dL (0.0-0.3); Bilirubin,Total 0.2 mg/dL (0.0-1.0); Blood Urea Nitrogen 31 mg/dl (6-20); Calcium 8.2 mg/dl (8.6-10.4); Carbon Dioxide 23 mmol/L (22-30); Chloride 106 mmol/L (96-108); Globulin 2.5 gm/dL (2.2-3.7); Glomerular Filtration Rate 115; Glucose 156 mg/dL (70-105); Lactate Dehydrogenase 276 U/L (94-250); Magnesium 1.9 mg/dL (1.6-2.5); Phosphorous 3.4 mg/dL (2.7-4.5); Potassium 3.7 mmol/L (3.3-5.1); Sodium 140 mmol/L (133-145); Triglycerides 81 mg/dl (<150); Uric Acid 5.9 mg/dL (2.5-8.0)
[2018-11-10] MEDS: NOREPINEPHRINE BITARTRATE 16 MG in 0.9 % SODIUM CHLORIDE 234 ML IV SCH ×2 (06:38→09:25)
[2018-11-10] MEDS: CEFEPIME 2 GM VIAL IV SCH (07:06)
--- NOTE | 2018-11-10 07:28 | Internal Med Progress Note ---
Medical - PN: Subj Patient information: Note initiated : 11/10/18 at 7:19 am Service Date, if different from initiated Date: [] Patient: Al Escobar a 42 y/o M admitted on 11/05/18 for Left Abscess. Chief Complaint: [] Interval history: Mr. Escobar is a 42 year old M diabetic who was admitted for large left p erirectal abscess and underwent surgical intervention with incision and drainage of left perirectal area 11/04. Patient developed gram-positive bacteremia, along with group B streptococcus from wound culture on October 30. Patient was recovering well until this afternoon developed rapidly progressive shortness of breath along with tachycardia, tachypnea requiring 100% oxygen. Hospitalist service was emergently consulted by surgery. At the time of evaluation patient is barely able to talk in full sentences. He is tachycardic tachypneic. Stat blood gas along with CBC CMP was ordered. Patient denies aspiration, diaphoresis or shaking chills but endorses to fever. Awake arterial blood gas. Stat chest x-ray reveals right-sided mid and lower lobe infiltrate consistent with pneumonia. Patient is currently on Zosyn/vancomycin. Transfer to ICU for positive pressure ventilation and intubation if required. We will initiate pressors/crystalloids and sepsis management per guidelines. On further questioning patient denies IV drug use. He was recently hospitalized in June with influenza pneumonia with superimposed streptococcus bacteremia that required ID consultation and following negative transthoracic echocardiogram he was discharged on levofloxacin 750 which was continued through 07/12. Other than that patient denies diarrhea, abdominal pain, chest pain, headache but he is anxious and tremulous. 11/06-patient critically ill on vasopressors. Titrating oxygen and vasopressors down. Currently on 12 PEEP 35% FiO2. ICU sedation on fentanyl/Precedex. ET tube in place. T-max 100.8. White count up to 20,000. Urine output 40 cc an hour. Remains critically ill but improved since previous day. Improved oxygenation. Three Affiliated 2 score 19, remains a high risk mortality. Multiple blood cultures positive for gram-positive cocci. Surveillance cultures/sensitivities pending. Antibiotics escalated to vancomycin/meropenem in light of septic shock. ID consulted. Serial troponin peak 0.9 secondary to sepsis and endorgan dysfunction. Blood sugars improved. A1c 12.1 indicating poor outpatient control. Continue surveillance culture 11/07 No overnight events. Patient doing well. Vasopressors removed this morning. Patient is alert and awake on the vent. With good weaning parameters. Will extubate. Did have thoracentesis already this morning. Troponin seems to have peaked. No chest pain. 11/08 Patient appears comfortable with BiPAP on. States he does feel better, less wheezing. Did not expectorate any thick sputum overnight. Had to put on Precedex for agitation last night which dropped his blood pressure little bit and required vasopressor support. Currently weaning down again. FiO2 is 80 last night but it is 40 this morning -appears to be an agitation component. Pt denies chest pain I did talk to Dr. ny ([facility] target worker) and plan will be to revisit with him when patient's pulmonary status stabilizes, continue medical mgmt for now. Also discussed case with Dr. Minaya. 11/09 Comfortable on the BiPAP. Does get short of breath when BiPAP is off for nutrition and medications. Dry cough this morning. No other new complaints. Vasopressors stopped this morning Precedex drip stopped. No BM since admission 11/10 Sleepy at the moment, I did not did not awaken him. Seems to wake up a few times at night with high anxiety takes the mask off. And that is usually given Ativan or Precedex which drops his blood pressure and then he starts on vasopressors. Vasopressors low-dose this morning. We will stop Ativan and Precedex and wean off vasopressors. Try hydroxyzine and other alternatives for anxiety, maybe Seroquel in the evenings. - Constitutional Vitals: Vital Signs Temp Pulse Resp BP Pulse Ox 98.5 F 73 24 H 77/63 97 11/10/18 06:01 11/10/18 06:01 11/10/18 06:01 11/10/18 06:01 11/10/18 06:01 Period Temp Pulse Resp BP Sys/Kaplan Pulse Ox Last 24 Hr 97.4 F-99.6 F 73-119 19-37 77-122/59-90 88-100 Intake and Output 11/09/18 11/10/18 11/10/18 21:59 05:59 13:59 Intake Total 1100 253 22 Output Total 345 230 Balance 755 23 22 Weight 82.282 kg Intake & Output: Intake & Output 11/09/18 11/10/18 11/10/18 21:59 05:59 13:59 Intake Total 1100 253 22 Output Total 345 230 Balance 755 23 22 Weight 82.282 kg Intake: Nourishment/Supplement quantity 100 (ml) IV 600 133 22 PRECEDEX 400 MCG/100 ML 33 22 DEXTROSE 400 mcg In 100 ml @ 0. 2 MCG/KG/HR 3.926 mls/hr IV . Q24H [facility] Rx#:[id number] Levophed 16 mg In Sodium 0 Chloride 0.9% 234 ml @ 10 MCG/ MIN 9.38 mls/hr IV Q24H [facility] Rx# :[id number] Vancomycin 1,500 mg In Sodium 500 Chloride 0.9% 500 ml @ 333.3 mls/hr IV Q12H [facility] Rx#: [id number] Oral 360 120 IV - Manual Only 40 Output: Gastric Drainage 75 NG/OG 75 Urine Catheter Amount 270 230 Other: Meal Lunch Dinner Percent of Meal Consumed 75% 0% Feeding Ability Assist with Tray Set Up Nourishment/Supplement name Glucerna Urine Appearance Clear Clear Uretheral ([place]) Sediment Urine Color Dark Yellow Light Rima Uretheral ([place]) Bright Yellow Exam: General: sleeping, No acute Distress Eyes/N/T: EOMI Head/Neck: neck supple, CV: RRR, No murmurs, Pulm: fine rales R>L and diminshed BS, no wheezing Abd: soft, nontender, Ext: no clubbing/cyanosis/edema Neuro: Sleeping at the moment, no focal deficits, spontaneously moves all extremities Skin: warm/dry Medical - PN: Obj Da - Labs CBC & Chem 7: 11/10/18 03:37 11/10/18 03:37 Labs: Abnormal Lab Results 11/10/18 11/10/18 11/09/18 03:37 03:37 04:00 WBC 11.2 H RBC 2.82 L Hgb 8.3 L Hct 25.6 L Gran % 85.3 H Lymph % (Auto) 8.6 L Gran # 9.6 H Lymph # (Auto) 1.0 L Seg Neutrophils % Lymphocytes % RBC Morphology Polychromasia PT INR Potassium 3.0 L Carbon Dioxide Anion Gap BUN 31 H 26 H Glucose 156 H 323 H Calcium 8.2 L Phosphorus 2.5 L GGT 64 H Alkaline Phosphatase 131 H 156 H Lactate Dehydrogenase 276 H 284 H Troponin T NT-Pro-B Natriuret Pep Total Protein 5.2 L 5.8 L Albumin 2.7 L 3.0 L 11/09/18 11/09/18 11/08/18 04:00 04:00 04:11 WBC 13.8 H RBC 2.90 L Hgb 8.7 L Hct 26.6 L Gran % Lymph % (Auto) Gran # Lymph # (Auto) Seg Neutrophils % 81 H 94 H Lymphocytes % 11 L 3 L RBC Morphology Abnorm A Polychromasia 1+ A PT INR Potassium Carbon Dioxide Anion Gap BUN Glucose Calcium Phosphorus GGT Alkaline Phosphatase Lactate Dehydrogenase Troponin T NT-Pro-B Natriuret Pep 6974.0 H Total Protein Albumin 11/08/18 11/08/18 11/08/18 04:00 04:00 04:00 WBC RBC Hgb Hct Gran % Lymph % (Auto) Gran # Lymph # (Auto) Seg Neutrophils % Lymphocytes % RBC Morphology Polychromasia PT INR Potassium Carbon Dioxide 21 L Anion Gap 17.0 H BUN Glucose 280 H Calcium Phosphorus 2.5 L GGT Alkaline Phosphatase 133 H Lactate Dehydrogenase 321 H Troponin T 0.63 H* NT-Pro-B Natriuret Pep 43316.0 H Total Protein 5.8 L Albumin 3.0 L 11/08/18 11/07/18 11/07/18 04:00 21:35 17:13 WBC 15.7 H RBC 3.08 L Hgb 9.5 L Hct 27.9 L Gran % 92.6 H Lymph % (Auto) 4.2 L Gran # 14.6 H Lymph # (Auto) 0.7 L Seg Neutrophils % Lymphocytes % RBC Morphology Polychromasia PT INR Potassium Carbon Dioxide Anion Gap BUN Glucose 257 H Calcium 8.3 L Phosphorus GGT Alkaline Phosphatase 124 H Lactate Dehydrogenase 312 H Troponin T NT-Pro-B Natriuret Pep 4372.0 H Total Protein 5.7 L Albumin 2.9 L 11/07/18 06:29 WBC RBC Hgb Hct Gran % Lymph % (Auto) Gran # Lymph # (Auto) Seg Neutrophils % Lymphocytes % RBC Morphology Polychromasia PT 16.1 H INR 1.3 H Potassium Carbon Dioxide Anion Gap BUN Glucose Calcium Phosphorus GGT Alkaline Phosphatase Lactate Dehydrogenase Troponin T NT-Pro-B Natriuret Pep Total Protein Albumin Meds: Medications Albuterol/Ipratropium (Duoneb) 3 ml NEB Q4HRT [facility] Last Admin: 11/10/18 03:07 Dose: 3 ml Documented by: Aspirin (Aspirin) 81 mg CHEWED DAILY [facility] Last Admin: 11/09/18 08:12 Dose: 81 mg Documented by: Atorvastatin Calcium (Lipitor) 40 mg PO DAILY [facility] Last Admin: 11/09/18 08:22 Dose: 40 mg Documented by: Benzonatate (Tessalon) 200 mg PO TIDP PRN PRN Reason: Cough Cefepime HCl (Maxipime) 2 gm IV Q8H [facility]; Protocol Last Admin: 11/10/18 07:06 Dose: 2 gm Documented by: Chlorhexidine Gluconate (Peridex) 15 ml SWABMOUTH BID [facility] Last Admin: 11/09/18 19:53 Dose: 15 ml Documented by: Dextrose (Dextrose 50%) 0 ml IV UD PRN PRN Reason: Hypoglycemia Diagnostic Test (Pha) (Accu-Chek) 1 each FS Q6 [facility] Last Admin: 11/10/18 05:45 Dose: 1 each Documented by: Diphenhydramine HCl (Benadryl) 50 mg PO Q8HP PRN PRN Reason: ANXIETY/SEDATION Last Admin: 11/10/18 04:23 Dose: 50 mg Documented by: Docusate Sodium (Colace) 100 mg PO BID [facility] Last Admin: 11/09/18 19:52 Dose: 100 mg Documented by: Enoxaparin Sodium (Lovenox) 40 mg SQ BID [facility] Last Admin: 11/09/18 19:51 Dose: 40 mg Documented by: Famotidine (Pepcid) 20 mg IV Q12 [facility] Last Admin: 11/09/18 19:51 Dose: 20 mg Documented by: Glucose (Insta-Glucose) 15 gm PO PRN PRN PRN Reason: Hypoglycemia Guaifenesin/Codeine Phosphate (Robitussin Ac) 10 ml PO Q4HP PRN PRN Reason: Cough Hydrocortisone Sodium Succinate (Solu-Cortef) 50 mg IV Q8 [facility] Last Admin: 11/10/18 05:36 Dose: 50 mg Documented by: Hydromorphone HCl (Dilaudid) 1 mg IV Q2HP PRN PRN Reason: PAIN LEVEL > 6 Last Admin: 11/08/18 19:04 Dose: 1 mg Documented by: Norepinephrine Bitartrate 16 (mg/ Sodium Chloride) 250 mls @ 9.38 mls/hr IV Q24H [facility]; Protocol Last Admin: 11/10/18 06:38 Dose: 5 mcg/min, 4.69 mls/hr Documented by: Heparin Sodium/Sodium Chloride (Heparin/Ns) 500 mls @ 0 mls/hr IV .Q0M [facility]; Protocol Last Admin: 11/07/18 23:00 Dose: 3 mls/hr Documented by: Dexmedetomidine HCl (Precedex 400 Mcg/100 Ml Dextrose) 400 mcg in 100 mls @ 3.926 mls/hr IV .Q24H [facility]; Protocol Last Titration: 11/10/18 06:04 Dose: 0.4 mcg/kg/hr, 7.852 mls/hr Documented by: Metronidazole (Flagyl) 500 mg in 100 mls @ 100 mls/hr IV Q8H [facility]; Protocol Last Admin: 11/10/18 05:37 Dose: 100 mls/hr Documented by: Acetaminophen (Ofirmev) 650 mg in 65 mls @ 130 mls/hr IV Q6HP PRN PRN Reason: PAIN/FEVER > 101 Last Infusion: 11/08/18 04:54 Dose: Infused Documented by: Vancomycin HCl 1,500 mg/ (Sodium Chloride) 500 mls @ 333.3 mls/hr IV Q12H [facility] Last Infusion: 11/09/18 21:47 Dose: Infused Documented by: Insulin Glargine (Lantus) 40 unit SQ DAILY [facility] Last Admin: 11/09/18 09:26 Dose: 40 units Documented by: Insulin Human Lispro (Humalog) 0 unit SQ Q6 [facility]; Protocol Last Admin: 11/10/18 05:47 Dose: 6 units Documented by: Lactulose (Cephulac) 10 gm PO DAILYP PRN PRN Reason: Constipation Last Admin: 11/09/18 12:23 Dose: 10 gm Documented by: Lorazepam (Ativan) 0.5 mg IV Q4HP PRN PRN Reason: ANXIETY/SEDATION Last Admin: 11/10/18 04:21 Dose: 0.5 mg Documented by: Metoprolol Tartrate (Lopressor) 12.5 mg PO BID [facility] Last Admin: 11/09/18 19:52 Dose: 12.5 mg Documented by: Nicotine (Nicoderm) 21 mg TOPICAL DAILY@1000 [facility] Last Admin: 11/09/18 10:31 Dose: 21 mg Documented by: Ondansetron HCl (Zofran) 4 mg IV Q4HP PRN PRN Reason: Nausea And Vomiting Last Admin: 11/07/18 04:31 Dose: 4 mg Documented by: Oxycodone HCl (Roxicodone) 10 mg PO Q4HP PRN PRN Reason: PAIN LEVEL 3-6 Last Admin: 11/10/18 04:23 Dose: 10 mg Documented by: Polyethylene Glycol (Miralax) 17 gm PO DAILYP PRN PRN Reason: Constipation Promethazine HCl (Phenergan) 12.5 mg IV Q4HP PRN PRN Reason: Nausea And Vomiting Senna/Docusate Sodium (Senna Plus Tablet) 1 tab PO DAILYP PRN PRN Reason: CONSTIPATION Last Admin: 11/09/18 09:23 Dose: 1 tab Documented by: Sodium Chloride (Saline Flush) 10 ml IV Q12 [facility] Last Admin: 11/09/18 19:52 Dose: 10 ml Documented by: Sodium Chloride (Saline Flush) 10 ml IV UD PRN PRN Reason: FLUSH Last Admin: 11/09/18 14:55 Dose: 10 ml Documented by: Vancomycin HCl (Vancomycin Per Pharmacy) 1 order IV UD [facility] Zolpidem Tartrate (Ambien) 10 mg PO HSP PRN PRN Reason: Insomnia Last Admin: 11/09/18 19:51 Dose: 10 mg Documented by: Medical - PN: A/P - Time Spent With Patient Total time spent is greater than 50% in coordination of care (as documented) at patient's floor/unit and/or counseling patient: - Narrative A/P Narrative: A: *Acute hypoxic respiratory failure: 2/2 right-sided pneumonia concerning for Aspiration Event leading to ARDS -extubated to bipap (11/07) -thoracentesis (11/07) 900cc Transudate -off/on bipap -CXR still with diffuse changes, will be a prolonged course *Septic shock w/multiorgan dysfxn: Improved -vasopressors off morning of 11/07 but started back low dose early 11/08 after sedation medication started, titrating back off early on 11/09 but back on last night after sedation given for high anxiety and him pulling mask off. -Now afebrile -Leukocytosis resolved but increased after steroids started, PCT 0.78<0.84<0.66<0.95 *Blood culture with Kocuria: treating as pathologic in this setting -Echo no vegetations *NSTEMI: 2/2 above mismatch/supply in pt with multiple risk factors for CAD, concern for Anteroseptal infarct. No chest pain -Trop 0.63<0.88<0.90<0.53<0.38, -echo normal LV, portion of septal wall hypokinetic, otherwise unremarkable. EKG changes noted -no previous known h/o CAD, but will need cardiac cath when stable *volume overload: from fluid resuscitation during shock -diuresing well last several days *Anemia, chronic: *DM II, uncontrolled: A1c 12.1 -better controlled with titration up of basal insulin *Perirectal abscess: s/p I&D (11/04) -B streptococcus on cultures *chronic LBP: *Tobacco Abuse: *HLD: on lipitor at home Plan: -cont prn Bipap support, wean as able -Dr. Ferrer following: recommends eventual barium esophagram and PFT's -monitor CVP goal 4 (not getting good readings from measured CVP's)) -diureses -wean off vasopressors again, hydrocortisone short course wean, d/c precedex and IV ativan -prn hydroxyzine, seroquel at night -Dr. Ornelas following, abx per ID (Vanco/Cefepime/Flagyl), -Surveillance blood cultures pending -f/u CXR -ST eval -ASA/statin, BB when able, needs cardiac w/u eventually when stable; I did talk to Dr. ny ([facility] target worker) and plan will be to revisit with him when patient's pulmonary status stabilizes. Also discussed case with Dr. Minaya. -SSI, start back basal insulin (trying to clarify what home dose is) and titrate up, no on 40u qd -Abscess per Dr. Joe -Smoking cessation counseling -ppx: lovenox/pepcid Medical - PN: Qual - VTE Deep Vein Thrombosis/Pulmonary Embolism Present on Admission: No
--- NOTE | 2018-11-10 08:08 | XRay Report ---
HISTORY: Respiratory distress and pulmonary infiltrates, mechanically ventilated FINDINGS: There are severe widespread diffuse alveolar infiltrates throughout both lungs, right worse than left. There are multiple air bronchograms. The consolidation of the lung parenchyma continues to become progressively worse. There is no pneumothorax or pneumomediastinum. Small right-sided pleural effusion is present. Right internal jugular catheter is seen in the region of the upper portion of the superior vena cava. The heart size is normal. There is no endotracheal tube. IMPRESSION: Progressively worsening infiltrates throughout both lungs. This could be a combination of ARDS, pneumonia and pulmonary edema. Interpreted and Authenticated by: Alex Navarrete 11/10/18
[2018-11-10] MEDS ORDERED: hydrOXYzine 25 MG TABLET PO PRN (08:27)
[2018-11-10] MEDS ORDERED: LORazepam 0.5 MG TABLET PO PRN (08:27)
[2018-11-10] MEDS ORDERED: ALBUMIN HUMAN 12.5 GM/50 ML BAG IV ONE (08:29)
[2018-11-10] MEDS: CHLORHEXIDINE GLUCONATE 1 ML ORAL.SOL SWABMOUTH SCH (08:37)
[2018-11-10] MEDS: ENOXAPARIN 40 MG/0.4 ML SYRINGE SQ SCH (08:41)
[2018-11-10] MEDS: FAMOTIDINE/PF 20 MG/2 ML VIAL IV SCH (08:57)
[2018-11-10] MEDS: DOCUSATE SODIUM 100 MG CAPSULE PO SCH (08:57)
[2018-11-10] MEDS: INSULIN GLARGINE, HUMAN 1 UNIT/0.01 ML SQ SCH (08:57)
[2018-11-10] MEDS: METOPROLOL TARTRATE 25 MG TABLET PO SCH (09:12)
[2018-11-10] MEDS: 0.9 % SODIUM CHLORIDE 10 ML SYRINGE IV SCH (09:12)
[2018-11-10] MEDS: VANCOMYCIN 1,500 MG in 0.9 % SODIUM CHLORIDE 500 ML IV SCH (09:18)
[2018-11-10] MEDS: ASPIRIN 81 MG TAB.CHEW CHEWED SCH (09:25)
[2018-11-10] MEDS: ATORVASTATIN 20 MG TABLET PO SCH (09:28)
[2018-11-10] MEDS: NICOTINE 21 MG PATCH TOPICAL SCH (10:31)
[2018-11-10] MEDS ORDERED: FUROSEMIDE 40 MG/4 ML VIAL IV ONE ×2 (11:25→11:28)
--- NOTE | 2018-11-10 13:15 | Non-GYN Cytology Report ---
NON SCRAP DEALER SPECIMEN NG DX CATEGORY Negative MICROSCOPIC DIAGNOSIS RIGHT PLEURAL FLUID, THORACENTESIS: -- NO ATYPICAL OR MALIGNANT CELLS IDENTIFIED. -- REACTIVE MESOTHELIAL CELLS WITH MIXED ACUTE AND CHRONIC INFLAMMATION. (EBD:sln) MICROSCOPIC DESCRIPTION Cytologic preparations of the right pleural fluid show scattered reactive mesothelial cells in a background of abundant mixed acute and chronic inflammation. No atypical or malignant cells are identified. (EBD:sln) EXTERNAL COMMENT 1000 ML YELLOW FLUID; 1 THINPREP; 1 H AND E; 1 CELL BLOCK; 1 DIFF QUICK; 1 OUTSIDE SLIDE SHARMA GIEMSA Electronically Signed by: Myranda Rodriguez M.D.
--- NOTE | 2018-11-10 13:35 | Transfer Summary ---
Transfer Discharge Sum: Prov Patient information: Note initiated : 11/10/18 at 1:32 pm Service Date, if different from initiated Date: [] Patient: Al Escobar 42 y/o M admitted on 11/05/18 for Left Abscess. Chief Complaint: [] Date of admission: 11/05/18 12:00 Discharge Date: 11/10/18 Primary care physician: BRIANNA Krueger Consults: 11/04/18 07:53 Consult to Physician [CONS] Stat Comment: Consulting Provider: Yesenia Joe Reason For Exam: Physician to Consult 11/05/18 15:24 Consult to Physician [CONS] Routine Comment: Consulting Provider: Rupert Gaspar Reason For Exam: Physician to Consult 11/05/18 15:59 Consult to Infectious Disease [CONS] Routine Comment: Consulting Provider: Rupert Gaspar Reason For Exam: Physician to Consult 11/06/18 10:50 Consult to Physician [CONS] Routine Comment: bacteremia Consulting Provider: Chato Ornelas Reason For Exam: Physician to Consult 11/09/18 08:12 Consult to Physician [CONS] Routine Comment: Consulting Provider: Compa Ferrer Reason For Exam: Physician to Consult Transfer Discharge Sum: Diag - Discharge Diagnosis (1) ARDS (adult respiratory distress syndrome) Status: Acute Transfer Discharge Sum: Med - Medications Active and Home Medications: Home Medications metFORMIN HCL [Glucophage Xr] 1,000 mg PO BID 02/05/15 [History Confirmed 11/04/18] Atorvastatin [Lipitor] 40 mg PO HS 01/04/18 [History Confirmed 11/04/18] Fenofibrate Nanocrystallized [Fenofibrate] 145 mg PO DAILY 01/04/18 [History Confirmed 11/04/18] Insulin Aspart [Novolog Flexpen] See Protocol SQ ACHS 01/04/18 [History Confirmed 11/04/18] sitaGLIPtin [Januvia] 50 mg PO DAILY 01/04/18 [History Confirmed 11/04/18] Insulin Glargine,Hum.rec.anlog [Basaglar Kwikpen U-100] See Protocol SQ DAILY 06/28/18 [History Confirmed 11/04/18] HYDROcodone/ACETAMINOPHEN [[place] 7.5-325 Tablet] 1 each PO Q4 PRN #12 tab 07/01/18 [Rx Confirmed 11/04/18] Zolpidem [Ambien] 10 mg PO HSP PRN #20 tab 07/01/18 [Rx Confirmed 11/04/18] Sulfamethoxazole/Trimethoprim [Bactrim Ds] 1 tab PO BID #20 tab 10/27/18 [Rx Confirmed 11/04/18] oxyCODONE/APAP [Percocet 5-325 mg] 1 tab PO Q4H PRN #10 tab 10/27/18 [Rx Confirmed 11/04/18] Naproxen 500 mg PO BID 30 Days #60 tab 10/30/18 [Rx Confirmed 11/04/18] Active Medications Albuterol/Ipratropium (Duoneb) 3 ml NEB Q4HRT [facility] Last Admin: 11/10/18 11:21 Dose: 3 ml Documented by: Aspirin (Aspirin) 81 mg CHEWED DAILY [facility] Last Admin: 11/10/18 09:25 Dose: 81 mg Documented by: Atorvastatin Calcium (Lipitor) 40 mg PO DAILY [facility] Last Admin: 11/10/18 09:28 Dose: 40 mg Documented by: Benzonatate (Tessalon) 200 mg PO TIDP PRN PRN Reason: Cough Last Admin: 11/10/18 08:41 Dose: 200 mg Documented by: Cefepime HCl (Maxipime) 2 gm IV Q8H [facility]; Protocol Last Admin: 11/10/18 07:06 Dose: 2 gm Documented by: Chlorhexidine Gluconate (Peridex) 15 ml SWABMOUTH BID [facility] Last Admin: 11/10/18 08:37 Dose: 15 ml Documented by: Dextrose (Dextrose 50%) 0 ml IV UD PRN PRN Reason: Hypoglycemia Diagnostic Test (Pha) (Accu-Chek) 1 each FS Q6 [facility] Last Admin: 11/10/18 12:15 Dose: 1 each Documented by: Docusate Sodium (Colace) 100 mg PO BID [facility] Last Admin: 11/10/18 08:57 Dose: 100 mg Documented by: Enoxaparin Sodium (Lovenox) 40 mg SQ BID [facility] Last Admin: 11/10/18 08:41 Dose: 40 mg Documented by: Famotidine (Pepcid) 20 mg IV Q12 [facility] Last Admin: 11/10/18 08:57 Dose: 20 mg Documented by: Furosemide (Lasix) 40 mg IV Q8 [facility] Stop: 11/11/18 14:01 Last Admin: 11/10/18 13:27 Dose: 40 mg Documented by: Glucose (Insta-Glucose) 15 gm PO PRN PRN PRN Reason: Hypoglycemia Guaifenesin/Codeine Phosphate (Robitussin Ac) 10 ml PO Q4HP PRN PRN Reason: Cough Hydroxyzine HCl (Atarax) 50 mg PO QIDP PRN PRN Reason: Allergic Symptoms Norepinephrine Bitartrate 16 (mg/ Sodium Chloride) 250 mls @ 9.38 mls/hr IV Q24H [facility]; Protocol Last Admin: 11/10/18 09:25 Dose: Not Given Documented by: Heparin Sodium/Sodium Chloride (Heparin/Ns) 500 mls @ 0 mls/hr IV .Q0M [facility]; Protocol Last Admin: 11/07/18 23:00 Dose: 3 mls/hr Documented by: Dexmedetomidine HCl (Precedex 400 Mcg/100 Ml Dextrose) 400 mcg in 100 mls @ 3.926 mls/hr IV .Q24H [facility]; Protocol Last Titration: 11/10/18 06:04 Dose: 0.4 mcg/kg/hr, 7.852 mls/hr Documented by: Metronidazole (Flagyl) 500 mg in 100 mls @ 100 mls/hr IV Q8H [facility]; Protocol Last Infusion: 11/10/18 06:30 Dose: 100 mls/hr Documented by: Acetaminophen (Ofirmev) 650 mg in 65 mls @ 130 mls/hr IV Q6HP PRN PRN Reason: PAIN/FEVER > 101 Last Infusion: 11/08/18 04:54 Dose: Infused Documented by: Vancomycin HCl 1,500 mg/ (Sodium Chloride) 500 mls @ 333.3 mls/hr IV Q12H [facility] Last Admin: 11/10/18 09:18 Dose: 333 mls/hr Documented by: Insulin Glargine (Lantus) 40 unit SQ DAILY [facility] Last Admin: 11/10/18 08:57 Dose: 40 units Documented by: Insulin Human Lispro (Humalog) 0 unit SQ Q6 [facility]; Protocol Last Admin: 11/10/18 12:23 Dose: 6 units Documented by: Lactulose (Cephulac) 10 gm PO DAILYP PRN PRN Reason: Constipation Last Admin: 06/17/19 12:23 Dose: 10 gm Documented by: Lorazepam (Ativan) 0.5 mg PO Q4HP PRN PRN Reason: ANXIETY/SEDATION Metoprolol Tartrate (Lopressor) 12.5 mg PO BID [facility] Last Admin: 11/10/18 09:12 Dose: Not Given Documented by: Morphine Sulfate (Morphine) 1 - 4 mg IV Q3HP PRN PRN Reason: PAIN LEVEL > 6 Last Admin: 11/10/18 13:11 Dose: 2 mg Documented by: Nicotine (Nicoderm) 21 mg TOPICAL DAILY@1000 [facility] Last Admin: 11/10/18 10:31 Dose: 21 mg Documented by: Ondansetron HCl (Zofran) 4 mg IV Q4HP PRN PRN Reason: Nausea And Vomiting Last Admin: 11/07/18 04:31 Dose: 4 mg Documented by: Oxycodone HCl (Roxicodone) 10 mg PO Q4HP PRN PRN Reason: PAIN LEVEL 3-6 Last Admin: 11/10/18 04:23 Dose: 10 mg Documented by: Polyethylene Glycol (Miralax) 17 gm PO DAILYP PRN PRN Reason: Constipation Promethazine HCl (Phenergan) 12.5 mg IV Q4HP PRN PRN Reason: Nausea And Vomiting Quetiapine Fumarate (Seroquel) 50 mg PO HS [facility] Senna/Docusate Sodium (Senna Plus Tablet) 1 tab PO DAILYP PRN PRN Reason: CONSTIPATION Last Admin: 11/09/18 09:23 Dose: 1 tab Documented by: Sodium Chloride (Saline Flush) 10 ml IV Q12 [facility] Last Admin: 11/10/18 09:12 Dose: 10 ml Documented by: Sodium Chloride (Saline Flush) 10 ml IV UD PRN PRN Reason: FLUSH Last Admin: 11/09/18 14:55 Dose: 10 ml Documented by: Vancomycin HCl (Vancomycin Per Pharmacy) 1 order IV UD [facility] Zolpidem Tartrate (Ambien) 10 mg PO HSP PRN PRN Reason: Insomnia Last Admin: 11/09/18 19:51 Dose: 10 mg Documented by: Transfer Discharge Sum: Hosp Hospital course: Mr. Escobar is a 42 year old M Mr. Escobar is a 42 year old M diabetic who was admitted for large left perirectal abscess and underwent surgical intervention with incision and drainage of left perirectal area 11/04. Patient developed gram-positive bacte remia, along with group B streptococcus from wound culture on October 30. Patient was recovering well until this afternoon developed rapidly progressive shortness of breath along with tachycardia, tachypnea requiring 100% oxygen. Hospitalist service was emergently consulted by surgery. At the time of evaluation patient is barely able to talk in full sentences. He is tachycardic tachypneic. Stat blood gas along with CBC CMP was ordered. Patient denies aspiration, diaphoresis or shaking chills but endorses to fever. Awake arterial blood gas. Stat chest x-ray reveals right-sided mid and lower lobe infiltrate consistent with pneumonia. Patient is currently on Zosyn/vancomycin. Transfer to ICU for positive pressure ventilation and intubation if required. We will initiate pressors/crystalloids and sepsis management per guidelines. On further questioning patient denies IV drug use. He was recently hospitalized in June with influenza pneumonia with superimposed streptococcus bacteremia that required ID consultation and following negative transthoracic echocardiogram he was discharged on levofloxacin 750 which was continued through 07/12. Other than that patient denies diarrhea, abdominal pain, chest pain, headache but he is anxious and tremulous. 11/06-patient critically ill on vasopressors. Titrating oxygen and vasopressors down. Currently on 12 PEEP 35% FiO2. ICU sedation on fentanyl/Precedex. ET tube in place. T-max 100.8. White count up to 20,000. Urine output 40 cc an hour. Remains critically ill but improved since previous day. Improved oxygenation. Gilman 2 score 19, remains a high risk mortality. Multiple blood cultures positive for gram-positive cocci. Surveillance cultures/sensitivities pending. Antibiotics escalated to vancomycin/meropenem in light of septic shock. ID consulted. Serial troponin peak 0.9 secondary to sepsis and endorgan dysfunction. Blood sugars improved. A1c 12.1 indicating poor outpatient control. Continue surveillance culture 11/07 No overnight events. Patient doing well. Vasopressors removed this morning. Patient is alert and awake on the vent. With good weaning parameters. Will extubate. Did have thoracentesis already this morning. Troponin seems to have peaked. No chest pain. 11/08 Patient appears comfortable with BiPAP on. States he does feel better, less wheezing. Did not expectorate any thick sputum overnight. Had to put on Precedex for agitation last night which dropped his blood pressure little bit and required vasopressor support. Currently weaning down again. FiO2 is 80 last night but it is 40 this morning -appears to be an agitation component. Pt denies chest pain I did talk to Dr. ny ([facility] yarn polishing machine operator) and plan will be to revisit with him when patient's pulmonary status stabilizes, continue medical mgmt for now. Also discussed case with Dr. Minaya. 11/09 Comfortable on the BiPAP. Does get short of breath when BiPAP is off for nutrition and medications. Dry cough this morning. No other new complaints. Vasopressors stopped this morning Precedex drip stopped. No BM since admission 11/10 Sleepy at the moment, I did not did not awaken him. Seems to wake up a few times at night with high anxiety takes the mask off. And that is usually given Ativan or Precedex which drops his blood pressure and then he starts on vasopressors. Vasopressors low-dose this morning. We will stop Ativan and Precedex and wean off vasopressors. Try hydroxyzine and other alternatives for anxiety, maybe Seroquel in the evenings. Timeline of Events leading to suppository event: records shows he had emesis prior to the event. About noon he had emesis recorded of 300 cc and then from that point he started having increasing cough and increasing oxygen needs and subsequently requiring intubation at 8:00 PM. Patient appeared to be in a bit more of a respiratory labored breathing status this morning. We moved him out of bed to a chair and started diuresis again, he seems to be doing significantly better. He is on FiO2 of 40% with a PEEP of 10 and showing good diuresis. Chest x-ray continues to show diffuse infiltrates no improvement. Given his SARA's diagnosis and need for prolonged hospitalization, his non-STEMI, his overall complicated state; he will best be served in a higher care facility where Education Technician and cardiology are available. I discussed the case with physicist solid earth Dr. Leiva at [facility] who has accepted the patient. Patient will go by [facility]. A: *Acute hypoxic respiratory failure: 2/2 Aspiration Event leading to ARDS -extubated to bipap (11/07) -thoracentesis (11/07) 900cc Transudate -off/on bipap -CXR still with diffuse changes, will be a prolonged course *ARDS: as above *Septic shock w/multiorgan dysfxn: Improved -vasopressors off morning of 11/07 but started back low dose early 11/08 after sedation medication started, titrating back off early on 11/09 but back on last night after sedation given for high anxiety and him pulling mask off. -Now afebrile -Leukocytosis resolved but increased after steroids started, PCT 0.78<0.84<0.66<0.95 *Blood culture with [place]: treating as pathologic in this setting -Echo no vegetations *NSTEMI: 2/2 above mismatch/supply in pt with multiple risk factors for CAD, concern for Anteroseptal infarct. No chest pain -Trop 0.63<0.88<0.90<0.53<0.38, -echo normal LV, portion of septal wall hypokinetic, otherwise unremarkable. EKG changes noted -no previous known h/o CAD, but will need cardiac cath when stable *volume overload: from fluid resuscitation during shock -diuresing well last several days *Anemia, chronic: *DM II, uncontrolled: A1c 12.1 -better controlled with titration up of basal insulin *Perirectal abscess: s/p I&D (11/04) -B streptococcus on cultures *chronic LBP: *Tobacco Abuse: *HLD: on lipitor at home Plan: -cont prn Bipap support, wean as able -monitor CVP goal 4 (not getting good readings from measured CVP's)) -diureses -wean off vasopressors again, d/c precedex and IV ativan -prn hydroxyzine, seroquel at night -Dr. Ornelas following, abx per ID (Vanco/Cefepime/Flagyl), -Surveillance blood cultures pending -f/u CXR -ST eval -ASA/statin, BB when able, needs cardiac w/u eventually when stable; I did talk to Dr. ny ([facility] yarn polishing machine operator) and plan will be to revisit with him when patient's pulmonary status stabilizes. Also discussed case with Dr. Minaya. -SSI, start back basal insulin (trying to clarify what home dose is) and titrate up, no on 40u qd -Abscess per Dr. Joe -Smoking cessation counseling -ppx: lovenox/pepcid - Time Spent with Patient Total time spent providing and/or coordinating transfer services: Greater than 30 minutes Transfer Discharge Sum: Exam - Constitutional Vitals: Vital Signs Temp Pulse Pulse Resp BP Pulse Ox 11/10/18 12:00 110 H 35 H 97 11/10/18 11:53 110 H 36 H 96 11/10/18 11:52 110 H 36 H 97 11/10/18 11:30 104 H 36 H 93 11/10/18 11:20 110 H 36 H 11/10/18 11:15 98.8 F 130/85 11/10/18 11:01 98.6 F 101 H 35 H 96 11/10/18 11:00 98.6 F 102 H 30 H 123/82 94 11/10/18 10:46 98.5 F 101 H 34 H 131/88 89 L 11/10/18 10:31 98.3 F 96 H 31 H 134/93 90 11/10/18 10:30 98.3 F 96 H 31 H 90 11/10/18 10:16 98.2 F 95 H 37 H 131/83 92 11/10/18 10:01 98.0 F 95 H 30 H 132/88 90 11/10/18 10:00 98.0 F 94 H 31 H 89 L 11/10/18 09:47 97.9 F 107 H 31 H 114/93 86 L 11/10/18 09:31 97.9 F 83 23 H 131/88 92 11/10/18 09:30 97.9 F 82 23 H 92 11/10/18 09:17 97.8 F 82 23 H 94 11/10/18 09:16 97.9 F 81 23 H 118/84 93 11/10/18 09:01 97.8 F 80 23 H 123/86 94 11/10/18 09:00 97.8 F 80 25 H 94 11/10/18 08:46 97.8 F 82 24 H 126/86 94 11/10/18 08:31 97.8 F 81 23 H 101/71 95 11/10/18 08:30 97.8 F 81 25 H 95 11/10/18 08:16 97.9 F 82 23 H 124/84 94 11/10/18 08:01 97.9 F 84 22 126/84 93 11/10/18 08:00 97.9 F 84 89 22 93 06/18/19 07:46 98.0 F 81 22 126/89 95 06/18/19 07:42 75 26 H 06/18/19 07:31 98.0 F 75 22 124/89 91 06/18/19 07:30 98.0 F 74 23 H 90 06/18/19 07:25 98.0 F 75 23 H 88 L 06/18/19 07:24 98.0 F 75 24 H 134/92 88 L 06/18/19 07:16 98.1 F 78 24 H 135/95 88 L 06/18/19 07:01 98.2 F 76 24 H 131/90 91 06/18/19 07:00 98.2 F 77 24 H 91 06/18/19 06:51 98.3 F 71 25 H 78/62 94 06/18/19 06:35 98.4 F 71 25 H 77/60 95 06/18/19 06:30 98.4 F 71 26 H 94 06/18/19 06:02 98.5 F 73 23 H 96 06/18/19 06:01 98.5 F 73 24 H 77/63 97 06/18/19 06:00 98.5 F 73 23 H 96 06/18/19 05:31 98.6 F 74 25 H 77/63 97 06/18/19 05:30 98.6 F 74 23 H 97 06/18/19 05:02 98.6 F 78 25 H 94 06/18/19 05:01 98.6 F 77 27 H 79/62 94 06/18/19 05:00 98.6 F 76 25 H 95 06/18/19 04:33 98.4 F 99 H 34 H 111/78 91 06/18/19 04:30 98.3 F 99 H 23 H 90 06/18/19 04:02 98.2 F 88 25 H 92 06/18/19 04:01 98.2 F 87 28 H 93/70 92 06/18/19 04:00 98.2 F 87 26 H 92 06/18/19 03:32 98.2 F 79 24 H 97 06/18/19 03:31 98.3 F 80 23 H 81/64 97 06/18/19 03:30 98.3 F 79 22 97 06/18/19 03:01 98.4 F 79 21 81/60 96 06/18/19 03:00 98.4 F 79 21 96 11/10/18 02:31 98.7 F 79 22 79/59 95 11/10/18 02:30 98.7 F 79 21 96 11/10/18 02:08 80 19 96 11/10/18 02:02 98.9 F 80 21 96 11/10/18 02:01 98.9 F 81 21 81/60 96 11/10/18 02:00 98.9 F 81 21 96 11/10/18 01:31 99.0 F 86 20 96 11/10/18 01:30 99.0 F 86 20 83/65 96 11/10/18 01:01 99.2 F H 89 23 H 95 11/10/18 01:00 99.2 F H 90 21 87/65 95 11/10/18 00:37 99.3 F H 94 H 31 H 91/69 95 11/10/18 00:30 99.4 F H 95 H 25 H 94 11/10/18 00:01 99.6 F H 99 H 26 H 96 11/10/18 00:00 99.6 F H 100 H 25 H 96/67 96 11/09/18 23:54 99.5 F H 100 H 26 H 92/68 96 11/09/18 23:30 99.6 F H 102 H 27 H 95 11/09/18 23:28 101 H 26 H 96 11/09/18 23:25 104 H 25 H 11/09/18 23:01 99.5 F H 29 H 11/09/18 23:00 99.5 F H 27 H 105/78 11/09/18 22:30 99.5 F H 119 H 24 H 98 11/09/18 22:07 109 H 33 H 92 11/09/18 22:01 99.4 F H 108 H 25 H 92 11/09/18 22:00 99.4 F H 108 H 26 H 109/76 92 11/09/18 21:30 99.5 F H 112 H 26 H 92 11/09/18 21:01 99.6 F H 116 H 29 H 91 11/09/18 21:00 99.6 F H 116 H 37 H 111/69 90 11/09/18 20:30 99.6 F H 116 H 34 H 92 11/09/18 20:01 99.6 F H 112 H 33 H 91 11/09/18 20:00 99.6 F H 110 H 31 H 114/81 92 11/09/18 19:56 111 H 30 H 92 11/09/18 19:50 115 H 28 H 11/09/18 19:30 99.6 F H 115 H 34 H 90 11/09/18 19:01 99.5 F H 110 H 27 H 88 L 11/09/18 19:00 99.5 F H 111 H 31 H 122/90 89 L 11/09/18 18:30 99.4 F H 108 H 25 H 91 11/09/18 18:00 99.3 F H 109 H 27 H 114/80 92 11/09/18 17:00 99.2 F H 106 H 22 111/80 92 11/09/18 16:00 99.1 F H 109 H 19 105/74 94 11/09/18 15:21 114 H 28 H 11/09/18 15:16 111 H 30 H 96 11/09/18 15:01 98.5 F 110 H 32 H 113/83 93 11/09/18 14:30 98.2 F 102 H 25 H 94 11/09/18 14:23 97.4 F 11/09/18 14:01 97.8 F 97 H 28 H 107/74 98 11/09/18 14:00 94 Intake and Output 11/09/18 11/10/18 11/10/18 21:59 05:59 13:59 Intake Total 1100 253 260 Output Total 464 558 6074 Balance 759 97 -6146 Intake: Nourishment/Supplement quantity 100 (ml) IV 600 133 110 PRECEDEX 400 MCG/100 ML 33 22 DEXTROSE 400 mcg In 100 ml @ 0. 2 MCG/KG/HR 3.926 mls/hr IV . Q24H [facility] Rx#:[id number] Levophed 16 mg In Sodium 0 Chloride 0.9% 234 ml @ 10 MCG/ MIN 9.38 mls/hr IV Q24H [facility] Rx# :[id number] Vancomycin 1,500 mg In Sodium 500 Chloride 0.9% 500 ml @ 333.3 mls/hr IV Q12H [facility] Rx#: [id number] Oral 360 120 150 IV - Manual Only 40 Output: Gastric Drainage 75 NG/OG 75 Urine Catheter Amount 270 230 885 Emesis 300 Para\Thoracentesis 900 Other: Meal Lunch Dinner Percent of Meal Consumed 75% 0% Feeding Ability Assist with Tray Set Up Nourishment/Supplement name Glucerna Urine Appearance Clear Clear Sediment Uretheral ([place]) Sediment Urine Color Dark Yellow Light Rima Tea Colored Uretheral ([place]) Bright Yellow Tea Colored Urine Odor Normal Uretheral ([place]) Normal # Bowel Movements 0 Weight 82.282 kg 82.282 kg Patient Weight 11/11/18 05:59 Weight 82.282 kg Transfer Discharge Sum: Data Procedures and tests throughout hospitalization: Pending Orders 11/04/18 07:53 Consult to Physician [CONS] Stat 11/04/18 08:27 Blood Culture Stat 11/04/18 10:15 Resuscitation Status Routine 11/04/18 10:16 Elevate head of bed .ROUTINE RD to Adjust Diet/Supplements as Needed Routine Pulse Oximetry .ROUTINE 11/04/18 13:34 Incentive Spirometry Assess/Tx Q1HWA 11/04/18 14:41 Ambulate-Progressive PRN Condition Routine Intake and Output Q1H Notify Provider .routine Up to chair PRN Vital Signs Q4 RD to Adjust Diet/Supplements as Needed Routine 11/04/18 15:40 Extended Recovery Routine 11/05/18 12:00 Admit as Inpatient Routine 11/05/18 13:26 Nebulizer management .Routine 11/05/18 15:24 Consult to Physician [CONS] Routine 11/05/18 15:48 Benzonatate [Tessalon] 200 mg PO TIDP PRN Dextrose 50% See Dose Instructions IV UD PRN Dextrose [Insta-Glucose] 15 gm PO PRN PRN Ondansetron [Zofran] 4 mg IV Q4HP PRN Promethazine [Phenergan] 12.5 mg IV Q4HP PRN Vancomycin Per Pharmacy 1 order IV UD Zolpidem [Ambien] 10 mg PO HSP PRN guaiFENesin/CODEINE [Robitussin AC] 10 ml PO Q4HP PRN oxyCODONE HCL [Roxicodone] 10 mg PO Q4HP PRN 11/05/18 15:59 Consult to Infectious Disease [CONS] Routine 11/05/18 16:00 Norepinephrine Bitartrate [Levophed] 16 mg 0.9 % Sodium Chloride [Sodium Chloride 0.9%] 234 ml IV Q24H 11/05/18 16:08 Anti-Embolism Devices NOW Crucible Packer Referral CONT Elevate head of bed DAILY Hand Hygiene DAILY Notify Provider PRN Oral hygiene BID Sputum Collection .ROUTINE Vent Weaning Routine 11/05/18 16:15 Heparin/Ns 500 ml IV KVO mls/hr 11/05/18 16:45 [place] [Indwelling Urinary Catheter] CONT 11/05/18 17:25 Blood Culture Urgent 11/05/18 19:00 Ipratropium/Albuterol [Duoneb] 3 ml NEB Q4HRT 11/05/18 21:00 Chlorhexidine Gluconate [Peridex] 15 ml SWABMOUTH BID Docusate Sodium [Colace] 100 mg PO BID 11/06/18 00:00 Accu-Chek 1 each FS Q6 11/06/18 02:55 ATR .Routine 11/06/18 03:45 Dexmedetomidine HCl [Precedex 400 Mcg/100 ml Dextrose] 400 mcg in 100 ml IV 0.2 mcg/kg/hr 11/06/18 05:35 Blood Culture Urgent 11/06/18 07:14 0.9 % Sodium Chloride [Saline Flush] 10 ml IV UD PRN 11/06/18 09:00 0.9 % Sodium Chloride [Saline Flush] 10 ml IV Q12 Famotidine/Pf [Pepcid] 20 mg IV Q12 11/06/18 10:30 Cefepime [Maxipime] 2 gm IV Q8H 11/06/18 10:50 Consult to Physician [CONS] Routine 11/06/18 11:00 metroNIDAZOLE [Flagyl] 500 mg in 100 ml IV Q8H 11/06/18 12:45 Acetaminophen [Ofirmev] 650 mg in 65 ml IV Q6HP 11/06/18 17:30 Restraint: (Non-violent) Q24H Q24H 11/06/18 19:47 Speech Therapy Eval & Treat .Routine 11/07/18 09:00 Aspirin 81 mg CHEWED DAILY Atorvastatin [Lipitor] 40 mg PO DAILY Vancomycin 1,500 mg 0.9 % Sodium Chloride [Sodium Chloride 0.9%] 500 ml IV Q12H 11/07/18 10:00 Nicotine [Nicoderm] 21 mg TOPICAL DAILY@1000 11/07/18 11:00 PEP Therapy/Acapella .ROUTINE 11/07/18 11:35 CPT [Chest physiotherapy] TID 11/07/18 11:40 BIPAP .CONTINUOUS 11/07/18 20:09 Communication order ONCE 11/08/18 19:53 Insulin Lispro [HumaLOG] See Protocol SQ Q6 11/08/18 21:00 Enoxaparin [Lovenox] 40 mg SQ BID 11/09/18 08:12 Consult to Physician [CONS] Routine 11/09/18 08:57 Lactulose [Cephulac] 10 gm PO DAILYP PRN 11/09/18 09:00 Insulin Glargine, Human [Lantus] 40 unit SQ DAILY Sennosides/Docusate Sodium [Senna Plus Tablet] 1 tab PO DAILYP PRN 11/09/18 09:01 Polyethylene Glycol 3350 [Miralax] 17 gm PO DAILYP PRN 11/09/18 09:09 Ultrasound at bedside .ROUTINE 11/09/18 21:00 Metoprolol Tartrate [Lopressor] 12.5 mg PO BID 11/10/18 08:27 LORazepam [Ativan] 0.5 mg PO Q4HP PRN hydrOXYzine [Atarax] 50 mg PO QIDP PRN 11/10/18 09:56 morphine 1 - 4 mg IV Q3HP PRN 11/10/18 11:25 Consistent Carbohydrate Diet 11/10/18 14:00 Furosemide [Lasix] 40 mg IV Q8 11/10/18 21:00 QUEtiapine [SEROquel] 50 mg PO HS 11/11/18 04:00 Basic Metabolic Panel Routine Complete Blood Count Routine Transfer Discharge Sum: A/P - Problem Maintenance (1) ARDS (adult respiratory distress syndrome) Status: Acute - Plan Functional capacity at transfer: bed bound Overall status at transfer: patient is not back to baseline Disposition: Xfer [facility] Quality Measure Queries - VTE Deep Vein Thrombosis/Pulmonary Embolism Present on Admission: No
[2018-11-10] MEDS ORDERED: HYDROCORTISONE SOD SUCC 100 MG VIAL IV SCH (14:00)
[2018-11-10] MEDS ORDERED: FUROSEMIDE 40 MG/4 ML VIAL IV SCH (14:00)
[2018-11-10] MEDS ORDERED: QUEtiapine 25 MG TABLET PO SCH (21:00)
== END 2018-11-10 14:15 | disposition short-term general hospital (02) | DRG 871 ==
LOC: MEDSUR 07:36 → ED 07:36 → MEDSUR 10:35 → ICU 11-05 15:43
PROVIDERS: ADMIT Family Medicine Adult Medicine; ATTEND Internal Medicine

== ENCOUNTER 2019-04-22 22:15 | Inpatient (IN) ==
[2019-04-22] MEDS ORDERED: IOPAMIDOL 100 ML BOTTLE IV ONE (22:16)
[2019-04-22] MEDS ORDERED: ONDANSETRON 4 MG/2 ML VIAL IV ONE (22:44)
[2019-04-22] MEDS ORDERED: 0.9 % SODIUM CHLORIDE 1,000 ML IV ONE (22:45)
[2019-04-22] MEDS ORDERED: VANCOMYCIN 1,000 MG in 0.9 % SODIUM CHLORIDE 250 ML IV ONE (22:54)
[2019-04-22] MEDS ORDERED: PIPERACILLIN SODIUM/TAZOBACTAM 3.375 GM in DEXTROSE 5% IN WATER 50 ML IV ONE (22:54)
--- NOTE | 2019-04-22 22:56 | Emergency Department Note ---
Skin/Abscess/FB HPI - General Chief complaint: Skin/Abscess/Foreign Body Stated complaint: abscess Time Seen by Provider: 04/22/19 22:32 Source: patient, family Mode of arrival: ambulatory Limitations: no limitations - History of Present Illness HPI Narrative: 43-year-old male with a history of perirectal abscess that was treated by Dr. Joe 5 months ago. He healed up well but then he came back about a week ago. He saw Dr. gonzalez in the ER and was placed on clindamycin but this has not been working. His pain is out of control and the abscess in his buttock is growing. - Related Data Home Medications Medication Instructions Recorded Confirmed Insulin Aspart [Novolog Flexpen] See Protocol SQ ACHS 01/04/18 04/22/19 carvedilol 6.25 mg tablet 6.25 mg PO BID 12/22/18 04/22/19 Aspirin [Adult Aspirin Regimen] 81 mg PO DAILY 03/16/19 04/22/19 Previous Rx's Medication Instructions Recorded Zolpidem [Ambien] 10 mg PO HSP PRN #20 tab 07/01/18 hydrocodone 7.5 mg-acetaminophen 1 tab PO Q4 PRN #20 tab 12/01/18 325 mg tablet Clindamycin HCl [Cleocin] 300 mg PO TID #20 cap 04/20/19 Allergies Allergy/AdvReac Type Severity Reaction Status Date / Time No Known Drug Allergies Allergy Verified 03/16/19 13:00 Review of Systems All systems ED: reviewed and negative except as stated. Past Medical History - Past Medical History Attestation: Yes: The following information was validated with the patient. Medical history: Reports: arthritis, CAD (coronary artery disease), DM (2; insulin using.), hypertension, other (DENIES: chronic narcotics 06-08-18; pneumonia; pyelonephritis.). Denies: asthma, cancer, COPD, CVA, hypothyroidism, myocardial infarction, renal disease Psychiatric history: Denies: anxiety, depression Surgical history ED: Reports: back surgery, orthopedic, other (multiple previous back surgeries), other (history of back surgery 5) - Social History smoking status: Current some day smoker Alcohol use: Reports: Rarely Drug use: Reports: none. Denies: marijuana Physical Exam Thin male some distress secondary to pain. He is able to rollover allow me to look at his buttocks. On the left buttock cleft there is a large 10 x 5 cm red indurated area with fluctuance. Exquisitely tender such that I am not able to get a good feel for how big or deep the abscess is. Limitations: no limitations Course Vital Signs Temperature 98.7 F 04/22/19 22:16 Pulse Rate 124 H 04/22/19 22:16 Respiratory Rate 18 04/22/19 22:16 Blood Pressure 132/79 04/22/19 22:16 Pulse Oximetry (%) 98 04/22/19 22:16 Temperature 98.7 F 04/22/19 22:16 Pulse Rate 124 H 04/22/19 22:16 Respiratory Rate 18 04/22/19 22:16 Blood Pressure 132/79 04/22/19 22:16 Pulse Oximetry (%) 98 04/22/19 22:16 Skin/Abscess/Foreign Body - Lab Data Lab results reviewed: Yes I reviewed the patient's lab results. Result diagrams: 04/22/19 22:55 04/22/19 22:55 Lab Results 04/22/19 04/22/19 04/22/19 Range/Units 22:55 22:55 22:55 WBC 10.4 (4.5-11.0) K/mcL RBC 3.58 L (4.50-5.90) M/mcL Hgb 11.0 L (13.5-16.5) g/dL Hct 32.0 L (41.0-55.0) % POC Hct 30.0 L (41.0-55.0) % MCV 89.3 (80.0-100.0) fL MCH 30.7 (26.0-34.0) pg MCHC 34.4 (31.0-36.0) g/dL RDW 12.6 (11.5-14.5) % Plt Count 228 (140-440) K/mcL MPV 9.6 (7.4-10.4) fL Gran % 76.5 (38.0-78.0) % Lymph % (Auto) 12.9 L (15.5-49.0) % [place] % (Auto) 8.8 (1.0-12.0) % Eos % (Auto) 1.6 (0.0-7.0) % Baso % (Auto) 0.2 (0.0-2.0) % Gran # 8.0 (1.8-8.0) K/mcL Lymph # (Auto) 1.3 L (1.5-4.8) K/mcL [place] # (Auto) 0.9 (0.1-0.9) K/mcL Eos # (Auto) 0.2 (0.0-0.7) K/mcL Baso # (Auto) 0 (0.0-0.3) K/mcL VBG Lactic Acid 1.6 (0.5-2.0) mmol/L POC Sodium 135 (133-145) mmol/L Sodium 137 (133-145) mmol/L POC Potassium 4.4 (3.3-5.1) mmol/L Potassium 4.4 (3.3-5.1) mmol/L POC Chloride 98 (96-108) mmol/L Carbon Dioxide 27 (22-30) mmol/L POC Total CO2 30 (22-30) mmol/L POC BUN 25 H (6-20) mg/dl BUN 24 H (6-20) mg/dl Creatinine 1.1 (0.7-1.2) mg/dl POC Creatinine 1.3 H (0.7-1.2) mg/dl GFR Calculation 81 Glucose 312 H (70-105) mg/dL POC Glucose 306 H (70-105) mg/dL Calcium 9.5 (8.6-10.4) mg/dl POC WB Ioniz Calcium 1.13 L (1.16-1.32) mmol/L Total Bilirubin 0.4 (0.0-1.0) mg/dL AST 10 (0-37) U/l ALT 9 (0-40) U/l Alkaline Phosphatase 77 (39-117) U/L Total Protein 7.3 (5.9-8.4) gm/dL Albumin 4.4 (3.2-5.2) gm/dL Globulin 2.9 (2.2-3.7) gm/dL Albumin/Globulin Ratio 1.5 (1.0-2.3) - Radiology Data Radiology results reviewed: Yes I reviewed the patient's radiology results. Disposition Pt seen by SPANISH LINGUIST/PA only: No Clinical Impression: Abscess of buttock, left, Perirectal abscess Hyperglycemia due to type 2 diabetes mellitus Qualifiers: Diabetes mellitus exterminator helper insulin use: with exterminator helper use Qualified Code(s): E11.65 - Type 2 diabetes mellitus with hyperglycemia Summary: Wrote for 5 units of insulin for his elevated blood glucose Ordered laboratory work-up and CT of the pelvis for the perirectal access. Start IV fluids pain medicine Zofran I discussed the case with Dr. Eben Joe, general surgeon who agreed to accept the patient for further care and evaluation in the hospital. He recommended we keep him n.p.o. after midnight so that he could take care of this abscess in the morning Disposition: Xfer As Inpt ([facility]) Condition: Serious Referrals: Qian Lezama ARNP [Primary Care Provider] - Eben Joe MD [Physician] -
[2019-04-22 22:59] LABS: POC Blood Urea Nitrogen 25 mg/dl (6-20); POC CO2 30 mmol/L (22-30); POC Calcium, Ionized 1.13 mmol/L (1.16-1.32); POC Chloride 98 mmol/L (96-108); POC Creatinine 1.3 mg/dl (0.7-1.2); POC Glucose, Random 306 mg/dL (70-105); POC Potassium 4.4 mmol/L (3.3-5.1); POC Sodium 135 mmol/L (133-145)
[2019-04-22] MEDS: HYDROmorphone 2 MG/ML VIAL IV PRN (22:59)
[2019-04-22 23:49] LABS: Basophils # (Auto) 0 K/mcL (0.0-0.3); Basophils % (Auto) 0.2 % (0.0-2.0); Eosinophils # (Auto) 0.2 K/mcL (0.0-0.7); Eosinophils % (Auto) 1.6 % (0.0-7.0); Granulocytes % (Auto) 76.5 % (38.0-78.0); Lymphocytes # (Auto) 1.3 K/mcL (1.5-4.8); Lymphocytes % (Auto) 12.9 % (15.5-49.0); Mean Cell Volume 89.3 fL (80.0-100.0); Mean Corpuscular HGB Conc 34.4 g/dL (31.0-36.0); Mean Platelet Volume 9.6 fL (7.4-10.4); Monocytes # (Auto) 0.9 K/mcL (0.1-0.9); Monocytes % (Auto) 8.8 % (1.0-12.0); Platelet Count 228 K/mcL (140-440); RBC 3.58 M/mcL (4.50-5.90); Red Cell Distribution Width 12.6 % (11.5-14.5); WBC 10.4 K/mcL (4.5-11.0)
[2019-04-22] MEDS ORDERED: ACETAMINOPHEN 325 MG TABLET PO PRN (23:58)
[2019-04-23 00:01] LABS: ALT/SGPT 9 U/l (0-40); AST/SGOT 10 U/l (0-37); Albumin 4.4 gm/dL (3.2-5.2); Albumin/Globulin Ratio 1.5 (1.0-2.3); Alkaline Phosphatase 77 U/L (39-117); Bilirubin,Total 0.4 mg/dL (0.0-1.0); Blood Urea Nitrogen 24 mg/dl (6-20); Calcium 9.5 mg/dl (8.6-10.4); Carbon Dioxide 27 mmol/L (22-30); Globulin 2.9 gm/dL (2.2-3.7); Glomerular Filtration Rate 81; Glucose 312 mg/dL (70-105)
[2019-04-23] MEDS ORDERED: INSULIN REGULAR, HUMAN 1 UNIT/0.01 ML UNIT IV ONE (00:05)
[2019-04-23 00:09] LABS: Chloride 95 mmol/L (96-108)
[2019-04-23] MEDS: LACTATED RINGERS 1,000 ML IV SCH ×3 (01:55→13:36)
[2019-04-23] MEDS: PIPERACILLIN SODIUM/TAZOBACTAM 3.375 GM in DEXTROSE 5% IN WATER 50 ML IV SCH ×4 (01:57→21:45)
[2019-04-23] MEDS: VANCOMYCIN 1,000 MG in 0.9 % SODIUM CHLORIDE 250 ML IV SCH ×3 (01:57→22:20)
[2019-04-23] MEDS: INSULIN LISPRO 1 UNIT/0.01 ML UNIT SQ SCH ×4 (07:09→20:30)
[2019-04-23] MEDS ORDERED: INSULIN REGULAR, HUMAN 1 UNIT/0.01 ML UNIT SQ SCH (07:30)
[2019-04-23] MEDS: HYDROmorphone 2 MG/ML VIAL IV PRN ×5 (08:23→20:32)
--- NOTE | 2019-04-23 08:33 | Cat Scan Report ---
CLINICAL INFORMATION: Perirectal abscess COMPARISON: None. TECHNIQUE: 80ml of Isovue 370 were injected intravenously and 60 seconds later .625mm helical slices were obtained from the mid L4 through the subtrochanteric regions. Following reconstruction, 2.5 mm sagittal, coronal and axial reformations were processed. The exam was reviewed in bone and soft tissue windows. The exam was performed using radiation dose optimization techniques including, but not limited to, automated exposure control, adjustment of mA and/or kV according to patient size and use of iterative reconstruction technique. FINDINGS: There are two adjacent low-attenuation fluid collections with mildly thick enhancing capsules in the left gluteal fold. Both span 2.8 cm with a small communication demonstrated between them. They should represent perianal abscesses. The more superior abscess communicates with the 6:00 position of the anal sphincter. Moderate phlegmon noted in the adjacent gluteal fat. The rectum and the visualized large /small bowel including the appendix are normal. There is no free air, free fluid or adenopathy. Urinary bladder, prostate and seminal vesicles are unremarkable. Bone windows show moderate right and mild left hip degeneration at both SI joints are normal. L4-5 and L5-S1 anterior/posterior fusion and wide laminectomy changes noted. There is moderate narrowing of both L5-S1 IV foramen due to marginal spurring with impingement of the exiting L5 nerve roots. This is more severe on the left side. IMPRESSION: Two left perianal abscesses, both 2.8 cm, in the subcutaneous left gluteal fold. The more superior abscess extends to the 6:00 position of the anal sphincter. There is moderate surrounding phlegmon in the gluteal fat. L4-5 and L5-S1 anterior/posterior fusion laminectomy changes. At L5-S1, there is marginal spurring resulting in moderate IV foraminal narrowing impinging the exiting L5 nerve roots. This is more severe on the left Interpreted and Authenticated by: Wing Valdovinos 04/23/19
--- NOTE | 2019-04-23 09:28 | XRay Report ---
CLINICAL INFORMATION: Preop COMPARISON: 03/16/2019 TECHNIQUE: PA and Lateral views FINDINGS: The heart size, mediastinum and pulmonary vessels are unremarkable. The lungs are clear. There are no effusions. The bones and soft tissues are within normal limits. IMPRESSION: Normal chest. Interpreted and Authenticated by: Wing Valdovinos 04/23/19
[2019-04-23 09:38] LABS: INR 1.1 (0.9-1.1)
--- NOTE | 2019-04-23 11:40 | General Surg History&Physical ---
History of Present Illness Patient information: Note initiated : 04/23/19 at 11:35 am Service Date, if different from initiated Date: [] Patient: Al Escobar a 43 y/o M admitted on 04/23/19 for abscess. Chief Complaint: [] HPI: Mr. Escobar is a 43 year old M with recurrent left perirectal abscess. The patient has a history of perirectal inflammatory disease dating back to early October 2018. He underwent incision and drainage of the abscess on 11/04/18 with placement of [place] drain. In the postoperative period he had evidence of aspiration pneumonia with acute respiratory failure requiring intubation. He also suffered an NSTEMI at that time. He was transferred to [facility] [place]. He was treated nonoperatively. Coronary angiography was done and it showed 99% proximal LAD with diffuse circumflex disease and 90% proximal small posterior descending. He had an ejection fraction of 25%. It was decided to wait until he recovers to determine if he was a candidate for percutaneous coronary intervention. He never had follow-up and has been on medical therapy since that time. It is felt that the patient is at severe risk for repeat perioperative acute coronary event with general anesthesia so I have discussed his situation with the nurse skein drier and the plan is to do IV sedation possible intubation and local anesthesia. This was discussed with the patient in detail and he is willing to proceed with this approach. I considered spinal anesthesia but he has had multiple fusion procedures in his back from L1-S1. Review of Systems - Constitutional fatigue, headache(s), malaise, weakness, weight loss - EENT Eyes: bilateral: blurred vision, decreased vision Nose, mouth and throat: abnormal hearing, disequilibrium, dizziness - Cardiovascular chest pain with activity, dyspnea on exertion, palpatations - Respiratory cough, dyspnea on exertion - Gastrointestinal nausea, no abdominal pain, no cramping, no diarrhea, no dyspepsia, no heartburn - Genitourinary no change in urinary stream - Musculoskeletal arthralgias, back pain, joint swelling, stiffness - Integumentary no new lesions, no pruritus, no rash - Neurological dizziness, loss of vision, numbness, paresthesias, radicular pain, sensory deficit, vertigo - Psychiatric anxiety, depression - Endocrine fatigue - Hematologic/Lymphatic no easy bleeding, no easy bruising, no lymphadenopathy - Allergic/Immunologic no tongue swelling, no throat swelling, no uticaria, no wheezing, no lip swelling Past History Past medical history: Uncontrolled diabetes mellitus Severe five-vessel coronary artery disease with ejection fraction 25% 30% Past surgical history: Multiple back surgeries with fusions from L1-S1 multiple laminectomies Past family history: Mother with history of ovarian cancer and diabetes mellitus Father age 66 due to complications of congestive heart and diabetes 1 with kidney failure siblings Past social history: Tobacco use Occasional alcohol use Denies drug use Medications and Allergies Home Medications Medication Instructions Recorded Confirmed Type Insulin Aspart [Novolog Flexpen] See Protocol SQ ACHS 01/04/18 04/22/19 History Zolpidem [Ambien] 10 mg PO HSP PRN #20 tab 07/01/18 04/22/19 Rx hydrocodone 7.5 mg-acetaminophen 1 tab PO Q4 PRN #20 tab 12/01/18 04/22/19 Rx 325 mg tablet carvedilol 6.25 mg tablet 6.25 mg PO BID 12/22/18 04/22/19 History Aspirin [Adult Aspirin Regimen] 81 mg PO DAILY 03/16/19 04/22/19 History Clindamycin HCl [Cleocin] 300 mg PO TID #20 cap 04/20/19 04/22/19 Rx Allergies Allergy/AdvReac Type Severity Reaction Status Date / Time No Known Drug Allergies Allergy Verified 03/16/19 13:00 Exam Temp Pulse Resp BP Pulse Ox 98.5 F 96 H 18 94/55 97 04/23/19 07:02 04/23/19 07:02 04/23/19 07:02 04/23/19 07:02 04/23/19 07:02 - General physical appearance well developed, well nourished, no distress, chronically ill - Eyes PERRL, normal ocular movement, other (decreased vision bilaterally) - ENT normal pinna, normal nares, normal mucosa, no hearing loss, no congestion - Head Head exam IM: Present: atraumatic, normocephalic - Neck no masses, no bruits, trachea midline, no lymphadenopathy, no venous distension - Cardiovascular Cardiovascular exam IM: Present: normal rate and rhythm, RRR, +S1, +S2. Absent: JVD, tachycardia - Respiratory normal expansion, normal respiratory effort, clear to auscultation - Abdomen Abdomen: Present: soft, non tender, bowel sounds Hernia: Present: none - Genitourinary Present: normal penis with no external lesions - Rectum Rectum: Present: normal sphincter tone, no hemorrhoids, no tenderness, no masses, no bleeding, other (large perirectal abscess left medial buttock) - Integumentary Present: no rash, no growths, no abnormal pigmentation - Neurologic Present: normal coordination, normal sensation - Musculoskeletal Present: normal gait, normal posture - Psychiatric Present: oriented to time, oriented to person, oriented to place, speech is normal, memory intact Assessment and Plan (1) Abscess of buttock, left Patient is counseled for incision and drainage of abscess under IV sedation with local anesthesia. His last abscess grew out group B strep and he will be treated accordingly until we get new cultures Status: Acute (2) Diabetes mellitus type 2, uncontrolled, with complications Status: Acute (3) Coronary artery disease due to lipid rich plaque Multiple critical stenotic lesions of 4 vessels Ejection fraction 25-30% Status: Acute
[2019-04-23] MEDS ORDERED: LIDOCAINE W/EPI 1% 20 ML VIAL IJ ONE (12:11)
[2019-04-23] MEDS ORDERED: fentaNYL 100 MCG/2 ML VIAL IV ONE (12:15)
[2019-04-23] MEDS ORDERED: ONDANSETRON 4 MG/2 ML VIAL IV ONE (12:15)
[2019-04-23] MEDS ORDERED: ETOMIDATE 20 MG/10 ML VIAL IV ONE (12:15)
[2019-04-23] MEDS ORDERED: DEXAMETHASONE 10 MG/ML VIAL IV ONE (12:15)
[2019-04-23] MEDS ORDERED: KETOROLAC 30 MG/ML VIAL IV ONE (12:15)
[2019-04-23] MEDS ORDERED: LIDOCAINE HCL/PF 100 MG/5 ML SYRINGE IV ONE (12:15)
[2019-04-23] MEDS ORDERED: KETAMINE 100 MG/ML ML IV ONE (12:15)
[2019-04-23] MEDS ORDERED: MIDAZOLAM 5 MG/5 ML VIAL IV ONE (12:15)
[2019-04-23] MEDS ORDERED: METOPROLOL TARTRATE 5 MG/5 ML VIAL IV ONE (12:15)
--- NOTE | 2019-04-23 12:45 | Brief Operative Note ---
Date of procedure: 04/23/19 Pre-op diagnosis: left perirectal abscess Post-op diagnosis: other (left perirectal abscess) Procedure: excisional debridement of left perirectal abscess Grafts/Implants: No (mine drain (1/4 inch)) Anesthesia: MAC, local Findings: large abscess of left perirectal space Complications: none Surgeon: Yesenia Joe Specimens Removed/Pathology: other (abscess fluid for culture and sensitivity) Condition: stable Disposition: PACU
[2019-04-23] MEDS ORDERED: LACTATED RINGERS 1,000 ML IV SCH (13:18)
[2019-04-23] MEDS: CARVEDILOL 6.25 MG TABLET PO SCH (17:15)
[2019-04-23] MEDS: ZOLPIDEM 5 MG TABLET PO PRN (22:20)
[2019-04-24] MEDS: HYDROmorphone 2 MG/ML VIAL IV PRN ×6 (00:57→20:54)
[2019-04-24] MEDS: PIPERACILLIN SODIUM/TAZOBACTAM 3.375 GM in DEXTROSE 5% IN WATER 50 ML IV SCH ×3 (05:04→22:29)
[2019-04-24] MEDS: CARVEDILOL 6.25 MG TABLET PO SCH ×2 (08:16→17:26)
[2019-04-24] MEDS: INSULIN LISPRO 1 UNIT/0.01 ML UNIT SQ SCH ×4 (08:16→20:52)
[2019-04-24 11:00] LABS: Basophils # (Auto) 0 K/mcL (0.0-0.3); Basophils % (Auto) 0.2 % (0.0-2.0); Eosinophils # (Auto) 0 K/mcL (0.0-0.7); Eosinophils % (Auto) 0.2 % (0.0-7.0); Granulocytes % (Auto) 83.2 % (38.0-78.0); Hematocrit 29.4 % (41.0-55.0); Lymphocytes # (Auto) 1.1 K/mcL (1.5-4.8); Lymphocytes % (Auto) 9.7 % (15.5-49.0); Mean Cell Volume 90.8 fL (80.0-100.0); Mean Corpuscular HGB Conc 33.9 g/dL (31.0-36.0); Monocytes # (Auto) 0.8 K/mcL (0.1-0.9); Monocytes % (Auto) 6.7 % (1.0-12.0); Platelet Count 244 K/mcL (140-440); RBC 3.23 M/mcL (4.50-5.90); Red Cell Distribution Width 12.5 % (11.5-14.5); WBC 11.6 K/mcL (4.5-11.0)
--- NOTE | 2019-04-24 11:24 | General Surgery Progress Note ---
Subjective Patient reports: feels better, pain is less, tolerating a regular diet, afebrile Narrative: Note initiated : 04/24/19 at 11:18 am Service Date, if different from initiated Date: [] Patient: Al Escobar 43 y/o M admitted on 04/23/19 for abscess. Chief Complaint: [patient feels much better. He states that the pain is significantly improved in his left buttock. The drainage has decreased from last evening. He still has significant elevation in his blood sugars with his Accu-Cheks ranging from 300-375. Preliminary Gram stain shows heavy growth of gram-positive cocci in pairs and chains and clusters. We'll keep him on present antibiotic coverage until final identification is made.] Objective Temp Pulse Resp BP Pulse Ox 98.3 F 77 16 107/68 99 04/24/19 08:00 04/24/19 08:00 04/24/19 08:00 04/24/19 08:00 04/24/19 08:00 - Additional Data Intake & Output - Last 24 hours: Intake & Output 04/22/19 04/23/19 04/24/19 04/25/19 05:59 05:59 05:59 05:59 Intake Total 1163 4598 600 Output Total 1410 500 Balance 1163 3188 100 Weight 168 lb 8 oz 168 lb 8 oz - General physical appearance well developed, well nourished, no distress - Eyes PERRL, normal ocular movement - ENT normal pinna, normal nares, normal mucosa, no hearing loss, no congestion - Neck no masses, no bruits, trachea midline, no lymphadenopathy, no venous distension - Respiratory normal expansion, normal respiratory effort, clear to auscultation - Cardiovascular Cardiovascular exam: Present: normal rate and rhythm, RRR, +S1, +S2, tachycardia. Absent: JVD - Abdomen non tender, bowel sounds (present), surgical scars (none), masses (none) - Rectum other (draining abscess track left medial buttock with the Braxton intact; decrease in inflammation and cellulitis) - Neurologic normal coordination, normal sensation - Psychiatric oriented to time, oriented to person, oriented to place, speech is normal, memory intact - Labs 04/24/19 07:53 04/22/19 22:55 Assessment and Plan (1) Abscess of buttock, left Status: Acute Assessment and plan: Will continue vancomycin and Zosyn treatment pending culture Current Visit: Yes (2) Diabetes mellitus type 2, uncontrolled, with complications Status: Acute Assessment and plan: Lantus 20 units subcutaneous twice a day is added for basal coverage Current Visit: Yes (3) Coronary artery disease due to lipid rich plaque Status: Acute Assessment and plan: echocardiogram was completed today. Preliminary evaluation by business development executive suggests that his LVEF is more in the 30% range. He still has significant wall abnormalities. Will wait for final cardiology interpretation. Current Visit: Yes - Time Spent With Patient Total time spent is greater than 50% in coordination of care (as documented) at patient's floor/unit and/or counseling patient:
[2019-04-24] MEDS: VANCOMYCIN 1,000 MG in 0.9 % SODIUM CHLORIDE 250 ML IV SCH ×2 (11:57→20:52)
[2019-04-24] MEDS: ZOLPIDEM 5 MG TABLET PO PRN (20:51)
[2019-04-24] MEDS: INSULIN GLARGINE, HUMAN 1 UNIT/0.01 ML SQ SCH (20:53)
[2019-04-25] MEDS: PIPERACILLIN SODIUM/TAZOBACTAM 3.375 GM in DEXTROSE 5% IN WATER 50 ML IV SCH ×3 (05:40→21:22)
[2019-04-25 06:21] LABS: Basophils # (Auto) 0 K/mcL (0.0-0.3); Basophils % (Auto) 0.5 % (0.0-2.0); Eosinophils # (Auto) 0.1 K/mcL (0.0-0.7); Eosinophils % (Auto) 2.2 % (0.0-7.0); Granulocytes % (Auto) 61.3 % (38.0-78.0); Hematocrit 26.3 % (41.0-55.0); Lymphocytes # (Auto) 1.9 K/mcL (1.5-4.8); Mean Cell Volume 91.1 fL (80.0-100.0); Mean Platelet Volume 9.8 fL (7.4-10.4); Monocytes # (Auto) 0.5 K/mcL (0.1-0.9); Platelet Count 200 K/mcL (140-440); RBC 2.89 M/mcL (4.50-5.90); Red Cell Distribution Width 12.6 % (11.5-14.5); WBC 6.7 K/mcL (4.5-11.0)
[2019-04-25 06:33] LABS: ALT/SGPT 17 U/l (0-40); AST/SGOT 24 U/l (0-37); Albumin 3.7 gm/dL (3.2-5.2); Albumin/Globulin Ratio 1.5 (1.0-2.3); Alkaline Phosphatase 85 U/L (39-117); Bilirubin,Direct < 0.2 mg/dL (0.0-0.3); Bilirubin,Total < 0.2 mg/dL (0.0-1.0); Blood Urea Nitrogen 24 mg/dl (6-20); Calcium 8.8 mg/dl (8.6-10.4); Carbon Dioxide 27 mmol/L (22-30); Chloride 100 mmol/L (96-108); Globulin 2.4 gm/dL (2.2-3.7); Glomerular Filtration Rate 103; Glucose 269 mg/dL (70-105); Lactate Dehydrogenase 159 U/L (94-250); Phosphorous 2.4 mg/dL (2.7-4.5); Triglycerides 149 mg/dl (<150); Uric Acid 4.1 mg/dL (2.5-8.0)
[2019-04-25 07:01] LABS: Hemoglobin A1C 9.6 % HGB (4.0-6.0)
[2019-04-25] MEDS: CARVEDILOL 6.25 MG TABLET PO SCH ×2 (07:59→17:26)
[2019-04-25] MEDS: HYDROmorphone 2 MG/ML VIAL IV PRN ×6 (08:21→22:03)
[2019-04-25] MEDS: ACETAMINOPHEN 325 MG TABLET PO PRN ×2 (08:23→19:55)
[2019-04-25] MEDS: VANCOMYCIN 1,000 MG in 0.9 % SODIUM CHLORIDE 250 ML IV SCH ×2 (08:37→20:01)
[2019-04-25] MEDS: INSULIN LISPRO 1 UNIT/0.01 ML UNIT SQ SCH ×4 (08:44→20:01)
[2019-04-25] MEDS: INSULIN GLARGINE, HUMAN 1 UNIT/0.01 ML SQ SCH ×2 (08:44→19:54)
--- NOTE | 2019-04-25 14:18 | General Surgery Progress Note ---
Subjective Patient reports: feels better, pain is less, tolerating a regular diet, afebrile Narrative: Note initiated : 04/25/19 at 2:18 pm Service Date, if different from initiated Date: [] Patient: Al Escobar 43 y/o M admitted on 04/24/19 for abscess. Chief Complaint: [] Patient continues to improve. He has less discomfort in his operative side and there is minimal drainage. Cultures are still not growing any recognizable organism on aerobic or anaerobic plates. White blood count 6.7, hemoglobin 9, hemoglobin A1c 9.6. Blood sugars are in the mid 200 range since start of Lantus Objective Temp Pulse Resp BP Pulse Ox 98.8 F 79 18 106/62 99 04/25/19 12:00 04/25/19 12:00 04/25/19 12:00 04/25/19 12:00 04/25/19 12:00 - Additional Data Intake & Output - Last 24 hours: Intake & Output 04/23/19 04/24/19 04/25/19 04/26/19 05:59 05:59 05:59 05:59 Intake Total 1163 4598 2150 550 Output Total 6805 941 1678 Balance 1163 3188 1650 -550 Weight 168 lb 8 oz 168 lb 8 oz 181 lb - General physical appearance well developed, well nourished, no distress - Eyes PERRL, normal ocular movement - ENT normal pinna, normal nares, normal mucosa, no hearing loss, no congestion - Neck no masses, no bruits, trachea midline, no lymphadenopathy, no venous distension - Respiratory normal expansion, normal respiratory effort, clear to auscultation - Cardiovascular Cardiovascular exam: Present: normal rate and rhythm, RRR, +S1, +S2. Absent: JVD, tachycardia - Abdomen non tender, bowel sounds (present), surgical scars (none), masses (none) - Rectum other (left buttock abscess is improving and induration is less.) - Neurologic normal coordination, normal sensation - Musculoskeletal normal gait, normal posture - Psychiatric oriented to time, oriented to person, oriented to place, speech is normal, memory intact - Labs 04/25/19 04:28 04/25/19 04:28 Diabetes panel 04/25/19 04/25/19 Range/Units 04:28 04:28 Sodium 138 (133-145) mmol/L Potassium 4.0 (3.3-5.1) mmol/L Chloride 100 (96-108) mmol/L Carbon Dioxide 27 (22-30) mmol/L BUN 24 H (6-20) mg/dl Creatinine 0.9 (0.7-1.2) mg/dl Glucose 269 H (70-105) mg/dL Hemoglobin A1c 9.6 H (4.0-6.0) % HGB Calcium 8.8 (8.6-10.4) mg/dl AST 24 (0-37) U/l ALT 17 (0-40) U/l Alkaline Phosphatase 85 (39-117) U/L Total Protein 6.1 (5.9-8.4) gm/dL Albumin 3.7 (3.2-5.2) gm/dL Triglycerides 149 (<150) mg/dl Calcium panel 04/25/19 Range/Units 04:28 Calcium 8.8 (8.6-10.4) mg/dl Phosphorus 2.4 L (2.7-4.5) mg/dL Albumin 3.7 (3.2-5.2) gm/dL Pituitary panel 04/25/19 Range/Units 04:28 Sodium 138 (133-145) mmol/L Potassium 4.0 (3.3-5.1) mmol/L Chloride 100 (96-108) mmol/L Carbon Dioxide 27 (22-30) mmol/L BUN 24 H (6-20) mg/dl Creatinine 0.9 (0.7-1.2) mg/dl Glucose 269 H (70-105) mg/dL Calcium 8.8 (8.6-10.4) mg/dl Adrenal panel 04/25/19 Range/Units 04:28 Sodium 138 (133-145) mmol/L Potassium 4.0 (3.3-5.1) mmol/L Chloride 100 (96-108) mmol/L Carbon Dioxide 27 (22-30) mmol/L BUN 24 H (6-20) mg/dl Creatinine 0.9 (0.7-1.2) mg/dl Glucose 269 H (70-105) mg/dL Calcium 8.8 (8.6-10.4) mg/dl Total Bilirubin < 0.2 (0.0-1.0) mg/dL AST 24 (0-37) U/l ALT 17 (0-40) U/l Alkaline Phosphatase 85 (39-117) U/L Total Protein 6.1 (5.9-8.4) gm/dL Albumin 3.7 (3.2-5.2) gm/dL Assessment and Plan (1) Abscess of buttock, left Status: Acute Assessment and plan: Will continue vancomycin and Zosyn treatment pending culture Current Visit: Yes (2) Diabetes mellitus type 2, uncontrolled, with complications Status: Acute Assessment and plan: Lantus 30 units subcutaneous twice a day is added for basal coverage Current Visit: Yes (3) Coronary artery disease due to lipid rich plaque Status: Acute Assessment and plan: echocardiogram was completed today. Preliminary evaluation by undercutter operator suggests that his LVEF is more in the 30% range. He still has significant wall abnormalities. Will wait for final cardiology interpretation. Current Visit: Yes - Time Spent With Patient Total time spent is greater than 50% in coordination of care (as documented) at patient's floor/unit and/or counseling patient:
[2019-04-25] MEDS: ZOLPIDEM 5 MG TABLET PO PRN (19:56)
[2019-04-26] MEDS: HYDROmorphone 2 MG/ML VIAL IV PRN ×9 (00:30→20:34)
[2019-04-26] MEDS: PIPERACILLIN SODIUM/TAZOBACTAM 3.375 GM in DEXTROSE 5% IN WATER 50 ML IV SCH ×3 (05:27→22:04)
[2019-04-26 05:59] LABS: Basophils # (Auto) 0.1 K/mcL (0.0-0.3); Basophils % (Auto) 0.7 % (0.0-2.0); Eosinophils # (Auto) 0.3 K/mcL (0.0-0.7); Eosinophils % (Auto) 4.1 % (0.0-7.0); Granulocytes % (Auto) 61.7 % (38.0-78.0); Hematocrit 28.1 % (41.0-55.0); Hemoglobin 9.7 g/dL (13.5-16.5); Mean Corpuscular HGB Conc 34.3 g/dL (31.0-36.0); Mean Platelet Volume 9.6 fL (7.4-10.4); Monocytes # (Auto) 0.6 K/mcL (0.1-0.9); Monocytes % (Auto) 7.5 % (1.0-12.0); Platelet Count 256 K/mcL (140-440); RBC 3.12 M/mcL (4.50-5.90); Red Cell Distribution Width 12.8 % (11.5-14.5); WBC 7.8 K/mcL (4.5-11.0)
[2019-04-26 06:34] LABS: ALT/SGPT 15 U/l (0-40); AST/SGOT 17 U/l (0-37); Albumin 3.7 gm/dL (3.2-5.2); Albumin/Globulin Ratio 1.4 (1.0-2.3); Alkaline Phosphatase 68 U/L (39-117); Bilirubin,Direct < 0.2 mg/dL (0.0-0.3); Bilirubin,Total < 0.2 mg/dL (0.0-1.0); Calcium 8.9 mg/dl (8.6-10.4); Carbon Dioxide 25 mmol/L (22-30); Chloride 103 mmol/L (96-108); Globulin 2.7 gm/dL (2.2-3.7); Glomerular Filtration Rate 114; Glucose 140 mg/dL (70-105); Lactate Dehydrogenase 194 U/L (94-250); Triglycerides 110 mg/dl (<150); Uric Acid 3.8 mg/dL (2.5-8.0)
[2019-04-26 06:41] LABS: Blood Urea Nitrogen 16 mg/dl (6-20); Phosphorous 3.5 mg/dL (2.7-4.5)
[2019-04-26] MEDS: ACETAMINOPHEN 325 MG TABLET PO PRN ×2 (07:31→22:02)
[2019-04-26] MEDS: INSULIN GLARGINE, HUMAN 1 UNIT/0.01 ML SQ SCH ×2 (09:23→22:03)
[2019-04-26] MEDS: CARVEDILOL 6.25 MG TABLET PO SCH ×2 (09:23→17:21)
[2019-04-26] MEDS: VANCOMYCIN 1,000 MG in 0.9 % SODIUM CHLORIDE 250 ML IV SCH ×2 (10:05→20:32)
[2019-04-26] MEDS: INSULIN LISPRO 1 UNIT/0.01 ML UNIT SQ SCH ×4 (10:15→22:04)
[2019-04-26] MEDS: oxyCODONE HCL 5 MG TABLET PO PRN ×2 (16:44→22:02)
--- NOTE | 2019-04-26 17:37 | General Surgery Progress Note ---
Subjective Patient reports: feels better, pain is less, flatus, bowel movement, afebrile Narrative: Note initiated : 04/26/19 at 5:37 pm Service Date, if different from initiated Date: [] Patient: Al Escobar 43 y/o M admitted on 04/24/19 for abscess. Chief Complaint: [patient continues to improve. The pain and swelling in the perirectal space is significantly improved. His blood sugars ranged from 122-20 and this is significantly improved. He is advised that he will go home on basal insulin in addition to his sliding scale coverage.] Objective Temp Pulse Resp BP Pulse Ox 98.0 F 75 16 108/65 99 04/26/19 12:00 04/26/19 12:00 04/26/19 12:00 04/26/19 12:00 04/26/19 12:00 - Additional Data Intake & Output - Last 24 hours: Intake & Output 04/24/19 04/25/19 04/26/19 04/27/19 05:59 05:59 05:59 05:59 Intake Total 4598 2150 2060 1050 Output Total 2429 933 4014 800 Balance 3188 1650 160 250 Weight 168 lb 8 oz 181 lb 184 lb 3.2 oz 184 lb 3.2 oz - General physical appearance well developed, well nourished, moderate distress, moderate pain - Eyes PERRL, normal ocular movement - ENT normal pinna, normal nares, normal mucosa, no hearing loss, no congestion - Neck no masses, no bruits, trachea midline, no lymphadenopathy, no venous distension - Respiratory normal expansion, normal respiratory effort, clear to auscultation - Cardiovascular Cardiovascular exam: Present: RRR, +S1, +S2. Absent: JVD, tachycardia - Abdomen non tender, bowel sounds (present), surgical scars (none), masses (none) - Rectum other (healing abscess cavity left perirectal space with a Braxton drain) - Integumentary no rash, no growths, no abnormal pigmentation - Neurologic normal coordination, normal sensation - Musculoskeletal normal gait, normal posture - Psychiatric oriented to time, oriented to person, oriented to place, speech is normal, memory intact - Labs 04/26/19 04:40 04/27/19 04:40 Diabetes panel 04/26/19 Range/Units 04:40 Sodium 141 (133-145) mmol/L Potassium 4.2 (3.3-5.1) mmol/L Chloride 103 (96-108) mmol/L Carbon Dioxide 25 (22-30) mmol/L BUN 16 (6-20) mg/dl Creatinine 0.7 (0.7-1.2) mg/dl Glucose 140 H (70-105) mg/dL Calcium 8.9 (8.6-10.4) mg/dl AST 17 (0-37) U/l ALT 15 (0-40) U/l Alkaline Phosphatase 68 (39-117) U/L Total Protein 6.4 (5.9-8.4) gm/dL Albumin 3.7 (3.2-5.2) gm/dL Triglycerides 110 (<150) mg/dl Calcium panel 04/26/19 Range/Units 04:40 Calcium 8.9 (8.6-10.4) mg/dl Phosphorus 3.5 (2.7-4.5) mg/dL Albumin 3.7 (3.2-5.2) gm/dL Pituitary panel 04/26/19 Range/Units 04:40 Sodium 141 (133-145) mmol/L Potassium 4.2 (3.3-5.1) mmol/L Chloride 103 (96-108) mmol/L Carbon Dioxide 25 (22-30) mmol/L BUN 16 (6-20) mg/dl Creatinine 0.7 (0.7-1.2) mg/dl Glucose 140 H (70-105) mg/dL Calcium 8.9 (8.6-10.4) mg/dl Adrenal panel 04/26/19 Range/Units 04:40 Sodium 141 (133-145) mmol/L Potassium 4.2 (3.3-5.1) mmol/L Chloride 103 (96-108) mmol/L Carbon Dioxide 25 (22-30) mmol/L BUN 16 (6-20) mg/dl Creatinine 0.7 (0.7-1.2) mg/dl Glucose 140 H (70-105) mg/dL Calcium 8.9 (8.6-10.4) mg/dl Total Bilirubin < 0.2 (0.0-1.0) mg/dL AST 17 (0-37) U/l ALT 15 (0-40) U/l Alkaline Phosphatase 68 (39-117) U/L Total Protein 6.4 (5.9-8.4) gm/dL Albumin 3.7 (3.2-5.2) gm/dL Assessment and Plan (1) Abscess of buttock, left Status: Acute Assessment and plan: Will continue vancomycin and Zosyn treatment pending culture Current Visit: Yes (2) Diabetes mellitus type 2, uncontrolled, with complications Status: Acute Assessment and plan: Lantus 30 units subcutaneous twice a day is added for basal coverage Current Visit: Yes (3) Coronary artery disease due to lipid rich plaque Status: Acute Assessment and plan: echocardiogram was completed today. Preliminary evaluation by dynamo tender suggests that his LVEF is more in the 30% range. He still has significant wall abnormalities. Will wait for final cardiology interpretation. Current Visit: Yes - Time Spent With Patient Total time spent is greater than 50% in coordination of care (as documented) at patient's floor/unit and/or counseling patient:
[2019-04-26] MEDS: ZOLPIDEM 5 MG TABLET PO PRN (22:02)
[2019-04-27] MEDS: HYDROmorphone 2 MG/ML VIAL IV PRN ×2 (00:21→13:50)
[2019-04-27] MEDS: oxyCODONE HCL 5 MG TABLET PO PRN ×3 (04:21→12:19)
[2019-04-27] MEDS: PIPERACILLIN SODIUM/TAZOBACTAM 3.375 GM in DEXTROSE 5% IN WATER 50 ML IV SCH (05:38)
[2019-04-27 05:45] LABS: ALT/SGPT 14 U/l (0-40); AST/SGOT 14 U/l (0-37); Albumin 3.3 gm/dL (3.2-5.2); Albumin/Globulin Ratio 1.2 (1.0-2.3); Alkaline Phosphatase 64 U/L (39-117); Bilirubin,Direct < 0.2 mg/dL (0.0-0.3); Bilirubin,Total < 0.2 mg/dL (0.0-1.0); Blood Urea Nitrogen 15 mg/dl (6-20); Calcium 8.7 mg/dl (8.6-10.4); Carbon Dioxide 27 mmol/L (22-30); Chloride 104 mmol/L (96-108); Globulin 2.7 gm/dL (2.2-3.7); Glomerular Filtration Rate 114; Glucose 118 mg/dL (70-105); Lactate Dehydrogenase 158 U/L (94-250); Phosphorous 3.2 mg/dL (2.7-4.5); Triglycerides 135 mg/dl (<150); Uric Acid 3.5 mg/dL (2.5-8.0)
[2019-04-27] MEDS: ACETAMINOPHEN 325 MG TABLET PO PRN (08:22)
[2019-04-27] MEDS: CARVEDILOL 6.25 MG TABLET PO SCH (08:22)
[2019-04-27] MEDS ORDERED: KETOROLAC 30 MG/ML VIAL IV ONE (08:29)
[2019-04-27] MEDS: INSULIN GLARGINE, HUMAN 1 UNIT/0.01 ML SQ SCH (09:15)
[2019-04-27] MEDS: INSULIN LISPRO 1 UNIT/0.01 ML UNIT SQ SCH ×2 (09:17→11:57)
[2019-04-27] MEDS: VANCOMYCIN 1,000 MG in 0.9 % SODIUM CHLORIDE 250 ML IV SCH (09:23)
--- NOTE | 2019-04-27 13:13 | Discharge Summary ---
Providers - Providers Patient information: Note initiated : 04/27/19 at 1:10 pm Service Date, if different from initiated Date: [] Patient: Al Escobar 43 y/o M admitted on 04/24/19 for abscess. Chief Complaint: [] Date of admission: 04/22/19 Discharge date: 04/27/19 Attending physician: Yesenia Joe Hospitalization Hospital Course: 43-year-old male who presents with a large perirectal abscess. He has had previous abscesses. He was admitted and it was noted that his blood sugars were uncontrolled. He also has history of severe ischemic heart disease. He was counseled for incision and debridement of the abscess under IV sedation with local infiltration. He tolerated the procedure well and he has done fine. The abscess is drying up and the induration is significantly improved. He had blood sugars consistently in the 350-400 range so he was started on Lantus basal insulin twice daily and his blood sugars have been in the 200-100 range. He is clinically stable at this time and is ready for discharge. Final cultures grew out anaerobic gram-positive cocci and gram-negative bacillus. He will be discharged on ciprofloxacin and metronidazole. Discharge diagnosis: perirectal abscess Secondary discharge diagnosis: Diabetes mellitus uncontrolled Ischemic heart disease Ischemic cardiomyopathy ejection fraction 36% Reason for admission: severe perirectal abscess Procedures: Incision and debridement of perirectal abscess Pertinent studies/significant findings: None Complications: None Exam Temp Pulse Resp BP Pulse Ox 98.6 F 72 16 103/60 99 04/27/19 11:43 04/27/19 11:43 04/27/19 11:43 04/27/19 11:43 04/27/19 11:43 - General physical appearance well developed, well nourished, moderate distress, moderate pain, chronically ill - Eyes PERRL, normal ocular movement - ENT normal pinna, normal nares, normal mucosa, no hearing loss, no congestion - Head Head exam IM: Present: atraumatic, normocephalic - Neck no masses, no bruits, trachea midline, no lymphadenopathy, no venous distension - Cardiovascular Cardiovascular exam IM: Present: normal rate and rhythm, RRR, +S1, +S2. Absent: JVD, tachycardia - Respiratory normal expansion, normal respiratory effort, clear to percussion, clear to auscultation - Abdomen Abdomen: Present: soft, non tender, bowel sounds Hernia: Present: none - Genitourinary Present: normal penis with no external lesions - Rectum Rectum: Present: other (abscess of left perirectal space with indwelling Bronson drain) - Integumentary Present: no rash, no growths, no abnormal pigmentation - Neurologic Present: normal coordination, normal sensation - Musculoskeletal Present: normal gait, normal posture - Psychiatric Present: oriented to time, oriented to person, oriented to place, speech is normal, memory intact Discharge Plan - Patient/Caregiver Discharge Instructions Diet: Consistent Carbohydrate Prescriptions: Insulin Glargine,Hum.rec.anlog [Basaglar Kwikpen U-100] 30 unit SQ BID #7 insuln.pen Transmission Status: Pending to [facility] Ciprofloxacin [Cipro] 500 mg PO BID #60 tab Transmission Status: Pending to [facility] metroNIDAZOLE [Flagyl] 500 mg PO Q8 #90 tab Transmission Status: Pending to [facility] metroNIDAZOLE [Metronidazole] 500 mg PO Q8 #90 tablet - Follow up Plan Follow up with: Qian Lezama ARNP [Primary Care Provider] - Yesenia Joe MD [Physician] - 05/11/19 9:00 am Disposition: Home, Self-Care Prognosis: Fair Rehab Potential: Fair I certify that the patient requires SNF services.: No Overall status at discharge: patient is progressing back to baseline Pending Studies Resuscitation Status Full Code Diet Consistent Carbohydrate Diet Start FriApr 23 1248 Acetaminophen (Tylenol) 650 mg PO Q6HP PRN PRN Reason: PAIN/FEVER > 101 Last Admin: 04/27/19 08:22 Dose: 650 mg Documented by: Admin: 04/26/19 22:02 Dose: 650 mg Documented by: Admin: 04/26/19 07:31 Dose: 650 mg Documented by: Admin: 04/25/19 19:55 Dose: 650 mg Documented by: Admin: 04/25/19 08:23 Dose: 650 mg Documented by: DANICA Carvedilol (Coreg) 6.25 mg PO BIDCC COUNT INCLUDES THE [facility] Last Admin: 04/27/19 08:22 Dose: 6.25 mg Documented by: Admin: 04/26/19 17:21 Dose: 6.25 mg Documented by: Admin: 04/26/19 09:23 Dose: 6.25 mg Documented by: Admin: 04/25/19 17:26 Dose: 6.25 mg Documented by: Admin: 04/25/19 07:59 Dose: 6.25 mg Documented by: Admin: 04/24/19 17:26 Dose: 6.25 mg Documented by: Admin: 04/24/19 08:16 Dose: 6.25 mg Documented by: Admin: 04/23/19 17:15 Dose: 6.25 mg Documented by: DANICA Diagnostic Test (Pha) (Accu-Chek) 1 each FS ACHS LILY Last Admin: 04/27/19 11:57 Dose: 1 each Documented by: Admin: 04/27/19 07:40 Dose: 1 each Documented by: Admin: 04/26/19 20:35 Dose: 1 each Documented by: Admin: 04/26/19 16:48 Dose: 1 each Documented by: Admin: 04/26/19 12:02 Dose: 1 each Documented by: Admin: 04/26/19 07:35 Dose: 1 each Documented by: Admin: 04/25/19 19:55 Dose: 1 each Documented by: Admin: 04/25/19 17:24 Dose: 1 each Documented by: Admin: 04/25/19 11:04 Dose: 1 each Documented by: Admin: 04/25/19 07:59 Dose: 1 each Documented by: Admin: 04/24/19 20:54 Dose: 1 each Documented by: Admin: 04/24/19 16:22 Dose: 1 each Documented by: Admin: 04/24/19 13:13 Dose: 1 each Documented by: Admin: 04/24/19 08:15 Dose: 1 each Documented by: Admin: 04/24/19 03:34 Dose: 1 each Documented by: Admin: 04/23/19 22:28 Dose: 1 each Documented by: Admin: 04/23/19 20:31 Dose: 1 each Documented by: Admin: 04/23/19 16:11 Dose: 1 each Documented by: NOHEMI Hydromorphone HCl (Dilaudid) 2 mg IV Q2HP PRN; Protocol PRN Reason: Per Pain Protocol Last Admin: 04/27/19 00:21 Dose: 2 mg Documented by: Admin: 04/26/19 20:34 Dose: 2 mg Documented by: Admin: 04/26/19 17:21 Dose: 2 mg Documented by: Admin: 04/26/19 14:20 Dose: 2 mg Documented by: Admin: 04/26/19 11:55 Dose: 2 mg Documented by: Admin: 04/26/19 10:06 Dose: 2 mg Documented by: Admin: 04/26/19 07:32 Dose: 2 mg Documented by: Admin: 04/26/19 05:27 Dose: 2 mg Documented by: Admin: 04/26/19 03:14 Dose: 2 mg Documented by: Admin: 04/26/19 00:30 Dose: 2 mg Documented by: Admin: 04/25/19 22:03 Dose: 2 mg Documented by: Admin: 04/25/19 19:56 Dose: 2 mg Documented by: Admin: 04/25/19 17:23 Dose: 2 mg Documented by: Admin: 04/25/19 13:46 Dose: 2 mg Documented by: Admin: 04/25/19 11:04 Dose: 2 mg Documented by: Admin: 04/25/19 08:21 Dose: 2 mg Documented by: Admin: 04/24/19 20:54 Dose: 2 mg Documented by: Admin: 04/24/19 16:12 Dose: 2 mg Documented by: Admin: 04/24/19 13:12 Dose: 2 mg Documented by: Admin: 04/24/19 08:16 Dose: 2 mg Documented by: Admin: 04/24/19 05:05 Dose: 2 mg Documented by: Admin: 04/24/19 00:57 Dose: 2 mg Documented by: Admin: 04/23/19 20:32 Dose: 2 mg Documented by: Admin: 04/23/19 17:18 Dose: 2 mg Documented by: DANICA Piperacillin Sod/Tazobactam (Sod 3.375 gm/ Dextrose) 50 mls @ 100 mls/hr IV Q8H COUNT INCLUDES THE [facility]; Protocol Last Admin: 04/27/19 05:38 Dose: 100 mls/hr Documented by: Infusion: 04/26/19 22:34 Dose: 100 mls/hr Documented by: Admin: 04/26/19 22:04 Dose: 100 mls/hr Documented by: Infusion: 04/26/19 14:50 Dose: 0 mls/hr Documented by: Admin: 04/26/19 14:18 Dose: 100 mls/hr Documented by: Infusion: 04/26/19 05:57 Dose: 100 mls/hr Documented by: Admin: 04/26/19 05:27 Dose: 100 mls/hr Documented by: Infusion: 04/25/19 21:52 Dose: 100 mls/hr Documented by: Admin: 04/25/19 21:22 Dose: 100 mls/hr Documented by: Infusion: 04/25/19 14:18 Dose: 0 mls/hr Documented by: Admin: 04/25/19 13:46 Dose: 100 mls/hr Documented by: Infusion: 04/25/19 06:10 Dose: 0 mls/hr Documented by: Admin: 04/25/19 05:40 Dose: 100 mls/hr Documented by: Infusion: 04/24/19 22:59 Dose: 100 mls/hr Documented by: Admin: 04/24/19 22:29 Dose: 100 mls/hr Documented by: Infusion: 04/24/19 16:46 Dose: 0 mls/hr Documented by: Admin: 04/24/19 16:16 Dose: 100 mls/hr Documented by: Infusion: 04/24/19 05:34 Dose: 0 mls/hr Documented by: Admin: 04/24/19 05:04 Dose: 100 mls/hr Documented by: Infusion: 04/23/19 22:15 Dose: 100 mls/hr Documented by: Admin: 04/23/19 21:45 Dose: 100 mls/hr Documented by: Infusion: 04/23/19 16:35 Dose: 0 mls/hr Documented by: Admin: 04/23/19 16:02 Dose: 100 mls/hr Documented by: NOHEMI Vancomycin HCl 1,000 mg/ (Sodium Chloride) 250 mls @ 250 mls/hr IV Q12H LILY; Protocol Last Infusion: 04/27/19 10:25 Dose: 0 mls/hr Documented by: Admin: 04/27/19 09:23 Dose: 250 mls/hr Documented by: Infusion: 04/26/19 21:32 Dose: 250 mls/hr Documented by: Admin: 04/26/19 20:32 Dose: 250 mls/hr Documented by: Infusion: 04/26/19 11:05 Dose: 0 mls/hr Documented by: Admin: 04/26/19 10:05 Dose: 250 mls/hr Documented by: Infusion: 04/25/19 21:01 Dose: 250 mls/hr Documented by: Admin: 04/25/19 20:01 Dose: 250 mls/hr Documented by: Infusion: 04/25/19 09:37 Dose: 0 mls/hr Documented by: Admin: 04/25/19 08:37 Dose: 250 mls/hr Documented by: Infusion: 04/25/19 08:32 Dose: 0 mls/hr Documented by: Admin: 04/24/19 20:52 Dose: 250 mls/hr Documented by: Infusion: 04/24/19 12:57 Dose: 0 mls/hr Documented by: Admin: 04/24/19 11:57 Dose: 250 mls/hr Documented by: Infusion: 04/23/19 23:25 Dose: 0 mls/hr Documented by: Admin: 04/23/19 22:20 Dose: 250 mls/hr Documented by: LILLY Insulin Glargine (Lantus) 30 unit SQ BID COUNT INCLUDES THE [facility] Last Admin: 04/27/19 09:15 Dose: 30 unit Documented by: Admin: 04/26/19 22:03 Dose: 30 unit Documented by: Admin: 04/26/19 09:23 Dose: 30 unit Documented by: Admin: 04/25/19 19:54 Dose: 30 unit Documented by: EUGENE Insulin Human Lispro (Humalog) 0 unit SQ ACHS COUNT INCLUDES THE [facility]; Protocol Last Admin: 04/27/19 11:57 Dose: 6 units Documented by: Admin: 04/27/19 09:17 Dose: Not Given Documented by: Admin: 04/26/19 22:04 Dose: 6 units Documented by: Admin: 04/26/19 17:21 Dose: 6 units Documented by: Admin: 04/26/19 11:54 Dose: 4 units Documented by: Admin: 04/26/19 10:15 Dose: Not Given Documented by: Admin: 04/25/19 20:01 Dose: 6 units Documented by: Admin: 04/25/19 17:23 Dose: 2 units Documented by: Admin: 04/25/19 12:10 Dose: 6 units Documented by: Admin: 04/25/19 08:44 Dose: 8 units Documented by: Admin: 04/24/19 20:52 Dose: 8 units Documented by: Admin: 04/24/19 16:13 Dose: 8 units Documented by: Admin: 04/24/19 13:13 Dose: 10 units Documented by: Admin: 04/24/19 08:16 Dose: 12 units Documented by: Admin: 04/23/19 20:30 Dose: 14 units Documented by: Admin: 04/23/19 16:11 Dose: 8 units Documented by: NOHEMI Oxycodone HCl (Roxicodone) 10 mg PO Q4HP PRN; Protocol PRN Reason: Per Pain Protocol Last Admin: 12/03/19 12:19 Dose: 10 mg Documented by: [email or web address] Admin: 04/27/19 08:23 Dose: 10 mg Documented by: Admin: 04/27/19 04:21 Dose: 10 mg Documented by: Admin: 04/26/19 22:02 Dose: 10 mg Documented by: Admin: 04/26/19 16:44 Dose: 10 mg Documented by: [email or web address] Zolpidem Tartrate (Ambien) 10 mg PO HSP PRN PRN Reason: Insomnia Last Admin: 04/26/19 22:02 Dose: 10 mg Documented by: Admin: 04/25/19 19:56 Dose: 10 mg Documented by: Admin: 04/24/19 20:51 Dose: 10 mg Documented by: Admin: 04/23/19 22:20 Dose: 10 mg Documented by: LILLY Shift Summary 04/27/19 03:24 Shift Summary by Vida Garcia Pt. is alert and oriented x4, pleasant and cooperative with cares. Braxton drain in place is draining small amounts of serosanguineous fluid. Pain has been controlled with Dilaudid x2 this shift (0 and 0020) and Oxy x2 (2200 and 0400). Pt is aware that he cannot have anymore IV Dilaudid if he is to go home today. told patient he would be "home by noon" Patient has been ambulating in hallways at [facility]. Unsure if he is going outside or not. Blood Sugars AC and HS New IV to left forearm is patent and saline locked, used for IV ABO. Will update with verbal report. Initialized on 04/27/19 03:24 - END OF NOTE
--- NOTE | 2019-04-28 08:12 | Operative Note ---
DATE OF OPERATION: 04/24/2019 PREOPERATIVE DIAGNOSIS: Left perirectal abscess. POSTOPERATIVE DIAGNOSIS: Left perirectal abscess. PROCEDURE: Excisional debridement of left perirectal abscess FINDINGS: Large abscess of the left perirectal space. SURGEON: Yesenia Joe MD DESCRIPTION OF PROCEDURE: The procedure was done under IV sedation with local infiltration because of cardiomyopathy. DESCRIPTION OF PROCEDURE: The patient was positioned in high lithotomy position. He was prepped and draped in a sterile field. A time-out procedure was carried out. The perineum was prepped and draped in a sterile field. Local infiltration with 1% Xylocaine with epinephrine was carried out. The abscess cavity with aspirated of 10 mL of pus and this was sent for culture and sensitivity. The abscess cavity was then unroofed using initially an 11 blade followed by electrocautery. A large volume of bloody pus was removed. Finger fractionation in the abscess cavity was carried out. The abscess cavity was then irrigated with 500 mL of saline. A 1/4-inch Braxton drain was placed and a counter incision was made in order to hold the drain in place. The drain was sutured with 2-0 nylon. It was then irrigated once more after which the area was covered with 4 x 4 gauze and surgical briefs were placed to hold the gauze in place. The patient was allowed to awaken and was transferred to a bed and taken to the postanesthetic care unit in stable, satisfactory condition. No perioperative cardiac or respiratory problems were encountered. LCS:tung Job ID: [id number] Doc ID: [id number] Yesenia Joe M.D.
== END 2019-04-27 14:45 | disposition home or self-care (01) | DRG 331 ==
LOC: ED 22:15 → MEDSUR 22:15
PROVIDERS: ADMIT Family Medicine Adult Medicine; ATTEND Family Medicine Adult Medicine